=== PATIENT | female | born 1935 | race Caucasian/White ===

== ENCOUNTER 2020-06-11 14:03 | Outpatient (RCR) | payer MEDICARE, OTHER, SELFPAY | END 2020-06-14 15:19 | disposition home or self-care (01) | LOC: HO.WCC 14:03 | PROVIDERS: PCP Internal Medicine; Visit Provider Physician Assistant | DX: Z09 Encounter for follow-up examination after completed treatment for conditions other than malignant neoplasm (principal); E11.610 Type 2 diabetes mellitus with diabetic neuropathic arthropathy | CPT/HCPCS: 99212 ==

== ENCOUNTER 2020-06-29 14:17 | Inpatient (IN) | payer MEDICARE, OTHER, SELFPAY ==
[2020-06-29] VITALS (9 sets, daily range): BP systolic 129–159; BP diastolic 48–84; PULSE 83–104; RESP 16–31; TEMP 36.5–37.8; O2SAT 92–99; BMI 21.6
--- NOTE | ~2020-06-29 | XR_ITS ---
EXAMINATION: CHEST AND RIGHT FOOT. CLINICAL INFORMATION: SOB. COMPARISON: Chest x-ray 12/08/2019 TECHNIQUE: Chest upright portable one view. Right foot 3 views. FINDINGS: CHEST: The lungs are somewhat expanded with chronic atelectasis/scarring right upper lobe. Rest of the lungs are well-expanded and clear. The heart size and pulmonary vascularity is normal. The right central port with its tip in the mid SVC. There is mild levoscoliosis. No lytic process seen. RIGHT FOOT: There is a chronic flexion deformity of the foot with loss of joint space in the MTP joints. There is no visible acute fracture or dislocation seen. There is pes planus deformity of the right foot. There is moderate dorsal soft tissue swelling of the foot. The ankle mortise is normal. The subtalar joint is barely visible. XR/XR foot RT min 3V IMPRESSION: Chronic atelectasis/scarring right upper lobe. Rest of the lungs are clear. Chronic deformity right foot with loss of MTP joint space all digits. Moderate dorsal foot soft tissue swelling. Pes planus deformity right foot as well. No acute fracture seen.
--- NOTE | ~2020-06-29 | XR_ITS ---
EXAMINATION: CHEST AND RIGHT FOOT. CLINICAL INFORMATION: SOB. COMPARISON: Chest x-ray 12/08/2019 TECHNIQUE: Chest upright portable one view. Right foot 3 views. FINDINGS: CHEST: The lungs are somewhat expanded with chronic atelectasis/scarring right upper lobe. Rest of the lungs are well-expanded and clear. The heart size and pulmonary vascularity is normal. The right central port with its tip in the mid SVC. There is mild levoscoliosis. No lytic process seen. RIGHT FOOT: There is a chronic flexion deformity of the foot with loss of joint space in the MTP joints. There is no visible acute fracture or dislocation seen. There is pes planus deformity of the right foot. There is moderate dorsal soft tissue swelling of the foot. The ankle mortise is normal. The subtalar joint is barely visible. XR/XR chest 1V IMPRESSION: Chronic atelectasis/scarring right upper lobe. Rest of the lungs are clear. Chronic deformity right foot with loss of MTP joint space all digits. Moderate dorsal foot soft tissue swelling. Pes planus deformity right foot as well. No acute fracture seen.
--- NOTE | ~2020-06-29 | CT_ITS ---
EXAMINATION: CTA CHEST PE STUDY CLINICAL INFORMATION: h/o lung cancer, tachypnea, r/o pe COMPARISON: 03/03/2017 CT scan TECHNIQUE: Prior to contrast administration, noncontrast localization images were obtained. After the administration of 100 mL of Omnipaque 350 IV contrast, contiguous thin slice helical images were obtained through the thorax. Reformatted MIP images in the coronal and sagittal planes were obtained at the acquisition workstation. This CT examination was performed using dose optimization techniques as appropriate, variously including the following: *Automated exposure control *Adjustment of mA and/or kV according to patient size (this includes techniques or standardized protocols for targeted exams where dose is matched to indication/reason for exam; i.e. extremities or head) *Use of iterative reconstruction technique DLP: 373 mGy-cm. FINDINGS: The bolus timing on this study was acceptable for visualization of the pulmonary arterial tree. There are no intraluminal pulmonary arterial filling defects present to suggest pulmonary embolism. Patchy airspace disease is noted bilaterally left more so than right. There is debris or mucus impacted distal bronchi more so in the dependent lower lobes with associated peribronchial patchy airspace disease. Aspiration versus infectious etiology could have overlapping appearance. There is collapse of the right middle lobe with the bronchiectasis seen in the right upper lobe and right lower lobe. The bronchiectasis and impacted bronchi has significantly progressed from the 2017 [address] scan. 1.9 cm short axis precarinal lymph node is now present and was not seen on the 2017 CT scan. Additional smaller shotty lymph nodes otherwise. There is no evidence of pleural effusion or pneumothorax. The heart is normal in size. No evidence of ventricular septal bowing or right heart strain. Aortic and coronary artery vascular calcifications. Small hiatal hernia. Otherwise the mediastinum is unremarkable. There is no pericardial effusion or pericardial thickening. Right-sided chest port noted. Limited evaluation of the upper abdominal viscera demonstrates asymmetric fullness of the right adrenal gland likely representing a adrenal adenoma. This is noted on the [address]/CT angio chest PE protocol IMPRESSION: No evidence for pulmonary emboli. Bilateral bronchiectasis with peribronchial airspace disease and debris/mucus impacted bronchi bilaterally. Infectious etiologies would be suspected although chronic aspiration could have a similar appearance and should be clinically correlated. The right middle lobe is collapsed and not well assessed. There is worsened mediastinal adenopathy from the 2017 CT scan. VTE: Negative
--- NOTE | ~2020-06-29 | MR_ITS ---
EXAMINATION: MRI FOOT WITHOUT AND WITH CONTRAST, RIGHT CLINICAL INFORMATION: Diabetic foot wound COMPARISON: Radiographs 06/29/2020 TECHNIQUE: MRI without and with intravenous administration of 6 mL of Gadavist is performed on the right foot. FINDINGS: Skin markers overlie what may be shallow ulcers along the medial aspect of the 1st TMT joint, and plantar aspect of the midfoot, superficial to the distal cuboid. No underlying abscess. There is diffuse subcutaneous edema and enhancement, as well as reticular enhancement/edema within the intrinsic muscles of the foot which may reflect cellulitis. A small collection which is slightly complex and T1 hyperintense overlies the 2nd and 3rd TMT joints and may represent a small hematoma. This is lateral to the extensor hallucis longus tendon. Chronic fracture and arthritic deformities and remodeling across the TMT joints as well as the junction of the navicular and cuneiforms. Marrow edema is prominent at the 2nd TMT joint possibly representing a superimposed acute fracture or secondary to severe arthrosis. There is no convincing evidence of osteomyelitis. MR/MR foot RT wo/w con IMPRESSION: Prominent posttraumatic and arthritic deformities and probable shallow, superficial ulcers adjacent to the 1st TMT joint and plantar to the distal cuboid. No convincing evidence of osteomyelitis.
--- NOTE | 2020-06-29 15:04 | ECG_ITS ---
Test Reason : SOB Blood Pressure : / mmHG Vent. Rate : 094 BPM Atrial Rate : 094 BPM P-R Int : 136 ms QRS Dur : 074 ms QT Int : 334 ms P-R-T Axes : 063 025 047 degrees QTc Int : 417 ms Normal sinus rhythm Possible Left atrial enlargement Borderline ECG When compared with ECG of 16-FEB-2013 14:19, No significant change was found Referred By: Otilia Aviles Electronically Signed By:NORA ASH MD
--- NOTE | 2020-06-29 15:42 | ED_ITS ---
HPI - General Adult General Chief complaint: Wound/Laceration Stated complaint: open sore left foot Time Seen by Provider: 06/29/20 14:56 Source: patient Mode of arrival: ambulatory Limitations: no limitations History of Present Illness HPI narrative: 84-year-old female with a past medical history of noninsulin depe ndent DM, hypertension, hyperlipidemia, osteopenia, Charcot arthropathy with multiple foot surgeries, lung cancer currently receiving keytruda IV every [address] [place]ousse[place] [facility] [place] with complaints of wound to right foot. Patient tells me that she has had multiple foot surgeries and has had chronic wounds before. She has noticed a wound to the medial aspect of her right foot about 3-4 weeks ago. Several days later she noticed a 2nd wound to the plantar aspect of the foot. She tells me they started as a blister and now she noticed the more medial wound is red and warm. She tells me that she has lot of pain with weight-bearing and this morning she was unable to do so due to the amount of pain. No fevers or chills. She does report some pain which extends to the ankle with swelling and warmth. On arrival the patient was noted to be tachypneic. Patient tells me that she h as had some shortness of breath with a productive cough for the last few days. She tells me that she always has shortness of breath and a mild dry cough that these symptoms appear worse. She denies any weight gain, leg swelling, chest pain. Related Data Home Medications Medication Instructions Recorded Confirmed azithromycin 250 mg PO MOWEFR@1000 06/29/20 06/29/20 doxycycline hyclate 100 mg PO DAILY 06/29/20 06/29/20 metoprolol succinate 100 mg PO BID 06/29/20 06/29/20 ramipril 10 mg PO DAILY 06/29/20 06/29/20 sitagliptin [Januvia] 50 mg PO DAILY 06/29/20 06/29/20 tolterodine [Detrol LA] 4 mg PO BID 06/29/20 06/29/20 Allergies Allergy/AdvReac Type Severity Reaction Status Date / Time PLASTIC TAPE Allergy Intermediate RED RAW Uncoded 06/29/20 14:44 SKIN Review of Systems Review of Systems: Yes all other systems are reviewed and are negative Constitutional: Constitutional: Reports no additional constitutional complaints, Denies body ache(s), Denies chills, Denies fever(s), Denies headache(s) and Denies weakness Eyes: Eyes: Reports no additional eye complaints and Denies change in vision ENT: Reports system reviewed and no additional complaints, except as documented, Denies dizziness, Denies headache(s), Denies nasal congestion, Denies nasal discharge and Denies neck pain Cardiovascular: Cardiovascular: Reports no additional cardiovascular complaints, Denies chest pain, Denies leg edema and Reports dyspnea Respiratory: Respiratory: Reports no additional respiratory complaints, Reports cough and Reports dyspnea Gastrointestinal: Gastrointestinal: Reports no additional gastrointestinal complaints, Denies abdominal pain, Denies diarrhea, Denies nausea and Denies vomiting Genitourinary: Genitourinary: Reports no additional female genitourinary complaints and Denies urinary incontinence Musculoskeletal: Musculoskeletal: Reports no additional musculoskeletal complaints, Denies back pain, Reports arthralgias, Reports joint swelling, Denies neck pain, Denies numbness and Denies tingling Integumentary/Breasts: Skin/Breast: Reports system reviewed and no additional complaints, except as docu, Reports non-healing lesions, Reports erythema and Denies rash Neurologic: Reports system reviewed and no additional complaints, except as documented, Denies Abnormal speech present, Denies dizziness, Denies headache(s), Denies numbness, Denies tingling and Denies weakness PMFSH Past Medical History Attestation statement: The following information was validated with the patient. Source: old records reviewed and nursing notes reviewed Medical History Diabetes Hypercholesteremia Hypertension Lung cancer Toe amputee Social History Social History Alcohol intake: current Alcohol intake frequency: holidays/special occasions only Smoking Status: Former smoker Smoked in Last 30 Days: No Use of substances other than those prescribed or required for medical reasons: No Advance Directives: Yes Advance Directives Information Provided: Yes Advance Directives on File: No Physical Exam Vital Signs: Vital Signs: Last Vital Signs Temp 100.0 F 06/29/20 17:29 Pulse 103 H 06/29/20 17:29 Resp 20 06/29/20 17:29 BP 153/84 H 06/29/20 17:29 Pulse Ox 92 02/12/21 17:29 Body Mass Index 21.6 Const: General: cooperative and healthy appearing Orientation/consciousness: patient oriented x3 Limitations: no limitations HENMT: Head: Yes normal to inspection Ears: hearing grossly normal bilaterally General nose exam: Normal external nose present Face and sinus: Yes normal facial exam Mouth: Normal oral and palatal mucosa present Throat: Yes posterior oropharynx normal Eyes: General: appearance normal, both eyes and all related structures Pupils: Equal, round and reactive pupils present Neck: Neck: Yes normal visual inspection Chest: Chest palpation & inspection: normal inspection of the chest Resp: Other: Speaking short phrases with respiratory rate in the 30s Coarse breath sounds throughout, mild expiratory wheeze posteriorly Cardio: Rate: regular rate Rhythm: regular rhythm Peripheral pulses: Peripheral pulses 2+ throughout GI: Inspection: Yes normal to inspection Palpation (GI): Soft to palpation and nontender Auscultation: normal bowel sounds Back/Spine/Pelvis: Thoracic/Lumbar Spine: thoracic and lumbar spine normal to inspection Skin: General skin exam: no rashes or lesions noted Neuro: General: patient oriented x3, no focal motor deficits, normal sensation to monofilament and Unable to assess gait Cranial nerves: Yes Equal, round and reactive pupils present Cognition (Neuro): normal cognition Speech: No Abnormal speech present Gait exam (Neuro): Unable to assess gait Extrem: Other: Tenderness over both wound sites with no fluctuance or mathieu ration. Warmth over foot extending to ankle. Mild edema (non pitting) 1 + over ankle. Palpable pulse noted. Course Course Course Narrative: 1500-84 yo female with past medical history of noninsulin d ependent DM, hypertension, hyperlipidemia, osteopenia, Charcot arthropathy with multiple foot surgeries, lung cancer currently receiving keytruda IV every [address] [place] [facility] [place] with complaints of wound to right foot with pain, swelling and warmth, in addition to tachypnea and productive cough. On arrival tachypnic, tachycardic with coarse breath sounds throughout, mild exp wheezing. Stable saturations 93-94%. 2 wounds noted on right foot with erythema, warmth and tenderness. Will need labs including blood cultures, lactic acid, COVID test, CXR, foot x- ray and EKG. At this time infection is suspected. Antibiotics ordered. 1645-CXR shows chronic emphysematous changes, no acute infection. COVID negative. BNP mildly elevated with no previous to compare to. Continued ta chypnea and cough with WOB. Will check CTA to r/o PE. X-ray foot Chronic deformity right foot with loss of MTP joint space all digits. Moderate dorsal foot soft tissue swelling. Pes planus deformity right foot as well. No acute fracture seen. No evidence of osteomylitis but will likely need MRI. 1715-Port accessed by nursing. Flushes well but NO blood return. Will likely need port studies during admission. 1800-Sign out to Soraya MARTEL pending above. Medical Decision Making Medical Records Medical records reviewed: Yes I reviewed the patient's medical records. Lab Data Lab results reviewed: Yes I reviewed the patient's lab results. Result diagrams: 06/29/20 15:51 06/29/20 15:51 Labs: Lab Results 06/29/20 06/29/20 06/29/20 Range/Units 15:51 15:51 15:51 WBC 11.4 H (4.8-10.8) X10*3/uL RBC 3.85 L (4.20-5.50) X10*6/uL Hgb 11.5 L (12.0-16.0) g/dl Hct 35.9 L (37-47) % MCV 93.2 (80-98) fL MCH 29.9 (27.0-33.0) pg MCHC 32.0 (31.0-35.0) g/dl RDW 14.4 (11.0-16.0) % Plt Count 152 L (160-400) X10*3/uL MPV 10.4 (9.4-12.3) fL Immature Gran % (Auto) 0.8 H (0.0-0.4) % Neut % (Auto) 89.3 H (45-73) % Lymph % (Auto) 2.3 L (20-40) % [place] % (Auto) 7.3 (2-11) % Eos % (Auto) 0.0 (0-4) % Baso % (Auto) 0.3 (0-2) % Lymph # (Auto) 0.3 L (1.2-4.9) X10*3/uL [place] # (Auto) 0.8 (0.1-1.2) X10*3/uL Eos # (Auto) 0.0 (0.0-0.4) X10*3/uL Baso # (Auto) 0.0 (0.0-0.2) X10*3/uL Abs Immat Gran (auto) 0.09 H (0.00-0.03) X10*3/uL Absolute Neuts (auto) 10.2 H (2.0-8.3) X10*3/uL Absolute Nucleated RBC 0.000 (0.0-0.012) X10*3/uL Nucleated RBC % (auto) 0.0 (0.0-0.2) /100WBC Smear Tech's Comments VERIFIED PT 13.7 H (10.8-13.0) SEC INR 1.2 H (0.9-1.1) Sodium 140 (135-145) mmol/L Potassium 4.4 (3.3-5.1) mmol/L Chloride 104 (96-108) mmol/L Carbon Dioxide 25 (22-29) mmol/L Anion Gap 15 (12-20) BUN 20 H (9-16) mg/dL Creatinine 0.81 (0.5-1.4) mg/dL Estim Creat Clear Calc 45.6 Estimated GFR > 60 Random Glucose 171 H (60-115) mg/dL Lactic Acid (0.5-2.0) mmol/L Calcium 8.8 (8.4-10.2) mg/dL Magnesium 1.6 (1.6-2.6) mg/dL Total Bilirubin 0.5 (0.0-1.0) mg/dL Direct Bilirubin 0.3 (0.0-0.5) mg/dL AST 23 (5-31) U/L ALT 18 (0-31) U/L Alkaline Phosphatase 106 (39-117) U/L Troponin I High Sens (<3.5-17.0) ng/L B-Natriuretic Peptide (<100) pg/mL Total Protein 6.3 L (6.5-8.0) g/dL Albumin 2.9 L (3.5-5.0) g/dL COVID-19 (FADY) (Negative) COVID-19 Clin Com 06/29/20 06/29/20 06/29/20 Range/Units 15:51 15:51 15:51 WBC (4.8-10.8) X10*3/uL RBC (4.20-5.50) X10*6/uL Hgb (12.0-16.0) g/dl Hct (37-47) % MCV (80-98) fL MCH (27.0-33.0) pg MCHC (31.0-35.0) g/dl RDW (11.0-16.0) % Plt Count (160-400) X10*3/uL MPV (9.4-12.3) fL Immature Gran % (Auto) (0.0-0.4) % Neut % (Auto) (45-73) % Lymph % (Auto) (20-40) % [place] % (Auto) (2-11) % Eos % (Auto) (0-4) % Baso % (Auto) (0-2) % Lymph # (Auto) (1.2-4.9) X10*3/uL [place] # (Auto) (0.1-1.2) X10*3/uL Eos # (Auto) (0.0-0.4) X10*3/uL Baso # (Auto) (0.0-0.2) X10*3/uL Abs Immat Gran (auto) (0.00-0.03) X10*3/uL Absolute Neuts (auto) (2.0-8.3) X10*3/uL Absolute Nucleated RBC (0.0-0.012) X10*3/uL Nucleated RBC % (auto) (0.0-0.2) /100WBC Smear Tech's Comments PT (10.8-13.0) SEC INR (0.9-1.1) Sodium (135-145) mmol/L Potassium (3.3-5.1) mmol/L Chloride (96-108) mmol/L Carbon Dioxide (22-29) mmol/L Anion Gap (12-20) BUN (9-16) mg/dL Creatinine (0.5-1.4) mg/dL Estim Creat Clear Calc Estimated GFR Random Glucose (60-115) mg/dL Lactic Acid 3.1 H* (0.5-2.0) mmol/L Calcium (8.4-10.2) mg/dL Magnesium (1.6-2.6) mg/dL Total Bilirubin (0.0-1.0) mg/dL Direct Bilirubin (0.0-0.5) mg/dL AST (5-31) U/L ALT (0-31) U/L Alkaline Phosphatase (39-117) U/L Troponin I High Sens < 3.5 (<3.5-17.0) ng/L B-Natriuretic Peptide 300 H (<100) pg/mL Total Protein (6.5-8.0) g/dL Albumin (3.5-5.0) g/dL COVID-19 (FADY) Negative (Negative) COVID-19 Clin Com See Note Imaging Data Chest x-ray: Attestation: I personally reviewed and interpreted this imaging study as follows: Radiologist's impression: CHEST: The lungs are somewhat expanded with chronic atelectasis/scarring right upper lobe. Rest of the lungs are well-expanded and clear. The heart size and pulmonary vascularity is normal. The right central port with its tip in the mid SVC. There is mild levoscoliosis. No lytic process seen. foot- xray: Attestation: I personally reviewed and interpreted this imaging study as follows: Radiologist's impression: RIGHT FOOT: There is a chronic flexion deformity of the foot with loss of joint space in the MTP joints. There is no visible acute fracture or dislocation seen. There is pes planus deformity of the right foot. There is moderate dorsal soft tissue swelling of the foot. The ankle mortise is normal. The subtalar joint is barely visible. ECG Data Attestation: I personally reviewed and interpreted this ECG as follows: Interpretation: NSR with rate 94, normal pr, normal qrs, normal qtc Discharge Plan Discharge Prescriptions: No Action doxycycline hyclate 100 mg Capsule 100 mg PO DAILY RF: 0 azithromycin 250 mg Tablet 250 mg PO MOWEFR@1000 RF: 0 metoprolol succinate 100 mg Tablet Extended Release 24 Hr 100 mg PO BID RF: 0 tolterodine [Detrol LA] 4 mg Capsule,Extended Release 24hr 4 mg PO BID RF: 0 ramipril 10 mg Capsule 10 mg PO DAILY RF: 0 Januvia 50 mg Tablet 50 mg PO DAILY RF: 0
[2020-06-29] MEDS: Albuterol/Iprat 2.5/0.5MG 3 ML AMPUL.NEB INHALE (15:59)
[2020-06-29 16:03] LABS: Basophils Percent Auto 0.3 % (0-2); Hematocrit 35.9 % (37-47); Hemoglobin 11.5 g/dl (12.0-16.0); Imm Gran Abs Auto 0.09 X10*3/uL (0.00-0.03); Imm Gran Pct Auto 0.8 % (0.0-0.4); Lymphocytes Absolute Auto 0.3 X10*3/uL (1.2-4.9); Lymphocytes Percent Auto 2.3 % (20-40); MANUAL DIFF FLAG SCAN; Mean Corpuscular Hemoglobin 29.9 pg (27.0-33.0); Mean Corpuscular Volume 93.2 fL (80-98); Mean Platelet Volume 10.4 fL (9.4-12.3); Monocytes Absolute Auto 0.8 X10*3/uL (0.1-1.2); Monocytes Percent Auto 7.3 % (2-11); Neutrophils Absolute Auto 10.2 X10*3/uL (2.0-8.3); Neutrophils Percent Auto 89.3 % (45-73); Platelet Count 152 X10*3/uL (160-400); Red Blood Count 3.85 X10*6/uL (4.20-5.50); Red Cell Distribution Width 14.4 % (11.0-16.0); SCAN SMEAR FLAG 1; White Blood Count 11.4 X10*3/uL (4.8-10.8)
[2020-06-29] MEDS: Piperacillin Sodium/Tazobactam 3.375 GM in 0.9 % Sodium Chloride 50 ML IV (16:09)
[2020-06-29 16:11] LABS: INTERNATIONAL NORM RATIO 1.2 (0.9-1.1); Prothrombin Time 13.7 SEC (10.8-13.0)
[2020-06-29 16:23] LABS: COVID-19 Test Negative (Negative); IDNOW Serial# 9DD0AD1C
[2020-06-29 16:24] LABS: SLIDE REVIEW VERIFIED
[2020-06-29] MEDS: methylPREDNISolone Sod Succ/PF 125 MG/2 ML VIAL IVPUSH (16:28)
[2020-06-29 16:36] LABS: Alanine Aminotransferase 18 U/L (0-31); Albumin Level 2.9 g/dL (3.5-5.0); Alkaline Phosphatase 106 U/L (39-117); Anion Gap 15 (12-20); Aspartate Amino Transferase 23 U/L (5-31); Bilirubin Direct 0.3 mg/dL (0.0-0.5); Bilirubin Total 0.5 mg/dL (0.0-1.0); Blood Urea Nitrogen 20 mg/dL (9-16); Calcium 8.8 mg/dL (8.4-10.2); Carbon Dioxide 25 mmol/L (22-29); Chloride 104 mmol/L (96-108); Creatinine Clr Calc Pharmacy 45.6; Estimated Glomerular Filt Rate > 60; Glucose Random 171 mg/dL (60-115); Lactic Acid 3.1 mmol/L (0.5-2.0); Magnesium 1.6 mg/dL (1.6-2.6); Potassium 4.4 mmol/L (3.3-5.1); Sodium 140 mmol/L (135-145); Total Protein 6.3 g/dL (6.5-8.0)
[2020-06-29 16:43] LABS: B Type Natriuretic Peptide 300 pg/mL (<100); Troponin-I High Sensitivity < 3.5 ng/L (<3.5-17.0)
[2020-06-29] MEDS: 0.9 % Sodium Chloride 500 ML 999 ML IV (17:18)
--- NOTE | 2020-06-29 17:52 | PC.NURSE ---
Port Accessed. Provider aware of no blood return. Flushed without resistance.
[2020-06-29 18:00] LABS: Reflex Lactate? Lactic Acid Added
[2020-06-29] MEDS: vancomycin HCL 1,000 MG in 0.9 % Sodium Chloride 250 ML 270 MG IV (18:14)
[2020-06-29] MEDS: iohexoL 350 MG/ML 100 ML INFUS..BTL IV (18:36)
[2020-06-29 18:55] LABS: ~Lactic Acid-LAB USE ONLY 2.1 mmol/L (0.5-2.0)
--- NOTE | 2020-06-29 20:20 | P.HPHOSP_ITS ---
History of Present Illness Date of Service: 06/29/20 Chief Complaint: Foot wound This is an 84-year-old female with past medical history of diabetes, HTN, HLD, lung cancer, osteopenia, and diabetic neuropathy presents to the hospital with complaints of right foot wound, and severe pain right foot. Patient reports that about a week and half ago she noticed a bump at the bottom of her foot as well as an open wound at the medial aspect of her right foot. Her doctor referred her to the wound clinic, but per patient they recommended no intervention as she had no drainage. Patient reports that she continued to develop worsening pain the bump at the bottom of her right foot, 10/10, non- radiating, shooting pain, so severe that she can not even walk on that foot anymore. She also has noticed redness around the medial wound. She has swelling. She has no fever but chills. Patient reports chronic shortness of breath that has worsened in the past few weeks, also chronic cough that has not worsened, no sputum production, no chest pain, no abdominal pain, no nausea or vomiting, no diarrhea constipation. No urinary symptoms. No weakness, headache or change in vision. On arrival to the ED patient has a temp of 97.7?, pulse rate of 96, respiratory rate of 31, blood pressure 159/48, satting 95% on room air. Labs are significant for WBC of 11.4, Hgb of 11.5, ESR 55, PT 13.7, INR 1.2, lactic acid of 3.1 improved to 2.1 after fluids, CRP of 19.5, BNP of 300, Chest CT angiogram showed no pulmonary emboli. Bilateral bronchiectasis with peribronchial airspace disease and debris is/mucus impacted bronchi bilaterally. Infectious etiologies would be suspected although chronic aspiration could have a similar appearance. 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, 4th, and 5th toe, right 3rd and 4th toe, fracture femur, Family history: Denies Social history: Comes from home, denies any tobacco alcohol or illicit drugs Review of Systems Review of Systems: Yes all other systems are reviewed and are negative [facility] Medical History Diabetes Hx of osteomyelitis Hypercholesteremia Hypertension Lung cancer Toe amputee Social History Alcohol intake: current Alcohol intake frequency: holidays/special occasions only Smoking Status: Former smoker Smoked in Last 30 Days: No Use of substances other than those prescribed or required for medical reasons: No Advance Directives: Yes Advance Directives Information Provided: Yes Advance Directives on File: No Meds Allergies Allergy/AdvReac Type Severity Reaction Status Date / Time PLASTIC TAPE Allergy Intermediate RED RAW Uncoded 06/29/20 14:44 SKIN Active Medications: Current Medications Generic Name Dose Route Start Last Admin Trade Name Freq PRN Reason Stop Dose Admin Acetaminophen 650 mg 06/29/20 20:18 Acetaminophen 325 Mg Tablet PO Q6H PRN Pain, Mild (Pain Scale 1-3) Docusate Sodium 100 mg 06/29/20 20:18 Docusate Sodium 100 Mg Capsule PO DAILY PRN Constipation Enoxaparin Sodium 40 mg 06/29/20 20:30 Enoxaparin Sodium 40 Mg/0.4 Ml Syringe SUBCUT Q24H ROWAN Vancomycin HCl 1,000 mg/ 270 mls @ 270 mls/hr 06/29/20 20:18 Sodium Chloride IV Q12H ROWAN Piperacillin Sod/Tazobactam 50 mls @ 100 mls/hr 06/29/20 20:18 Sod 3.375 gm/ Sodium Chloride IV 06/29/20 20:47 ONCE ONE Metoprolol Succinate 100 mg 06/29/20 21:00 Metoprolol Succinate Er 100 Mg Tab.Er.24h PO BID [facility] Protocol Non-Formulary Medication 10 mg 06/30/20 09:00 Ramipril PO DAILY ROWAN Ondansetron HCl 4 mg 06/29/20 20:18 Ondansetron Hcl 4 Mg/2 Ml Vial IVPUSH Q8H PRN Nausea and Vomiting Oxycodone HCl 5 mg 06/29/20 20:20 Oxycodone Hcl Immed Release 5 Mg Tablet PO Q6H PRN Pain, Severe (Pain Scale 7-10) Pharmacy Consult 1 each 06/29/20 15:04 Consult Rx Perform Med Rec MISCELLANE ONCE PRN Consult order Pharmacy Consult 1 each 06/29/20 20:18 Consult Rx Vancomycin Dosing MISCELLANE DAILY PRN Consult order Sodium Chloride 3 ml 06/30/20 00:00 0.9 % Sodium Chloride Flush 3 Ml Syringe IVFLUSH QSHIFT [facility] Tolterodine Tartrate 4 mg 06/29/20 21:00 Tolterodine Tartrate La 4 Mg Cap.Er.24h PO BID [facility] Home Medications Medication Instructions Recorded Confirmed Last Taken Type azithromycin 250 mg PO MOWEFR@1000 06/29/20 06/29/20 Unknown History doxycycline hyclate 100 mg PO DAILY 06/29/20 06/29/20 Unknown History metoprolol succinate 100 mg PO BID 06/29/20 06/29/20 Unknown History ramipril 10 mg PO DAILY 06/29/20 06/29/20 Unknown History sitagliptin [Januvia] 50 mg PO DAILY 06/29/20 06/29/20 Unknown History tolterodine [Detrol LA] 4 mg PO BID 06/29/20 06/29/20 Unknown History Physical Exam Vital Signs and Narrative: Vital Signs: Last Vital Signs Temp 98.9 F 06/29/20 19:16 Pulse 97 06/29/20 19:16 Resp 30 H 06/29/20 19:16 BP 142/59 H 06/29/20 19:16 Pulse Ox 93 06/29/20 19:16 Body Mass Index 21.6 Const: General: cooperative and no acute distress Orientation/consciousness: patient oriented x3 Eyes: General: appearance normal, both eyes and all related structures Resp: Effort & Inspection: normal respiratory effort and able to speak in complete sentences Cardio: Rate: regular rate Rhythm: regular rhythm GI: Palpation (GI): Soft to palpation Auscultation: normal bowel sounds Skin: General skin exam: no rashes or lesions noted Neuro: General: patient oriented x3 Cognition (Neuro): normal cognition Extrem: Other: has an erythematous open wound on the medial aspect of right foot. warmth, tenderness. alsop has a bump at the dorsum of the foot that is tender. Results Labs CBC and Chem 7: 06/29/20 15:51 06/29/20 15:51 Labs: Laboratory Results - last 24 hr 06/29/20 06/29/20 06/29/20 15:51 15:51 15:51 MCV 93.2 MCH 29.9 MCHC 32.0 RDW 14.4 Plt Count 152 L MPV 10.4 Immature Gran % (Auto) 0.8 H Neut % (Auto) 89.3 H Lymph % (Auto) 2.3 L [place] % (Auto) 7.3 Eos % (Auto) 0.0 Baso % (Auto) 0.3 Lymph # (Auto) 0.3 L [place] # (Auto) 0.8 Eos # (Auto) 0.0 Baso # (Auto) 0.0 Abs Immat Gran (auto) 0.09 H Absolute Neuts (auto) 10.2 H Absolute Nucleated RBC 0.000 Nucleated RBC % (auto) 0.0 Smear Tech's Comments VERIFIED PT 13.7 H INR 1.2 H Anion Gap 15 Estim Creat Clear Calc 45.6 Estimated GFR > 60 Random Glucose 171 H Lactic Acid Lactic Acid Fup @ 2Hr Calcium 8.8 Magnesium 1.6 Total Bilirubin 0.5 Direct Bilirubin 0.3 AST 23 ALT 18 Alkaline Phosphatase 106 Troponin I High Sens B-Natriuretic Peptide Total Protein 6.3 L Albumin 2.9 L COVID-19 (FADY) [employer] 06/29/20 06/29/20 06/29/20 15:51 15:51 15:51 MCV MCH MCHC RDW Plt Count MPV Immature Gran % (Auto) Neut % (Auto) Lymph % (Auto) [place] % (Auto) Eos % (Auto) Baso % (Auto) Lymph # (Auto) [place] # (Auto) Eos # (Auto) Baso # (Auto) Abs Immat Gran (auto) Absolute Neuts (auto) Absolute Nucleated RBC Nucleated RBC % (auto) Smear Tech's Comments PT INR Anion Gap Estim Creat Clear Calc Estimated GFR Random Glucose Lactic Acid 3.1 H* Lactic Acid Fup @ 2Hr Calcium Magnesium Total Bilirubin Direct Bilirubin AST ALT Alkaline Phosphatase Troponin I High Sens < 3.5 B-Natriuretic Peptide 300 H Total Protein Albumin COVID-19 (FADY) Negative [employer] See Note 06/29/20 18:12 MCV MCH MCHC RDW Plt Count MPV Immature Gran % (Auto) Neut % (Auto) Lymph % (Auto) [place] % (Auto) Eos % (Auto) Baso % (Auto) Lymph # (Auto) [place] # (Auto) Eos # (Auto) Baso # (Auto) Abs Immat Gran (auto) Absolute Neuts (auto) Absolute Nucleated RBC Nucleated RBC % (auto) Smear Tech's Comments PT INR Anion Gap Estim Creat Clear Calc Estimated GFR Random Glucose Lactic Acid Lactic Acid Fup @ 2Hr 2.1 H* Calcium Magnesium Total Bilirubin Direct Bilirubin AST ALT Alkaline Phosphatase Troponin I High Sens B-Natriuretic Peptide Total Protein Albumin COVID-19 (FADY) COVID-19 Clin Com Imaging Radiologist's Impressions: Impressions Chest X-Ray 06/29/20 15:04 IMPRESSION: Chronic atelectasis/scarring right upper lobe. Rest of the lungs are clear. Chronic deformity right foot with loss of MTP joint space all digits. Moderate dorsal foot soft tissue swelling. Pes planus deformity right foot as well. No acute fracture seen. Foot X-Ray 06/29/20 15:04 IMPRESSION: Chronic atelectasis/scarring right upper lobe. Rest of the lungs are clear. Chronic deformity right foot with loss of MTP joint space all digits. Moderate dorsal foot soft tissue swelling. Pes planus deformity right foot as well. No acute fracture seen. Chest CTA 06/29/20 16:45 IMPRESSION: No evidence for pulmonary emboli. Bilateral bronchiectasis with peribronchial airspace disease and debris/mucus impacted bronchi bilaterally. Infectious etiologies would be suspected although chronic aspiration could have a similar appearance and should be clinically correlated. The right middle lobe is collapsed and not well assessed. There is worsened mediastinal adenopathy from the 2017 CT scan. 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 # diabetic foot ulcer - elevated ESR, elevated CRP, concerning for possible osteomyelitis - has evidence of cellulitis, including erythema, warmth, tenderness - at this time will empirically treat her with vancomycin and Zosyn - follow cultures - MRI to rule out osteomyelitis # leukocytosis - secondary to acute infection as above - antibiotics - follow CBC # Lactic acidosis - 2/2 infection - improved with iv fluids - Will trend - start IV fluids # hypertension - stable - continue home med # diabetes - start low-dose sliding scale insulin -diabetic diet # history of lung cancer DVT prophylaxis: Lovenox
[2020-06-29 20:21] LABS: Reflex Lactate? 2 Y
--- NOTE | 2020-06-29 20:42 | PC.NURSE ---
Per Dr. Geetha Carvalho and Rossi.
[2020-06-29 20:57] LABS: ~Lactic Acid-LAB USE ONLY 0.9 mmol/L (0.5-2.0)
[2020-06-29 21:00] LABS: C Reactive Protein 19.05 mg/dL (< or = 0.50)
--- NOTE | 2020-06-29 21:08 | PC.NURSE ---
Report called to med/surg. Awaiting callback.
[2020-06-29 21:21] LABS: Erythrocyte Sedimentation Rate 55 MM/HR (0-20)
[2020-06-29] MEDS: Metoprolol Succinate ER 100 MG TAB.ER.24H PO (21:34)
[2020-06-29] MEDS: Enoxaparin Sodium 40 MG/0.4 ML SYRINGE SUBCUT (21:35)
[2020-06-29] MEDS: Tolterodine Tartrate LA 4 MG CAP.ER.24H PO (21:40)
[2020-06-29 21:51] LABS: Glucose, Whole Blood 181 mg/dL (60-115)
[2020-06-30] VITALS (7 sets, daily range): BP systolic 112–141; BP diastolic 57–66; PULSE 73–84; RESP 16–19; TEMP 36.7–37.2; O2SAT 94–98
[2020-06-30] MEDS: 0.9 % Sodium Chloride Flush 3 ML SYRINGE IVFLUSH ×3 (00:07→16:08)
[2020-06-30 02:19] LABS: Glucose Urine UA NEG (NEG); Leukocyte Esterase Urine NEG (NEG); Nitrite Urine NEG (NEG); Urine Blood NEG (NEG); Urine Ketones 5 MG/DL (NEG); Urine Protein NEG (NEG-TRACE)
[2020-06-30 02:23] LABS: Appearance Urine CLEAR; Color Urine YELLOW
--- NOTE | 2020-06-30 07:01 | PC.NURSE ---
This patient's monitor watched by SOTERO Kessler RN for 11-7a
[2020-06-30 07:23] LABS: Basophils Percent Auto 0.2 % (0-2); Hematocrit 30.5 % (37-47); Hemoglobin 10.1 g/dl (12.0-16.0); MANUAL DIFF FLAG SCAN; Mean Corpuscular HGB Conc 33.1 g/dl (31.0-35.0); PLT CLUMP 1; SCAN SMEAR FLAG 1
[2020-06-30 07:26] LABS: Imm Gran Abs Auto 0.06 X10*3/uL (0.00-0.03); Imm Gran Pct Auto 0.5 % (0.0-0.4); Lymphocytes Absolute Auto 0.4 X10*3/uL (1.2-4.9); Lymphocytes Percent Auto 3.6 % (20-40); Mean Corpuscular Hemoglobin 30.4 pg (27.0-33.0); Mean Corpuscular Volume 91.9 fL (80-98); Mean Platelet Volume 10.3 fL (9.4-12.3); Monocytes Absolute Auto 0.7 X10*3/uL (0.1-1.2); Monocytes Percent Auto 6.5 % (2-11); Neutrophils Absolute Auto 9.9 X10*3/uL (2.0-8.3); Neutrophils Percent Auto 89.2 % (45-73); Platelet Count 138 X10*3/uL (160-400); Red Blood Count 3.32 X10*6/uL (4.20-5.50); Red Cell Distribution Width 14.6 % (11.0-16.0); White Blood Count 11.1 X10*3/uL (4.8-10.8)
[2020-06-30 07:43] LABS: Glucose, Whole Blood 153 mg/dL (60-115)
[2020-06-30 07:48] LABS: Anion Gap 13 (12-20); Blood Urea Nitrogen 17 mg/dL (9-16); Carbon Dioxide 23 mmol/L (22-29); Chloride 105 mmol/L (96-108); Creatinine Clr Calc Pharmacy 55.2; Estimated Glomerular Filt Rate > 60; Glucose Random 149 mg/dL (60-115); Potassium 3.7 mmol/L (3.3-5.1); Sodium 137 mmol/L (135-145)
[2020-06-30 07:57] LABS: Calcium 8.1 mg/dL (8.4-10.2)
[2020-06-30 08:46] LABS: SLIDE REVIEW VERIFIED
[2020-06-30] MEDS: Metoprolol Succinate ER 100 MG TAB.ER.24H PO ×2 (08:50→21:34)
[2020-06-30] MEDS: oxyCODONE HCl Immed Release 5 MG TABLET PO (08:50)
[2020-06-30] MEDS: Tolterodine Tartrate LA 4 MG CAP.ER.24H PO ×2 (08:50→21:35)
[2020-06-30] MEDS: Piperacillin Sodium/Tazobactam 3.375 GM in 0.9 % Sodium Chloride 50 ML IV ×3 (08:50→21:36)
[2020-06-30] MEDS: vancomycin HCL 500 MG in 0.9 % Sodium Chloride 100 ML 110 MG IV ×2 (09:31→18:56)
--- NOTE | 2020-06-30 10:51 | P.PNIM_ITS ---
Subjective Subjective Date of Service: 06/30/20 Interval History: seen and examined this AM reports foot pain; reports worsening when bearing weight denies fevers or chills ROS General - no fevers or chills Cardiovascular - no chest pain Respiratory - no shortness of breath or cough Abdominal- no abdominal pain, nausea, vomiting, diarrhea Physical Exam Vital Signs: Vital Signs: Last Vital Signs Temp 98.3 F 06/30/20 07:35 Pulse 76 06/30/20 07:35 Resp 19 06/30/20 07:35 BP 134/62 06/30/20 07:35 Pulse Ox 94 06/30/20 07:35 Body Mass Index 21.6 Const: Other: General - no acute distress, appears comfortable Cardiovascular - regular rate and rhythm, S1-S2 Lungs - normal respiratory effort, clear to auscultation bilaterally, no wheezing Abdomen - soft, nontender, no rebound or guarding Extremities - no edema bilaterally Neuro - awake and alert, no focal deficits Skin: Other: Objective Data Current Medications Generic Name Dose Route Start Last Admin Trade Name Rjq PRN Reason Stop Dose Admin Acetaminophen 650 mg 06/29/20 20:18 Acetaminophen 325 Mg Tablet PO Q6H PRN Pain, Mild (Pain Scale 1-3) Docusate Sodium 100 mg 06/29/20 20:18 Docusate Sodium 100 Mg Capsule PO DAILY PRN Constipation Enoxaparin Sodium 40 mg 06/29/20 20:30 06/29/20 21:35 Enoxaparin Sodium 40 Mg/0.4 Ml Syringe SUBCUT 40 mg Q24H [facility] Administration Vancomycin HCl 500 mg/ Sodium 110 mls @ 110 mls/hr 06/30/20 07:00 06/30/20 09:31 Chloride IV 110 mls/hr Q12H [facility] Administration Piperacillin Sod/Tazobactam 50 mls @ 100 mls/hr 06/30/20 09:00 06/30/20 09:26 Sod 3.375 gm/ Sodium Chloride IV Infused Q6H [facility] Infusion Insulin Human Lispro 0 unit 06/30/20 07:30 06/30/20 08:10 Insulin Lispro 100 Unit/Ml 3 Ml Vial SUBCUT Not Given QIDACHS [facility] Protocol Metoprolol Succinate 100 mg 06/29/20 21:00 06/30/20 08:50 Metoprolol Succinate Er 100 Mg Tab.Er.24h PO 100 mg BID [facility] Administration Protocol Non-Formulary Medication 10 mg 06/30/20 09:00 Ramipril PO DAILY [facility] Ondansetron HCl 4 mg 06/29/20 20:18 Ondansetron Hcl 4 Mg/2 Ml Vial IVPUSH Q8H PRN Nausea and Vomiting Oxycodone HCl 5 mg 06/29/20 20:20 06/30/20 08:50 Oxycodone Hcl Immed Release 5 Mg Tablet PO 5 mg Q6H PRN Administration Pain, Severe (Pain Scale 7-10) Pharmacy Consult 1 each 06/29/20 15:04 Consult Rx Perform Med Rec MISCELLANE ONCE PRN Consult order Pharmacy Consult 1 each 06/29/20 20:18 Consult Rx Vancomycin Dosing MISCELLANE DAILY PRN Consult order Sodium Chloride 3 ml 06/30/20 00:00 06/30/20 08:51 0.9 % Sodium Chloride Flush 3 Ml Syringe IVFLUSH 3 ml QSHIFT [facility] Administration Tolterodine Tartrate 4 mg 06/29/20 21:00 06/30/20 08:50 Tolterodine Tartrate La 4 Mg Cap.Er.24h PO 4 mg BID [facility] Administration Labs CBC & Chem 7: 06/30/20 07:00 06/30/20 07:00 Assessment and Plan (1) Diabetic foot ulcer: Status: Acute (2) Hx of osteomyelitis: Status: Inactive (3) Hypercholesteremia: Status: Acute (4) Lung cancer: Status: Acute (5) Hypertension: Status: Acute (6) Diabetes: Status: Acute (7) Leukocytosis: Status: Acute (8) Lactic acid acidosis: Status: Acute Assessment and Plan: This is an 84-year-old female with past medical history of diabetes and diabetic neuropathy status post osteomyelitis of multiple toes in bilateral feet presents to the hospital with a wound on the medial aspect of right foot as well as at bump at the bottom of her right foot. 1. diabetic foot ulcer concern over osteo -- to get MRI done today vancomyin/zosyn, monitor renal function + vancomyin trough f/u cultures 2. ? Bronchopneumonia on CT pt endorses some non-productive cough but clincally no respiratory distress / symptoms. on RA, no tachypnea on vancomcyin/zosyn for diabetic foot will give nebs + mucolytics 3. DM diabetic diet sliding scale hold home po meds 4. HTN continue metoprolol 5.history of lung cancer outpatient f/u DNR/DNI DVT pptx, Lovenox
[2020-06-30] MEDS: Albuterol/Iprat 2.5/0.5MG 3 ML AMPUL.NEB INHALE ×3 (11:33→19:44)
[2020-06-30 11:48] LABS: Glucose, Whole Blood 214 mg/dL (60-115)
--- NOTE | 2020-06-30 13:00 | W.PM.IDCN ---
History of Present Illness Data of Consult Service Date: 06/30/20 Requesting physician: Andrey Bella Primary Care Provider: Pelon Haddad MD HPI Reason for consult: right foot infection She presents to hospital with right foot redness and drainage. She had started with 3-4 weeks ago right foot redness as detailed in pictures lateral right foot She then developed 2-3 weeks plantar wound opening She has Charcot foot bilaterally and has had amputations DIP bilateral toes that have healed well Review of Systems Review of Systems: Yes all other systems are reviewed and are negative [facility] Past Medical History Medical History Diabetes Hx of osteomyelitis Hypercholesteremia Hypertension Lung cancer Toe amputee Family History Family history: reviewed and not pertinent Social History Social History Alcohol intake: current Alcohol intake frequency: holidays/special occasions only Smoking Status: Former smoker Smoked in Last 30 Days: No Use of substances other than those prescribed or required for medical reasons: No Currently Displaying Signs/Symptoms of Drug Intoxication Withdrawal: No Advance Directives: Yes Advance Directives Information Provided: Yes Advance Directives on File: No Do you have thoughts of harming others: None Do you have a plan to hurt others: No Plan Meds Allergies Allergy/AdvReac Type Severity Reaction Status Date / Time PLASTIC TAPE Allergy Intermediate RED RAW Uncoded 06/29/20 14:44 SKIN Active Medications: Current Medications Generic Name Dose Route Start Last Admin Trade Name Freq PRN Reason Stop Dose Admin Acetaminophen 650 mg 06/29/20 20:18 Acetaminophen 325 Mg Tablet PO Q6H PRN Pain, Mild (Pain Scale 1-3) Albuterol/Ipratropium 3 ml 06/30/20 12:00 06/30/20 11:33 Albuterol/Iprat 2.5/0.5mg 3 Ml Ampul.Neb INHALE 3 ml RQ4H WHILE AWAKE [facility] Administration Docusate Sodium 100 mg 06/29/20 20:18 Docusate Sodium 100 Mg Capsule PO DAILY PRN Constipation Enoxaparin Sodium 40 mg 06/29/20 20:30 06/29/20 21:35 Enoxaparin Sodium 40 Mg/0.4 Ml Syringe SUBCUT 40 mg Q24H [facility] Administration Guaifenesin 600 mg 06/30/20 21:00 Guaifenesin La 600 Mg Tab.Er.12h PO BID [facility] Vancomycin HCl 500 mg/ Sodium 110 mls @ 110 mls/hr 06/30/20 07:00 06/30/20 11:38 Chloride IV Infused Q12H [facility] Infusion Piperacillin Sod/Tazobactam 50 mls @ 100 mls/hr 06/30/20 09:00 06/30/20 09:26 Sod 3.375 gm/ Sodium Chloride IV Infused Q6H [facility] Infusion Insulin Human Lispro 0 unit 06/30/20 07:30 06/30/20 08:10 Insulin Lispro 100 Unit/Ml 3 Ml Vial SUBCUT Not Given QIDACHS [facility] Protocol Lisinopril 40 mg 07/01/20 09:00 Lisinopril 40 Mg Tablet PO DAILY [facility] Metoprolol Succinate 100 mg 06/29/20 21:00 06/30/20 08:50 Metoprolol Succinate Er 100 Mg Tab.Er.24h PO 100 mg BID [facility] Administration Protocol Ondansetron HCl 4 mg 06/29/20 20:18 Ondansetron Hcl 4 Mg/2 Ml Vial IVPUSH Q8H PRN Nausea and Vomiting Oxycodone HCl 5 mg 06/29/20 20:20 06/30/20 08:50 Oxycodone Hcl Immed Release 5 Mg Tablet PO 5 mg Q6H PRN Administration Pain, Severe (Pain Scale 7-10) Pharmacy Consult 1 each 06/29/20 15:04 Consult Rx Perform Med Rec MISCELLANE ONCE PRN Consult order Pharmacy Consult 1 each 06/29/20 20:18 Consult Rx Vancomycin Dosing MISCELLANE DAILY PRN Consult order Sodium Chloride 3 ml 06/30/20 00:00 06/30/20 08:51 0.9 % Sodium Chloride Flush 3 Ml Syringe IVFLUSH 3 ml QSHIFT [facility] Administration Tolterodine Tartrate 4 mg 06/29/20 21:00 06/30/20 08:50 Tolterodine Tartrate La 4 Mg Cap.Er.24h PO 4 mg BID [facility] Administration Home Medications Medication Instructions Recorded Confirmed Last Taken Type azithromycin 250 mg PO [id number] 06/29/20 06/29/20 Unknown History doxycycline hyclate 100 mg PO DAILY 06/29/20 06/29/20 Unknown History metoprolol succinate 100 mg PO BID 06/29/20 06/29/20 Unknown History ramipril 10 mg PO DAILY 06/29/20 06/29/20 Unknown History sitagliptin [Januvia] 50 mg PO DAILY 06/29/20 06/29/20 Unknown History tolterodine [Detrol LA] 4 mg PO BID 06/29/20 06/29/20 Unknown History Physical Exam Vital Signs: Vital Signs: Last Vital Signs Temp 98.9 F 06/30/20 11:32 Pulse 80 06/30/20 11:32 Resp 16 06/30/20 11:32 BP 139/64 06/30/20 11:32 Pulse Ox 94 06/30/20 11:32 Body Mass Index 21.6 Const: General: cooperative Orientation/consciousness: patient oriented x3 HENMT: Head: Yes normal to inspection Mouth: Normal oral and palatal mucosa present Eyes: General: appearance normal, both eyes and all related structures Resp: Effort & Inspection: normal respiratory effort Cardio: Rate: regular rate Rhythm: regular rhythm GI: Palpation (GI): Soft to palpation and nontender : General: Yes no CVA tenderness Back/Spine/Pelvis: Back: no CVA tenderness Skin: General skin exam: no rashes or lesions noted Neuro: General: patient oriented x3 Extrem: Other: right foot with one cm lateral wound,red plantar area open as well Ankle/foot/toe images: 1. 1 cm red area,serous drainage 2. 1 cm clean wound,no drainage Results Labs CBC & Chem 7: 06/30/20 07:00 06/30/20 07:00 Labs: Short CBC 06/29/20 06/30/20 Range/Units 15:51 07:00 WBC 11.4 H 11.1 H (4.8-10.8) X10*3/uL Hgb 11.5 L 10.1 L (12.0-16.0) g/dl Hct 35.9 L 30.5 L (37-47) % Plt Count 152 L 138 L (160-400) X10*3/uL BMP 06/29/20 06/30/20 15:51 07:00 Sodium 140 137 Potassium 4.4 3.7 Chloride 104 105 Carbon Dioxide 25 23 BUN 20 H 17 H Creatinine 0.81 0.67 Calcium 8.8 8.1 L D Liver Function 06/29/20 Range/Units 15:51 Total Bilirubin 0.5 (0.0-1.0) mg/dL Direct Bilirubin 0.3 (0.0-0.5) mg/dL AST 23 (5-31) U/L ALT 18 (0-31) U/L Alkaline Phosphatase 106 (39-117) U/L Albumin 2.9 L (3.5-5.0) g/dL Urine 06/30/20 Range/Units 02:09 Urine Color YELLOW Urine Appearance CLEAR Urine pH 6.0 (5.0-8.0) Ur Specific O'Brien 1.010 (1.005-1.025) Urine Protein NEG (NEG-TRACE) MG/DL Urine Glucose (UA) NEG (NEG) MG/DL Assessment and Plan (1) Diabetic foot ulcer: Problem details: This is possible staph/strep Prior foot surgeries Infection recent Status: Acute Continue antibiotics Await any cultures MRI to see if osteomyelitis (2) Leukocytosis: Status: Acute (3) Diabetes: Status: Acute
[2020-06-30] MEDS: Insulin Lispro 100 UNIT/ML 3 ML VIAL SUBCUT ×3 (13:07→21:32)
[2020-06-30 16:27] LABS: Glucose, Whole Blood 172 mg/dL (60-115)
[2020-06-30 20:24] LABS: Glucose, Whole Blood 171 mg/dL (60-115)
[2020-06-30] MEDS: Enoxaparin Sodium 40 MG/0.4 ML SYRINGE SUBCUT (21:32)
[2020-06-30] MEDS: guaiFENesin LA 600 MG TAB.ER.12H PO (21:35)
[2020-06-30] MEDS: Acetaminophen 325 MG TABLET 650 MG PO (21:40)
[2020-07-01] VITALS (11 sets, daily range): BP systolic 113–160; BP diastolic 56–69; PULSE 86–93; RESP 18–20; TEMP 37–37.7; O2SAT 88–98
[2020-07-01] MEDS: 0.9 % Sodium Chloride Flush 3 ML SYRINGE IVFLUSH ×4 (00:07→23:40)
[2020-07-01] MEDS: Piperacillin Sodium/Tazobactam 3.375 GM in 0.9 % Sodium Chloride 50 ML IV ×4 (03:33→21:26)
[2020-07-01 07:11] LABS: Glucose, Whole Blood 109 mg/dL (60-115)
[2020-07-01] MEDS: Albuterol/Iprat 2.5/0.5MG 3 ML AMPUL.NEB INHALE ×4 (07:28→20:15)
[2020-07-01 08:15] LABS: Vancomycin Trough 11.9 mcg/mL (10.0-20.0)
[2020-07-01] MEDS: guaiFENesin LA 600 MG TAB.ER.12H PO ×2 (08:36→20:20)
[2020-07-01] MEDS: Tolterodine Tartrate LA 4 MG CAP.ER.24H PO ×2 (08:36→20:16)
[2020-07-01] MEDS: Metoprolol Succinate ER 100 MG TAB.ER.24H PO ×2 (08:36→20:19)
[2020-07-01 08:37] LABS: Hemoglobin 11.3 g/dl (12.0-16.0); Mean Corpuscular Hemoglobin 30.1 pg (27.0-33.0); PLT CLUMP 1; Red Blood Count 3.76 X10*6/uL (4.20-5.50)
[2020-07-01 08:39] LABS: Hematocrit 34.9 % (37-47); Mean Corpuscular HGB Conc 32.4 g/dl (31.0-35.0); Mean Corpuscular Volume 92.8 fL (80-98); Mean Platelet Volume 10.6 fL (9.4-12.3); Platelet Count 145 X10*3/uL (160-400); Red Cell Distribution Width 14.5 % (11.0-16.0); White Blood Count 14.1 X10*3/uL (4.8-10.8)
[2020-07-01 08:59] LABS: Anion Gap 15 (12-20); Blood Urea Nitrogen 17 mg/dL (9-16); Calcium 8.4 mg/dL (8.4-10.2); Carbon Dioxide 23 mmol/L (22-29); Chloride 102 mmol/L (96-108); Creatinine Clr Calc Pharmacy 48.6; Estimated Glomerular Filt Rate > 60; Glucose Random 117 mg/dL (60-115); Potassium 3.5 mmol/L (3.3-5.1); Sodium 136 mmol/L (135-145)
[2020-07-01] MEDS: vancomycin HCL 500 MG in 0.9 % Sodium Chloride 100 ML 110 MG IV ×2 (09:12→20:17)
[2020-07-01 11:28] LABS: Glucose, Whole Blood 242 mg/dL (60-115)
--- NOTE | 2020-07-01 11:36 | MHC.CM.PN ---
PATIENT LIVES ALONE. HER NIECE IS HER HCP AGENT, WHICH IS BELIEVED TO BE ON FILE AT [facility] PATIENT USES A WALKER AND TRANSPORT VIA [employer] SHUTTLE. SHE HAS INFUSION VISITS AT [facility] FOR THE PAST 1.5 YEARS. PATIENT REPORTS THAT SHE IS EXPECTED TO BE HERE UNTIL AT LEAST THURSDAY; POSSIBLY LATER. CASE MANAGEMENT FOLLOWING FOR DISCHARGE NEEDS. IMM 06/30 IN CHART. Initialized on 06/30/20 16:00 - END OF NOTE
[2020-07-01] MEDS: Insulin Lispro 100 UNIT/ML 3 ML VIAL SUBCUT ×2 (12:17→17:41)
--- NOTE | 2020-07-01 14:11 | HO.PM.IMPN ---
Subjective Subjective Date of Service: 07/01/20 Interval History: seen and examined this AM no new complaints, has foot pain for which meds help ROS General - no fevers or chills Cardiovascular - no chest pain Respiratory - no shortness of breath or cough Abdominal- no abdominal pain, nausea, vomiting, diarrhea Physical Exam Vital Signs: Vital Signs: Last Vital Signs Temp 99.2 F 07/01/20 12:00 Pulse 90 07/01/20 12:00 Resp 20 07/01/20 12:00 BP 142/64 H 07/01/20 12:00 Pulse Ox 97 07/01/20 12:00 Body Mass Index 21.6 Const: Other: General - no acute distress, appears comfortable Cardiovascular - regular rate and rhythm, S1-S2 Lungs - normal respiratory effort, clear to auscultation bilaterally, no wheezing Abdomen - soft, nontender, no rebound or guarding Extremities - no edema bilaterally Neuro - awake and alert, no focal deficits SKin - wounds about the same as yesterday Objective Data Current Medications Generic Name Dose Route Start Last Admin Trade Name Rjq PRN Reason Stop Dose Admin Acetaminophen 650 mg 06/29/20 20:18 06/30/20 21:40 Acetaminophen 325 Mg Tablet PO 650 mg Q6H PRN Administration Pain, Mild (Pain Scale 1-3) Albuterol/Ipratropium 3 ml 06/30/20 12:00 07/01/20 11:34 Albuterol/Iprat 2.5/0.5mg 3 Ml Ampul.Neb INHALE 3 ml RQ4H WHILE AWAKE [facility] Administration Docusate Sodium 100 mg 06/29/20 20:18 Docusate Sodium 100 Mg Capsule PO DAILY PRN Constipation Enoxaparin Sodium 40 mg 06/29/20 20:30 06/30/20 21:32 Enoxaparin Sodium 40 Mg/0.4 Ml Syringe SUBCUT 40 mg Q24H [facility] Administration Guaifenesin 600 mg 06/30/20 21:00 07/01/20 08:36 Guaifenesin La 600 Mg Tab.Er.12h PO 600 mg BID [facility] Administration Vancomycin HCl 500 mg/ Sodium 110 mls @ 110 mls/hr 06/30/20 07:00 07/01/20 10:18 Chloride IV Infused Q12H [facility] Infusion Piperacillin Sod/Tazobactam 50 mls @ 100 mls/hr 06/30/20 09:00 07/01/20 09:11 Sod 3.375 gm/ Sodium Chloride IV Infused Q6H [facility] Infusion Insulin Human Lispro 0 unit 06/30/20 07:30 07/01/20 12:17 Insulin Lispro 100 Unit/Ml 3 Ml Vial SUBCUT 4 unit QIDACHS [facility] Administration Protocol Lisinopril 40 mg 07/01/20 09:00 07/01/20 08:36 Lisinopril 40 Mg Tablet PO 40 mg DAILY [facility] Administration Metoprolol Succinate 100 mg 06/29/20 21:00 07/01/20 08:36 Metoprolol Succinate Er 100 Mg Tab.Er.24h PO 100 mg BID [facility] Administration Protocol Ondansetron HCl 4 mg 06/29/20 20:18 Ondansetron Hcl 4 Mg/2 Ml Vial IVPUSH Q8H PRN Nausea and Vomiting Oxycodone HCl 5 mg 06/29/20 20:20 06/30/20 08:50 Oxycodone Hcl Immed Release 5 Mg Tablet PO 5 mg Q6H PRN Administration Pain, Severe (Pain Scale 7-10) Pharmacy Consult 1 each 06/29/20 15:04 Consult Rx Perform Med Rec MISCELLANE ONCE PRN Consult order Pharmacy Consult 1 each 06/29/20 20:18 Consult Rx Vancomycin Dosing MISCELLANE DAILY PRN Consult order Sodium Chloride 3 ml 06/30/20 00:00 07/01/20 08:04 0.9 % Sodium Chloride Flush 3 Ml Syringe IVFLUSH 3 ml QSHIFT [facility] Administration Tolterodine Tartrate 4 mg 06/29/20 21:00 07/01/20 08:36 Tolterodine Tartrate La 4 Mg Cap.Er.24h PO 4 mg BID [facility] Administration Labs CBC & Chem 7: 07/01/20 08:24 07/01/20 08:24 Microbiology Microbiology Results: Microbiology 06/29/20 15:51 Blood - Venous Blood Culture - Preliminary Staphylococcus species 06/29/20 15:53 Blood - Venous Blood Culture - Preliminary Staphylococcus species Assessment and Plan (1) Diabetic foot ulcer: Problem details: This is possible staph/strep Prior foot surgeries Infection recent Status: Acute (2) Hx of osteomyelitis: Status: Inactive (3) Hypercholesteremia: Status: Acute (4) Lung cancer: Status: Acute (5) Hypertension: Status: Acute (6) Diabetes: Status: Acute (7) Leukocytosis: Status: Acute (8) Lactic acid acidosis: Status: Acute Assessment and Plan: This is an 84-year-old female with past medical history of diabetes and diabetic neuropathy status post osteomyelitis of multiple toes in bilateral feet presents to the hospital with a wound on the medial aspect of right foot as well as at bump at the bottom of her right foot. 1. diabetic foot ulcer concern over osteo -- MRI pending vancomyin/zosyn, monitor renal function + vancomyin trough f/u cultures ID input appreciated 2. ? Bronchopneumonia on CT pt endorses some non-productive cough but clincally no respiratory distress / symptoms. on RA, no tachypnea on vancomcyin/zosyn for diabetic foot will give nebs + mucolytics 3. DM diabetic diet sliding scale hold home po meds 4. HTN continue metoprolol 5.history of lung cancer outpatient f/u DNR/DNI DVT pptx, Lovenox
[2020-07-01 16:40] LABS: Glucose, Whole Blood 156 mg/dL (60-115)
[2020-07-01 20:08] LABS: Glucose, Whole Blood 96 mg/dL (60-115)
[2020-07-01] MEDS: Enoxaparin Sodium 40 MG/0.4 ML SYRINGE SUBCUT (20:19)
[2020-07-01] MEDS: oxyCODONE HCl Immed Release 5 MG TABLET PO (22:15)
[2020-07-02] VITALS (11 sets, daily range): BP systolic 118–150; BP diastolic 56–80; PULSE 64–95; RESP 16–20; TEMP 36.4–37.2; O2SAT 94–98
[2020-07-02] MEDS: Piperacillin Sodium/Tazobactam 3.375 GM in 0.9 % Sodium Chloride 50 ML IV ×4 (02:19→21:20)
[2020-07-02] MEDS: vancomycin HCL 500 MG in 0.9 % Sodium Chloride 100 ML 110 MG IV ×2 (06:13→20:01)
[2020-07-02 06:55] LABS: Hematocrit 28.3 % (37-47); Hemoglobin 9.2 g/dl (12.0-16.0); Mean Corpuscular HGB Conc 32.5 g/dl (31.0-35.0); Mean Corpuscular Hemoglobin 30.2 pg (27.0-33.0); Mean Corpuscular Volume 92.8 fL (80-98); Mean Platelet Volume 10.9 fL (9.4-12.3); Platelet Count 133 X10*3/uL (160-400); Red Blood Count 3.05 X10*6/uL (4.20-5.50); Red Cell Distribution Width 14.6 % (11.0-16.0); White Blood Count 9.2 X10*3/uL (4.8-10.8)
[2020-07-02 07:21] LABS: Anion Gap 12 (12-20); Blood Urea Nitrogen 13 mg/dL (9-16); Carbon Dioxide 23 mmol/L (22-29); Chloride 106 mmol/L (96-108); Creatinine Clr Calc Pharmacy 55.2; Estimated Glomerular Filt Rate > 60; Glucose Random 112 mg/dL (60-115); Potassium 3.7 mmol/L (3.3-5.1); Sodium 137 mmol/L (135-145)
[2020-07-02 07:37] LABS: Calcium 7.9 mg/dL (8.4-10.2)
[2020-07-02 07:41] LABS: Glucose, Whole Blood 115 mg/dL (60-115)
[2020-07-02] MEDS: Albuterol/Iprat 2.5/0.5MG 3 ML AMPUL.NEB INHALE ×4 (08:13→19:59)
[2020-07-02] MEDS: guaiFENesin LA 600 MG TAB.ER.12H PO ×2 (09:07→21:20)
[2020-07-02] MEDS: Tolterodine Tartrate LA 4 MG CAP.ER.24H PO ×2 (09:07→21:20)
[2020-07-02] MEDS: 0.9 % Sodium Chloride Flush 3 ML SYRINGE IVFLUSH ×3 (09:07→23:02)
[2020-07-02] MEDS: Metoprolol Succinate ER 100 MG TAB.ER.24H PO ×2 (09:08→21:20)
--- NOTE | 2020-07-02 09:18 | P.PNIM_ITS ---
Subjective Subjective Date of Service: 07/02/20 Interval History: seen and examined this AM reports foot pain better this AM awaiting MRI ROS General - no fevers or chills Cardiovascular - no chest pain Respiratory - no shortness of breath or cough Abdominal- no abdominal pain, nausea, vomiting, diarrhea Physical Exam Vital Signs: Vital Signs: Last Vital Signs Temp 97.7 F 07/02/20 07:23 Pulse 95 07/02/20 09:08 Resp 18 07/02/20 07:23 BP 126/56 L 07/02/20 09:08 Pulse Ox 94 07/02/20 07:23 Body Mass Index 21.6 Const: Other: General - no acute distress, appears comfortable Cardiovascular - regular rate and rhythm, S1-S2 Lungs - normal respiratory effort, clear to auscultation bilaterally, no wheezing Abdomen - soft, nontender, no rebound or guarding Extremities - no edema bilaterally Neuro - awake and alert, no focal deficits SKin - RLE wounds remain stable, no drainange Objective Data Current Medications Generic Name Dose Route Start Last Admin Trade Name Rjq PRN Reason Stop Dose Admin Acetaminophen 650 mg 06/29/20 20:18 06/30/20 21:40 Acetaminophen 325 Mg Tablet PO 650 mg Q6H PRN Administration Pain, Mild (Pain Scale 1-3) Albuterol/Ipratropium 3 ml 06/30/20 12:00 07/02/20 08:13 Albuterol/Iprat 2.5/0.5mg 3 Ml Ampul.Neb INHALE 3 ml RQ4H WHILE AWAKE ROWAN Administration Docusate Sodium 100 mg 06/29/20 20:18 Docusate Sodium 100 Mg Capsule PO DAILY PRN Constipation Enoxaparin Sodium 40 mg 06/29/20 20:30 07/01/20 20:19 Enoxaparin Sodium 40 Mg/0.4 Ml Syringe SUBCUT 40 mg Q24H ROWAN Administration Guaifenesin 600 mg 06/30/20 21:00 07/02/20 09:07 Guaifenesin La 600 Mg Tab.Er.12h PO 600 mg BID ROWAN Administration Vancomycin HCl 500 mg/ Sodium 110 mls @ 110 mls/hr 06/30/20 07:00 07/02/20 07:20 Chloride IV Infused Q12H ROWAN Infusion Piperacillin Sod/Tazobactam 50 mls @ 100 mls/hr 06/30/20 09:00 07/02/20 09:08 Sod 3.375 gm/ Sodium Chloride IV 100 mls/hr Q6H ROWAN Administration Insulin Human Lispro 0 unit 06/30/20 07:30 07/02/20 07:23 Insulin Lispro 100 Unit/Ml 3 Ml Vial SUBCUT Not Given QIDACHS [facility] Protocol Lisinopril 40 mg 07/01/20 09:00 07/02/20 09:08 Lisinopril 40 Mg Tablet PO 40 mg DAILY ROWAN Administration Metoprolol Succinate 100 mg 06/29/20 21:00 07/02/20 09:08 Metoprolol Succinate Er 100 Mg Tab.Er.24h PO 100 mg BID ROWAN Administration Protocol Ondansetron HCl 4 mg 06/29/20 20:18 Ondansetron Hcl 4 Mg/2 Ml Vial IVPUSH Q8H PRN Nausea and Vomiting Oxycodone HCl 5 mg 06/29/20 20:20 07/01/20 22:15 Oxycodone Hcl Immed Release 5 Mg Tablet PO 5 mg Q6H PRN Administration Pain, Severe (Pain Scale 7-10) Pharmacy Consult 1 each 06/29/20 15:04 Consult Rx Perform Med Rec MISCELLANE ONCE PRN Consult order Pharmacy Consult 1 each 06/29/20 20:18 Consult Rx Vancomycin Dosing MISCELLANE DAILY PRN Consult order Sodium Chloride 3 ml 06/30/20 00:00 07/02/20 09:07 0.9 % Sodium Chloride Flush 3 Ml Syringe IVFLUSH 3 ml QSHIFT ROWAN Administration Tolterodine Tartrate 4 mg 06/29/20 21:00 07/02/20 09:07 Tolterodine Tartrate La 4 Mg Cap.Er.24h PO 4 mg BID ROWAN Administration Labs CBC & Chem 7: 07/02/20 06:00 07/02/20 06:00 Microbiology Microbiology Results: Microbiology 06/29/20 15:53 Blood - Venous Blood Culture - Final Staphylococcus aureus 06/29/20 15:51 Blood - Venous Blood Culture - Final Staphylococcus aureus Assessment and Plan (1) Diabetic foot ulcer: Status: Acute (2) Hx of osteomyelitis: Status: Inactive (3) Hypercholesteremia: Status: Acute (4) Lung cancer: Status: Acute (5) Hypertension: Status: Acute (6) Diabetes: Status: Acute (7) Leukocytosis: Status: Acute (8) Lactic acid acidosis: Status: Acute Assessment and Plan: This is an 84-year-old female with past medical history of diabetes and diabetic neuropathy status post osteomyelitis of multiple toes in bilateral feet presents to the hospital with a wound on the medial aspect of right foot as well as at bump at the bottom of her right foot. 1. Diabetic foot ulcer concern over osteo -- MRI pending vancomyin/zosyn - day #3, monitor renal function + vancomyin trough f/u cultures ID input appreciated 2. ? Bronchopneumonia on CT pt endorses some non-productive cough but clinically no respiratory distress / symptoms. on RA, no tachypnea on vancomcyin/zosyn for diabetic foot will give nebs + mucolytics 3. DM diabetic diet sliding scale hold home po meds 4. HTN continue metoprolol 5.history of lung cancer outpatient f/u DNR/DNI DVT pptx, Lovenox dispo: pending MRI to determine duration of IV antibiotics
[2020-07-02 12:35] LABS: Glucose, Whole Blood 156 mg/dL (60-115)
[2020-07-02] MEDS: Insulin Lispro 100 UNIT/ML 3 ML VIAL SUBCUT ×2 (12:39→21:30)
[2020-07-02 16:24] LABS: Glucose, Whole Blood 108 mg/dL (60-115)
[2020-07-02 19:32] LABS: Vancomycin Trough 10.1 mcg/mL (10.0-20.0)
[2020-07-02] MEDS: Enoxaparin Sodium 40 MG/0.4 ML SYRINGE SUBCUT (20:01)
[2020-07-02 20:27] LABS: Glucose, Whole Blood 178 mg/dL (60-115)
[2020-07-02] MEDS: oxyCODONE HCl Immed Release 5 MG TABLET PO (23:01)
[2020-07-03] VITALS (12 sets, daily range): BP systolic 117–152; BP diastolic 59–81; PULSE 76–112; RESP 16–20; TEMP 36.5–37.2; O2SAT 92–98
[2020-07-03] MEDS: Piperacillin Sodium/Tazobactam 3.375 GM in 0.9 % Sodium Chloride 50 ML IV (02:16)
[2020-07-03 06:07] LABS: PLT CLUMP 1; Red Cell Distribution Width 14.5 % (11.0-16.0)
[2020-07-03 06:09] LABS: Hematocrit 28.6 % (37-47); Hemoglobin 9.3 g/dl (12.0-16.0); Mean Corpuscular HGB Conc 32.5 g/dl (31.0-35.0); Mean Corpuscular Hemoglobin 30.1 pg (27.0-33.0); Mean Corpuscular Volume 92.6 fL (80-98); Mean Platelet Volume 10.3 fL (9.4-12.3); Platelet Count 144 X10*3/uL (160-400); Red Blood Count 3.09 X10*6/uL (4.20-5.50); White Blood Count 10.5 X10*3/uL (4.8-10.8)
[2020-07-03] MEDS: vancomycin HCL 500 MG in 0.9 % Sodium Chloride 100 ML 110 MG IV (06:35)
[2020-07-03 06:36] LABS: Anion Gap 8 (12-20); Blood Urea Nitrogen 10 mg/dL (9-16); Carbon Dioxide 27 mmol/L (22-29); Chloride 106 mmol/L (96-108); Potassium 3.8 mmol/L (3.3-5.1); Sodium 137 mmol/L (135-145)
[2020-07-03 06:37] LABS: Calcium 7.9 mg/dL (8.4-10.2); Creatinine Clr Calc Pharmacy 54.4; Estimated Glomerular Filt Rate > 60; Glucose Random 84 mg/dL (60-115)
[2020-07-03] MEDS: ceFAZolin Sodium/Dextrose,Iso 2 GM/50 ML PIGGYBACK IV ×2 (08:09→15:42)
[2020-07-03] MEDS: guaiFENesin LA 600 MG TAB.ER.12H PO ×2 (08:13→20:46)
[2020-07-03] MEDS: Tolterodine Tartrate LA 4 MG CAP.ER.24H PO ×2 (08:13→20:45)
[2020-07-03] MEDS: 0.9 % Sodium Chloride Flush 3 ML SYRINGE IVFLUSH ×3 (08:13→20:47)
[2020-07-03] MEDS: Metoprolol Succinate ER 100 MG TAB.ER.24H PO ×2 (08:13→20:46)
[2020-07-03] MEDS: Albuterol/Iprat 2.5/0.5MG 3 ML AMPUL.NEB INHALE ×4 (08:41→20:30)
[2020-07-03 09:00] LABS: Glucose, Whole Blood 97 mg/dL (60-115)
--- NOTE | 2020-07-03 10:00 | P.CDIC_ITS ---
CDI Concurrent Query Service Date: 07/03/20 Documentation Clarification: Please clarify if you are treating a proba ble/suspected/likely or confirmed: Sepsis, present on admission No Sepsis PLEASE DO NOT DELETE/MODIFY EXISTING CONTENT Additional information is needed in order to code to the highest accuracy and appropriate Severity of Illness (SOI). Please clarify the information noted below in your progress notes and discharge summary. Risk Factors/Clinical Indicators/Treatments 84 year old female admitted with two Acute Diabetic Foot ulcers. MRI pending for possible Osteomyelitis. CT Chest: no PE, question aspiration, bronchiectasis, question Bronchopneumonia WBC 11.4 T 100.0, P 103, R 20, BP 153/84 LA 3.1 Blood culture: Staph Aureus, repeat pending Treated with IV antibiotic CDS: Sarai Osuna RN Contact Number: [phone] Please Review the information above and exercise your independent professional judgment in responding to the query. If you concur, pleas document in the PROGRESS NOTES and DISCHARGE SUMMARY. If you do not agree with the query, please document in the query above. THIS QUERY IS PART OF THE PERMANENT MEDICAL RECORD
--- NOTE | 2020-07-03 11:23 | HO.PM.IMPN ---
Subjective Subjective Date of Service: 07/03/20 Interval History: no copmlaits Cardiovascular Cardiovascular: Reports no additional cardiovascular complaints Gastrointestinal Gastrointestinal: Reports no additional gastrointestinal complaints Physical Exam Vital Signs: Vital Signs: Last Vital Signs Temp 98.7 F 07/03/20 08:00 Pulse 88 07/03/20 11:10 Resp 18 07/03/20 08:00 BP 136/65 07/03/20 08:00 Pulse Ox 95 07/03/20 08:00 Body Mass Index 21.6 General: AO X 3, no acute distress Resp: CTA bilateral CVS: S1,S2,RRR GI: soft, non tender, non distended Neuro: motor grossly intact Psych: appropriate affect Objective Data Current Medications Generic Name Dose Route Start Last Admin Trade Name Freq PRN Reason Stop Dose Admin Acetaminophen 650 mg 06/29/20 20:18 06/30/20 21:40 Acetaminophen 325 Mg Tablet PO 650 mg Q6H PRN Administration Pain, Mild (Pain Scale 1-3) Albuterol/Ipratropium 3 ml 06/30/20 12:00 07/03/20 11:09 Albuterol/Iprat 2.5/0.5mg 3 Ml Ampul.Neb INHALE 3 ml RQ4H WHILE AWAKE R[facility]AN Administration Docusate Sodium 100 mg 06/29/20 20:18 Docusate Sodium 100 Mg Capsule PO DAILY PRN Constipation Enoxaparin Sodium 40 mg 06/29/20 20:30 07/02/20 20:01 Enoxaparin Sodium 40 Mg/0.4 Ml Syringe SUBCUT 40 mg Q24H ROWAN Administration Guaifenesin 600 mg 06/30/20 21:00 07/03/20 08:13 Guaifenesin La 600 Mg Tab.Er.12h PO 600 mg BID ROWAN Administration Cefazolin Sodium/Dextrose 2 gm in 50 mls @ 100 mls/hr 07/03/20 08:00 07/03/20 08:39 Ancef IV Infused Q8H R[facility] Infusion Insulin Human Lispro 0 unit 06/30/20 07:30 07/03/20 08:14 Insulin Lispro 100 Unit/Ml 3 Ml Vial SUBCUT Not Given QIDACHS [facility] Protocol Lisinopril 40 mg 07/01/20 09:00 07/03/20 08:13 Lisinopril 40 Mg Tablet PO 40 mg DAILY ROWAN Administration Metoprolol Succinate 100 mg 06/29/20 21:00 07/03/20 08:13 Metoprolol Succinate Er 100 Mg Tab.Er.24h PO 100 mg BID ROWAN Administration Protocol Ondansetron HCl 4 mg 06/29/20 20:18 Ondansetron Hcl 4 Mg/2 Ml Vial IVPUSH Q8H PRN Nausea and Vomiting Oxycodone HCl 5 mg 06/29/20 20:20 07/02/20 23:01 Oxycodone Hcl Immed Release 5 Mg Tablet PO 5 mg Q6H PRN Administration Pain, Severe (Pain Scale 7-10) Pharmacy Consult 1 each 06/29/20 15:04 Consult Rx Perform Med Rec MISCELLANE ONCE PRN Consult order Pharmacy Consult 1 each 06/29/20 20:18 Consult Rx Vancomycin Dosing MISCELLANE DAILY PRN Consult order Sodium Chloride 3 ml 06/30/20 00:00 07/03/20 08:13 0.9 % Sodium Chloride Flush 3 Ml Syringe IVFLUSH 3 ml QSHIFT ROWAN Administration Tolterodine Tartrate 4 mg 06/29/20 21:00 07/03/20 08:13 Tolterodine Tartrate La 4 Mg Cap.Er.24h PO 4 mg BID ROWAN Administration Labs CBC & Chem 7: 07/03/20 05:44 07/03/20 05:44 Microbiology Microbiology Results: Microbiology 06/29/20 15:53 Blood - Venous Blood Culture - Final Staphylococcus aureus 06/29/20 15:51 Blood - Venous Blood Culture - Final Staphylococcus aureus Assessment and Plan (1) Diabetic foot ulcer: Status: Acute (2) Hx of osteomyelitis: Status: Inactive (3) Hypercholesteremia: Status: Acute (4) Lung cancer: Status: Acute (5) Hypertension: Status: Acute (6) Diabetes: Status: Acute (7) Leukocytosis: Status: Acute (8) Lactic acid acidosis: Status: Acute Assessment and Plan: This is an 84-year-old female with past medical history of diabetes and diabetic neuropathy status post osteomyelitis of multiple toes in bilateral feet presented to the hospital with a wound on the medial aspect of right foot as well as at bump at the bottom of her right foot. complicated by mssa bacteremia DFU with MSSA bacteremia changed to ancef, follow up repeat cultures, echo, likely 6 weeks iv DM insulin HTN metoprolol history of lung cancer on kaytruda outpatient f/u DNR/DNI DVT pptx, Lovenox
[2020-07-03 11:58] LABS: Glucose, Whole Blood 197 mg/dL (60-115)
[2020-07-03] MEDS: Insulin Lispro 100 UNIT/ML 3 ML VIAL SUBCUT ×2 (11:58→20:46)
[2020-07-03] MEDS: oxyCODONE HCl Immed Release 5 MG TABLET PO ×2 (12:03→22:15)
--- NOTE | 2020-07-03 14:00 | CA_ITS ---
Transthoracic Echocardiogram Patient (Last, First, Middle): Melia Villarreal, Gender: Female Date of : 1935 Age: 84 Procedure Date: 07/03/2020 Procedure Type: Transthoracic Echocardiogram Location: S3E Height: 165.1 cm Weight: 58.97 kg BSA: 1.65 m2 Heart Rate: bpm BP: 136 / 65 mmHg Casualty Underwriter: Referring MD: Marco Antonio Styles MD Symptoms: mssa bacteremia, ?vegetations Study Quality: Good ECG Rhythm: Sinus Conclusions: - Normal left ventricular size and systolic function. - Normal right ventricular cavity size and systolic function. - No significant valvular or pericardial pathology. In particular no obvious evidence of vegetations. - Consider a GAYATHRI if clinically appropriate. Findings Left Ventricle Normal left ventricular size and systolic function. There is mildly increased left ventricular wall thickness. The visually estimated ejection fraction is between 60-65%. There is no evidence of regional wall motion abnormalities. Diastolic function is normal for age. Right Ventricle Normal right ventricular cavity size and systolic function. Atria Both atria are normal in size. There is no evidence of interatrial shunt by color Doppler. Aortic Valve There is a normal trileaflet aortic valve. There is mild thickening of the aortic valve. There is no aortic valve stenosis. There is no aortic valve regurgitation. Mitral Valve Normal mitral valve structure and function. There is trace mitral valve regurgitation. There is no mitral valve stenosis. Pulmonic Valve The pulmonic valve was not well visualized. Tricuspid Valve Normal tricuspid valve structure and function. There is trace tricuspid valve regurgitation. Normal right atrial pressure. There is no evidence of pulmonary hypertension. Great Vessels All visible segments of the aorta are normal in size. The visualized portions of the pulmonary artery and branches are normal. Venous The inferior vena cava is normal in size and collapses greater than 50% with inspiration. Pericardium/Pleural There is no evidence of pericardial effusion. Prior Study Comparison No prior study available for comparison. Recommendations, Care & Conclusions Consider a GAYATHRI if clinically appropriate. Measurements 2D Linear Measurements IVSd: 1.08 0.6-0.9/0.6-1.0 cm LVIDd: 4.33 3.9-5.3/4.2-5.9 cm LVIDd Index: 2.62 2.4-3.2/2.2-3.1 cm/m2 LVIDs: 2.49 2.0-3.6 cm LVPWd: 1.11 0.7-1.1 cm Ao Root: 3.10 2.1-3.5 cm LA Diam: 3.80 2.7-3.8/3.0-4.0 cm LAIDs Index: 2.30 1.5-2.3 cm/m2 LV Mass: 203.82 67-162/88-224 g LV Mass Index: 123.53 43-95/49-115 g/m2 LVOT Diam: 2.00 3.0+(-)1.3 cm Mitral Valve MV Pk E: 0.64 MV PK A: 0.88 MV Decel Time: 225.00 E/A: 0.70 E'Lateral: 9.48 E'Medial: 7.54 E/E' Med: 8.40 E/E' Lat: 6.70 PHT: 66.00 MVA PHT: 3.33 Decel T[place]: 2.82 Aortic Valve AoV Pk Marlon: 1.29 AoV Mn Marlon: 0.90 AoV VTI: 0.31 AoV Pk Grad: 7.00 Aov Mn Grad: 4.00 JIMMY Cont.VTI: 2.33 LVOT LVOT Pk Marlon: 1.03 LVOT Mn Marlon: 0.63 LVOT VTI: 0.23 LVOT Pk Grad: 4.00 LVOT Mn Grad: 2.00 LVOT Diam: 2.00 LVOT Area: 3.14 Diastolic Function MV Pk E: 0.64 MV Pk A: 0.88 E/A: 0.70 E'Medial: 7.54 E/E' Med: 8.40 E' Laterial: 9.48 E/E' Lat: 6.70 Tricuspid Valve TR Pk Marlon: 2.02 TR Pk Grad: 16.00 RA Press: 8.00 RVSP: 24.00 Great Vessels Aorta Ao Root-2D: 3.10 2.0-3.7 cm Pulmonary Valve PV Pk Marlon: 0.95 Peak PV Grad: 4.00 Updated in Other Vendor System with Status of Final [place] MD electronically signed on 07/04/2020 1:57:37 PM with status of Final
[2020-07-03 16:57] LABS: Glucose, Whole Blood 143 mg/dL (60-115)
--- NOTE | 2020-07-03 19:31 | PC.NURSE ---
LATE ENTRY 0900: RIGHT UPPER ARM EDEMA NOTED. POSITIVE RADIAL PULSE. ARM ELEVATED ON PILLOW, NO CHANGES IN SIZE THROUGHOUT THE DAY
[2020-07-03] MEDS: Enoxaparin Sodium 40 MG/0.4 ML SYRINGE SUBCUT (20:46)
[2020-07-03 20:59] LABS: Glucose, Whole Blood 152 mg/dL (60-115)
[2020-07-04] VITALS (13 sets, daily range): BP systolic 125–151; BP diastolic 60–80; PULSE 76–91; RESP 16–20; TEMP 36.9–37.6; O2SAT 92–97
[2020-07-04] MEDS: ceFAZolin Sodium/Dextrose,Iso 2 GM/50 ML PIGGYBACK IV ×4 (00:09→23:20)
[2020-07-04 06:41] LABS: MANUAL DIFF FLAG NO
[2020-07-04 06:59] LABS: Basophils Percent Auto 0.3 % (0-2); Eosinophils Absolute Auto 0.2 X10*3/uL (0.0-0.4); Eosinophils Percent Auto 2.4 % (0-4); Hematocrit 28.9 % (37-47); Hemoglobin 9.4 g/dl (12.0-16.0); Imm Gran Abs Auto 0.18 X10*3/uL (0.00-0.03); Imm Gran Pct Auto 1.8 % (0.0-0.4); Lymphocytes Absolute Auto 0.8 X10*3/uL (1.2-4.9); Lymphocytes Percent Auto 7.6 % (20-40); Mean Corpuscular HGB Conc 32.5 g/dl (31.0-35.0); Mean Corpuscular Hemoglobin 30.3 pg (27.0-33.0); Mean Corpuscular Volume 93.2 fL (80-98); Mean Platelet Volume 10.8 fL (9.4-12.3); Monocytes Absolute Auto 1.1 X10*3/uL (0.1-1.2); Monocytes Percent Auto 10.8 % (2-11); Neutrophils Absolute Auto 7.7 X10*3/uL (2.0-8.3); Neutrophils Percent Auto 77.1 % (45-73); Platelet Count 160 X10*3/uL (160-400); Red Cell Distribution Width 14.6 % (11.0-16.0)
[2020-07-04 07:06] LABS: Anion Gap 10 (12-20); Blood Urea Nitrogen 7 mg/dL (9-16); Carbon Dioxide 27 mmol/L (22-29); Chloride 105 mmol/L (96-108); Estimated Glomerular Filt Rate > 60; Glucose Fasting 95 mg/dL (60-99); Potassium 4.2 mmol/L (3.3-5.1); Sodium 138 mmol/L (135-145)
[2020-07-04 07:38] LABS: Glucose, Whole Blood 103 mg/dL (60-115)
[2020-07-04] MEDS: guaiFENesin LA 600 MG TAB.ER.12H PO ×2 (08:02→21:06)
[2020-07-04] MEDS: Metoprolol Succinate ER 100 MG TAB.ER.24H PO ×2 (08:02→21:06)
[2020-07-04] MEDS: Tolterodine Tartrate LA 4 MG CAP.ER.24H PO ×2 (08:02→21:06)
[2020-07-04] MEDS: 0.9 % Sodium Chloride Flush 3 ML SYRINGE IVFLUSH ×3 (08:03→21:19)
--- NOTE | 2020-07-04 09:59 | HO.PM.IMPN ---
Subjective Subjective Date of Service: 07/04/20 Interval History: no copmlaints Cardiovascular Cardiovascular: Reports no additional cardiovascular complaints Gastrointestinal Gastrointestinal: Reports no additional gastrointestinal complaints Physical Exam Vital Signs: Vital Signs: Last Vital Signs Temp 99.6 F 07/04/20 07:57 Pulse 76 07/04/20 08:03 Resp 20 07/04/20 07:57 BP 125/61 07/04/20 08:03 Pulse Ox 97 07/04/20 07:57 Body Mass Index 21.6 General: AO X 3, no acute distress Resp: CTA bilateral CVS: S1,S2,RRR GI: soft, non tender, non distended Neuro: motor grossly intact Psych: appropriate affect Objective Data Current Medications Generic Name Dose Route Start Last Admin Trade Name Freq PRN Reason Stop Dose Admin Acetaminophen 650 mg 06/29/20 20:18 06/30/20 21:40 Acetaminophen 325 Mg Tablet PO 650 mg Q6H PRN Administration Pain, Mild (Pain Scale 1-3) Albuterol/Ipratropium 3 ml 06/30/20 12:00 07/04/20 07:56 Albuterol/Iprat 2.5/0.5mg 3 Ml Ampul.Neb INHALE Not Given RQ4H WHILE AWAKE [facility] Docusate Sodium 100 mg 06/29/20 20:18 Docusate Sodium 100 Mg Capsule PO DAILY PRN Constipation Enoxaparin Sodium 40 mg 06/29/20 20:30 07/03/20 20:46 Enoxaparin Sodium 40 Mg/0.4 Ml Syringe SUBCUT 40 mg Q24H ROWAN Administration Guaifenesin 600 mg 06/30/20 21:00 07/04/20 08:02 Guaifenesin La 600 Mg Tab.Er.12h PO 600 mg BID ROWAN Administration Cefazolin Sodium/Dextrose 2 gm in 50 mls @ 100 mls/hr 07/03/20 08:00 07/04/20 09:25 Ancef IV Infused Q8H R[facility] Infusion Insulin Human Lispro 0 unit 06/30/20 07:30 07/04/20 07:49 Insulin Lispro 100 Unit/Ml 3 Ml Vial SUBCUT Not Given QIDACHS [facility] Protocol Lisinopril 40 mg 07/01/20 09:00 07/04/20 08:03 Lisinopril 40 Mg Tablet PO 40 mg DAILY ROWAN Administration Metoprolol Succinate 100 mg 06/29/20 21:00 07/04/20 08:02 Metoprolol Succinate Er 100 Mg Tab.Er.24h PO 100 mg BID ROWAN Administration Protocol Ondansetron HCl 4 mg 06/29/20 20:18 Ondansetron Hcl 4 Mg/2 Ml Vial IVPUSH Q8H PRN Nausea and Vomiting Oxycodone HCl 5 mg 06/29/20 20:20 07/03/20 22:15 Oxycodone Hcl Immed Release 5 Mg Tablet PO 5 mg Q6H PRN Administration Pain, Severe (Pain Scale 7-10) Pharmacy Consult 1 each 06/29/20 15:04 Consult Rx Perform Med Rec MISCELLANE ONCE PRN Consult order Pharmacy Consult 1 each 06/29/20 20:18 Consult Rx Vancomycin Dosing MISCELLANE DAILY PRN Consult order Sodium Chloride 3 ml 06/30/20 00:00 07/04/20 08:03 0.9 % Sodium Chloride Flush 3 Ml Syringe IVFLUSH 3 ml QSHIFT ROWAN Administration Tolterodine Tartrate 4 mg 06/29/20 21:00 07/04/20 08:02 Tolterodine Tartrate La 4 Mg Cap.Er.24h PO 4 mg BID ROWAN Administration Labs CBC & Chem 7: 07/04/20 05:43 07/04/20 05:42 Microbiology Microbiology Results: Microbiology 06/29/20 15:53 Blood - Venous Blood Culture - Final Staphylococcus aureus 06/29/20 15:51 Blood - Venous Blood Culture - Final Staphylococcus aureus Assessment and Plan (1) Diabetic foot ulcer: Status: Acute (2) Hx of osteomyelitis: Status: Inactive (3) Hypercholesteremia: Status: Acute (4) Lung cancer: Status: Acute (5) Hypertension: Status: Acute (6) Diabetes: Status: Acute (7) Leukocytosis: Status: Acute (8) Lactic acid acidosis: Status: Acute Assessment and Plan: This is an 84-year-old female with past medical history of diabetes and diabetic neuropathy status post osteomyelitis of multiple toes in bilateral feet presented to the hospital with a wound on the medial aspect of right foot as well as at bump at the bottom of her right foot. complicated by mssa bacteremia DFU with MSSA bacteremia changed to ancef, follow up repeat cultures drawn 07/03, echo, likely 6 weeks iv DM insulin HTN metoprolol history of lung cancer on kaytruda outpatient f/u DNR/DNI DVT pptx, Lovenox
[2020-07-04 11:44] LABS: Glucose, Whole Blood 200 mg/dL (60-115)
[2020-07-04] MEDS: Insulin Lispro 100 UNIT/ML 3 ML VIAL SUBCUT ×2 (11:50→21:07)
--- NOTE | 2020-07-04 12:06 | MHC.CM.PN ---
CM MET WITH PT TO DISCUSS STR FACILITIES, PT REQUESTED [facility] AND THEN ASKED CM TO CALL NIECE/HCP [facility] AT [phone] TO SEE IF SHE HAD ANY PREFERENCES, CM CONTACTED NIECE AT 11:50AM AND NIECE WILL RESEARCH FACILITIES AND CALL CM BACK WITH PREFERNCES. PT CONCERNED ABOUT RECEIVING HER NEXT CANCER TREATMENT AND REPORTS HER NEXT APPT IS 07/10. PER PT'S NIECE PT RECEIVED HER FIRST COVID VACCINE 1-2 WKS AGO AT THE [facility] AND WILL NEED HER SECOND SHOT. CM WILL FOLLOW-UP WITH PT REGARDING PFIZER VS MODERNA AND EXACT DATE. HCP OBTAINED FROM PT'S PCP'S OFFICE AND UPLOADED TO [employer] AND COPY [PLACED IN CHART. CANCER TX: [facility] ONCOLOGIST: DR. FERRERA [phone]
--- NOTE | 2020-07-04 13:26 | MHC.CM.PN ---
CM RECEIVED MESSAGE FROM PT'S HCP/NIECE AND RETURNED CALL AT 1:20PM, PER NIECE PT'S PCP DOES GOT TO [facility] AND WOULD LIKE REFERRAL SENT TO THEM. PT'S NIECE HAS SPOKEN TO [facility] AND APPARENTLY THEY DO HAVE BEDS AVAILABLE. CM TO SEND REFERRAL.
[2020-07-04] MEDS: oxyCODONE HCl Immed Release 5 MG TABLET PO (15:03)
[2020-07-04] MEDS: Albuterol/Iprat 2.5/0.5MG 3 ML AMPUL.NEB INHALE ×2 (16:43→19:57)
[2020-07-04 16:54] LABS: Glucose, Whole Blood 110 mg/dL (60-115)
[2020-07-04 20:39] LABS: Glucose, Whole Blood 186 mg/dL (60-115)
[2020-07-04] MEDS: Enoxaparin Sodium 40 MG/0.4 ML SYRINGE SUBCUT (21:07)
[2020-07-05] VITALS (8 sets, daily range): BP systolic 129–181; BP diastolic 65–90; PULSE 78–95; RESP 16–19; TEMP 36.4–37.2; O2SAT 92–95
[2020-07-05] MEDS: oxyCODONE HCl Immed Release 5 MG TABLET PO ×2 (00:05→22:13)
[2020-07-05] MEDS: guaiFENesin LA 600 MG TAB.ER.12H PO ×2 (07:36→22:12)
[2020-07-05] MEDS: 0.9 % Sodium Chloride Flush 3 ML SYRINGE IVFLUSH ×3 (07:36→22:13)
[2020-07-05] MEDS: Tolterodine Tartrate LA 4 MG CAP.ER.24H PO ×2 (07:37→22:12)
[2020-07-05] MEDS: Metoprolol Succinate ER 100 MG TAB.ER.24H PO ×2 (07:37→22:12)
[2020-07-05] MEDS: Albuterol/Iprat 2.5/0.5MG 3 ML AMPUL.NEB INHALE ×2 (07:44→19:59)
[2020-07-05] MEDS: ceFAZolin Sodium/Dextrose,Iso 2 GM/50 ML PIGGYBACK IV ×3 (07:46→23:50)
[2020-07-05 08:08] LABS: Glucose, Whole Blood 98 mg/dL (60-115)
--- NOTE | 2020-07-05 09:14 | HO.PM.IMPN ---
Subjective Subjective Date of Service: 07/05/20 Interval History: no complaints Cardiovascular Cardiovascular: Reports no additional cardiovascular complaints Respiratory Respiratory: Reports no additional respiratory complaints Physical Exam Vital Signs: Vital Signs: Last Vital Signs Temp 98.2 F 07/05/20 07:19 Pulse 90 07/05/20 07:45 Resp 19 07/05/20 07:19 BP 148/68 H 07/05/20 07:19 Pulse Ox 94 07/05/20 07:19 Body Mass Index 21.6 General: AO X 3, no acute distress Resp: CTA bilateral CVS: S1,S2,RRR GI: soft, non tender, non distended Neuro: motor grossly intact Psych: appropriate affect Objective Data Current Medications Generic Name Dose Route Start Last Admin Trade Name Freq PRN Reason Stop Dose Admin Acetaminophen 650 mg 06/29/20 20:18 06/30/20 21:40 Acetaminophen 325 Mg Tablet PO 650 mg Q6H PRN Administration Pain, Mild (Pain Scale 1-3) Albuterol/Ipratropium 3 ml 06/30/20 12:00 07/05/20 07:44 Albuterol/Iprat 2.5/0.5mg 3 Ml Ampul.Neb INHALE 3 ml RQ4H WHILE AWAKE ROWAN Administration Docusate Sodium 100 mg 06/29/20 20:18 Docusate Sodium 100 Mg Capsule PO DAILY PRN Constipation Enoxaparin Sodium 40 mg 06/29/20 20:30 07/04/20 21:07 Enoxaparin Sodium 40 Mg/0.4 Ml Syringe SUBCUT 40 mg Q24H ROWAN Administration Guaifenesin 600 mg 06/30/20 21:00 07/05/20 07:36 Guaifenesin La 600 Mg Tab.Er.12h PO 600 mg BID ROWAN Administration Cefazolin Sodium/Dextrose 2 gm in 50 mls @ 100 mls/hr 07/03/20 08:00 07/05/20 08:22 Ancef IV Infused Q8H ROWAN Infusion Insulin Human Lispro 0 unit 06/30/20 07:30 07/05/20 07:36 Insulin Lispro 100 Unit/Ml 3 Ml Vial SUBCUT Not Given QIDACHS [facility] Protocol Lisinopril 40 mg 07/01/20 09:00 07/05/20 07:36 Lisinopril 40 Mg Tablet PO 40 mg DAILY ROWAN Administration Metoprolol Succinate 100 mg 06/29/20 21:00 07/05/20 07:37 Metoprolol Succinate Er 100 Mg Tab.Er.24h PO 100 mg BID ROWAN Administration Protocol Ondansetron HCl 4 mg 06/29/20 20:18 Ondansetron Hcl 4 Mg/2 Ml Vial IVPUSH Q8H PRN Nausea and Vomiting Oxycodone HCl 5 mg 07/04/20 23:31 07/05/20 00:05 Oxycodone Hcl Immed Release 5 Mg Tablet PO 5 mg Q6H PRN Administration [facility] Pharm[facility] Consult 1 each 06/29/20 15:04 Consult Rx Perform Med Rec MISCELLANE ONCE PRN Consult order Pharmacy Consult 1 each 06/29/20 20:18 Consult Rx Vancomycin Dosing MISCELLANE DAILY PRN Consult order Sodium Chloride 3 ml 06/30/20 00:00 07/05/20 07:36 0.9 % Sodium Chloride Flush 3 Ml Syringe IVFLUSH 3 ml QSHIFT ROWAN Administration Tolterodine Tartrate 4 mg 06/29/20 21:00 07/05/20 07:37 Tolterodine Tartrate La 4 Mg Cap.Er.24h PO 4 mg BID ROWAN Administration Labs CBC & Chem 7: 07/04/20 05:43 07/04/20 05:42 Microbiology Microbiology Results: Microbiology 07/03/20 08:18 Blood - Venous Blood Culture - Preliminary No growth after 24 hours. 07/03/20 08:18 Blood - Venous Blood Culture - Preliminary No growth after 24 hours. 06/29/20 15:53 Blood - Venous Blood Culture - Final Staphylococcus aureus 06/29/20 15:51 Blood - Venous Blood Culture - Final Staphylococcus aureus Assessment and Plan (1) Diabetic foot ulcer: Status: Acute (2) Hx of osteomyelitis: Status: Inactive (3) Hypercholesteremia: Status: Acute (4) Lung cancer: Status: Acute (5) Hypertension: Status: Acute (6) Diabetes: Status: Acute (7) Leukocytosis: Status: Acute (8) Lactic acid acidosis: Status: Acute Assessment and Plan: This is an 84-year-old female with past medical history of diabetes and diabetic neuropathy status post osteomyelitis of multiple toes in bilateral feet presented to the hospital with a wound on the medial aspect of right foot as well as at bump at the bottom of her right foot. complicated by mssa bacteremia DFU with MSSA bacteremia changed to ancef, repeat cultures drawn 07/03 no growth to date, will pursue picc, echo with no obvious vegetations, plan for 6 week total, day , end july DM insulin HTN metoprolol history of lung cancer on kaytruda outpatient f/u DNR/DNI DVT pptx, Lovenox
--- NOTE | 2020-07-05 11:06 | P.DS_ITS ---
DS: Providers Provider Date of Service: 07/06/20 Date of admission: 06/29/20 20:18 Primary care physician: Pelon Haddad MD Consults: 06/29/20 20:18 Consult to General Surgery Routine Consulting Provider: Ella Peres Reason for consultation: Diabetic foot wound Has provider been notified: No Consult to Infectious Diseases Routine Consulting Provider: Shagufta Dejesus Reason for consultation: diabetic foot ulcer Has provider been notified: No DS: Diagnosis Discharge Diagnosis (1) Diabetic foot ulcer: Status: Acute (2) Hx of osteomyelitis: Status: Inactive (3) Hypercholesteremia: Status: Acute (4) Lung cancer: Status: Acute (5) Hypertension: Status: Acute (6) Diabetes: Status: Acute (7) Leukocytosis: Status: Acute (8) Lactic acid acidosis: Status: Acute (9) MSSA bacteremia: Status: Acute DS: Medications Discharge Medications Home Medications: Home Medications Medication Instructions Recorded Confirmed Januvia 50 mg PO DAILY 06/29/20 06/29/20 metoprolol succinate 100 mg PO BID 06/29/20 06/29/20 ramipril 10 mg PO DAILY 06/29/20 06/29/20 tolterodine [Detrol LA] 4 mg PO BID 06/29/20 06/29/20 Previous Rx's Medication Instructions Recorded cefazolin in dextrose (iso-os) 2 g IV Q8H 39 Days #5850 ea 07/05/20 DS: Summary Hospital Course Hospital Course: date of encounter and date of service: 07/06/2020 Patient was admitted for diabetic foot ulcer. She was given broad-spectrum antibiotics. Her blood culture became positive for MSSA bacteremia. She got MRI which did not show evidence of osteomyelitis. She was seen by infectious disease who felt that she would not need local treatment at this time and recommended 6 weeks of IV cefazolin. Her blood cultures became negative on 07/03/2020 and she will continue IV Ancef until 08/13/2020. Time Spent with Patient Time attestation: Total time spent providing and/or coordinating discharge services: Discharge coordination time: Greater than 30 minutes Physical Exam Vital Signs: Vital Signs: Last Vital Signs Temp 98.2 F 07/05/20 07:19 Pulse 90 07/05/20 07:45 Resp 19 07/05/20 07:19 BP 148/68 H 07/05/20 07:19 Pulse Ox 94 07/05/20 07:19 Body Mass Index 21.6 General: AO X 3, no acute distress Resp: CTA bilateral CVS: S1,S2,RRR GI: soft, non tender, non distended Neuro: motor grossly intact Psych: appropriate affect DS: Data Data Completed and Pending Labs on day of discharge: Laboratory Results - last 24 hr 07/04/20 07/04/20 07/04/20 11:38 16:50 20:26 POC Glucose 200 H 110 186 H 07/05/20 07:18 POC Glucose 98 Preliminary micro results at discharge 07/03/20 08:18 Blood Culture - Preliminary Blood - Venous No growth after 48 hours. 07/03/20 08:18 Blood Culture - Preliminary Blood - Venous No growth after 48 hours. Discharge Plan Discharge Patient Disposition: [facility] Referrals: Pelon Haddad MD [Primary Care Provider] - Discharge Medications: New cefazolin in dextrose (iso-os) 2 gram/50 mL Piggyback 2 g IV Q8H 39 Days Qty: 5850 RF: 0 Continued metoprolol succinate 100 mg Tablet Extended Release 24 Hr 100 mg PO BID RF: 0 tolterodine [Detrol LA] 4 mg Capsule,Extended Release 24hr 4 mg PO BID RF: 0 ramipril 10 mg Capsule 10 mg PO DAILY RF: 0 Januvia 50 mg Tablet 50 mg PO DAILY RF: 0 Discontinued doxycycline hyclate 100 mg Capsule 100 mg PO DAILY RF: 0 azithromycin 250 mg Tablet 250 mg PO MOWEFR@1000 RF: 0 Discharge Orders: Discharge Order (Routine); Ordered 07/05/20 Ordered By: Marco Antonio Styles Activity on Discharge: As tolerated Stand Alone Forms: Patient Portal Discharge page Care Plan Goals: recovery Health Concerns: bacteremia, dfu Plan of Treatment: 6 weeks ancef
--- NOTE | 2020-07-05 12:27 | P.PICC_ITS ---
PICC Line Insertion NPICC Diagnosis: BACTEREMIA Indication: BRIDGE MAINTAINER IV ANTIBIOTICS Pertinent Labs: REVIEWED Technique: Following informed consent including risks, benefits and alternatives and using sterile technique including cap and mask, sterile gown, glove and drape, the LEFT arm was prepped and draped in the usual sterile fashion of full barrier technique with CHG. Following completion of [place] Protocol the skin and soft tissues were anesthetized with 1% Lidocaine plain. Using ultrasound guidance, LEFT BASILIC vein access was obtained ON SECOND ATTEMPT BY THIS RN. Over an 0.018 wire through peel-away sheath, a 4-ALGERIAN SINGLE LUMEN, PASV PICC line was positioned. Catheter length is 51 CM internal length, 0 CM (AT HUB) external length, for a total trimmed length of 51 CM. The procedure was performed in S3-369. Tip verification was performed by Cassandra Oconnell with Ben 3CG. Tip located in SVC. Ultrasound was used to document vein patency and for needle entry. A formal ultrasound picture and cardiac rhythm strip was recorded. [employer] has released the line for use and it is currently dressed with a StatLock, Tegaderm, and CHG disc. Verification has been performed for blood return and line patency. Arm Circumference: 29.5 CM Equipment: [employer] POWERPICC SOLO Catheter Type: 4-ALGERIAN SINGLE LUMEN, PASV Lot #: [id number]
[2020-07-05 12:33] LABS: Glucose, Whole Blood 169 mg/dL (60-115)
[2020-07-05] MEDS: Insulin Lispro 100 UNIT/ML 3 ML VIAL SUBCUT ×2 (12:35→16:45)
[2020-07-05] MEDS: Heparin Sodium,Porcine Flush 50 UNITS/5 ML SYRINGE IVFLUSH (14:44)
[2020-07-05] MEDS: 0.9 % Sodium Chloride Flush 10 ML SYRINGE 5 ML IVFLUSH ×2 (14:49→22:14)
[2020-07-05 16:36] LABS: Glucose, Whole Blood 183 mg/dL (60-115)
[2020-07-05 20:40] LABS: Glucose, Whole Blood 103 mg/dL (60-115)
[2020-07-05] MEDS: Enoxaparin Sodium 40 MG/0.4 ML SYRINGE SUBCUT (22:13)
[2020-07-05 22:55] LABS: COVID-19 Test Negative (Negative)
[2020-07-06] VITALS (10 sets, daily range): BP systolic 149–182; BP diastolic 61–81; PULSE 74–92; RESP 14–23; TEMP 36.2–37.4; O2SAT 93–96
[2020-07-06] MEDS: Albuterol/Iprat 2.5/0.5MG 3 ML AMPUL.NEB INHALE ×4 (07:13→19:53)
[2020-07-06 07:52] LABS: Glucose, Whole Blood 118 mg/dL (60-115)
[2020-07-06] MEDS: Metoprolol Succinate ER 100 MG TAB.ER.24H PO ×2 (10:15→21:17)
[2020-07-06] MEDS: Tolterodine Tartrate LA 4 MG CAP.ER.24H PO ×2 (10:15→21:17)
[2020-07-06] MEDS: guaiFENesin LA 600 MG TAB.ER.12H PO ×2 (10:15→21:17)
[2020-07-06] MEDS: 0.9 % Sodium Chloride Flush 10 ML SYRINGE 5 ML IVFLUSH ×3 (10:16→21:25)
[2020-07-06] MEDS: ceFAZolin Sodium/Dextrose,Iso 2 GM/50 ML PIGGYBACK IV ×2 (10:16→16:13)
[2020-07-06] MEDS: 0.9 % Sodium Chloride Flush 3 ML SYRINGE IVFLUSH ×2 (10:16→16:13)
[2020-07-06] MEDS: oxyCODONE HCl Immed Release 5 MG TABLET PO ×2 (10:19→21:17)
[2020-07-06 11:35] LABS: Glucose, Whole Blood 210 mg/dL (60-115)
--- NOTE | 2020-07-06 12:07 | HO.PM.IMPN ---
Subjective Subjective Date of Service: 07/06/20 Interval History: no complaints Cardiovascular Cardiovascular: Reports no additional cardiovascular complaints Gastrointestinal Gastrointestinal: Reports no additional gastrointestinal complaints Physical Exam Vital Signs: Vital Signs: Last Vital Signs Temp 98.6 F 07/06/20 11:24 Pulse 85 07/06/20 11:24 Resp 20 07/06/20 11:24 BP 152/63 H 07/06/20 11:24 Pulse Ox 93 07/06/20 11:24 Body Mass Index 21.6 General: AO X 3, no acute distress Resp: CTA bilateral CVS: S1,S2,RRR GI: soft, non tender, non distended Neuro: motor grossly intact Psych: appropriate affect Objective Data Current Medications Generic Name Dose Route Start Last Admin Trade Name Freq PRN Reason Stop Dose Admin Acetaminophen 650 mg 06/29/20 20:18 06/30/20 21:40 Acetaminophen 325 Mg Tablet PO 650 mg Q6H PRN Administration Pain, Mild (Pain Scale 1-3) Albuterol/Ipratropium 3 ml 06/30/20 12:00 07/06/20 11:24 Albuterol/Iprat 2.5/0.5mg 3 Ml Ampul.Neb INHALE 3 ml RQ4H WHILE AWAKE ROWAN Administration Docusate Sodium 100 mg 06/29/20 20:18 Docusate Sodium 100 Mg Capsule PO DAILY PRN Constipation Enoxaparin Sodium 40 mg 06/29/20 20:30 07/05/20 22:13 Enoxaparin Sodium 40 Mg/0.4 Ml Syringe SUBCUT 40 mg Q24H ROWAN Administration Guaifenesin 600 mg 06/30/20 21:00 07/06/20 10:15 Guaifenesin La 600 Mg Tab.Er.12h PO 600 mg BID ROWAN Administration Cefazolin Sodium/Dextrose 2 gm in 50 mls @ 100 mls/hr 07/03/20 08:00 07/06/20 12:01 Ancef IV Infused Q8H ROWAN Infusion Insulin Human Lispro 0 unit 06/30/20 07:30 07/06/20 10:15 Insulin Lispro 100 Unit/Ml 3 Ml Vial SUBCUT Not Given QIDACHS [facility] Protocol Lisinopril 40 mg 07/01/20 09:00 07/06/20 10:15 Lisinopril 40 Mg Tablet PO 40 mg DAILY ROWAN Administration Metoprolol Succinate 100 mg 06/29/20 21:00 07/06/20 10:15 Metoprolol Succinate Er 100 Mg Tab.Er.24h PO 100 mg BID ROWAN Administration Protocol Ondansetron HCl 4 mg 06/29/20 20:18 Ondansetron Hcl 4 Mg/2 Ml Vial IVPUSH Q8H PRN Nausea and Vomiting Oxycodone HCl 5 mg 07/04/20 23:31 07/06/20 10:19 Oxycodone Hcl Immed Release 5 Mg Tablet PO 5 mg Q6H PRN Administration [facility] Consult 1 each 06/29/20 15:04 Consult Rx Perform Med Rec MISCELLANE ONCE PRN Consult order Pharmacy Consult 1 each 06/29/20 20:18 Consult Rx Vancomycin Dosing MISCELLANE DAILY PRN Consult order Sodium Chloride 3 ml 06/30/20 00:00 07/06/20 10:16 0.9 % Sodium Chloride Flush 3 Ml Syringe IVFLUSH 3 ml QSHIFT ROWAN Administration Sodium Chloride 5 ml 07/05/20 15:00 07/06/20 10:16 0.9 % Sodium Chloride Flush 10 Ml Syringe IVFLUSH 5 ml TID ROWAN Administration Tolterodine Tartrate 4 mg 06/29/20 21:00 07/06/20 10:15 Tolterodine Tartrate La 4 Mg Cap.Er.24h PO 4 mg BID ROWAN Administration Labs CBC & Chem 7: 07/04/20 05:43 07/04/20 05:42 Microbiology Microbiology Results: Microbiology 07/03/20 08:18 Blood - Venous Blood Culture - Preliminary No growth after 48 hours. 07/03/20 08:18 Blood - Venous Blood Culture - Preliminary No growth after 48 hours. 06/29/20 15:53 Blood - Venous Blood Culture - Final Staphylococcus aureus 06/29/20 15:51 Blood - Venous Blood Culture - Final Staphylococcus aureus Assessment and Plan (1) Diabetic foot ulcer: Status: Acute (2) Hx of osteomyelitis: Status: Inactive (3) Hypercholesteremia: Status: Acute (4) Lung cancer: Status: Acute (5) Hypertension: Status: Acute (6) Diabetes: Status: Acute (7) Leukocytosis: Status: Acute (8) Lactic acid acidosis: Status: Acute (9) MSSA bacteremia: Status: Acute Assessment and Plan: This is an 84-year-old female with past medical history of diabetes and diabetic neuropathy status post osteomyelitis of multiple toes in bilateral feet presented to the hospital with a wound on the medial aspect of right foot as well as at bump at the bottom of her right foot. complicated by mssa bacteremia DFU with MSSA bacteremia changed to ancef, repeat cultures drawn 07/03 no growth to date, s/p picc, echo with no obvious vegetations, plan for 6 week total, day , end july DM insulin HTN metoprolol history of lung cancer on kaytruda outpatient f/u DNR/DNI DVT pptx, Lovenox
[2020-07-06] MEDS: Insulin Lispro 100 UNIT/ML 3 ML VIAL SUBCUT ×2 (12:21→21:18)
--- NOTE | 2020-07-06 15:53 | MHC.CM.PN ---
CM INCONTACT WITH [facility] AND THEY ARE UNABLE TO TAKE PT UNTIL THEY HEAR BACK FROM BILLING OR PT'S ONCOLOGIST REGARDING WHO WILL PAY FOR PT'S CANCER TX WHILE PT IS AT [facility], CM HAD ALSO REACHED OUT TO [facility] AND THEIR BILLING DEPT WITHOUT SUCCESS. PT WILL BE HERE THROUGHOUT WEEKEND AND PLAN WILL BE TO TRANSFER Thursday07/09/20 TO [facility] WHEN THEY WILL HEAR BACK FROM VIA BLS TRANSPORT. NURSING AND HOSPITALIST NOTIFIED OF PT'S DISPOSITION.
[2020-07-06 16:38] LABS: Glucose, Whole Blood 138 mg/dL (60-115)
[2020-07-06 20:40] LABS: Glucose, Whole Blood 201 mg/dL (60-115)
[2020-07-06] MEDS: Enoxaparin Sodium 40 MG/0.4 ML SYRINGE SUBCUT (21:17)
[2020-07-07] VITALS (9 sets, daily range): BP systolic 126–148; BP diastolic 61–76; PULSE 74–95; RESP 16–19; TEMP 36.2–37.4; O2SAT 94–98
[2020-07-07] MEDS: ceFAZolin Sodium/Dextrose,Iso 2 GM/50 ML PIGGYBACK IV ×4 (00:05→23:47)
[2020-07-07] MEDS: 0.9 % Sodium Chloride Flush 3 ML SYRINGE IVFLUSH ×2 (00:05→23:48)
[2020-07-07] MEDS: Albuterol/Iprat 2.5/0.5MG 3 ML AMPUL.NEB INHALE ×2 (07:17→11:06)
[2020-07-07] MEDS: Tolterodine Tartrate LA 4 MG CAP.ER.24H PO ×2 (07:53→21:52)
[2020-07-07] MEDS: Metoprolol Succinate ER 100 MG TAB.ER.24H PO ×2 (07:53→21:51)
[2020-07-07] MEDS: guaiFENesin LA 600 MG TAB.ER.12H PO ×2 (07:53→21:52)
[2020-07-07] MEDS: oxyCODONE HCl Immed Release 5 MG TABLET PO ×2 (07:53→21:52)
[2020-07-07] MEDS: 0.9 % Sodium Chloride Flush 10 ML SYRINGE 5 ML IVFLUSH ×3 (07:54→21:53)
[2020-07-07 08:10] LABS: Glucose, Whole Blood 107 mg/dL (60-115)
[2020-07-07 11:31] LABS: Glucose, Whole Blood 168 mg/dL (60-115)
--- NOTE | 2020-07-07 11:38 | P.PNIM_ITS ---
Subjective Subjective Date of Service: 07/07/20 Interval History: no complaints Cardiovascular Cardiovascular: Reports no additional cardiovascular complaints Respiratory Respiratory: Reports no additional respiratory complaints Physical Exam Vital Signs: Vital Signs: Last Vital Signs Temp 98.6 F 07/07/20 07:21 Pulse 74 07/07/20 11:07 Resp 19 07/07/20 07:21 BP 134/73 07/07/20 07:53 Pulse Ox 98 07/07/20 07:21 Body Mass Index 21.6 General: AO X 3, no acute distress Resp: CTA bilateral CVS: S1,S2,RRR GI: soft, non tender, non distended Neuro: motor grossly intact Psych: appropriate affect Objective Data Current Medications Generic Name Dose Route Start Last Admin Trade Name Freq PRN Reason Stop Dose Admin Acetaminophen 650 mg 06/29/20 20:18 06/30/20 21:40 Acetaminophen 325 Mg Tablet PO 650 mg Q6H PRN Administration Pain, Mild (Pain Scale 1-3) Albuterol/Ipratropium 3 ml 06/30/20 12:00 07/07/20 11:06 Albuterol/Iprat 2.5/0.5mg 3 Ml Ampul.Neb INHALE 3 ml RQ4H WHILE AWAKE ROWAN Administration Docusate Sodium 100 mg 06/29/20 20:18 Docusate Sodium 100 Mg Capsule PO DAILY PRN Constipation Enoxaparin Sodium 40 mg 06/29/20 20:30 07/06/20 21:17 Enoxaparin Sodium 40 Mg/0.4 Ml Syringe SUBCUT 40 mg Q24H ROWAN Administration Guaifenesin 600 mg 06/30/20 21:00 07/07/20 07:53 Guaifenesin La 600 Mg Tab.Er.12h PO 600 mg BID ROWAN Administration Cefazolin Sodium/Dextrose 2 gm in 50 mls @ 100 mls/hr 07/03/20 08:00 07/07/20 09:02 Ancef IV Infused Q8H ROWAN Infusion Insulin Human Lispro 0 unit 06/30/20 07:30 07/07/20 08:11 Insulin Lispro 100 Unit/Ml 3 Ml Vial SUBCUT Not Given QIDACHS [facility] Protocol Lisinopril 40 mg 07/01/20 09:00 07/07/20 07:53 Lisinopril 40 Mg Tablet PO 40 mg DAILY ROWAN Administration Metoprolol Succinate 100 mg 06/29/20 21:00 07/07/20 07:53 Metoprolol Succinate Er 100 Mg Tab.Er.24h PO 100 mg BID ROWAN Administration Protocol Ondansetron HCl 4 mg 06/29/20 20:18 Ondansetron Hcl 4 Mg/2 Ml Vial IVPUSH Q8H PRN Nausea and Vomiting Oxycodone HCl 5 mg 07/04/20 23:31 07/07/20 07:53 Oxycodone Hcl Immed Release 5 Mg Tablet PO 5 mg Q6H PRN Administration [facility] Consult 1 each 06/29/20 15:04 Consult Rx Perform Med Rec MISCELLANE ONCE PRN Consult order Sodium Chloride 3 ml 06/30/20 00:00 07/07/20 08:10 0.9 % Sodium Chloride Flush 3 Ml Syringe IVFLUSH Not Given QSHIFT ROWAN Sodium Chloride 5 ml 07/05/20 15:00 07/07/20 07:54 0.9 % Sodium Chloride Flush 10 Ml Syringe IVFLUSH 5 ml TID ROWAN Administration Tolterodine Tartrate 4 mg 06/29/20 21:00 07/07/20 07:53 Tolterodine Tartrate La 4 Mg Cap.Er.24h PO 4 mg BID ROWAN Administration Labs CBC & Chem 7: 07/04/20 05:43 07/04/20 05:42 Microbiology Microbiology Results: Microbiology 07/03/20 08:18 Blood - Venous Blood Culture - Preliminary No growth after 48 hours. 07/03/20 08:18 Blood - Venous Blood Culture - Preliminary No growth after 48 hours. 06/29/20 15:53 Blood - Venous Blood Culture - Final Staphylococcus aureus 06/29/20 15:51 Blood - Venous Blood Culture - Final Staphylococcus aureus Assessment and Plan (1) Diabetic foot ulcer: Status: Acute (2) Hx of osteomyelitis: Status: Inactive (3) Hypercholesteremia: Status: Acute (4) Lung cancer: Status: Acute (5) Hypertension: Status: Acute (6) Diabetes: Status: Acute (7) Leukocytosis: Status: Acute (8) Lactic acid acidosis: Status: Acute (9) MSSA bacteremia: Status: Acute Assessment and Plan: This is an 84-year-old female with past medical history of diabetes and diabetic neuropathy status post osteomyelitis of multiple toes in bilateral feet presented to the hospital with a wound on the medial aspect of right foot as well as at bump at the bottom of her right foot. complicated by mssa bacteremia DFU with MSSA bacteremia changed to ancef, repeat cultures drawn 07/03 no growth , s/p picc, echo with no obvious vegetations, plan for 6 week total, day , end july DM insulin HTN metoprolol history of lung cancer on kaytruda outpatient f/u DNR/DNI DVT pptx, Lovenox
[2020-07-07] MEDS: Insulin Lispro 100 UNIT/ML 3 ML VIAL SUBCUT ×2 (12:00→21:52)
[2020-07-07 16:44] LABS: Glucose, Whole Blood 149 mg/dL (60-115)
[2020-07-07 20:24] LABS: Glucose, Whole Blood 225 mg/dL (60-115)
[2020-07-07] MEDS: Enoxaparin Sodium 40 MG/0.4 ML SYRINGE SUBCUT (21:52)
[2020-07-08] VITALS (10 sets, daily range): BP systolic 123–153; BP diastolic 55–70; PULSE 72–85; RESP 16–19; TEMP 36.1–37.6; O2SAT 92–98
[2020-07-08] MEDS: Metoprolol Succinate ER 100 MG TAB.ER.24H PO ×2 (07:42→22:26)
[2020-07-08] MEDS: 0.9 % Sodium Chloride Flush 10 ML SYRINGE 5 ML IVFLUSH ×3 (07:43→22:27)
[2020-07-08] MEDS: ceFAZolin Sodium/Dextrose,Iso 2 GM/50 ML PIGGYBACK IV ×2 (07:43→15:44)
[2020-07-08] MEDS: Tolterodine Tartrate LA 4 MG CAP.ER.24H PO ×2 (07:43→22:26)
[2020-07-08] MEDS: guaiFENesin LA 600 MG TAB.ER.12H PO ×2 (07:43→22:25)
[2020-07-08 08:18] LABS: Glucose, Whole Blood 107 mg/dL (60-115)
--- NOTE | 2020-07-08 10:01 | HO.PM.IMPN ---
Subjective Subjective Date of Service: 07/08/20 Interval History: no complaints Cardiovascular Cardiovascular: Reports no additional cardiovascular complaints Respiratory Respiratory: Reports no additional respiratory complaints Physical Exam Vital Signs: Vital Signs: Last Vital Signs Temp 98.1 F 07/08/20 07:40 Pulse 72 07/08/20 07:43 Resp 19 07/08/20 07:40 BP 136/61 07/08/20 07:43 Pulse Ox 98 07/08/20 07:40 Body Mass Index 21.6 General: AO X 3, no acute distress Resp: CTA bilateral CVS: S1,S2,RRR GI: soft, non tender, non distended Neuro: motor grossly intact Psych: appropriate affect Objective Data Current Medications Generic Name Dose Route Start Last Admin Trade Name Freq PRN Reason Stop Dose Admin Acetaminophen 650 mg 06/29/20 20:18 06/30/20 21:40 Acetaminophen 325 Mg Tablet PO 650 mg Q6H PRN Administration Pain, Mild (Pain Scale 1-3) Docusate Sodium 100 mg 06/29/20 20:18 Docusate Sodium 100 Mg Capsule PO DAILY PRN Constipation Enoxaparin Sodium 40 mg 06/29/20 20:30 07/07/20 21:52 Enoxaparin Sodium 40 Mg/0.4 Ml Syringe SUBCUT 40 mg Q24H ROWAN Administration Guaifenesin 600 mg 06/30/20 21:00 07/08/20 07:43 Guaifenesin La 600 Mg Tab.Er.12h PO 600 mg BID ROWAN Administration Cefazolin Sodium/Dextrose 2 gm in 50 mls @ 100 mls/hr 07/03/20 08:00 07/08/20 08:48 Ancef IV Infused Q8H ROWAN Infusion Insulin Human Lispro 0 unit 06/30/20 07:30 07/08/20 08:20 Insulin Lispro 100 Unit/Ml 3 Ml Vial SUBCUT Not Given QIDACHS [facility] Protocol Lisinopril 40 mg 07/01/20 09:00 07/08/20 07:43 Lisinopril 40 Mg Tablet PO 40 mg DAILY ROWAN Administration Metoprolol Succinate 100 mg 06/29/20 21:00 07/08/20 07:42 Metoprolol Succinate Er 100 Mg Tab.Er.24h PO 100 mg BID ROWAN Administration Protocol Ondansetron HCl 4 mg 06/29/20 20:18 Ondansetron Hcl 4 Mg/2 Ml Vial IVPUSH Q8H PRN Nausea and Vomiting Oxycodone HCl 5 mg 07/04/20 23:31 07/07/20 21:52 Oxycodone Hcl Immed Release 5 Mg Tablet PO 5 mg Q6H PRN Administration [facility] Consult 1 each 06/29/20 15:04 Consult Rx Perform Med Rec MISCELLANE ONCE PRN Consult order Sodium Chloride 3 ml 06/30/20 00:00 07/08/20 07:44 0.9 % Sodium Chloride Flush 3 Ml Syringe IVFLUSH Not Given QSHIFT ROWAN Sodium Chloride 5 ml 07/05/20 15:00 07/08/20 07:43 0.9 % Sodium Chloride Flush 10 Ml Syringe IVFLUSH 5 ml TID ROWAN Administration Tolterodine Tartrate 4 mg 06/29/20 21:00 07/08/20 07:43 Tolterodine Tartrate La 4 Mg Cap.Er.24h PO 4 mg BID ROWAN Administration Labs CBC & Chem 7: 07/04/20 05:43 07/04/20 05:42 Microbiology Microbiology Results: Microbiology 07/03/20 08:18 Blood - Venous Blood Culture - Preliminary No growth after 48 hours. 07/03/20 08:18 Blood - Venous Blood Culture - Preliminary No growth after 48 hours. 06/29/20 15:53 Blood - Venous Blood Culture - Final Staphylococcus aureus 06/29/20 15:51 Blood - Venous Blood Culture - Final Staphylococcus aureus Assessment and Plan (1) Diabetic foot ulcer: Status: Acute (2) Hx of osteomyelitis: Status: Inactive (3) Hypercholesteremia: Status: Acute (4) Lung cancer: Status: Acute (5) Hypertension: Status: Acute (6) Diabetes: Status: Acute (7) Leukocytosis: Status: Acute (8) Lactic acid acidosis: Status: Acute (9) MSSA bacteremia: Status: Acute Assessment and Plan: This is an 84-year-old female with past medical history of diabetes and diabetic neuropathy status post osteomyelitis of multiple toes in bilateral feet presented to the hospital with a wound on the medial aspect of right foot as well as at bump at the bottom of her right foot. complicated by mssa bacteremia DFU with MSSA bacteremia changed to ancef, repeat cultures drawn 07/03 no growth , s/p picc, echo with no obvious vegetations, plan for 6 week total, day , end july DM insulin HTN metoprolol history of lung cancer on kaytruda outpatient f/u DNR/DNI DVT pptx, Lovenox
[2020-07-08 11:30] LABS: Glucose, Whole Blood 159 mg/dL (60-115)
[2020-07-08] MEDS: Insulin Lispro 100 UNIT/ML 3 ML VIAL SUBCUT ×2 (11:51→22:26)
[2020-07-08 16:45] LABS: Glucose, Whole Blood 142 mg/dL (60-115)
[2020-07-08 20:53] LABS: Glucose, Whole Blood 199 mg/dL (60-115)
[2020-07-08] MEDS: oxyCODONE HCl Immed Release 5 MG TABLET PO (22:25)
[2020-07-08] MEDS: Enoxaparin Sodium 40 MG/0.4 ML SYRINGE SUBCUT (22:25)
[2020-07-09] MEDS: ceFAZolin Sodium/Dextrose,Iso 2 GM/50 ML PIGGYBACK IV ×3 (00:19→17:27)
[2020-07-09] MEDS: 0.9 % Sodium Chloride Flush 3 ML SYRINGE IVFLUSH ×2 (00:19→17:28)
[2020-07-09 04:00] VITALS: BP 134/74; PULSE 85; RESP 18; TEMP 37.1; O2SAT 92
[2020-07-09 07:58] LABS: Glucose, Whole Blood 132 mg/dL (60-115)
[2020-07-09 08:00] VITALS: BP 148/73; PULSE 89; RESP 18; TEMP 37.2; O2SAT 92
[2020-07-09] MEDS: Tolterodine Tartrate LA 4 MG CAP.ER.24H PO ×2 (08:45→20:32)
[2020-07-09] MEDS: guaiFENesin LA 600 MG TAB.ER.12H PO ×2 (08:46→20:31)
[2020-07-09] MEDS: Metoprolol Succinate ER 100 MG TAB.ER.24H PO ×2 (08:46→20:31)
[2020-07-09 11:40] VITALS: BP 148/73; PULSE 89; O2SAT 92
[2020-07-09 12:00] VITALS: BP 155/78; PULSE 85; RESP 18; TEMP 36.9; O2SAT 92
[2020-07-09 12:12] LABS: Glucose, Whole Blood 199 mg/dL (60-115)
[2020-07-09] MEDS: 0.9 % Sodium Chloride Flush 10 ML SYRINGE 5 ML IVFLUSH ×2 (14:14→20:32)
--- NOTE | 2020-07-09 15:23 | HO.PM.IMPN ---
Subjective Subjective Date of Service: 07/09/20 Interval History: no complaints Cardiovascular Cardiovascular: Reports no additional cardiovascular complaints Respiratory Respiratory: Reports no additional respiratory complaints Physical Exam Vital Signs: Vital Signs: Last Vital Signs Temp 98.4 F 07/09/20 12:00 Pulse 85 07/09/20 12:00 Resp 18 07/09/20 12:00 BP 155/78 H 07/09/20 12:00 Pulse Ox 92 07/09/20 12:00 Body Mass Index 21.6 General: AO X 3, no acute distress Resp: CTA bilateral CVS: S1,S2,RRR GI: soft, non tender, non distended Neuro: motor grossly intact Psych: appropriate affect Objective Data Current Medications Generic Name Dose Route Start Last Admin Trade Name Freq PRN Reason Stop Dose Admin Acetaminophen 650 mg 06/29/20 20:18 06/30/20 21:40 Acetaminophen 325 Mg Tablet PO 650 mg Q6H PRN Administration Pain, Mild (Pain Scale 1-3) Docusate Sodium 100 mg 06/29/20 20:18 Docusate Sodium 100 Mg Capsule PO DAILY PRN Constipation Enoxaparin Sodium 40 mg 06/29/20 20:30 07/08/20 22:25 Enoxaparin Sodium 40 Mg/0.4 Ml Syringe SUBCUT 40 mg Q24H ROWAN Administration Guaifenesin 600 mg 06/30/20 21:00 07/09/20 08:46 Guaifenesin La 600 Mg Tab.Er.12h PO 600 mg BID ROWAN Administration Cefazolin Sodium/Dextrose 2 gm in 50 mls @ 100 mls/hr 07/03/20 08:00 07/09/20 12:05 Ancef IV Infused Q8H ROWAN Infusion Insulin Human Lispro 0 unit 06/30/20 07:30 07/09/20 12:27 Insulin Lispro 100 Unit/Ml 3 Ml Vial SUBCUT Not Given QIDACHS [facility] Protocol Lisinopril 40 mg 07/01/20 09:00 07/09/20 08:45 Lisinopril 40 Mg Tablet PO 40 mg DAILY ROWAN Administration Metoprolol Succinate 100 mg 06/29/20 21:00 07/09/20 08:46 Metoprolol Succinate Er 100 Mg Tab.Er.24h PO 100 mg BID ROWAN Administration Protocol Ondansetron HCl 4 mg 06/29/20 20:18 Ondansetron Hcl 4 Mg/2 Ml Vial IVPUSH Q8H PRN Nausea and Vomiting Oxycodone HCl 5 mg 07/04/20 23:31 07/08/20 22:25 Oxycodone Hcl Immed Release 5 Mg Tablet PO 5 mg Q6H PRN Administration [facility] Consult 1 each 06/29/20 15:04 Consult Rx Perform Med Rec MISCELLANE ONCE PRN Consult order Sodium Chloride 3 ml 06/30/20 00:00 07/09/20 08:43 0.9 % Sodium Chloride Flush 3 Ml Syringe IVFLUSH Not Given QSHIFT ROWAN Sodium Chloride 5 ml 07/05/20 15:00 07/09/20 14:14 0.9 % Sodium Chloride Flush 10 Ml Syringe IVFLUSH 5 ml TID ROWAN Administration Tolterodine Tartrate 4 mg 06/29/20 21:00 07/09/20 08:45 Tolterodine Tartrate La 4 Mg Cap.Er.24h PO 4 mg BID ROWAN Administration Labs CBC & Chem 7: 07/04/20 05:43 07/04/20 05:42 Microbiology Microbiology Results: Microbiology 07/03/20 08:18 Blood - Venous Blood Culture - Final No growth after 5 days. 07/03/20 08:18 Blood - Venous Blood Culture - Final No growth after 5 days. 06/29/20 15:53 Blood - Venous Blood Culture - Final Staphylococcus aureus 06/29/20 15:51 Blood - Venous Blood Culture - Final Staphylococcus aureus Assessment and Plan (1) Diabetic foot ulcer: Status: Acute (2) Hx of osteomyelitis: Status: Inactive (3) Hypercholesteremia: Status: Acute (4) Lung cancer: Status: Acute (5) Hypertension: Status: Acute (6) Diabetes: Status: Acute (7) Leukocytosis: Status: Acute (8) Lactic acid acidosis: Status: Acute (9) MSSA bacteremia: Status: Acute Assessment and Plan: This is an 84-year-old female with past medical history of diabetes and diabetic neuropathy status post osteomyelitis of multiple toes in bilateral feet presented to the hospital with a wound on the medial aspect of right foot as well as at bump at the bottom of her right foot. complicated by mssa bacteremia DFU with MSSA bacteremia changed to ancef, repeat cultures drawn 07/03 no growth , s/p picc, echo with no obvious vegetations, plan for 6 week total, day 7/42, end july DM insulin HTN metoprolol history of lung cancer on kaytruda outpatient f/u DNR/DNI DVT pptx, Saraynox
--- NOTE | 2020-07-09 16:27 | MHC.CM.PN ---
IMM 07/09/20, [facility] STILL UNWILLING TO TAKE PT UNTIL GETTING RESPONSE BACK FROM ONCOLOGIST OR BILLING DEPT, CM DIRECTOR HAS ALSO CALLED PT'S ONCOLOGIST'S OFFICE WITH NO RESPONSE BACK TODAY WELL. PT WAS DUE FOR TREATMENT TOMNORROW 07/10/20, CM WILL FOLLOW-UP FIRST THING TOMORROW.
[2020-07-09 16:47] LABS: Glucose, Whole Blood 111 mg/dL (60-115)
[2020-07-09 19:13] VITALS: BP 150/70; PULSE 84; RESP 19; TEMP 36.9; O2SAT 93
[2020-07-09] MEDS: Enoxaparin Sodium 40 MG/0.4 ML SYRINGE SUBCUT (20:30)
[2020-07-09 20:31] VITALS: BP 150/70; PULSE 84
[2020-07-09 20:34] LABS: Glucose, Whole Blood 142 mg/dL (60-115)
[2020-07-09] MEDS: oxyCODONE HCl Immed Release 5 MG TABLET PO (22:02)
[2020-07-10] VITALS: BP 137/65; PULSE 86; RESP 18; TEMP 36.8; O2SAT 93
[2020-07-10] MEDS: 0.9 % Sodium Chloride Flush 10 ML SYRINGE 5 ML IVFLUSH (00:26)
[2020-07-10] MEDS: ceFAZolin Sodium/Dextrose,Iso 2 GM/50 ML PIGGYBACK IV ×2 (00:27→07:46)
[2020-07-10 04:00] VITALS: BP 143/64; PULSE 80; RESP 20; TEMP 36.3; O2SAT 94
[2020-07-10 07:15] VITALS: BP 156/69; PULSE 84; RESP 21; TEMP 36.2; O2SAT 92
[2020-07-10] MEDS: Tolterodine Tartrate LA 4 MG CAP.ER.24H PO (07:45)
[2020-07-10] MEDS: Metoprolol Succinate ER 100 MG TAB.ER.24H PO (07:46)
[2020-07-10] MEDS: guaiFENesin LA 600 MG TAB.ER.12H PO (07:46)
[2020-07-10 07:59] LABS: Glucose, Whole Blood 107 mg/dL (60-115)
--- NOTE | 2020-07-10 09:26 | MHC.CM.PN ---
PT DISCHARGING TODAY TO [facility] VIA [facility] FOR BLS TRANSPORT. PER CM DIRECTOR PT'S ONCOLOGIST DR. ASTUDILLO RETURNED CALL AND OKAYS HOLD ON PT'S KAYTRUDA TX WHILE PT IS RECEIVING IV ABX TREATMENT. FACILITY IS AWARE AND HAS SCHEDULED 1PM TRANSFER PENDING COVID RESULTS.
[2020-07-10 11:50] LABS: Glucose, Whole Blood 159 mg/dL (60-115)
[2020-07-10 12:00] VITALS: BP 139/68; PULSE 84; RESP 19; TEMP 36.3; O2SAT 92
--- NOTE | 2020-07-10 12:36 | PM.DS ---
DS: Providers Provider Date of Service: 07/10/20 Date of admission: 06/29/20 20:18 Primary care physician: Pelon Haddad MD Consults: 06/29/20 20:18 Consult to General Surgery Routine Consulting Provider: Ella Peres Reason for consultation: Diabetic foot wound Has provider been notified: No Consult to Infectious Diseases Routine Consulting Provider: Shagufta Dejesus Reason for consultation: diabetic foot ulcer Has provider been notified: No DS: Diagnosis Discharge Diagnosis (1) Diabetic foot ulcer: Status: Acute (2) Hx of osteomyelitis: Status: Inactive (3) Hypercholesteremia: Status: Acute (4) Lung cancer: Status: Acute (5) Hypertension: Status: Acute (6) Diabetes: Status: Acute (7) Leukocytosis: Status: Acute (8) Lactic acid acidosis: Status: Acute (9) MSSA bacteremia: Status: Acute DS: Medications Discharge Medications Home Medications: Home Medications Medication Instructions Recorded Confirmed Januvia 50 mg PO DAILY 06/29/20 06/29/20 metoprolol succinate 100 mg PO BID 06/29/20 06/29/20 ramipril 10 mg PO DAILY 06/29/20 06/29/20 tolterodine [Detrol LA] 4 mg PO BID 06/29/20 06/29/20 Previous Rx's Medication Instructions Recorded cefazolin in dextrose (iso-os) 2 g IV Q8H 39 Days #5850 ea 07/05/20 DS: Summary Hospital Course Hospital Course: date of encounter and date of service: 07/06/2020 Patient was admitted for diabetic foot ulcer. She was given broad-spectrum antibiotics. Her blood culture became positive for MSSA bacteremia. She got MRI which did not show evidence of osteomyelitis. She was seen by infectious disease who felt that she would not need local treatment at this time and recommended 6 weeks of IV cefazolin. Her blood cultures became negative on 07/03/2020 and she will continue IV Ancef until 08/13/2020. Patient being discharged to rehab facility for IV antibiotics. Time Spent with Patient Time attestation: Total time spent providing and/or coordinating discharge services: Discharge coordination time: Greater than 30 minutes Physical Exam Vital Signs: Vital Signs: Last Vital Signs Temp 97.2 F 07/10/20 07:15 Pulse 84 07/10/20 07:15 Resp 21 H 07/10/20 07:15 BP 156/69 H 07/10/20 07:15 Pulse Ox 92 07/10/20 07:15 Body Mass Index 21.6 General: Awake alert in no acute distress Resp: Clear to auscultation, no respiratory distress CVS: S1,S2,RRR GI: soft, non tender, non distended, bowel sounds are audible Neuro: motor grossly intact Rt foot mild redness and small callus sole of rt foot, and ulcer lateral border Psych: appropriate affect DS: Data Data Completed and Pending Labs on day of discharge: Laboratory Results - last 24 hr 07/09/20 07/09/20 07/10/20 16:43 20:24 07:12 POC Glucose 111 142 H 107 07/10/20 11:17 POC Glucose 159 H Discharge Plan Discharge Patient Disposition: Xfer SNF Referrals: [facility] [Other] (BLS TRANSPORT) [facility] [Outside] (SHORT TERM REHAB, IV ANTIBIOTICS) Pelon Haddad MD [Primary Care Provider] - Discharge Medications: New cefazolin in dextrose (iso-os) 2 gram/50 mL Piggyback 2 g IV Q8H 39 Days Qty: 5850 RF: 0 Continued metoprolol succinate 100 mg Tablet Extended Release 24 Hr 100 mg PO BID RF: 0 tolterodine [Detrol LA] 4 mg Capsule,Extended Release 24hr 4 mg PO BID RF: 0 ramipril 10 mg Capsule 10 mg PO DAILY RF: 0 Januvia 50 mg Tablet 50 mg PO DAILY RF: 0 Discontinued doxycycline hyclate 100 mg Capsule 100 mg PO DAILY RF: 0 azithromycin 250 mg Tablet 250 mg PO MOWEFR@1000 RF: 0 Discharge Orders: Discharge Order (Routine); Ordered 07/10/20 Ordered By: Marco Antonio Styles Diet: diabetic diet Activity on Discharge: As tolerated Stand Alone Forms: Patient Portal Discharge page Care Plan Goals: recovery, hold Keytruda while receiving antibiotics follow-up with Oncology at [facility] Concerns: bacteremia, dfu Plan of Treatment: 6 weeks ancef
[2020-07-10 13:44] LABS: COVID-19 Test Negative (Negative)
== END 2020-07-10 14:59 | disposition skilled nursing facility (03) | DRG 637 ==
LOC: HO.ED 15:27 → HO.EDOVER 20:44 → HO.S3 20:45
PROVIDERS: Family Medicine; Internal Medicine; Nurse Practitioner Family; Admitting Provider Internal Medicine; Emergency Provider Emergency Medicine Emergency Medical Services; PCP Internal Medicine; Visit Provider Hospitalist
DX: E11.621 Type 2 diabetes mellitus with foot ulcer (principal); J18.0 Bronchopneumonia, unspecified organism; E87.2 Acidosis; L97.419 Non-pressure chronic ulcer of right heel and midfoot with unspecified severity; C34.90 Malignant neoplasm of unspecified part of unspecified bronchus or lung; R78.81 Bacteremia; E78.5 Hyperlipidemia, unspecified; I10 Essential (primary) hypertension; E11.42 Type 2 diabetes mellitus with diabetic polyneuropathy; E78.00 Pure hypercholesterolemia, unspecified; B95.61 Methicillin susceptible Staphylococcus aureus infection as the cause of diseases classified elsewhere; D72.829 Elevated white blood cell count, unspecified; Z20.822 Contact with and (suspected) exposure to COVID-19; Z79.899 Other long term (current) drug therapy; Z66 Do not resuscitate
CPT/HCPCS: 36415; 36573; 71045; 71275; 73630; 73720; 80048; 80076; 80202; 81003; 82947; 83605; 83735; 83880; 84484; 85025; 85027; 85610; 85652; 86140; 87040; 87077; 87186; 87205; 87635; 93005; 93306; 94640; 96365; 96367; 96375; 97110; 97162; 97530; 99285; A9585; C1751; J0690; J1642; J1650; J2543; J2930; J3370; Q9967

== ENCOUNTER 2020-08-29 18:22 | Inpatient (IN) | payer MEDICARE, OTHER, SELFPAY ==
--- NOTE | ~2020-08-29 | CT_ITS ---
EXAMINATION: CT BRAIN AND CT CERVICAL SPINE WITHOUT CONTRAST. CLINICAL INFORMATION: Fall. COMPARISON: None TECHNIQUE: 5 mm thin axial and reformatted 2 mm thin sagittal and coronal images of brain were obtained. Subsequently axial 3 mm thin and reformatted 2 mm thin sagittal and coronal images of cervical spine were obtained. DLP 991 FINDINGS: BRAIN: There is no acute intra-axial, extra-axial bleed, masses or midline shift. The lateral ventricles are enlarged but symmetrical. The carvalho to white matter differentiation is maintained normal with mild periventricular hypodensity but no mass or mass effect or edema. Bone windows reveal no calvarial abnormality. No scalp soft tissue abnormality. The paranasal sinuses and mastoid air cells are well-aerated. CERVICAL SPINE: There is normal cervical lordosis. The vertebral heights and alignment is normal. There is mild loss of C3-C4, C4-C5, C5-C6, C6-C7 and C7-T1 disc heights. No acute fracture, lytic or sclerotic process seen. The craniovertebral junction and the C1-C2 alignment is normal. There is mild scarring in the right lung apex with loss of lung volume. The prevertebral and paravertebral soft tissues are normal. CT/CT cervical spine wo con IMPRESSION: No acute intracranial process seen. 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 Degenerative disc changes C5-C6, C6-C7 and C7-T1 disc levels with moderate ventral spondylosis. There is no visible acute fracture, dislocation or lytic process seen. There is mild ventral spurring at the C1-C2 disc level.
--- NOTE | ~2020-08-29 | XR_ITS ---
EXAMINATION: XR SHOULDER, RIGHT CLINICAL INFORMATION: Fall COMPARISON: None TECHNIQUE: Three views of the right shoulder. FINDINGS: Humeral head appears well-seated in the glenoid fossa with extensive degenerative changes, loss of joint space and subchondral sclerosis as well as osteophyte formation. I do not appreciate any acute superimposed fracture or dislocation on these chronic changes. Right-sided chest port is seen. Focal opacity in the right upper lobe XR/XR shoulder RT min 2V IMPRESSION: Extensive degenerative changes but no definitive acute fracture or dislocation
--- NOTE | ~2020-08-29 | CT_ITS ---
EXAMINATION: CT BRAIN AND CT CERVICAL SPINE WITHOUT CONTRAST. CLINICAL INFORMATION: Fall. COMPARISON: None TECHNIQUE: 5 mm thin axial and reformatted 2 mm thin sagittal and coronal images of brain were obtained. Subsequently axial 3 mm thin and reformatted 2 mm thin sagittal and coronal images of cervical spine were obtained. DLP 991 FINDINGS: BRAIN: There is no acute intra-axial, extra-axial bleed, masses or midline shift. The lateral ventricles are enlarged but symmetrical. The carvalho to white matter differentiation is maintained normal with mild periventricular hypodensity but no mass or mass effect or edema. Bone windows reveal no calvarial abnormality. No scalp soft tissue abnormality. The paranasal sinuses and mastoid air cells are well-aerated. CERVICAL SPINE: There is normal cervical lordosis. The vertebral heights and alignment is normal. There is mild loss of C3-C4, C4-C5, C5-C6, C6-C7 and C7-T1 disc heights. No acute fracture, lytic or sclerotic process seen. The craniovertebral junction and the C1-C2 alignment is normal. There is mild scarring in the right lung apex with loss of lung volume. The prevertebral and paravertebral soft tissues are normal. CT/CT head/brain wo con IMPRESSION: No acute intracranial process seen. 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 Degenerative disc changes C5-C6, C6-C7 and C7-T1 disc levels with moderate ventral spondylosis. There is no visible acute fracture, dislocation or lytic process seen. There is mild ventral spurring at the C1-C2 disc level.
--- NOTE | ~2020-08-29 | XR_ITS ---
EXAMINATION: XR KNEE, RIGHT CLINICAL INFORMATION: Fall COMPARISON: None TECHNIQUE: Four views of the right knee. FINDINGS: No significant joint effusion. Mild degenerative changes and chondrocalcinosis seen. No acute fracture or dislocation noted. No bony destructive lesions. 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 Vascular calcification. XR/XR knee RT 4V IMPRESSION: Mild chronic appearing changes but no acute fracture or dislocation.
--- NOTE | ~2020-08-29 | US_ITS ---
EXAMINATION: US VENOUS ULTRASOUND WITH DOPPLER LOWER EXTREMITY, RIGHT CLINICAL INFORMATION: Right lower extremity pain COMPARISON: None TECHNIQUE: Ultrasound of the deep veins is performed from the hip to the calf with compression sonography and color and pulse Doppler assessment. Spectral analysis with color-flow imaging is performed. FINDINGS: There is normal venous compression and respiratory variation and augmented flow. The visualized common femoral vein, superficial femoral vein, profunda femoral vein, popliteal vein, and the trifurcation region shows no evidence of deep venous thrombosis. There is no significant popliteal fossa cyst. The contralateral left common femoral vein appears normal. If the patient's symptoms persist, followup ultrasound in 5 days 7 days might be of value to exclude proximal propagation from a non-visualized calf vein. US/US venous duplex LE RT IMPRESSION: No DVT demonstrated in the right lower extremity.
--- NOTE | ~2020-08-29 | XR_ITS ---
EXAMINATION: PORTABLE CHEST 1 VIEW CLINICAL INFORMATION: eval pneumonia . COMPARISON: 06/29/2020. TECHNIQUE: Portable frontal view of the chest was obtained. FINDINGS: Lungs are well expanded. There is a focal opacity overlying the right upper lobe which has progressed from the prior study. Minimal left basilar atelectasis. No effusion, edema, or pneumothorax. Cardiac and mediastinal silhouettes within normal limits for size. Vascular calcification in aorta. Right-sided CT compatible chest port with the tip near the expected cavoatrial junction. Degenerative changes in the right shoulder. XR/XR chest 1V IMPRESSION: Chronic appearing changes with focal opacity overlying the right upper lobe which is increased from the prior study. Etiology is uncertain.
[2020-08-29 19:07] VITALS: BP 139/67; PULSE 91; RESP 18; TEMP 37.2; O2SAT 93
[2020-08-29 19:20] VITALS: BP 133/83; PULSE 94; O2SAT 96
[2020-08-29 19:25] VITALS: PULSE 91; RESP 18; TEMP 37.2; O2SAT 93; BMI 27.5
--- NOTE | 2020-08-29 21:00 | ED_ITS ---
HPI - Fall General Chief Complaint: Fall Stated Complaint: FALL,-LOC,+COLLAR,-THINNERS Time Seen by Provider: 08/29/20 21:00 Source: patient and EMS Mode of arrival: EMS Limitations: no limitations History of Present Illness HPI Narrative: 84 yo female not on blood thinners comes in after losing her balance at home due to recent L foot DM ulcer infection - left rehab on thursday had been on IV antibiotics for 6 weeks - notes falling x 2 and used life alert, no CP/SOB dizziness, was trying to feed her cat. did not want to come to the hospital MD complaint: fall Onset (ago): hour(s) Fall from: standing Fall witnessed: no Place fall occurred: home Loss of consciousness: none Prolonged down time: no Symptoms prior to fall: none Context: history of frequent falls Location of injury: head Location of injury - extremities: right: shoulder and knee Severity: mild Quality: dull Associated symptoms (after fall): denies Related Data Home Medications Medication Instructions Recorded Confirmed Januvia 50 mg PO DAILY 06/29/20 06/29/20 metoprolol succinate 100 mg PO BID 06/29/20 06/29/20 ramipril 10 mg PO DAILY 06/29/20 06/29/20 tolterodine [Detrol LA] 4 mg PO BID 06/29/20 06/29/20 cefazolin in dextrose (iso-os) 100 ml IV Q8H 08/29/20 Allergies Allergy/AdvReac Type Severity Reaction Status Date / Time PLASTIC TAPE Allergy Intermediate RED RAW Uncoded 06/29/20 14:44 SKIN Review of Systems Review of Systems: Constitutional : No Fever, No Chills ENT/Mouth : No Ear Pain, No Hoarseness, No sore throat Eyes: No Eye Pain, No Swelling, No Redness, No Foreign Body Cardiovascular : No Chest Pain, No SOB Respiratory : No Cough, No Dyspnea Gastrointestinal : No Nausea, No Vomiting, No Diarrhea, No abdominal Pain Genitourinary : No Dysuria, No Hematuria Musculoskeletal : positive joint pain, No Myalgias, No Joint Swelling Skin : No Skin lacerations, No rash Neuro : No Weakness, No Numbness, No Loss of Consciousness, No Dizziness, No Headache Psych : No Anxiety/Panic, No Depression Heme/Lymph: no easy bruising, no Lymphadenopathy Endocrine : No Polyuria, No Polydipsia All other systems reviewed and are negative PMFSH Past Medical History Medical History Amputated toe of left foot Cataracts, both eyes Diabetes Femur fracture, left Hx of osteomyelitis Hypercholesteremia Hypertension Lung cancer MSSA bacteremia Toe amputee Surgical History H/O umbilical hernia repair Social History Social History Alcohol intake: current Alcohol intake frequency: holidays/special occasions only Smoking Status: Former smoker Advance Directives: No Advance Directives Information Provided: No service: No Current occupational status: retired Physical Exam Vital Signs: Vital Signs: Last Vital Signs Temp 98.9 F 08/29/20 19:25 Pulse 91 08/29/20 19:25 Resp 18 08/29/20 19:25 BP 139/67 08/29/20 19:07 Pulse Ox 93 08/29/20 19:25 Body Mass Index 27.5 Appearance: Alert. Oriented X3. No acute distress. Eyes: Pupils equal, round and reactive to light. ENT: Pharynx normal. small contusion on occiput noted Neck: Normal inspection. Neck supple. no midline ttp CVS: Normal heart rate and rhythm. Pulses normal. Respiratory: No respiratory distress. Breath sounds normal. Abdomen: Soft and nontender. Skin: Skin warm and dry. Normal skin color. Normal skin turgor. Extremities: RLE > LLE nonpitting, it is warm to the touch and erythema from foot to knee, faint, different in comparison to left leg, ulcer has no drainage but still noted on left foot. No calf ttp R knee abrasion and mild ttp on patella, R shoulder ttp - distal ext NV intact Neuro: Oriented X 3. No motor deficit. No sensory deficit. Course Course Course Narrative: given WBC count, RLE feels more warm to touch now, erythema noted on dorsum patient now states she thinks it is more swollen maybe over 2 days, added on cultures, lactic acid, empiric zosyn 1010pm admission requested to hospitalist at 1141pm MDM - Fall MDM Narrative Medical decision making narrative: 84 yo female fall at home after leaving rehab with extended stay - c/o R knee and shoulder pain, did hit head, will need labs, CT head/neck for trauma given age, XR of shoulder and R knee - basic labs, given repeat falls and recent STR stay from MSSA bacteremia I am worried that she has a recurrent infection in her RLE given erythema/warmth/swelling - labs ordered. Lab Data Result diagrams: 08/29/20 21:44 08/29/20 21:44 Labs: Lab Results 08/29/20 08/29/20 08/29/20 Range/Units 21:43 21:44 21:44 WBC 21.2 H (4.8-10.8) X10*3/uL RBC 3.68 L (4.20-5.50) X10*6/uL Hgb 11.4 L D (12.0-16.0) g/dl Hct 35.0 L D (37-47) % MCV 95.1 (80-98) fL MCH 31.0 (27.0-33.0) pg MCHC 32.6 (31.0-35.0) g/dl RDW 13.1 (11.0-16.0) % Plt Count 204 D (160-400) X10*3/uL MPV 10.2 (9.4-12.3) fL Immature Gran % (Auto) 0.9 H (0.0-0.4) % Neut % (Auto) 84.6 H (45-73) % Lymph % (Auto) 5.4 L (20-40) % Barnes % (Auto) 8.9 (2-11) % Eos % (Auto) 0.0 (0-4) % Baso % (Auto) 0.2 (0-2) % Lymph # (Auto) 1.2 (1.2-4.9) X10*3/uL Barnes # (Auto) 1.9 H (0.1-1.2) X10*3/uL Eos # (Auto) 0.0 (0.0-0.4) X10*3/uL Baso # (Auto) 0.0 (0.0-0.2) X10*3/uL Abs Immat Gran (auto) 0.19 H (0.00-0.03) X10*3/uL Absolute Neuts (auto) 17.9 H (2.0-8.3) X10*3/uL Absolute Nucleated RBC 0.000 (0.0-0.012) X10*3/uL Nucleated RBC % (auto) 0.0 (0.0-0.2) /100WBC Smear Tech's Comments VERIFIED PT 12.4 (10.8-13.0) SEC INR 1.0 (0.9-1.1) APTT 21.6 L (24.1-38.0) SEC Sodium 138 (135-145) mmol/L Potassium 4.4 (3.3-5.1) mmol/L Chloride 105 (96-108) mmol/L Carbon Dioxide 24 (22-29) mmol/L Anion Gap 13 (12-20) BUN 17 H D (9-16) mg/dL Creatinine 0.79 (0.5-1.4) mg/dL Estim Creat Clear Calc 52.7 Estimated GFR > 60 Random Glucose 147 H D (60-115) mg/dL Lactic Acid (0.5-2.0) mmol/L Calcium 9.2 D (8.4-10.2) mg/dL Magnesium (1.6-2.6) mg/dL Total Bilirubin (0.0-1.0) mg/dL Direct Bilirubin (0.0-0.5) mg/dL AST (5-31) U/L ALT (0-31) U/L Alkaline Phosphatase (39-117) U/L Total Creatine Kinase 26 (26-140) U/L Total Protein (6.5-8.0) g/dL Albumin (3.5-5.0) g/dL COVID-19 (FADY) (Negative) COVID-19 Clin Com 08/29/20 08/29/20 08/29/20 Range/Units 21:44 21:44 22:51 WBC (4.8-10.8) X10*3/uL RBC (4.20-5.50) X10*6/uL Hgb (12.0-16.0) g/dl Hct (37-47) % MCV (80-98) fL MCH (27.0-33.0) pg MCHC (31.0-35.0) g/dl RDW (11.0-16.0) % Plt Count (160-400) X10*3/uL MPV (9.4-12.3) fL Immature Gran % (Auto) (0.0-0.4) % Neut % (Auto) (45-73) % Lymph % (Auto) (20-40) % Barnes % (Auto) (2-11) % Eos % (Auto) (0-4) % Baso % (Auto) (0-2) % Lymph # (Auto) (1.2-4.9) X10*3/uL Barnes # (Auto) (0.1-1.2) X10*3/uL Eos # (Auto) (0.0-0.4) X10*3/uL Baso # (Auto) (0.0-0.2) X10*3/uL Abs Immat Gran (auto) (0.00-0.03) X10*3/uL Absolute Neuts (auto) (2.0-8.3) X10*3/uL Absolute Nucleated RBC (0.0-0.012) X10*3/uL Nucleated RBC % (auto) (0.0-0.2) /100WBC Smear Tech's Comments PT (10.8-13.0) SEC INR (0.9-1.1) APTT (24.1-38.0) SEC Sodium (135-145) mmol/L Potassium (3.3-5.1) mmol/L Chloride (96-108) mmol/L Carbon Dioxide (22-29) mmol/L Anion Gap (12-20) BUN (9-16) mg/dL Creatinine (0.5-1.4) mg/dL Estim Creat Clear Calc Estimated GFR Random Glucose (60-115) mg/dL Lactic Acid 1.1 (0.5-2.0) mmol/L Calcium (8.4-10.2) mg/dL Magnesium 1.7 (1.6-2.6) mg/dL Total Bilirubin 0.6 (0.0-1.0) mg/dL Direct Bilirubin 0.3 (0.0-0.5) mg/dL AST 12 D (5-31) U/L ALT 6 (0-31) U/L Alkaline Phosphatase 105 (39-117) U/L Total Creatine Kinase (26-140) U/L Total Protein 6.4 L (6.5-8.0) g/dL Albumin 3.4 L (3.5-5.0) g/dL COVID-19 (FADY) Negative (Negative) COVID-19 Clin Com See Note ECG Data Attestation: I personally reviewed and interpreted this ECG as follows: ECG interpretation date: 08/29/20 ECG interpretation time: 23:54 Interpretation: Rate: NSR Rhythm: 87 [place]: normal Normal P waves. Normal SHANIQUE. Normal QRS complex. ST T wave : no RAQUEL, nonspecific qTC: normal prior studies: no acute ischemia The study has been interpreted contemporaneously by me. . Discharge Plan Discharge Clinical Impression: Leukocytosis Qualifiers: Leukocytosis type: unspecified Qualified Code(s): D72.829 - Elevated white blood cell count, unspecified Cellulitis Qualifiers: Site of cellulitis: extremity Site of cellulitis of extremity: lower extremity Laterality: right Qualified Code(s): L03.115 - Cellulitis of right lower limb Falls Qualifiers: Encounter type: initial encounter Qualified Code(s): W19.XXXA - Unspecified fall, initial encounter Patient Disposition: Admitted As Inpatient
--- NOTE | 2020-08-29 21:06 | PC.NURSE ---
[facility] PROX[facility] CALLED AND LEFT PHONE NUMBER .
--- NOTE | 2020-08-29 21:08 | PC.NURSE ---
PT REMOVED C-COLLAR FROM HER NECK BEFORE MD TO SEE PT. PT IS COMPLAINING I HAVE BEEN HERE FOR 3 HRS. MD AT BEDSIDE WITH PT AT THIS TIME.
--- NOTE | 2020-08-29 21:30 | PC.NURSE ---
PT TO X-RAY IN STRETCHER IN NAD.
[2020-08-29 21:58] LABS: Basophils Percent Auto 0.2 % (0-2); Hemoglobin 11.4 g/dl (12.0-16.0); Imm Gran Abs Auto 0.19 X10*3/uL (0.00-0.03); Imm Gran Pct Auto 0.9 % (0.0-0.4); Lymphocytes Absolute Auto 1.2 X10*3/uL (1.2-4.9); Lymphocytes Percent Auto 5.4 % (20-40); MANUAL DIFF FLAG SCAN; Mean Corpuscular HGB Conc 32.6 g/dl (31.0-35.0); Mean Corpuscular Volume 95.1 fL (80-98); Mean Platelet Volume 10.2 fL (9.4-12.3); Monocytes Absolute Auto 1.9 X10*3/uL (0.1-1.2); Monocytes Percent Auto 8.9 % (2-11); Neutrophils Absolute Auto 17.9 X10*3/uL (2.0-8.3); Neutrophils Percent Auto 84.6 % (45-73); Platelet Count 204 X10*3/uL (160-400); Red Blood Count 3.68 X10*6/uL (4.20-5.50); Red Cell Distribution Width 13.1 % (11.0-16.0); SCAN SMEAR FLAG 1; White Blood Count 21.2 X10*3/uL (4.8-10.8)
[2020-08-29 22:12] LABS: COVID-19 Test Negative (Negative); IDNOW Serial# 9DD0AD1C
[2020-08-29 22:20] LABS: Prothrombin Time 12.4 SEC (10.8-13.0)
[2020-08-29 22:24] LABS: SLIDE REVIEW VERIFIED
[2020-08-29 22:28] LABS: Partial Thromboplastin Time 21.6 SEC (24.1-38.0)
[2020-08-29 22:38] LABS: Alanine Aminotransferase 6 U/L (0-31); Albumin Level 3.4 g/dL (3.5-5.0); Alkaline Phosphatase 105 U/L (39-117); Anion Gap 13 (12-20); Aspartate Amino Transferase 12 U/L (5-31); Bilirubin Direct 0.3 mg/dL (0.0-0.5); Bilirubin Total 0.6 mg/dL (0.0-1.0); Blood Urea Nitrogen 17 mg/dL (9-16); Calcium 9.2 mg/dL (8.4-10.2); Carbon Dioxide 24 mmol/L (22-29); Chloride 105 mmol/L (96-108); Creatinine Clr Calc Pharmacy 52.7; Estimated Glomerular Filt Rate > 60; Glucose Random 147 mg/dL (60-115); Magnesium 1.7 mg/dL (1.6-2.6); Potassium 4.4 mmol/L (3.3-5.1); Sodium 138 mmol/L (135-145); Total Protein 6.4 g/dL (6.5-8.0)
[2020-08-29] MEDS: Piperacillin Sodium/Tazobactam 3.375 GM in 0.9 % Sodium Chloride 50 ML IV (23:01)
[2020-08-29 23:25] LABS: Lactic Acid 1.1 mmol/L (0.5-2.0)
--- NOTE | 2020-08-29 23:39 | ECG_ITS ---
Test Reason : LEG Blood Pressure : / mmHG Vent. Rate : 087 BPM Atrial Rate : 087 BPM P-R Int : 156 ms QRS Dur : 068 ms QT Int : 354 ms P-R-T Axes : 061 038 042 degrees QTc Int : 425 ms Normal sinus rhythm Possible Left atrial enlargement Low voltage QRS Borderline ECG When compared with ECG of 29-JUN-2020 15:34, No significant change was found Referred By: Ella Olvera Electronically Signed By:MARIOLA ZAMUDIO
[2020-08-30] VITALS (19 sets, daily range): BP systolic 98–203; BP diastolic 41–94; PULSE 81–150; RESP 16–40; TEMP 35.8–37.7; O2SAT 94–99
--- NOTE | 2020-08-30 | ECG_ITS ---
Test Reason : tachycardia, allergy Blood Pressure : / mmHG Vent. Rate : 120 BPM Atrial Rate : 120 BPM P-R Int : 142 ms QRS Dur : 068 ms QT Int : 314 ms P-R-T Axes : 043 003 043 degrees QTc Int : 443 ms Sinus tachycardia Possible Left atrial enlargement Borderline ECG. When compared to the previous EKG of No significant changes seen Referred By: Abhay Valdez Electronically Signed By:Robles [place]
--- NOTE | 2020-08-30 00:03 | PM.IMHP ---
History of Present Illness Date of Service: 08/30/20 Chief Complaint: Right lower extremity pain redness and swelling 84-year-old female with a past medical history of diabetes, diabetic neuropathy, hypertension, hyperlipidemia, history of lung cancer; recent admission to the hospital for diabetic foot ulcer and MSSA bacteremia finished a course of antibiotics about a week ago and discharged home from the rehab presented to the hospital today with a chief complaint of right lower extremity pain redness and swelling. Also complained of fall at home. Denies any headaches or neck pain. Denies any hip pain. Denies any chest pain palpitations lightheadedness or dizziness. Denies any fever chills cough. Denies any urinary symptoms. Review of all other systems is negative except mentioned above ER course: Per ER team patient noted to have right lower extremity vomiting tender, noted leukocytosis, consistent with cellulitis, started on Zosyn. Duplex study negative for any blood clots. CT head and CT neck negative. Nonfocal exam. Admitted to the hospital for further management. [facility] Medical History (Updated 09/09/20 @ 00:01 by Meseret Holugin) Amputated toe of left foot Anaphylactoid reaction Cataracts, both eyes Cellulitis Diabetes Falls Femur fracture, left Hx of osteomyelitis Hypercholesteremia Hypertension Leukocytosis Lung cancer MSSA bacteremia Toe amputee Vancomycin adverse reaction Surgical History H/O umbilical hernia repair Social History Household Members: None Housing: Condominium Do you presently have visiting nurse or other home services: Yes Alcohol intake: never Smoking Status: Former smoker Smoked in Last 30 Days: No Patient Interested in Nicotine Replacement: No Use of substances other than those prescribed or required for medical reasons: No Currently Displaying Signs/Symptoms of Drug Intoxication Withdrawal: No Any prior treatment program specific to substance use: No Have you been hit, kicked, punched, or otherwise hurt by someone within the past year? If so, by whom?: No Do you feel safe in your current relationship?: No Is there a partner from a previous relationship who is making you feel unsafe now?: No Are you made to feel afraid or neglected: No Advance Directives: No Advance Directives Information Provided: No Advance Directives on File: Yes Do you have thoughts of harming others: None Do you have a plan to hurt others: No Plan Recently lost weight without trying: No service: Yes Current occupational status: retired Meds Allergies Allergy/AdvReac Type Severity Reaction Status Date / Time vancomycin Allergy Severe Difficulty Verified 08/30/20 15:58 Breathing PLASTIC TAPE Allergy Intermediate RED RAW Uncoded 06/29/20 14:44 SKIN Active Medications: Current Medications Generic Name Dose Route Start Last Admin Trade Name Freq PRN Reason Stop Dose Admin Acetaminophen 650 mg 08/29/20 23:57 Acetaminophen 325 Mg Tablet PO Q6H PRN Pain, Mild (Pain Scale 1-3) Docusate Sodium 100 mg 08/29/20 23:57 Docusate Sodium 100 Mg Capsule PO DAILY PRN Constipation Heparin Sodium (Porcine) 5,000 unit 08/29/20 23:45 Heparin Sodium,Porcine 5,000 Unit/Ml Vial SUBCUT Q8H [facility] Piperacillin Sod/Tazobactam 50 mls @ 100 mls/hr 08/29/20 23:45 Sod 3.375 gm/ Sodium Chloride IV Q6H [facility] Insulin Human Lispro 0 unit 08/30/20 07:30 Insulin Lispro 100 Unit/Ml 3 Ml Vial SUBCUT QIDACHS [facility] Protocol Sodium Chloride 3 ml 08/30/20 00:00 0.9 % Sodium Chloride Flush 3 Ml Syringe IVFLUSH QSHIFT [facility] Home Medications Medication Instructions Recorded Confirmed Last Taken Type Januvia 50 mg PO DAILY 06/29/20 08/30/20 08/29/20 History 50 mg metoprolol succinate 100 mg PO BID 06/29/20 08/30/20 08/29/20 History 100 mg ramipril 10 mg PO DAILY 06/29/20 08/30/20 08/29/20 History 10 mg tolterodine [Detrol LA] 4 mg PO BID 06/29/20 08/30/20 08/29/20 History 4 mg Preser Vision 1 tab PO DAILY 08/30/20 08/30/20 08/29/20 History Vitamin B12 2,000 mcg PO DAILY 08/30/20 08/30/20 08/29/20 History atorvastatin 20 mg PO BEDTIME 08/30/20 08/30/20 08/29/20 History 20 MG cholecalciferol (vitamin D3) 25 mcg PO DAILY 08/30/20 08/30/20 08/29/20 History [Vitamin D3] 25 MCG Physical Exam Vital Signs and Narrative: Vital Signs: Last Vital Signs Temp 98.9 F 08/29/20 19:25 Pulse 91 08/29/20 19:25 Resp 18 08/29/20 19:25 BP 139/67 08/29/20 19:07 Pulse Ox 93 08/29/20 19:25 Body Mass Index 27.5 Gen: Appears be in no acute distress HEENT: NCAT, Moist mucosa. Pulmonary: Vesicular breath sounds, fair air entry CVS: Normal S1-S2 Abdomen: BS+, Soft, Nontender Extremities: Warm well perfused; right leg wall and hyperemic. Neuro: Alert and awake. Results Labs CBC and Chem 7: 08/31/20 06:05 08/31/20 06:05 Labs: Laboratory Results - last 24 hr 08/29/20 08/29/20 08/29/20 21:43 21:44 21:44 MCV 95.1 MCH 31.0 MCHC 32.6 RDW 13.1 Plt Count 204 D MPV 10.2 Immature Gran % (Auto) 0.9 H Neut % (Auto) 84.6 H Lymph % (Auto) 5.4 L [place] % (Auto) 8.9 Eos % (Auto) 0.0 Baso % (Auto) 0.2 Lymph # (Auto) 1.2 [place] # (Auto) 1.9 H Eos # (Auto) 0.0 Baso # (Auto) 0.0 Abs Immat Gran (auto) 0.19 H Absolute Neuts (auto) 17.9 H Absolute Nucleated RBC 0.000 Nucleated RBC % (auto) 0.0 Smear Tech's Comments VERIFIED PT 12.4 INR 1.0 APTT 21.6 L Anion Gap 13 Estim Creat Clear Calc 52.7 Estimated GFR > 60 Random Glucose 147 H D Lactic Acid Calcium 9.2 D Magnesium Total Bilirubin Direct Bilirubin AST ALT Alkaline Phosphatase Total Creatine Kinase 26 Total Protein Albumin COVID-19 (FADY) COVID-19 Clin Com 08/29/20 08/29/20 08/29/20 21:44 21:44 22:51 MCV MCH MCHC RDW Plt Count MPV Immature Gran % (Auto) Neut % (Auto) Lymph % (Auto) [place] % (Auto) Eos % (Auto) Baso % (Auto) Lymph # (Auto) [place] # (Auto) Eos # (Auto) Baso # (Auto) Abs Immat Gran (auto) Absolute Neuts (auto) Absolute Nucleated RBC Nucleated RBC % (auto) Smear Tech's Comments PT INR APTT Anion Gap Estim Creat Clear Calc Estimated GFR Random Glucose Lactic Acid 1.1 Calcium Magnesium 1.7 Total Bilirubin 0.6 Direct Bilirubin 0.3 AST 12 D ALT 6 Alkaline Phosphatase 105 Total Creatine Kinase Total Protein 6.4 L Albumin 3.4 L COVID-19 (FADY) Negative COVID-19 Clin Com See Note Imaging Radiologist's Impressions: Impressions Cervical Spine CT 08/29/20 21:23 IMPRESSION: No acute intracranial process seen. 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 Degenerative disc changes C5-C6, C6-C7 and C7-T1 disc levels with moderate ventral spondylosis. There is no visible acute fracture, dislocation or lytic process seen. There is mild ventral spurring at the C1-C2 disc level. Head CT 08/29/20 21:23 IMPRESSION: No acute intracranial process seen. 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 Degenerative disc changes C5-C6, C6-C7 and C7-T1 disc levels with moderate ventral spondylosis. There is no visible acute fracture, dislocation or lytic process seen. There is mild ventral spurring at the C1-C2 disc level. Knee X-Ray 08/29/20 21:23 IMPRESSION: Mild chronic appearing changes but no acute fracture or dislocation. Shoulder X-Ray 08/29/20 21:23 IMPRESSION: Extensive degenerative changes but no definitive acute fracture or dislocation Chest X-Ray 08/29/20 22:04 IMPRESSION: Chronic appearing changes with focal opacity overlying the right upper lobe which is increased from the prior study. Etiology is uncertain. Venous Duplex 08/29/20 22:13 IMPRESSION: No DVT demonstrated in the right lower extremity. Assessment and Plan (1) Cellulitis: Qualifiers: Laterality: right Site of cellulitis: extremity Site of cellulitis of extremity: lower extremity Qualified Code(s): L03.115 - Cellulitis of right lower limb 84-year-old female with a past medical history of hypertension, hyperlipidemia, diabetes, recent admission to the hospital for diabetic foot ulcer/MSSA bacteremia-finished antibiotic course; presented to the hospital today with a chief complaint of right lower extremity pain redness and swelling; noted to have cellulitis. Admitted for further management. Right lower extremity cellulitis: Continue Zosyn. Id consult. Duplex negative for DVT. Recurrent falls: CT head and CT neck showed no acute findings. Fall precautions. Supportive care. PT/OT eventually Diabetes: Insulin sliding scale. Chest x-ray showed right upper lung lobe opacity. Patient denies any cough or sputum production. Question related to her lung cancer. Recommended follow-up with Oncology. Follow-up chest x-ray All other chronic conditions, home medications will be continued DVT prophylaxis: Subcu heparin Code status: Full code
--- NOTE | 2020-08-30 00:05 | PC.NURSE ---
PT MOVED TO ROOM TO [facility] INTO GOWN AND EKG OBTAINED TO .
[2020-08-30] MEDS: 0.9 % Sodium Chloride Flush 3 ML SYRINGE IVFLUSH ×4 (00:15→20:41)
[2020-08-30 00:23] LABS: Glucose, Whole Blood 133 mg/dL (60-115)
--- NOTE | 2020-08-30 02:16 | PC.NURSE ---
pt moved to room #10 and put on monitor with hr 81. pt denies any complaints and awaiting room assignment.
[2020-08-30] MEDS: Heparin Sodium,Porcine 5,000 UNIT/ML VIAL 5000 UNIT SUBCUT ×4 (02:37→22:41)
[2020-08-30] MEDS: Piperacillin Sodium/Tazobactam 3.375 GM in 0.9 % Sodium Chloride 50 ML IV ×3 (03:56→20:51)
[2020-08-30 07:27] LABS: Basophils Absolute Auto 0.1 X10*3/uL (0.0-0.2); Basophils Percent Auto 0.3 % (0-2); Eosinophils Absolute Auto 0.1 X10*3/uL (0.0-0.4); Eosinophils Percent Auto 0.5 % (0-4); Hematocrit 33.2 % (37-47); Hemoglobin 10.9 g/dl (12.0-16.0); Imm Gran Abs Auto 0.14 X10*3/uL (0.00-0.03); Imm Gran Pct Auto 0.9 % (0.0-0.4); Lymphocytes Absolute Auto 1.3 X10*3/uL (1.2-4.9); Lymphocytes Percent Auto 8.3 % (20-40); MANUAL DIFF FLAG SCAN; Mean Corpuscular HGB Conc 32.8 g/dl (31.0-35.0); Mean Corpuscular Hemoglobin 30.9 pg (27.0-33.0); Mean Corpuscular Volume 94.1 fL (80-98); Mean Platelet Volume 10.1 fL (9.4-12.3); Monocytes Absolute Auto 1.8 X10*3/uL (0.1-1.2); Monocytes Percent Auto 11.3 % (2-11); Neutrophils Absolute Auto 12.3 X10*3/uL (2.0-8.3); Neutrophils Percent Auto 78.7 % (45-73); Platelet Count 213 X10*3/uL (160-400); Red Blood Count 3.53 X10*6/uL (4.20-5.50); Red Cell Distribution Width 13.2 % (11.0-16.0); SCAN SMEAR FLAG 1; White Blood Count 15.6 X10*3/uL (4.8-10.8)
[2020-08-30 08:11] LABS: Anion Gap 11 (12-20); Blood Urea Nitrogen 15 mg/dL (9-16); Calcium 8.6 mg/dL (8.4-10.2); Carbon Dioxide 24 mmol/L (22-29); Chloride 106 mmol/L (96-108); Creatinine Clr Calc Pharmacy 58.7; Estimated Glomerular Filt Rate > 60; Glucose Random 122 mg/dL (60-115); Potassium 3.8 mmol/L (3.3-5.1); Sodium 137 mmol/L (135-145)
[2020-08-30 08:18] LABS: SLIDE REVIEW VERIFIED
[2020-08-30 08:20] LABS: C Reactive Protein 19.84 mg/dL (< or = 0.50)
[2020-08-30 08:41] LABS: Glucose, Whole Blood 154 mg/dL (60-115)
[2020-08-30] MEDS: Insulin Lispro 100 UNIT/ML 3 ML VIAL SUBCUT ×2 (08:56→20:41)
--- NOTE | 2020-08-30 09:01 | PC.NURSE ---
patient awake and alert. skin PWD, resp even and non labored. speaking in full, clear sentences. reports having 2 falls at home yesterday. denies pain at this time. patient w/ 2 diabetic ulcers on right foot. also as a wound on left foot 2nd and 3rd toes. patient aware and agreeable to plan of care for admission
[2020-08-30 12:22] LABS: Glucose, Whole Blood 85 mg/dL (60-115)
--- NOTE | 2020-08-30 13:36 | MHC.CM.PN ---
CM MET WITH PT WHO REPORTS SHE LIVES ALONE AND IS INDEPENDENT WITH CARE AT . PT REPORTS SHE WAS AT [facility] FOR 6 WEEKS RECENTLY AND DOES NOT WANT TO GO TO [facility] [place]. PT REPORTS SHE IS ACTIVE WITH [facility] FOR SN AND PT AND REALLY HOPES SHE CAN GO HOME WITH RESUMPTION OF SERVICES. PT HAS A HCP ON FILE AND REPORTS HER PCP IS DR RAMOS. BOTH IMMS WERE DELIVERED CURRENT DC PLAN IS HOME WITH [facility]
--- NOTE | 2020-08-30 14:05 | PC.NURSE ---
REport given to shaan [place]
[2020-08-30] MEDS: vancomycin HCL 1,000 MG in 0.9 % Sodium Chloride 250 ML 270 MG IV (15:24)
--- NOTE | 2020-08-30 15:49 | HO.PM.IMPN ---
Subjective Subjective Date of Service: 08/30/20 Interval History: pain/redness/swelling R leg streaking up from ulcer infusion was shut off no fever just now, right after vancomycin infusion started, pt developed blurry vision, facial swelling, and difficulty breathing. Sao2 dropped to 82%. Infusion was shut off and MD called. Currently pt is shaky but states dyspnea has improved, no tongue swelling, no difficulty swallowing, no drooling, facial swelling has resolved. Lungs clear with no wheezing. Suspect anaphylactoid reaction to vancomycin; will list as allergy and consult ID for antibiotic recommendation. Physical Exam Vital Signs: Vital Signs: Last Vital Signs Temp 96.4 F L 08/30/20 15:28 Pulse 91 08/30/20 15:28 Resp 18 08/30/20 15:28 BP 142/71 H 08/30/20 15:28 Pulse Ox 97 08/30/20 15:28 Body Mass Index 27.5 Gen: in no acute distress HEENT: sclera anicteric, moist mucus membranes Neck: supple Lungs: clear to auscultation bilaterally Heart: regular rate and rhythm, no murmurs Abd: soft, non-tender, non-distended Ext: no edema Skin: heaped-up ulcer R foot; redness/induration/tenderness R medial lower leg Neuro: alert and oriented x3, no focal findings Psych: appropriate affect Objective Data Current Medications Generic Name Dose Route Start Last Admin Trade Name Freq PRN Reason Stop Dose Admin Acetaminophen 650 mg 08/29/20 23:57 Acetaminophen 325 Mg Tablet PO Q6H PRN Pain, Mild (Pain Scale 1-3) Docusate Sodium 100 mg 08/29/20 23:57 Docusate Sodium 100 Mg Capsule PO DAILY PRN Constipation Heparin Sodium (Porcine) 5,000 unit 08/29/20 23:45 08/30/20 15:25 Heparin Sodium,Porcine 5,000 Unit/Ml Vial SUBCUT 5,000 unit Q8H [facility] Administration Piperacillin Sod/Tazobactam 50 mls @ 100 mls/hr 08/30/20 05:00 08/30/20 12:17 Sod 3.375 gm/ Sodium Chloride IV Infused Q6H [facility] Infusion Vancomycin HCl 1,000 mg/ 270 mls @ 270 mls/hr 08/30/20 15:00 08/30/20 15:24 Sodium Chloride IV 270 mls/hr Q24H [facility] Administration Insulin Human Lispro 0 unit 08/30/20 07:30 08/30/20 12:19 Insulin Lispro 100 Unit/Ml 3 Ml Vial SUBCUT Not Given QIDACHS [facility] Protocol Pharmacy Consult 1 each 08/30/20 07:23 Consult Rx Perform Med Rec MISCELLANE ONCE PRN Consult order Pharmacy Consult 1 each 08/30/20 14:38 Consult Rx Vancomycin Dosing MISCELLANE DAILY PRN Consult order Sodium Chloride 3 ml 08/30/20 00:00 08/30/20 15:25 0.9 % Sodium Chloride Flush 3 Ml Syringe IVFLUSH 3 ml QSHIFT [facility] Administration Labs CBC & Chem 7: 08/30/20 07:09 08/30/20 07:09 Labs: Laboratory Results - last 24 hr 08/29/20 08/29/20 08/29/20 21:43 21:44 21:44 WBC 21.2 H RBC 3.68 L Hgb 11.4 L D Hct 35.0 L D MCV 95.1 MCH 31.0 MCHC 32.6 RDW 13.1 Plt Count 204 D MPV 10.2 Immature Gran % (Auto) 0.9 H Neut % (Auto) 84.6 H Lymph % (Auto) 5.4 L [place] % (Auto) 8.9 Eos % (Auto) 0.0 Baso % (Auto) 0.2 Lymph # (Auto) 1.2 [place] # (Auto) 1.9 H Eos # (Auto) 0.0 Baso # (Auto) 0.0 Abs Immat Gran (auto) 0.19 H Absolute Neuts (auto) 17.9 H Absolute Nucleated RBC 0.000 Nucleated RBC % (auto) 0.0 Smear Tech's Comments VERIFIED PT 12.4 INR 1.0 APTT 21.6 L Sodium 138 Potassium 4.4 Chloride 105 Carbon Dioxide 24 Anion Gap 13 BUN 17 H D Creatinine 0.79 Estim Creat Clear Calc 52.7 Estimated GFR > 60 POC Glucose Random Glucose 147 H D Lactic Acid Calcium 9.2 D Magnesium Total Bilirubin Direct Bilirubin AST ALT Alkaline Phosphatase Total Creatine Kinase 26 C-Reactive Protein Total Protein Albumin COVID-19 (FADY) COVID-19 Clin Com 08/29/20 08/29/20 08/29/20 21:44 21:44 22:51 WBC RBC Hgb Hct MCV MCH MCHC RDW Plt Count MPV Immature Gran % (Auto) Neut % (Auto) Lymph % (Auto) [place] % (Auto) Eos % (Auto) Baso % (Auto) Lymph # (Auto) [place] # (Auto) Eos # (Auto) Baso # (Auto) Abs Immat Gran (auto) Absolute Neuts (auto) Absolute Nucleated RBC Nucleated RBC % (auto) Smear Tech's Comments PT INR APTT Sodium Potassium Chloride Carbon Dioxide Anion Gap BUN Creatinine Estim Creat Clear Calc Estimated GFR POC Glucose Random Glucose Lactic Acid 1.1 Calcium Magnesium 1.7 Total Bilirubin 0.6 Direct Bilirubin 0.3 AST 12 D ALT 6 Alkaline Phosphatase 105 Total Creatine Kinase C-Reactive Protein Total Protein 6.4 L Albumin 3.4 L COVID-19 (FADY) Negative [employer] See Note 08/30/20 08/30/20 08/30/20 00:19 07:09 07:09 WBC 15.6 H RBC 3.53 L Hgb 10.9 L Hct 33.2 L MCV 94.1 MCH 30.9 MCHC 32.8 RDW 13.2 Plt Count 213 MPV 10.1 Immature Gran % (Auto) 0.9 H Neut % (Auto) 78.7 H Lymph % (Auto) 8.3 L [place] % (Auto) 11.3 H Eos % (Auto) 0.5 Baso % (Auto) 0.3 Lymph # (Auto) 1.3 [place] # (Auto) 1.8 H Eos # (Auto) 0.1 Baso # (Auto) 0.1 Abs Immat Gran (auto) 0.14 H Absolute Neuts (auto) 12.3 H Absolute Nucleated RBC 0.000 Nucleated RBC % (auto) 0.0 Smear Tech's Comments VERIFIED PT INR APTT Sodium 137 Potassium 3.8 Chloride 106 Carbon Dioxide 24 Anion Gap 11 L BUN 15 Creatinine 0.71 Estim Creat Clear Calc 58.7 Estimated GFR > 60 POC Glucose 133 H Random Glucose 122 H Lactic Acid Calcium 8.6 D Magnesium Total Bilirubin Direct Bilirubin AST ALT Alkaline Phosphatase Total Creatine Kinase C-Reactive Protein 19.84 H Total Protein Albumin COVID-19 (FADY) [employer] 08/30/20 08/30/20 08:37 12:15 WBC RBC Hgb Hct MCV MCH MCHC RDW Plt Count MPV Immature Gran % (Auto) Neut % (Auto) Lymph % (Auto) [place] % (Auto) Eos % (Auto) Baso % (Auto) Lymph # (Auto) [place] # (Auto) Eos # (Auto) Baso # (Auto) Abs Immat Gran (auto) Absolute Neuts (auto) Absolute Nucleated RBC Nucleated RBC % (auto) Smear Tech's Comments PT INR APTT Sodium Potassium Chloride Carbon Dioxide Anion Gap BUN Creatinine Estim Creat Clear Calc Estimated GFR POC Glucose 154 H 85 Random Glucose Lactic Acid Calcium Magnesium Total Bilirubin Direct Bilirubin AST ALT Alkaline Phosphatase Total Creatine Kinase C-Reactive Protein Total Protein Albumin COVID-19 (FADY) COVID-19 Clin Com Assessment and Plan (1) Cellulitis: Status: Acute Assessment and Plan: hospital d#2 84yo F with HTN, HLD, DM2, lung CA on immunotherapy, recent MSSA bacteremia associated with diabetic foot ulcer admitted with right lower extremity cellulitis # anaphylactoid reaction to vancomycin - resolved with stopping the vancomycin infusion- will list as allergy on pt's chart # RLE cellulitis - pip/jenn d#2, ID consult- doxy vs. 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
--- NOTE | 2020-08-30 15:58 | PC.NURSE ---
vancomycin administered at 1540 pt immediately appeared to severe difficulty breathing , 02 dropped to 82 , hr 132 bp 217/110 pt face turned bright red . Dr renner at bedside , vanco turned off immediately and symptoms quickly started to resolve within seconds of stopped abx bp at 1600 165/70, 02 97 HR 112. no further intervention at this time. vancomycin added to list of allergies
[2020-08-30] MEDS: Acetaminophen 325 MG TABLET 650 MG PO ×2 (16:15→23:19)
[2020-08-30] MEDS: diphenhydrAMINE HCL 50 MG/ML VIAL IVPUSH (16:37)
[2020-08-30] MEDS: Albuterol Sulfate (0.083%) 2.5 MG/3 ML VIAL.NEB 5 MG INHALE (16:39)
[2020-08-30] MEDS: EPINEPHrine 1 MG/ML VIAL 0.5 MG IM (16:39)
[2020-08-30 16:52] LABS: Glucose, Whole Blood 129 mg/dL (60-115)
[2020-08-30] MEDS: methylPREDNISolone Sod Succ 125 MG/2 ML VIAL IVPUSH (16:52)
[2020-08-30] MEDS: HYDROmorphone HCl 0.5 MG/0.5 ML SYRINGE IVPUSH (17:02)
[2020-08-30] MEDS: Metoprolol Tartrate 5 MG/5 ML VIAL 2.5 MG IVPUSH (17:03)
--- NOTE | 2020-08-30 17:12 | PM.CCN ---
Critical Care Event Note Summary Date of Service: 08/30/20 Code activated: No Narrative: I was asked by Dr. Valdez to see Mrs. Villarreal because of sympathetic storm. The patient is an 84 yo woman being treated for cellulitis. A short time ago, she was started on a dose of vancomycin by infusion in the usual fashion. Very shortly after the infusion started, the P the patient became wheezy and had what appears to be an anaphylactoid reaction. Dr. Servin on was called and gave her 0.5 mg epinephrine IM. Shortly thereafter, she became tachycardic, hypertensive, and very tremulous. I went up to see her on the 3rd floor. On my exam, she is very sympatheticly activated, as described. She is fully awake and alert, very tremulous, tachypneic, heart rate 140 (looks sinus), and blood pressure 130s. She is getting a nebulizer and sat is about 94% (not sure with the FiO2 is). There is no jugular venous distention with her sitting up at about 50 degrees. Auscultation of the chest shows coarse breath sounds, but no clear wheezes, and the expiratory phase appears normal. According to Dr. Valdez, she was perfectly normal prior to the vancomycin. IMPRESSION: 1. Seems to have had a real anaphylactoid reaction to vancomycin (as rare as that may be). 2. Sympathetic activation secondary to epinephrine. Usual epinephrine dose for allergic reactions is 0.3 mg subQ; in an elderly person like this, you would probably dose it at 0.1-0.2 mg SQ at the most. In any event, the treatment for the current situation would be a beta-emory. We gave her 2.5 mg of metoprolol slow IV push. That calmed her down significantly. I then recommended 0.5 mg Dilaudid IV push. I left the patient in the care of Dr. Valdez and the nurses. I followed up with Dr. Valdez at about 18:00, and he said she's doing OK. Time: [id number] Critical Care Time (minutes): 0
--- NOTE | 2020-08-30 17:13 | P.EN_ITS ---
Event Note Date of Service: 08/30/20 Event Note: Rapid response called Pt had experienced facial swelling, swollen lips, cyanosis, hypoxia with SaO2 82% immeidately after starting vancomcyin; resolved with stopping infusion. However, several minutes later, I was called by RN due to patient experiencing rigors and difficulty breathing. I arrived to find her with normal mental status but in extremities, with inspiratory stridor and expiratory wheeze, tachycardic and hypertensive, oxygen saturation dropping down to 70%. Rapid response was called. She was given 0.5 mg of IM epinephrine, 125 mg of IV Solu- Medrol, 50 mg of IV Benadryl, and 5 mg of nebulized albuterol. She was placed on O2 via NRB. She was given 0.5mg of IV Dilaudid for WOB and then 2.5mg of IV Lopressor to blunt the adrenergic response to the epinephrine. Manager Registration Dr. Sanchez also came to see the patient. With the above measures, patient's oxygenation improved and work of breathing improved. Impression is of anaphylactoid reaction to vancomycin. Will continue to monitor closely Total critical care time 30 minutes.
--- NOTE | 2020-08-30 18:15 | PC.NURSE ---
1630 PT APPREARED TO HAVE INCREASED WORK OF BREATHING , RESP 40, BP 203/83 HR 125 O2 IN LOW 80S , PT SHIVERING . , RAPID RESPONSE CALLED , 125 SOLUMEDROL GIVEN IV AT 1630, 50MG IV BENADRYL GIVEN AT 1635 , BREATHING TREATMENT ADMINISTERED , EPINEPHRIN GIVEN AT 1649 . IV METOPROLOL GIVEN AT 1650. . BP AT 1640 173/96 PT PLACED ON NON REBREATHER 02 93% . 1700 BP 156/85 PT APPEARS CALM AND BREATHING REGULAR 20 RESPIRATIONS , EKG ORDRED HR 123 . 1710 PT BACK ON NASAL CANNULA AT 4L - 02 98%
[2020-08-30 20:19] LABS: Glucose, Whole Blood 219 mg/dL (60-115)
[2020-08-30] MEDS: Atorvastatin Calcium 20 MG TABLET PO (20:39)
[2020-08-30] MEDS: Metoprolol Succinate ER 100 MG TAB.ER.24H PO (20:40)
[2020-08-30] MEDS: Tolterodine Tartrate LA 4 MG CAP.ER.24H PO (20:40)
[2020-08-31] VITALS (8 sets, daily range): BP systolic 117–144; BP diastolic 60–69; PULSE 70–82; RESP 16–20; TEMP 36.1–36.8; O2SAT 95–100
[2020-08-31] MEDS: Piperacillin Sodium/Tazobactam 3.375 GM in 0.9 % Sodium Chloride 50 ML IV ×4 (05:48→23:29)
[2020-08-31 06:40] LABS: Basophils Percent Auto 0.1 % (0-2); Hematocrit 30.8 % (37-47); Hemoglobin 10.3 g/dl (12.0-16.0); Imm Gran Abs Auto 0.12 X10*3/uL (0.00-0.03); Lymphocytes Absolute Auto 0.5 X10*3/uL (1.2-4.9); Lymphocytes Percent Auto 3.8 % (20-40); MANUAL DIFF FLAG SCAN; Mean Corpuscular HGB Conc 33.4 g/dl (31.0-35.0); Mean Corpuscular Hemoglobin 30.9 pg (27.0-33.0); Mean Corpuscular Volume 92.5 fL (80-98); Mean Platelet Volume 10.8 fL (9.4-12.3); Monocytes Absolute Auto 0.2 X10*3/uL (0.1-1.2); Monocytes Percent Auto 1.5 % (2-11); Neutrophils Percent Auto 93.6 % (45-73); Platelet Count 189 X10*3/uL (160-400); Red Blood Count 3.33 X10*6/uL (4.20-5.50); SCAN SMEAR FLAG 1; White Blood Count 11.7 X10*3/uL (4.8-10.8)
[2020-08-31 07:08] LABS: SLIDE REVIEW VERIFIED
[2020-08-31 07:26] LABS: Blood Urea Nitrogen 20 mg/dL (9-16); Calcium 8.2 mg/dL (8.4-10.2); Carbon Dioxide 21 mmol/L (22-29); Chloride 105 mmol/L (96-108); Creatinine Clr Calc Pharmacy 53.4; Estimated Glomerular Filt Rate > 60; Glucose Random 165 mg/dL (60-115); Sodium 136 mmol/L (135-145)
[2020-08-31 07:27] LABS: Anion Gap 15 (12-20); Potassium 5.1 mmol/L (3.3-5.1)
--- NOTE | 2020-08-31 07:31 | P.CDIC_ITS ---
CDI Concurrent Query Service Date: 09/01/20 Documentation Clarification: Please clarify if you are treating a proba ble/suspected/likely or confirmed: Right lower extremity Cellulitis due to Diabetes Mellitus Right lower extremity Cellulitis not due to Diabetes Mellitus, please specify cause if known Provider Response: Other Other Diagnosis: cellulits due to DM PLEASE DO NOT DELETE/MODIFY EXISTING CONTENT Additional information is needed in order to code to the highest accuracy and appropriate Severity of Illness (SOI). Please clarify the information noted below in your progress notes and discharge summary. Risk Factors/Clinical Indicators/Treatments 84 year old female admitted with right lower extremity pain, redness, swelling Per H&P: Right lower extremity Cellulitis PMH: Diabetes Mellitus, left foot toe amputation, Hypertension CDS: Sarai Osuna RN Contact Number: [phone] Please Review the information above and exercise your independent professional judgment in responding to the query. If you concur, pleas document in the PROGRESS NOTES and DISCHARGE SUMMARY. If you do not agree with the query, please document in the query above. THIS QUERY IS PART OF THE PERMANENT MEDICAL RECORD
[2020-08-31 08:10] LABS: Glucose, Whole Blood 155 mg/dL (60-115)
[2020-08-31] MEDS: Insulin Lispro 100 UNIT/ML 3 ML VIAL SUBCUT ×4 (08:11→20:18)
[2020-08-31] MEDS: Heparin Sodium,Porcine 5,000 UNIT/ML VIAL 5000 UNIT SUBCUT ×3 (08:11→23:29)
[2020-08-31] MEDS: 0.9 % Sodium Chloride Flush 3 ML SYRINGE IVFLUSH ×2 (08:13→16:10)
[2020-08-31] MEDS: Metoprolol Succinate ER 100 MG TAB.ER.24H PO ×2 (09:53→20:18)
[2020-08-31] MEDS: Cholecalciferol (Vitamin D3) 25 MCG TABLET PO (09:53)
[2020-08-31] MEDS: SITagliptin Phosphate 50 MG TABLET PO (09:53)
[2020-08-31] MEDS: lisinopriL 40 MG TABLET PO (09:53)
[2020-08-31] MEDS: Tolterodine Tartrate LA 4 MG CAP.ER.24H PO ×2 (09:53→20:18)
--- NOTE | 2020-08-31 10:15 | HO.PM.IMPN ---
Subjective Subjective Date of Service: 09/01/20 Interval History: breathing much improved, no longer shaky RLE redness much improved as well no fever Physical Exam Vital Signs: Vital Signs: Last Vital Signs Temp 97.0 F 08/31/20 08:00 Pulse 70 08/31/20 09:53 Resp 16 08/31/20 03:57 BP 126/65 08/31/20 09:53 Pulse Ox 100 08/31/20 08:00 Body Mass Index 27.5 Gen: in no acute distress HEENT: sclera anicteric, moist mucus membranes Neck: supple Lungs: clear to auscultation bilaterally Heart: regular rate and rhythm, no murmurs Abd: soft, non-tender, non-distended Ext: no edema Skin: heaped-up ulcer R foot; lymphangitic streaking resolved Neuro: alert and oriented x3, no focal findings Psych: appropriate affect Objective Data Current Medications Generic Name Dose Route Start Last Admin Trade Name Freq PRN Reason Stop Dose Admin Acetaminophen 650 mg 08/29/20 23:57 08/30/20 23:19 Acetaminophen 325 Mg Tablet PO 650 mg Q6H PRN Administration Pain, Mild (Pain Scale 1-3) Atorvastatin Calcium 20 mg 08/30/20 21:00 08/30/20 20:39 Atorvastatin Calcium 20 Mg Tablet PO 20 mg BEDTIME ROWAN Administration Docusate Sodium 100 mg 08/29/20 23:57 Docusate Sodium 100 Mg Capsule PO DAILY PRN Constipation Heparin Sodium (Porcine) 5,000 unit 08/29/20 23:45 08/31/20 08:11 Heparin Sodium,Porcine 5,000 Unit/Ml Vial SUBCUT 5,000 unit Q8H ROWAN Administration Piperacillin Sod/Tazobactam 50 mls @ 100 mls/hr 08/30/20 05:00 08/31/20 06:31 Sod 3.375 gm/ Sodium Chloride IV Infused Q6H ROWAN Infusion Insulin Human Lispro 0 unit 08/30/20 07:30 08/31/20 08:11 Insulin Lispro 100 Unit/Ml 3 Ml Vial SUBCUT 2 unit QIDACHS ROWAN Administration Protocol Lisinopril 40 mg 08/31/20 09:00 08/31/20 09:53 Lisinopril 40 Mg Tablet PO 40 mg DAILY ROWAN Administration Metoprolol Succinate 100 mg 08/30/20 21:00 08/31/20 09:53 Metoprolol Succinate Er 100 Mg Tab.Er.24h PO 100 mg BID ROWAN Administration Protocol Pharmacy Consult 1 each 08/30/20 07:23 Consult Rx Perform Med Rec MISCELLANE ONCE PRN Consult order Pharmacy Consult 1 each 08/30/20 14:38 Consult Rx Vancomycin Dosing MISCELLANE DAILY PRN Consult order Sitagliptin Phosphate 50 mg 08/31/20 09:00 08/31/20 09:53 Sitagliptin Phosphate 50 Mg Tablet PO 50 mg DAILY ROWAN Administration Sodium Chloride 3 ml 08/30/20 00:00 08/31/20 08:13 0.9 % Sodium Chloride Flush 3 Ml Syringe IVFLUSH 3 ml QSHIFT ROWAN Administration Tolterodine Tartrate 4 mg 08/30/20 21:00 08/31/20 09:53 Tolterodine Tartrate La 4 Mg Cap.Er.24h PO 4 mg BID ROWAN Administration Vitamin D 25 mcg 08/31/20 09:00 08/31/20 09:53 Cholecalciferol (Vitamin D3) 25 Mcg Tablet PO 25 mcg DAILY ROWAN Administration Labs CBC & Chem 7: 08/31/20 06:05 08/31/20 06:05 Labs: Laboratory Results - last 24 hr 08/30/20 08/30/20 08/30/20 12:15 16:23 20:11 WBC RBC Hgb Hct MCV MCH MCHC RDW Plt Count MPV Immature Gran % (Auto) Neut % (Auto) Lymph % (Auto) [place] % (Auto) Eos % (Auto) Baso % (Auto) Lymph # (Auto) [place] # (Auto) Eos # (Auto) Baso # (Auto) Abs Immat Gran (auto) Absolute Neuts (auto) Absolute Nucleated RBC Nucleated RBC % (auto) Smear Tech's Comments Sodium Potassium Chloride Carbon Dioxide Anion Gap BUN Creatinine Estim Creat Clear Calc Estimated GFR POC Glucose 85 129 H 219 H Random Glucose Calcium 08/31/20 08/31/20 08/31/20 06:05 06:05 07:49 WBC 11.7 H RBC 3.33 L Hgb 10.3 L Hct 30.8 L MCV 92.5 MCH 30.9 MCHC 33.4 RDW 13.0 Plt Count 189 MPV 10.8 Immature Gran % (Auto) 1.0 H Neut % (Auto) 93.6 H Lymph % (Auto) 3.8 L [place] % (Auto) 1.5 L Eos % (Auto) 0.0 Baso % (Auto) 0.1 Lymph # (Auto) 0.5 L [place] # (Auto) 0.2 Eos # (Auto) 0.0 Baso # (Auto) 0.0 Abs Immat Gran (auto) 0.12 H Absolute Neuts (auto) 11.0 H Absolute Nucleated RBC 0.000 Nucleated RBC % (auto) 0.0 Smear Tech's Comments VERIFIED Sodium 136 Potassium 5.1 D Chloride 105 Carbon Dioxide 21 L Anion Gap 15 BUN 20 H Creatinine 0.78 Estim Creat Clear Calc 53.4 Estimated GFR > 60 POC Glucose 155 H Random Glucose 165 H D Calcium 8.2 L Microbiology Microbiology Results: Microbiology 08/29/20 22:51 Blood - Venous Blood Culture - Preliminary No growth after 24 hours. 08/29/20 22:51 Blood - Venous Blood Culture - Preliminary No growth after 24 hours. Assessment and Plan (1) Cellulitis: Problem details: Resolved cellulitis Status: Acute Assessment and Plan: hospital d#3 84yo F with HTN, HLD, DM2, lung CA on immunotherapy, recent MSSA bacteremia associated with diabetic foot ulcer admitted with right lower extremity cellulitis # anaphylactoid reaction to vancomycin - resolved with stopping the vancomycin infusion- will list as allergy on pt's chart. # RLE cellulitis - pip/jenn d#3. I don't think she needs MRSA coverage given the improvement on pip/jenn alone. Follow BCx and if clear may d/c tomorrow on oral ABX. 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
[2020-08-31 11:49] LABS: Glucose, Whole Blood 167 mg/dL (60-115)
--- NOTE | 2020-08-31 12:06 | MHC.CM.PN ---
REBECCA TURKA UPDATED WITH PROGRESS NOTES NO PLAN FOR DISCHARGE TODAY
--- NOTE | 2020-08-31 16:17 | P.CNID_ITS ---
History of Present Illness Data of Consult Service Date: 08/31/20 Requesting physician: Abhay Valdez Primary Care Provider: Unknown Physician HPI Reason for consult: cellulitis foot She presents to hospital with right foot and lower leg redness for a day after fall. She has had MSSA in June bacteremia She has improvement now day 3 of Zosyn Review of Systems Review of Systems: Yes all other systems are reviewed and are negative PMFSH Past Medical History Medical History Amputated toe of left foot Cataracts, both eyes Diabetes Femur fracture, left Hx of osteomyelitis Hypercholesteremia Hypertension Lung cancer MSSA bacteremia Toe amputee Surgical History Surgical History H/O umbilical hernia repair Social History Social History Household Members: None Housing: Condominium Do you presently have visiting nurse or other home services: Yes Alcohol intake: never Smoking Status: Former smoker Smoked in Last 30 Days: No Patient Interested in Nicotine Replacement: No Use of substances other than those prescribed or required for medical reasons: No Currently Displaying Signs/Symptoms of Drug Intoxication Withdrawal: No Any prior treatment program specific to substance use: No Have you been hit, kicked, punched, or otherwise hurt by someone within the past year? If so, by whom?: No Do you feel safe in your current relationship?: No Is there a partner from a previous relationship who is making you feel unsafe now?: No Are you made to feel afraid or neglected: No Advance Directives: No Advance Directives Information Provided: No Advance Directives on File: Yes Do you have thoughts of harming others: None Do you have a plan to hurt others: No Plan Recently lost weight without trying: No service: Yes Current occupational status: retired Meds Allergies Allergy/AdvReac Type Severity Reaction Status Date / Time vancomycin Allergy Severe Difficulty Verified 08/30/20 15:58 Breathing PLASTIC TAPE Allergy Intermediate RED RAW Uncoded 06/29/20 14:44 SKIN Active Medications: Current Medications Generic Name Dose Route Start Last Admin Trade Name Freq PRN Reason Stop Dose Admin Acetaminophen 650 mg 08/29/20 23:57 08/30/20 23:19 Acetaminophen 325 Mg Tablet PO 650 mg Q6H PRN Administration Pain, Mild (Pain Scale 1-3) Atorvastatin Calcium 20 mg 08/30/20 21:00 08/30/20 20:39 Atorvastatin Calcium 20 Mg Tablet PO 20 mg BEDTIME ROWAN Administration Docusate Sodium 100 mg 08/29/20 23:57 Docusate Sodium 100 Mg Capsule PO DAILY PRN Constipation Heparin Sodium (Porcine) 5,000 unit 08/29/20 23:45 08/31/20 16:10 Heparin Sodium,Porcine 5,000 Unit/Ml Vial SUBCUT 5,000 unit Q8H ROWAN Administration Piperacillin Sod/Tazobactam 50 mls @ 100 mls/hr 08/30/20 05:00 08/31/20 12:28 Sod 3.375 gm/ Sodium Chloride IV Infused Q6H ROWAN Infusion Insulin Human Lispro 0 unit 08/30/20 07:30 08/31/20 11:54 Insulin Lispro 100 Unit/Ml 3 Ml Vial SUBCUT 2 unit QIDACHS [facility] Administration Protocol Lisinopril 40 mg 08/31/20 09:00 08/31/20 09:53 Lisinopril 40 Mg Tablet PO 40 mg DAILY ROWAN Administration Metoprolol Succinate 100 mg 08/30/20 21:00 08/31/20 09:53 Metoprolol Succinate Er 100 Mg Tab.Er.24h PO 100 mg BID ROWAN Administration Protocol Pharmacy Consult 1 each 08/30/20 07:23 Consult Rx Perform Med Rec MISCELLANE ONCE PRN Consult order Pharmacy Consult 1 each 08/30/20 14:38 Consult Rx Vancomycin Dosing MISCELLANE DAILY PRN Consult order Sitagliptin Phosphate 50 mg 08/31/20 09:00 08/31/20 09:53 Sitagliptin Phosphate 50 Mg Tablet PO 50 mg DAILY ROWAN Administration Sodium Chloride 3 ml 08/30/20 00:00 08/31/20 16:10 0.9 % Sodium Chloride Flush 3 Ml Syringe IVFLUSH 3 ml QSHIFT [facility] Administration Tolterodine Tartrate 4 mg 08/30/20 21:00 08/31/20 09:53 Tolterodine Tartrate La 4 Mg Cap.Er.24h PO 4 mg BID ROWAN Administration Vitamin D 25 mcg 08/31/20 09:00 08/31/20 09:53 Cholecalciferol (Vitamin D3) 25 Mcg Tablet PO 25 mcg DAILY ROWAN Administration Home Medications Medication Instructions Recorded Confirmed Last Taken Type Januvia 50 mg PO DAILY 06/29/20 08/30/20 08/29/20 History 50 mg metoprolol succinate 100 mg PO BID 06/29/20 08/30/20 08/29/20 History 100 mg ramipril 10 mg PO DAILY 06/29/20 08/30/20 08/29/20 History 10 mg tolterodine [Detrol LA] 4 mg PO BID 06/29/20 08/30/20 08/29/20 History 4 mg Preser Vision 1 tab PO DAILY 08/30/20 08/30/20 08/29/20 History Vitamin B12 2,000 mcg PO DAILY 08/30/20 08/30/20 08/29/20 History atorvastatin 20 mg PO BEDTIME 08/30/20 08/30/20 08/29/20 History 20 MG cholecalciferol (vitamin D3) 25 mcg PO DAILY 08/30/20 08/30/20 08/29/20 History [Vitamin D3] 25 MCG Physical Exam Vital Signs: Vital Signs: Last Vital Signs Temp 98.2 F 08/31/20 15:53 Pulse 81 08/31/20 15:53 Resp 17 08/31/20 15:53 BP 129/61 08/31/20 15:53 Pulse Ox 95 08/31/20 15:53 Body Mass Index 27.5 Const: General: cooperative HENMT: Head: Yes normal to inspection Mouth: Normal oral and palatal mucosa present Eyes: General: appearance normal, both eyes and all related structures Resp: Effort & Inspection: normal respiratory effort Cardio: Rate: regular rate Rhythm: regular rhythm GI: Palpation (GI): Soft to palpation and nontender Skin: General skin exam: no rashes or lesions noted Neuro: Other: nonfocal,oriented to person Extrem: Other: as above,resolved cellulitis,small open ulcers per picture Results Labs CBC & Chem 7: 08/31/20 06:05 08/31/20 06:05 Labs: Short CBC 08/31/20 Range/Units 06:05 WBC 11.7 H (4.8-10.8) X10*3/uL Hgb 10.3 L (12.0-16.0) g/dl Hct 30.8 L (37-47) % Plt Count 189 (160-400) X10*3/uL BMP 08/31/20 06:05 Sodium 136 Potassium 5.1 D Chloride 105 Carbon Dioxide 21 L BUN 20 H Creatinine 0.78 Calcium 8.2 L Microbiology Microbiology Results: Microbiology 08/29/20 22:51 Blood - Venous Blood Culture - Preliminary No growth after 24 hours. 08/29/20 22:51 Blood - Venous Blood Culture - Preliminary No growth after 24 hours. Assessment and Plan (1) Cellulitis: Qualifiers: Laterality: right Site of cellulitis: extremity Site of cellulitis of extremity: lower extremity Qualified Code(s): L03.115 - Cellulitis of right lower limb Problem details: Resolved cellulitis Status: Acute Po Augmentin for a week Label Vancomycin allergy (2) Falls: Qualifiers: Encounter type: initial encounter Qualified Code(s): W19.XXXA - Unspecified fall, initial encounter Status: Acute
[2020-08-31 16:33] LABS: Glucose, Whole Blood 188 mg/dL (60-115)
[2020-08-31] MEDS: Atorvastatin Calcium 20 MG TABLET PO (20:18)
[2020-08-31 20:31] LABS: Glucose, Whole Blood 166 mg/dL (60-115)
[2020-08-31] MEDS: Acetaminophen 325 MG TABLET 650 MG PO (21:18)
[2020-09-01] MEDS: 0.9 % Sodium Chloride Flush 3 ML SYRINGE IVFLUSH ×2 (00:43→08:39)
[2020-09-01 03:41] VITALS: BP 146/68; PULSE 73; RESP 19; TEMP 36.4; O2SAT 97
[2020-09-01] MEDS: Piperacillin Sodium/Tazobactam 3.375 GM in 0.9 % Sodium Chloride 50 ML IV (06:15)
[2020-09-01 07:57] VITALS: BP 142/63; PULSE 99; RESP 19; TEMP 36.4; O2SAT 97
[2020-09-01 08:17] LABS: Glucose, Whole Blood 102 mg/dL (60-115)
[2020-09-01] MEDS: Cholecalciferol (Vitamin D3) 25 MCG TABLET PO (08:38)
[2020-09-01] MEDS: Tolterodine Tartrate LA 4 MG CAP.ER.24H PO (08:38)
[2020-09-01] MEDS: SITagliptin Phosphate 50 MG TABLET PO (08:39)
[2020-09-01] MEDS: Heparin Sodium,Porcine 5,000 UNIT/ML VIAL 5000 UNIT SUBCUT (08:39)
[2020-09-01] MEDS: Metoprolol Succinate ER 100 MG TAB.ER.24H PO (08:39)
[2020-09-01] MEDS: lisinopriL 40 MG TABLET PO (08:39)
[2020-09-01 11:05] VITALS: BP 125/58; PULSE 89; RESP 20; TEMP 36.2; O2SAT 97
[2020-09-01 11:22] LABS: Glucose, Whole Blood 108 mg/dL (60-115)
--- NOTE | 2020-09-01 11:26 | PM.DS ---
DS: Providers Provider Date of Service: 09/01/20 Date of admission: 08/29/20 23:57 Primary care physician: Pelon Haddad MD Consults: 08/30/20 00:40 Consult to Infectious Diseases Routine Consulting Provider: Shagufta Dejesus Reason for consultation: cellulitis 08/30/20 11:45 Consult to General Surgery Routine [place]ing [place] [facility] [facility] Reason for consultation: purulent ulcer/phlegmon R foot with lymphangitic streaking DS: Diagnosis Discharge Diagnosis (1) Cellulitis: Status: Acute (2) Anaphylactoid reaction: Status: Acute (3) Vancomycin adverse reaction: Status: Acute DS: Medications Discharge Medications Home Medications: Home Medications Medication Instructions Recorded Confirmed Januvia 50 mg PO DAILY 06/29/20 08/30/20 metoprolol succinate 100 mg PO BID 06/29/20 08/30/20 ramipril 10 mg PO DAILY 06/29/20 08/30/20 tolterodine [Detrol LA] 4 mg PO BID 06/29/20 08/30/20 Preser Vision 1 tab PO DAILY 08/30/20 08/30/20 Vitamin B12 2,000 mcg PO DAILY 08/30/20 08/30/20 atorvastatin 20 mg PO BEDTIME 08/30/20 08/30/20 cholecalciferol (vitamin D3) 25 mcg PO DAILY 08/30/20 08/30/20 [Vitamin D3] Previous Rx's Medication Instructions Recorded amoxicillin-pot clavulanate 1 tab PO BID #14 tab 09/01/20 DS: Summary Hospital Course Hospital Course: From the history and physical by the admitting hospitalist, Ankur Canchola, 08/30/20: 84-year-old female with a past medical history of diabetes, diabetic neuropathy, hypertension, hyperlipidemia, history of lung cancer; recent admission to the hospital for diabetic foot ulcer and MSSA bacteremia finished a course of antibiotics about a week ago and discharged home from the rehab presented to the hospital today with a chief complaint of right lower extremity pain redness and swelling. Also complained of fall at home. Denies any headaches or neck pain. Denies any hip pain. Denies any chest pain palpitations lightheadedness or dizziness. Denies any fever chills cough. Denies any urinary symptoms. Review of all other systems is negative except mentioned above ER course: Per ER team patient noted to have right lower extremity vomiting tender, noted leukocytosis, consistent with cellulitis, started on Zosyn. Duplex study negative for any blood clots. CT head and CT neck negative. Nonfocal exam. Admitted to the hospital for further management. The patient was admitted to the medical-surgical floor. She was not septic. She did have a anaphylactoid reaction with facial swelling, hypoxia, and wheezing [though hypertensive rather than hypotensive] that started just after starting vancomycin infusion. This resolved with intramuscular epinephrine, and vancomycin was listed as an allergy. The cellulitis resolved rapidly on piperacillin/tazobactam alone, and anti-MRSA coverage was deemed unnecessary. She was discharged on 1 week amoxicillin clavulanate and resume VNA services and follow-up with primary care doctor. She also follow-up with her oncologist resume immunotherapy for lung cancer. Time Spent with Patient Time attestation: Total time spent providing and/or coordinating discharge services: 35 Discharge coordination time: Greater than 30 minutes Physical Exam Vital Signs: Vital Signs: Last Vital Signs Temp 97.2 F 09/01/20 11:05 Pulse 89 09/01/20 11:05 Resp 20 09/01/20 11:05 BP 125/58 L 09/01/20 11:05 Pulse Ox 97 09/01/20 11:05 Body Mass Index 27.5 Gen: in no acute distress HEENT: sclera anicteric, moist mucus membranes Neck: supple Lungs: clear to auscultation bilaterally Heart: regular rate and rhythm, no murmurs Abd: soft, non-tender, non-distended Ext: no edema Skin: heaped-up ulcer R foot; lymphangitic streaking resolved Neuro: alert and oriented x3, no focal findings Psych: appropriate affect DS: Data Data Completed and Pending Completed studies during hospitalization [Text1]: Laboratory Results WBC 11.7 X10*3/uL (4.8-10.8) H 08/31/20 06:05 RBC 3.33 X10*6/uL (4.20-5.50) L 08/31/20 06:05 Hgb 10.3 g/dl (12.0-16.0) L 08/31/20 06:05 Hct 30.8 % (37-47) L 08/31/20 06:05 MCV 92.5 fL (80-98) 08/31/20 06:05 MCH 30.9 pg (27.0-33.0) 08/31/20 06:05 MCHC 33.4 g/dl (31.0-35.0) 08/31/20 06:05 RDW 13.0 % (11.0-16.0) 08/31/20 06:05 Plt Count 189 X10*3/uL (160-400) 08/31/20 06:05 MPV 10.8 fL (9.4-12.3) 08/31/20 06:05 Immature Gran % (Auto) 1.0 % (0.0-0.4) H 08/31/20 06:05 Neut % (Auto) 93.6 % (45-73) H 08/31/20 06:05 Lymph % (Auto) 3.8 % (20-40) L 08/31/20 06:05 [place] % (Auto) 1.5 % (2-11) L 08/31/20 06:05 Eos % (Auto) 0.0 % (0-4) 08/31/20 06:05 Baso % (Auto) 0.1 % (0-2) 08/31/20 06:05 Lymph # (Auto) 0.5 X10*3/uL (1.2-4.9) L 08/31/20 06:05 [place] # (Auto) 0.2 X10*3/uL (0.1-1.2) 08/31/20 06:05 Eos # (Auto) 0.0 X10*3/uL (0.0-0.4) 08/31/20 06:05 Baso # (Auto) 0.0 X10*3/uL (0.0-0.2) 08/31/20 06:05 Abs Immat Gran (auto) 0.12 X10*3/uL (0.00-0.03) H 08/31/20 06:05 Absolute Neuts (auto) 11.0 X10*3/uL (2.0-8.3) H 08/31/20 06:05 Absolute Nucleated RBC 0.000 X10*3/uL (0.0-0.012) 08/31/20 06:05 Nucleated RBC % (auto) 0.0 /100WBC (0.0-0.2) 08/31/20 06:05 Smear Tech's Comments VERIFIED 08/31/20 06:05 PT 12.4 SEC (10.8-13.0) 08/29/20 21:43 INR 1.0 (0.9-1.1) 08/29/20 21:43 APTT 21.6 SEC (24.1-38.0) L 08/29/20 21:43 Sodium 136 mmol/L (135-145) 08/31/20 06:05 Potassium 5.1 mmol/L (3.3-5.1) D 08/31/20 06:05 Chloride 105 mmol/L (96-108) 08/31/20 06:05 Carbon Dioxide 21 mmol/L (22-29) L 08/31/20 06:05 Anion Gap 15 (12-20) 08/31/20 06:05 BUN 20 mg/dL (9-16) H 08/31/20 06:05 Creatinine 0.78 mg/dL (0.5-1.4) 08/31/20 06:05 Estim Creat Clear Calc 53.4 08/31/20 06:05 Estimated GFR > 60 08/31/20 06:05 POC Glucose 108 mg/dL (60-115) 09/01/20 11:11 Random Glucose 165 mg/dL (60-115) H D 08/31/20 06:05 Lactic Acid 1.1 mmol/L (0.5-2.0) 08/29/20 22:51 Calcium 8.2 mg/dL (8.4-10.2) L 08/31/20 06:05 Magnesium 1.7 mg/dL (1.6-2.6) 08/29/20 21:44 Total Bilirubin 0.6 mg/dL (0.0-1.0) 08/29/20 21:44 Direct Bilirubin 0.3 mg/dL (0.0-0.5) 08/29/20 21:44 AST 12 U/L (5-31) D 08/29/20 21:44 ALT 6 U/L (0-31) 08/29/20 21:44 Alkaline Phosphatase 105 U/L (39-117) 08/29/20 21:44 Total Creatine Kinase 26 U/L (26-140) 08/29/20 21:44 C-Reactive Protein 19.84 mg/dL (< or = 0.50) H 08/30/20 07:09 Total Protein 6.4 g/dL (6.5-8.0) L 08/29/20 21:44 Albumin 3.4 g/dL (3.5-5.0) L 08/29/20 21:44 COVID-19 (FADY) Negative (Negative) 08/29/20 21:44 COVID-19 Clin Com See Note 08/29/20 21:[address] 08/29/20 21:23 IMPRESSION: No acute intracranial process seen. 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 Degenerative disc changes C5-C6, C6-C7 and C7-T1 disc levels with moderate ventral spondylosis. There is no visible acute fracture, dislocation or lytic process seen. There is mild ventral spurring at the C1-C2 disc level. Head CT 08/29/20 21:23 IMPRESSION: No acute intracranial process seen. 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 Degenerative disc changes C5-C6, C6-C7 and C7-T1 disc levels with moderate ventral spondylosis. There is no visible acute fracture, dislocation or lytic process seen. There is mild ventral spurring at the C1-C2 disc level. Knee X-Ray 08/29/20 21:23 IMPRESSION: Mild chronic appearing changes but no acute fracture or dislocation. Shoulder X-Ray 08/29/20 21:23 IMPRESSION: Extensive degenerative changes but no definitive acute fracture or dislocation Chest X-Ray 08/29/20 22:04 IMPRESSION: Chronic appearing changes with focal opacity overlying the right upper lobe which is increased from the prior study. Etiology is uncertain. Venous Duplex 08/29/20 22:13 IMPRESSION: No DVT demonstrated in the right lower extremity. Discharge Plan Discharge Anticipated Discharge Date/Time: 09/01/20 11:05 Patient Disposition: Home Health Service Discharge Diagnosis: cellulitis Referrals: Pelon Haddad MD [Physician] - 1 Week Discharge Medications: New amoxicillin-pot clavulanate 875-125 mg tablet 1 tab PO BID Qty: 14 RF: 0 Continued metoprolol succinate 100 mg Tablet Extended Release 24 Hr 100 mg PO BID RF: 0 tolterodine [Detrol LA] 4 mg Capsule,Extended Release 24hr 4 mg PO BID RF: 0 ramipril 10 mg Capsule 10 mg PO DAILY RF: 0 Januvia 50 mg Tablet 50 mg PO DAILY RF: 0 atorvastatin 20 mg Tablet 20 mg PO BEDTIME RF: 0 cholecalciferol (vitamin D3) [Vitamin D3] 25 mcg (1,000 unit) Tablet 25 mcg PO DAILY RF: 0 Preser Vision 1 tab PO DAILY RF: 0 Vitamin B12 2,000 mcg PO DAILY RF: 0 Discharge Orders: Discharge Order (Routine); Ordered 09/01/20 Ordered By: Abhay Valdez Diet: advance to usual diet and diabetic diet Activity on Discharge: As tolerated Stand Alone Forms: Patient Portal Discharge page Care Plan Goals: healing of cellulitis Health Concerns: cellulitis Plan of Treatment: take amoxicillin/clavulanate 875/125 mg twice daily for 7 days Assessment: cellulitis
--- NOTE | 2020-09-01 12:44 | MHC.CM.PN ---
Plan dc home today with resumption of [facility] services. Informed [facility] of dc. Met with patient, she requested ride home and provided me with phone number for [facility]. Call and they quoted $120 for ride, patient requested I check with another provider. [facility] calculated $70. She is agreeable with [facility]van ride home from [facility]. Plan for tow picker at 1:30. Informed RN of dc time.
== END 2020-09-01 14:19 | disposition home health service (06) | DRG 638 ==
LOC: HO.ED 23:42 → HO.EDOVER 08-30 00:12 → HO.S3 08-30 13:06
PROVIDERS: Admitting Provider Hospitalist; Emergency Provider Emergency Medicine; Visit Provider Family Medicine
DX: E11.628 Type 2 diabetes mellitus with other skin complications (principal); L03.115 Cellulitis of right lower limb; T88.6XXA Anaphylactic reaction due to adverse effect of correct drug or medicament properly administered, initial encounter; C34.90 Malignant neoplasm of unspecified part of unspecified bronchus or lung; C78.7 Secondary malignant neoplasm of liver and intrahepatic bile duct; R29.6 Repeated falls; Z91.81 History of falling; D72.89 Other specified disorders of white blood cells; E11.42 Type 2 diabetes mellitus with diabetic polyneuropathy; Z87.891 Personal history of nicotine dependence; T36.8X5A Adverse effect of other systemic antibiotics, initial encounter; Y92.230 Patient room in hospital as the place of occurrence of the external cause; I10 Essential (primary) hypertension; E78.5 Hyperlipidemia, unspecified; Z20.822 Contact with and (suspected) exposure to COVID-19; Z79.899 Other long term (current) drug therapy
CPT/HCPCS: 36415; 70450; 71045; 72125; 73030; 73564; 80048; 80076; 82550; 82947; 83605; 83735; 85025; 85610; 85730; 86140; 87040; 87635; 93005; 93971; 94640; 94799; 96365; 96367; 96372; 97110; 97116; 97162; 99285; J0171; J1170; J1200; J2543; J2930; J3370

== ENCOUNTER 2020-10-08 10:08 | Outpatient (RCR) | payer MEDICARE, OTHER, SELFPAY ==
--- NOTE | ~2020-10-08 | XR_ITS ---
EXAMINATION: XR FOOT, RIGHT CLINICAL INFORMATION: Nonhealing wound COMPARISON: 10/29/2020 TECHNIQUE: AP, lateral, and oblique views of the right foot. FINDINGS: Advanced degenerative arthritic changes at the tarsometatarsal level, hammertoes second toe, loss of midfoot arch pes planus, early advanced arthritis of the intertarsal level. No radiographic evidence of bone destruction to suggest osteomyelitis. XR/XR foot RT 2V IMPRESSION: No radiographic evidence of bone destructive changes to suggest osteomyelitis. However this can be manifested late in the disease process on radiograph. If there is high index of suspicion consider correlation with MRI or nuclear medicine white blood cell tagged scan for early detection of osteomyelitis. 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
--- NOTE | ~2020-10-08 | XR_ITS ---
EXAMINATION: XR FOOT, RIGHT CLINICAL INFORMATION: Right medial pleural COMPARISON: Previous x-ray June 2020 TECHNIQUE: AP, lateral, and oblique views of the right foot. FINDINGS: There are Charcot changes of the midfoot. There may be old trauma to the proximal shaft of the second metatarsal bone. There is collapse of the plantar arch. There is hallux valgus deformity and degenerative change at the first MTP joint. There is an overlying dressing adjacent to the first MTT joint and soft tissue swelling. No x-ray evidence of osteomyelitis or soft tissue foreign body or air collection is seen. There is soft tissue arterial calcification. XR/XR foot RT min 3V IMPRESSION: Charcot changes of the foot. No x-ray evidence of osteomyelitis seen.
[2021-01-28 14:25] LABS: MANUAL DIFF FLAG NO
[2021-01-28 14:35] LABS: Basophils Absolute Auto 0.1 X10*3/uL (0.0-0.2); Basophils Percent Auto 0.4 % (0-2); Eosinophils Absolute Auto 0.4 X10*3/uL (0.0-0.4)
[2021-01-28 14:48] LABS: Eosinophils Percent Auto 3.3 % (0-4); Hematocrit 35.5 % (37-47); Hemoglobin 11.4 g/dl (12.0-16.0); Imm Gran Abs Auto 0.07 X10*3/uL (0.00-0.03); Imm Gran Pct Auto 0.6 % (0.0-0.4); Lymphocytes Absolute Auto 1.4 X10*3/uL (1.2-4.9); Mean Corpuscular HGB Conc 32.1 g/dl (31.0-35.0); Mean Corpuscular Hemoglobin 29.5 pg (27.0-33.0); Mean Platelet Volume 11.4 fL (9.4-12.3); Monocytes Absolute Auto 1.1 X10*3/uL (0.1-1.2); Monocytes Percent Auto 9.3 % (2-11); Neutrophils Absolute Auto 8.7 X10*3/uL (2.0-8.3); Neutrophils Percent Auto 74.4 % (45-73); Platelet Count 226 X10*3/uL (160-400); Red Blood Count 3.86 X10*6/uL (4.20-5.50); Red Cell Distribution Width 14.9 % (11.0-16.0); White Blood Count 11.7 X10*3/uL (4.8-10.8)
[2021-01-28 14:52] LABS: Anion Gap 11 (12-20); Blood Urea Nitrogen 18 mg/dL (9-16); C Reactive Protein 2.19 mg/dL (< or = 0.50); Calcium 9.9 mg/dL (8.4-10.2); Carbon Dioxide 29 mmol/L (22-29); Chloride 107 mmol/L (96-108); Estimated Glomerular Filt Rate > 60; Glucose Fasting 129 mg/dL (60-99); Potassium 4.8 mmol/L (3.3-5.1); Sodium 142 mmol/L (135-145)
[2021-01-28 14:53] LABS: Estimated Average Glucose 114 mg/dL; Hemoglobin A1C 111.1128 umol/L; Hemoglobin A1c % 5.6 %
[2021-01-28 15:22] LABS: Erythrocyte Sedimentation Rate 60 MM/HR (0-20)
== END 2021-05-29 15:00 | disposition home or self-care (01) ==
LOC: HO.WCC 10:08
PROVIDERS: PCP Internal Medicine; Visit Provider Physician Assistant
DX: E11.621 Type 2 diabetes mellitus with foot ulcer (principal); L97.413 Non-pressure chronic ulcer of right heel and midfoot with necrosis of muscle; E11.610 Type 2 diabetes mellitus with diabetic neuropathic arthropathy; E11.51 Type 2 diabetes mellitus with diabetic peripheral angiopathy without gangrene; E11.69 Type 2 diabetes mellitus with other specified complication; M86.00 Acute hematogenous osteomyelitis, unspecified site; L03.115 Cellulitis of right lower limb; L53.9 Erythematous condition, unspecified; I10 Essential (primary) hypertension; Z87.891 Personal history of nicotine dependence; Z79.2 Long term (current) use of antibiotics; Z79.84 Long term (current) use of oral hypoglycemic drugs
CPT/HCPCS: 11042; 11044; 15275; 36415; 73620; 73630; 80048; 83036; 84134; 85025; 85652; 86140; 87071; 87073; 87077; 87186; 87205; 88304; 88305; 88311; 97597; 99212; 99213; Q4187

== ENCOUNTER 2020-12-28 12:17 | Outpatient (REF) | payer MEDICARE, OTHER, SELFPAY ==
[2020-12-28 14:00] LABS: MANUAL DIFF FLAG NO
[2020-12-28 14:09] LABS: Basophils Absolute Auto 0.1 X10*3/uL (0.0-0.2); Basophils Percent Auto 0.7 % (0-2); Eosinophils Absolute Auto 0.6 X10*3/uL (0.0-0.4); Eosinophils Percent Auto 4.3 % (0-4); Hematocrit 37.2 % (37-47); Hemoglobin 11.7 g/dl (12.0-16.0); Imm Gran Abs Auto 0.12 X10*3/uL (0.00-0.03); Imm Gran Pct Auto 0.9 % (0.0-0.4); Lymphocytes Absolute Auto 1.6 X10*3/uL (1.2-4.9); Lymphocytes Percent Auto 11.4 % (20-40); Mean Corpuscular HGB Conc 31.5 g/dl (31.0-35.0); Mean Corpuscular Hemoglobin 29.1 pg (27.0-33.0); Mean Corpuscular Volume 92.5 fL (80-98); Mean Platelet Volume 11.1 fL (9.4-12.3); Neutrophils Absolute Auto 10.4 X10*3/uL (2.0-8.3); Neutrophils Percent Auto 75.7 % (45-73); Platelet Count 312 X10*3/uL (160-400); Red Blood Count 4.02 X10*6/uL (4.20-5.50); Red Cell Distribution Width 13.6 % (11.0-16.0); White Blood Count 13.7 X10*3/uL (4.8-10.8)
== END 2020-12-28 12:18 | disposition home or self-care (01) ==
LOC: HO.HVNA 12:17
PROVIDERS: Visit Provider Internal Medicine Hematology
DX: Z95.2 Presence of prosthetic heart valve (principal)
CPT/HCPCS: 36415; 85025

== ENCOUNTER 2021-01-04 12:14 | Outpatient (REF) | payer MEDICARE, OTHER, SELFPAY ==
--- NOTE | ~2021-01-04 | MR_ITS ---
EXAMINATION: MRI OF THE RIGHT FOOT WITH AND WITHOUT CONTRAST. CLINICAL INFORMATION: Nonhealing wound. COMPARISON: Radiographs dated 10/29/2020. TECHNIQUE: Multiplanar MR imaging was obtained through the right foot on a 1.5 Dana magnet before and after intravenous administration of 6 mL Gadavist. FINDINGS: There is normal alignment in the midfoot with collapse of the plantar arch and significant pes planus and valgus angulation and midfoot centered at the naviculocuneiform and tarsometatarsal joints. There is severe degeneration at the tarsometatarsal and naviculocuneiform joints with osseous remodeling, cortical irregularity, osseous fragmentation, osseous destruction, and marrow edema. Subchondral cystic changes are present at multiple joints, most notably the first and second tarsometatarsal joints and the naviculocuneiform joints. There is associated enhancement of the areas of subchondral signal abnormality. Bone marrow signal appears relatively normal on T1-weighted images without significant loss of the normal fat signal intensity. Specifically, no clear findings of osteomyelitis. The superficial wound is suspected at the plantar/medial aspect of the midfoot. There is underlying edema in the subcutaneous fat with loss of the normal fat signal. There is reactive edema within the plantar musculature. Plantar fascia is not well seen in this region. No peripheral enhancing fluid collections are identified. Abnormal enhancement within the plantar musculature, most notably the quadratus plantae, is likely reactive in nature, though denervation change could also produce this appearance. No discrete tendon tears or significant tenosynovitis. Ankle ligaments appear intact. Ligaments the midfoot are not well assessed. MR/MR foot RT wo/w con IMPRESSION: 1. Plantar skin wound in the midfoot without evidence of underlying osteomyelitis, septic arthritis, or abscess. 2. 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
[2021-01-04 13:03] LABS: Anion Gap 15 (12-20); Blood Urea Nitrogen 18 mg/dL (9-16); C Reactive Protein 0.55 mg/dL (< or = 0.50); Calcium 9.7 mg/dL (8.4-10.2); Carbon Dioxide 24 mmol/L (22-29); Chloride 108 mmol/L (96-108); Estimated Glomerular Filt Rate > 60; Glucose Random 185 mg/dL (60-115); Potassium 5.5 mmol/L (3.3-5.1); Sodium 141 mmol/L (135-145)
[2021-01-04 13:09] LABS: MANUAL DIFF FLAG NO
[2021-01-04 13:14] LABS: Basophils Absolute Auto 0.1 X10*3/uL (0.0-0.2); Basophils Percent Auto 0.6 % (0-2); Eosinophils Absolute Auto 0.4 X10*3/uL (0.0-0.4); Eosinophils Percent Auto 3.5 % (0-4); Hematocrit 36.9 % (37-47); Hemoglobin 11.5 g/dl (12.0-16.0); Imm Gran Abs Auto 0.09 X10*3/uL (0.00-0.03); Imm Gran Pct Auto 0.7 % (0.0-0.4); Lymphocytes Absolute Auto 1.5 X10*3/uL (1.2-4.9); Lymphocytes Percent Auto 11.8 % (20-40); Mean Corpuscular HGB Conc 31.2 g/dl (31.0-35.0); Mean Corpuscular Hemoglobin 28.8 pg (27.0-33.0); Mean Corpuscular Volume 92.3 fL (80-98); Mean Platelet Volume 11.4 fL (9.4-12.3); Monocytes Absolute Auto 0.9 X10*3/uL (0.1-1.2); Monocytes Percent Auto 7.4 % (2-11); Neutrophils Absolute Auto 9.4 X10*3/uL (2.0-8.3); Platelet Count 255 X10*3/uL (160-400); Red Cell Distribution Width 14.1 % (11.0-16.0); White Blood Count 12.4 X10*3/uL (4.8-10.8)
[2021-01-04 13:27] LABS: Estimated Average Glucose 117 mg/dL; Hemoglobin A1c % 5.7 %
[2021-01-04 14:22] LABS: Erythrocyte Sedimentation Rate 60 MM/HR (0-20)
== END 2021-01-04 12:15 | disposition home or self-care (01) ==
LOC: HO.MRI 12:14
PROVIDERS: PCP Internal Medicine; Visit Provider Physician Assistant
DX: E11.621 Type 2 diabetes mellitus with foot ulcer (principal)
CPT/HCPCS: 36415; 73720; 80048; 83036; 84134; 85025; 85652; 86140; A9585

== ENCOUNTER 2021-03-15 08:31 | Outpatient (REF) | payer MEDICARE, OTHER, SELFPAY ==
--- NOTE | ~2021-03-15 | US_ITS ---
EXAMINATION: ANKLE-BRACHIAL INDICES. CLINICAL INFORMATION: This is an 85-year-old female with a Charcot foot. Peripheral arterial disease. Nonhealing wounds. COMPARISON: None. TECHNIQUE: Ankle-brachial indices were obtained. The study was performed pre-exercise. FINDINGS: RIGHT SIDE: The right ankle-brachial index is 1.40 rest. The segmental pressures at the ankle demonstrate no evidence of large vessel peripheral arterial disease. LEFT SIDE: The left ankle-brachial index is 1.41 at rest. The segmental pressures demonstrate no evidence of significant large vessel peripheral arterial disease. US/US DONNIE complete IMPRESSION: 1. Normal ankle-brachial indices without evidence of hemodynamically significant stenosis at rest. INTERPRETATION CRITERIA FOR PERIPHERAL ARTERIAL DISEASE: > 0.97-1.25 = normal - no significant peripheral arterial disease. (0.95 - 0.91 may be abnormal-consider PVRs and Doppler waveforms). 0.75 - 0.96 = MILD peripheral arterial disease. 0.50 -0.74 = MODERATE peripheral arterial disease. < 0.50 = SEVERE peripheral arterial disease. < 0.30 = CRITICAL peripheral arterial disease.
--- NOTE | ~2021-03-15 | US_ITS ---
EXAMINATION: ANKLE-BRACHIAL INDICES. CLINICAL INFORMATION: This is an 85-year-old female with a Charcot foot. Peripheral arterial disease. Nonhealing wounds. COMPARISON: None. TECHNIQUE: Ankle-brachial indices were obtained. The study was performed pre-exercise. FINDINGS: RIGHT SIDE: The right ankle-brachial index is 1.40 rest. The segmental pressures at the ankle demonstrate no evidence of large vessel peripheral arterial disease. LEFT SIDE: The left ankle-brachial index is 1.41 at rest. The segmental pressures demonstrate no evidence of significant large vessel peripheral arterial disease. US/US arterial duplex LE BI IMPRESSION: 1. Normal ankle-brachial indices without evidence of hemodynamically significant stenosis at rest. INTERPRETATION CRITERIA FOR PERIPHERAL ARTERIAL DISEASE: > 0.97-1.25 = normal - no significant peripheral arterial disease. (0.95 - 0.91 may be abnormal-consider PVRs and Doppler waveforms). 0.75 - 0.96 = MILD peripheral arterial disease. 0.50 -0.74 = MODERATE peripheral arterial disease. < 0.50 = SEVERE peripheral arterial disease. < 0.30 = CRITICAL peripheral arterial disease.
== END 2021-03-15 08:32 | disposition home or self-care (01) ==
LOC: HO.US 08:31
PROVIDERS: PCP Internal Medicine; Visit Provider Internal Medicine
DX: I73.9 Peripheral vascular disease, unspecified (principal)
CPT/HCPCS: 93923; 93925

== ENCOUNTER 2021-05-29 14:46 | Inpatient (IN) | payer MEDICARE, OTHER, SELFPAY ==
--- NOTE | ~2021-05-29 | XR_ITS ---
EXAMINATION: XR CHEST CLINICAL INFORMATION: Covid infection COMPARISON: Previous chest x-ray most recent 05/29/2021 TECHNIQUE: Frontal view of the chest was obtained. FINDINGS: The cardiac and mediastinal contours are stable. There is consolidation or mass in the right upper lobe that appears unchanged. There is a left lower lobe pneumonia. This may be slightly increased from 05/29/2021 exam. The lungs are otherwise clear. There is no pleural effusion or pneumothorax. There is a right jugular port with tip projecting over the SVC. There may be distended bowel below the left hemidiaphragm. There are degenerative changes of the spine. XR/XR chest 1V IMPRESSION: Worsening left lower lobe pneumonia. No change in the consolidation/mass in the right upper lobe.
--- NOTE | ~2021-05-29 | US_ITS ---
EXAMINATION: US DUPLEX LOWER EXTREMITY ARTERY/GRAFT LIMITED, bilateral CLINICAL INFORMATION: Right foot osteomyelitis COMPARISON: 03/15/2021 TECHNIQUE: Real-time ultrasound and Doppler techniques (integrating B-mode 2-D vascular images, Doppler spectral analysis and color flow Doppler imaging) were utilized to interrogate the lower extremities. FINDINGS: Right lower extremity: Common femoral artery: 146 cm/sec; monophasic waveform Profunda artery: 83.4 cm/sec; multiphasic waveform Superficial femoral artery proximal: 158 cm/sec; monophasic waveform Superficial femoral artery mid portion: 212 cm/sec; monophasic waveform Superficial femoral artery distal: 161 cm/sec; monophasic waveform Popliteal artery: 176 cm/sec; monophasic waveform Posterior tibial artery: 143 cm/sec; monophasic waveform Peroneal artery: 149 cm/sec; monophasic waveform Left lower extremity: Common femoral artery: 125 cm/sec; multiphasic waveform Profunda artery: 103 cm/sec; multiphasic waveform Superficial femoral artery proximal: 148 cm/sec; multiphasic waveform Superficial femoral artery mid portion: 74.6 cm/sec; multiphasic waveform Superficial femoral artery distal: 78.3 cm/sec; multiphasic waveform Popliteal artery: 71.8 cm/sec; multiphasic waveform Posterior tibial artery: 41.1 cm/sec; multiphasic waveform Peroneal artery: 95.1 cm/sec; multiphasic waveform ADDITIONAL FINDINGS: None. 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 No significant peripheral arterial disease of the left lower extremity.
--- NOTE | ~2021-05-29 | MR_ITS ---
EXAMINATION: MRI FOOT WITHOUT AND WITH CONTRAST, RIGHT CLINICAL INFORMATION: Open wound. Evaluate for osteomyelitis. COMPARISON: Most recent right foot radiographs done earlier the same day and right foot MRI dated 01/04/2021. TECHNIQUE: Multisequence MRI imaging of the right foot was obtained before and after the IV administration of 5.5 mL Gadavist contrast on a high-field strength scanner. FINDINGS: There is soft tissue ulceration along the medial aspect of the 1st tarsometatarsal joint with adjacent skin thickening, subcutaneous edema, and postcontrast enhancement. Findings are consistent with cellulitis. No associated fluid collection/abscess formation. Within the underlying osseous structures including the medial cuneiform and 1st metatarsal base, there is mild marrow edema which demonstrates postcontrast enhancement. Similar areas of marrow edema and postcontrast enhancement are seen along the 2nd, 3rd, and 4th tarsometatarsal joints. There is severe joint space/articular cartilage loss with subchondral cystic change and marginal osteophytes at the 1st through 4th tarsometatarsal joints as well as more moderately at the 5th tarsometatarsal joint. Findings are similar when compared to the prior MRI. No acute fracture or dislocation. The visualized flexor and extensor tendons are grossly intact. Prominent dorsal subcutaneous edema. MR/MR foot RT wo/w con IMPRESSION: 1. Soft tissue ulceration and associated cellulitis along the medial aspect of the 1st tarsometatarsal joint. No evidence of fluid collection/abscess formation. 2. There is marrow edema with postcontrast enhancement in the region of the medial cuneiform and 1st metatarsal base, new when compared to the prior examination and concerning for osteomyelitis. Additional more mild marrow edema and postcontrast enhancement adjacent to the 2nd, 3rd, and 4th tarsometatarsal joints. Findings may represent early osteomyelitis or be related to prominent degenerative change. This also appears more prominent when compared to the prior examination. 3. 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 4. Dorsal subcutaneous edema.
--- NOTE | ~2021-05-29 | XR_ITS ---
EXAMINATION: XR FOOT, RIGHT CLINICAL INFORMATION: Wound. Possible osteomyelitis. COMPARISON: Radiographs right foot 05/06/2021, 10/29/2020. TECHNIQUE: AP, lateral, and oblique views of the right foot. FINDINGS: There is chronic foot deformity with Charcot arthropathy midfoot. Soft tissue wound present plantar medial aspect mid foot near the first cuneiform and base first metatarsal. Wound appears to extend to or close to the cortex. There is decreased bony mineralization in this area which may be reactive change or early osteomyelitis. XR/XR foot RT min 3V IMPRESSION: Soft tissue wound extending close to bone plantar medial right midfoot. Subtle decreased bony mineralization may represent early osteomyelitis. Findings may be correlated with MRI or nuclear exam.
--- NOTE | ~2021-05-29 | XR_ITS ---
EXAMINATION: XR CHEST CLINICAL INFORMATION: Check port placement COMPARISON: Previous chest x-ray most recent August [address] June 2020 TECHNIQUE: Frontal view of the chest was obtained. FINDINGS: There is a right jugular port with tip projecting over the SVC. The cardiac and mediastinal contours are stable. Increased opacity in the right upper lobe that appears unchanged from previous exams area there are new increased markings and bronchial wall thickening at the left lung base questionable for bronchopneumonia. The lungs are otherwise air. There is no pleural effusion or pneumothorax area there degenerative changes of the spine and mild scoliosis. There are degenerative changes at the shoulder joints. XR/XR chest 1V IMPRESSION: Right jugular port tip projects over SVC. Stable increased opacity in the right upper lobe. New bronchial wall thickening and increased markings at the left lung base suggestive of bronchopneumonia.
--- NOTE | 2021-05-29 15:16 | ED.WOUNDLAC ---
HPI - Wound/Laceration General Chief Complaint: Skin/Abscess/Foreign Body Stated Complaint: rt foot infection Time Seen by Provider: 05/29/21 15:15 Source: patient Mode of arrival: EMS Limitations: no limitations History of Present Illness HPI narrative: 85-year-old female past medical history significant for diabetic foot ulcer, osteomyelitis, MSSA bacteremia, HTN, lung cancer, diabetes presents to the ED w/ an open wound to right foot with exposed bone, wound has been present for a year, progressivly worsening. She was sent in by the wound clinic. She has been taking Augmentin p.o. for a few weeks. They sent her in because they were able to visualize bone through the wound. And she will likely require IV antibiotics. Patient tells me that the wound is painful only with ambulation. She has a history of osteomyelitis to the left foot. And she tells me that she is nervous because she has an anaphylactic reaction to vancomycin. She denies numbness, tingling, fevers, chills, nausea, vomiting, chest pain, shortness of breath. Onset (ago): year(s) (1) Location: other (right foot) Context: other (diabetic foot ulcer.) Associated symptoms: pain (w/ ambulation) Treatments prior to arrival: other (On augmentin X1 week. ) Related Data Home Medications Medication Instructions Recorded Confirmed metoprolol succinate 100 mg 100 mg PO BID 06/29/20 08/30/20 tablet,extended release 24 hr ramipril 10 mg capsule 10 mg PO DAILY 06/29/20 08/30/20 sitagliptin 50 mg tablet (Januvia) 50 mg PO DAILY 06/29/20 08/30/20 tolterodine 4 mg capsule,extended 4 mg PO BID 06/29/20 08/30/20 release 24 hr (Detrol LA) atorvastatin 20 mg tablet 20 mg PO BEDTIME 08/30/20 08/30/20 cholecalciferol (vitamin D3) 25 25 mcg PO DAILY 08/30/20 08/30/20 mcg (1,000 unit) tablet (Vitamin D3) cephalexin 500 mg capsule 1 cap PO TID 05/29/21 Allergies Allergy/AdvReac Type Severity Reaction Status Date / Time vancomycin Allergy Severe Difficulty Verified 08/30/20 15:58 Breathing PLASTIC TAPE Allergy Intermediate RED RAW Uncoded 06/29/20 14:44 SKIN Review of Systems Review of Systems: Constitutional : No Weight loss, No Fever, No Chills, No Fatigue, No Malaise ENT/Mouth : No sore throat, No Rhinorrhea Eyes: No Eye Pain, No Swelling, No Redness Cardiovascular : No Chest Pain, No SOB, No Dyspnea on Exertion, No Orthopnea, No Edema, No Palpitations Respiratory : No Cough, No Sputum, No Wheezing Gastrointestinal : No Nausea, No Vomiting, No Diarrhea, No Constipation, No abdominal Pain, No Hematochezia, No Melena Genitourinary : No Dysuria, No Urinary Frequency, No Hematuria, Musculoskeletal : No joint pain, No Myalgias, No Joint Swelling Skin : No Skin Lesions, No rash, +wound Neuro : No Weakness, No Numbness, No Dizziness, No Headache All other systems reviewed and are negative Yes all other systems are reviewed and are negative [facility] Past Medical History Attestation statement: The following information was validated with the patient. Source: old records reviewed and nursing notes reviewed Medical History (Updated 05/29/21 @ 17:37 by TAHMINA Ricks) Amputated toe of left foot Anaphylactoid reaction Cataracts, both eyes Cellulitis Diabetes Falls Femur fracture, left Hx of osteomyelitis Hypercholesteremia Hypertension Leukocytosis Lung cancer MSSA bacteremia Toe amputee Vancomycin adverse reaction Surgical History H/O umbilical hernia repair Social History Social History Household Members: None Housing: Condominium Do you presently have visiting nurse or other home services: Yes Alcohol intake: never Advance Directives: No Advance Directives Information Provided: No service: Yes Current occupational status: retired Physical Exam Vital Signs: Vital Signs: Last Vital Signs Temp 97.9 F 05/29/21 17:16 Pulse 87 05/29/21 17:16 Resp 22 H 05/29/21 17:16 BP 153/41 H 05/29/21 17:16 Pulse Ox 96 05/29/21 17:16 BMI result Body Mass Index 21.9 VSS Appearance: Alert.? Oriented X3.? No acute distress.? Head: Normocephalic, atraumatic, no step-offs or deformities Eyes: Pupils equal, round and reactive to light.? ENT: Pharynx normal.? Neck: Normal inspection.? Neck supple.? CVS: Normal heart rate and rhythm.? Pulses normal.? Respiratory: No respiratory distress.? Breath sounds normal.? Abdomen: Soft and nontender.? Skin: Skin warm and dry.? Normal skin color.? Normal skin turgor.? Extremities: No lower extremity edema.? No calf ttp. 5/5 strength to bilateral upper and lower extremities + wound on right foot (medial aspect) with overlying calor and erythema (image below) Back: No midline tenderness, no C-spine tenderness, full range of motion, no CVA tenderness bilaterally Neuro: Oriented X 3.? No motor deficit.? Normal sensation to bilateral upper extremities and left lower extremity. Diminished sensation from the ankle down on the right side. Course Reevaluation(s) Reevaluation #1: I was able to probe the wound about 3 cm. I applied a wet sterile dressing to the foot. Time: 16:15 Reevaluation #2: Chest x-ray shows a port in proper position. It shows a stable increased opacity in the right upper lobe, and increased markings at the left lung base which could suggest pneumonia. At this time I do not suspect pneumonia, patient has no complaints of shortness of breath, cough, fevers, chills. X-ray of the right foot concerning for osteomyelitis. An MRI has been ordered. Time: 16:48 Reevaluation #3: Patient is noted to have a leukocytosis. No acute electrolyte abnormalities. Lactic acid 1.6. EKG nonischemic. Based off patient's history, physical exam and laboratory studies infection is suspected. For this reason blood cultures and a lactic acid were obtained. Fluids and antibiotics have also been ordered. Time: 17:28 Additional Reevaluation(s): TT. Dr. Valdez for admission. MDM - Wound/Laceration MDM Narrative Medical decision making narrative: 1548 85 yo f pmhx diabetic foot ulcer, osteomyelitis, MSSA bacteremia, HTN, lung cancer, diabetes presents to the ED w/ an open wound to right foot X1 year, progressively worsening. Was sent in by the wound clinic. Vaccinated w/ 2 doses of pfizer vaccine. Upon physical examination patient is noted to be hypertensive and tachycardic. There is a wound to the right foot, with overlying warmth and erythema There are images in the physical exam portion of the chart. Lungs clear. Regular rate and rhythm. Abdomen soft nontender nondistended. Neuro exam nonfocal. Sensory and motor intact to left upper and lower extremity. Decreased sensation from the ankle down on the right side. Plan at this time is to obtain labs, blood cultures, lactic acid. I will administer fluids and antibiotics. Patient will likely be admitted as she will likely require IV antibiotics and possible amputation. Medical Records Attestation: I reviewed the patient's medical records. Lab Data Attestation: I reviewed the patient's lab results. Result diagrams: 05/29/21 17:01 05/29/21 17:01 Labs: Lab Results 05/29/21 05/29/21 05/29/21 Range/Units 16:59 17:01 17:01 WBC 20.7 H (4.8-10.8) X10*3/uL RBC 3.57 L (4.20-5.50) X10*6/uL Hgb 10.1 L (12.0-16.0) g/dl Hct 31.9 L (37.0-47.0) % MCV 89.4 (80.0-98.0) fL MCH 28.3 (27.0-33.0) pg MCHC 31.7 (31.0-35.0) g/dl RDW 15.6 (11.0-16.0) % Plt Count 365 (160-400) X10*3/uL MPV 9.6 (9.4-12.3) fL Immature Gran % (Auto) 2.7 H (0.0-0.4) % Neut % (Auto) 84.9 H (45-73) % Lymph % (Auto) 4.7 L (20-40) % Ellsworth % (Auto) 6.7 (2-11) % Eos % (Auto) 0.8 (0-4) % Baso % (Auto) 0.2 (0-2) % Lymph # (Auto) 1.0 L (1.2-4.9) X10*3/uL Ellsworth # (Auto) 1.4 H (0.1-1.2) X10*3/uL Eos # (Auto) 0.2 (0.0-0.4) X10*3/uL Baso # (Auto) 0.1 (0.0-0.2) X10*3/uL Abs Immat Gran (auto) 0.56 H (0.00-0.03) X10*3/uL Absolute Neuts (auto) 17.6 H (2.0-8.3) x10*3/uL Absolute Nucleated RBC 0.000 (0.0-0.012) X10*3/uL Nucleated RBC % (auto) 0.0 (0.0-0.2) /100WBC Sodium 138 (135-145) mmol/L Potassium 4.4 (3.3-5.1) mmol/L Chloride 107 (96-108) mmol/L Carbon Dioxide 24 (22-29) mmol/L Anion Gap 11 L (12-20) BUN 22 H (9-16) mg/dL Creatinine 0.66 (0.5-1.4) mg/dL Estim Creat Clear Calc 52.8 Estimated GFR > 60 Random Glucose 105 (60-115) mg/dL Lactic Acid 1.6 (0.5-2.0) mmol/L Calcium 9.6 (8.4-10.2) mg/dL Magnesium 1.7 (1.6-2.6) mg/dL Total Bilirubin 0.4 (0.0-1.0) mg/dL AST 49 H D (5-31) U/L ALT 94 H (0-31) U/L Alkaline Phosphatase 123 H (39-117) U/L C-Reactive Protein (< or = 0.50) mg/dL Total Protein 6.4 L (6.5-8.0) g/dL Albumin 2.8 L (3.5-5.0) g/dL COVID-19 (FADY) (Negative) COVID-19 Clin Com 05/29/21 05/29/21 Range/Units 17:01 17:01 WBC (4.8-10.8) X10*3/uL RBC (4.20-5.50) X10*6/uL Hgb (12.0-16.0) g/dl Hct (37.0-47.0) % MCV (80.0-98.0) fL MCH (27.0-33.0) pg MCHC (31.0-35.0) g/dl RDW (11.0-16.0) % Plt Count (160-400) X10*3/uL MPV (9.4-12.3) fL Immature Gran % (Auto) (0.0-0.4) % Neut % (Auto) (45-73) % Lymph % (Auto) (20-40) % Ellsworth % (Auto) (2-11) % Eos % (Auto) (0-4) % Baso % (Auto) (0-2) % Lymph # (Auto) (1.2-4.9) X10*3/uL Ellsworth # (Auto) (0.1-1.2) X10*3/uL Eos # (Auto) (0.0-0.4) X10*3/uL Baso # (Auto) (0.0-0.2) X10*3/uL Abs Immat Gran (auto) (0.00-0.03) X10*3/uL Absolute Neuts (auto) (2.0-8.3) x10*3/uL Absolute Nucleated RBC (0.0-0.012) X10*3/uL Nucleated RBC % (auto) (0.0-0.2) /100WBC Sodium (135-145) mmol/L Potassium (3.3-5.1) mmol/L Chloride (96-108) mmol/L Carbon Dioxide (22-29) mmol/L Anion Gap (12-20) BUN (9-16) mg/dL Creatinine (0.5-1.4) mg/dL Estim Creat Clear Calc Estimated GFR Random Glucose (60-115) mg/dL Lactic Acid (0.5-2.0) mmol/L Calcium (8.4-10.2) mg/dL Magnesium (1.6-2.6) mg/dL Total Bilirubin (0.0-1.0) mg/dL AST (5-31) U/L ALT (0-31) U/L Alkaline Phosphatase (39-117) U/L C-Reactive Protein 15.25 H (< or = 0.50) mg/dL Total Protein (6.5-8.0) g/dL Albumin (3.5-5.0) g/dL COVID-19 (FADY) Negative (Negative) COVID-19 Clin Com See Note Imaging Data Chest x-ray: Attestation: I personally reviewed and interpreted this imaging study as follows: Radiologist's impression: FINDINGS: There is a right jugular port with tip projecting over the SVC. The cardiac and mediastinal contours are stable. Increased opacity in the right upper lobe that appears unchanged from previous exams area there are new increased markings and bronchial wall thickening at the left lung base questionable for bronchopneumonia. The lungs are otherwise air. There is no pleural effusion or pneumothorax area there degenerative changes of the spine and mild scoliosis. There are degenerative changes at the shoulder joints. XR/XR chest 1V IMPRESSION: Right jugular port tip projects over SVC. Stable increased opacity in the right upper lobe. New bronchial wall thickening and increased markings at the left lung base suggestive of bronchopneumonia. Right foot xray : Attestation: I personally reviewed and interpreted this imaging study as follows: Radiologist's impression: FINDINGS: There is chronic foot deformity with Charcot arthropathy midfoot. Soft tissue wound present plantar medial aspect mid foot near the first cuneiform and base first metatarsal. Wound appears to extend to or close to the cortex. There is decreased bony mineralization in this area which may be reactive change or early osteomyelitis. ? XR/XR foot RT min 3V IMPRESSION: Soft tissue wound extending close to bone plantar medial right midfoot. Subtle decreased bony mineralization may represent early osteomyelitis. Findings may be correlated with MRI or nuclear exam. ECG Data Attestation: I personally reviewed and interpreted this ECG as follows: ECG interpretation date: 05/29/21 ECG interpretation time: 16:30 Prior ECG tracings: available for review Interpretation: Ventricular rate of 86, IN normal, QRS normal, QT/QTC normal. No ST elevations or inversions. No acute ischemia. No significant changes when compared to EKG from August 30, 2020. Critical Care Time Critical Care Time Critical Care Time: No Discharge Plan Discharge Clinical Impression: Osteomyelitis Patient Disposition: Admitted As Inpatient Prescriptions: No Action metoprolol succinate 100 mg Tablet Extended Release 24 Hr 100 mg PO BID RF: 0 tolterodine [Detrol LA] 4 mg Capsule,Extended Release 24hr 4 mg PO BID RF: 0 ramipril 10 mg Capsule 10 mg PO DAILY RF: 0 Januvia 50 mg Tablet 50 mg PO DAILY RF: 0 atorvastatin 20 mg Tablet 20 mg PO BEDTIME RF: 0 cholecalciferol (vitamin D3) [Vitamin D3] 25 mcg (1,000 unit) Tablet 25 mcg PO DAILY RF: 0 Preser Vision 1 tab PO DAILY RF: 0 Vitamin B12 2,000 mcg PO DAILY RF: 0 amoxicillin-pot clavulanate 875-125 mg tablet 1 tab PO BID Qty: 14 RF: 0
[2021-05-29 15:32] VITALS: BP 170/72; BP 175/68; PULSE 170; PULSE 90; RESP 18; TEMP 36.1; O2SAT 98; O2SAT 99; BMI 21.9
--- NOTE | 2021-05-29 16:13 | ECG_ITS ---
Test Reason : SEPSIS Blood Pressure : / mmHG Vent. Rate : 086 BPM Atrial Rate : 086 BPM P-R Int : 144 ms QRS Dur : 072 ms QT Int : 338 ms P-R-T Axes : 065 048 039 degrees QTc Int : 404 ms Normal sinus rhythm Septal infarct (cited on or before 29-MAY-2021) Abnormal ECG When compared with ECG of 30-AUG-2020 18:19, Questionable change in initial forces of Septal leads Referred By: León Lang Electronically Signed By:MARIOLA ZAMUDIO
[2021-05-29] MEDS: 0.9 % Sodium Chloride 1,000 ML 999 ML IV ×2 (16:31→17:49)
[2021-05-29 17:08] LABS: MANUAL DIFF FLAG NO
[2021-05-29 17:13] LABS: Basophils Absolute Auto 0.1 X10*3/uL (0.0-0.2); Basophils Percent Auto 0.2 % (0-2); Eosinophils Absolute Auto 0.2 X10*3/uL (0.0-0.4); Eosinophils Percent Auto 0.8 % (0-4); Hematocrit 31.9 % (37.0-47.0); Hemoglobin 10.1 g/dl (12.0-16.0); Imm Gran Abs Auto 0.56 X10*3/uL (0.00-0.03); Imm Gran Pct Auto 2.7 % (0.0-0.4); Lymphocytes Percent Auto 4.7 % (20-40); Mean Corpuscular HGB Conc 31.7 g/dl (31.0-35.0); Mean Corpuscular Hemoglobin 28.3 pg (27.0-33.0); Mean Corpuscular Volume 89.4 fL (80.0-98.0); Mean Platelet Volume 9.6 fL (9.4-12.3); Monocytes Absolute Auto 1.4 X10*3/uL (0.1-1.2); Monocytes Percent Auto 6.7 % (2-11); Neutrophils Absolute Auto 17.6 x10*3/uL (2.0-8.3); Neutrophils Percent Auto 84.9 % (45-73); Platelet Count 365 X10*3/uL (160-400); Red Blood Count 3.57 X10*6/uL (4.20-5.50); Red Cell Distribution Width 15.6 % (11.0-16.0); White Blood Count 20.7 X10*3/uL (4.8-10.8)
[2021-05-29] MEDS: Piperacillin Sodium/Tazobactam 3.375 GM in 0.9 % Sodium Chloride 50 ML IV (17:14)
[2021-05-29 17:16] VITALS: BP 153/41; PULSE 87; RESP 22; TEMP 36.6; O2SAT 96
[2021-05-29 17:25] LABS: Lactic Acid 1.6 mmol/L (0.5-2.0)
[2021-05-29 17:29] LABS: C Reactive Protein 15.25 mg/dL (< or = 0.50)
[2021-05-29 17:31] LABS: Alanine Aminotransferase 94 U/L (0-31); Albumin Level 2.8 g/dL (3.5-5.0); Alkaline Phosphatase 123 U/L (39-117); Anion Gap 11 (12-20); Aspartate Amino Transferase 49 U/L (5-31); Bilirubin Total 0.4 mg/dL (0.0-1.0); Blood Urea Nitrogen 22 mg/dL (9-16); Calcium 9.6 mg/dL (8.4-10.2); Carbon Dioxide 24 mmol/L (22-29); Chloride 107 mmol/L (96-108); Creatinine Clr Calc Pharmacy 52.8; Estimated Glomerular Filt Rate > 60; Glucose Random 105 mg/dL (60-115); Magnesium 1.7 mg/dL (1.6-2.6); Potassium 4.4 mmol/L (3.3-5.1); Sodium 138 mmol/L (135-145); Total Protein 6.4 g/dL (6.5-8.0)
[2021-05-29 17:36] LABS: COVID-19 Test Negative (Negative)
--- NOTE | 2021-05-29 18:08 | P.HPHOSP_ITS ---
History of Present Illness Date of Service: 05/29/21 Chief Complaint: foot wound/infection 85yo F with DM2 with foot ulcer, hx osteomyelitis + MSSA bacteremia, HTN, HLD, lung CA metastasized to liver on immunotherapy who was sent in from the [facility] due to an open wound to the R foot with exposed bone that had developed over the past year. She has taken amoxicillin-clavaulanate for the last few weeks with ho improvement. The wound is not really painful unless it is probed. She has a history of anaphylactoid reaction to vancomycin. She endorses chills. She denies fever, nausea, vomiting, cough, or chest pain. She was tachypneic and had leukocytosis, thereby meeting sepsis criteria. Lactate is 1.6. X-ray of the R foot shows erosive changes concerning for early osteomyelitis. She was given piperacillin-tazobactam and doxycycline. Review of Systems Review of Systems: Yes all other systems are reviewed and are negative [facility] Medical History Amputated toe of left foot Anaphylactoid reaction Cataracts, both eyes Cellulitis Diabetes Falls Femur fracture, left Hx of osteomyelitis Hypercholesteremia Hypertension Leukocytosis Lung cancer MSSA bacteremia Toe amputee Vancomycin adverse reaction Pertinent family history: no DM2 Surgical History H/O umbilical hernia repair Social History Household Members: None Housing: Condominium Do you presently have visiting nurse or other home services: Yes Alcohol intake: never Advance Directives: No Advance Directives Information Provided: No service: Yes Current occupational status: retired Meds Allergies Allergy/AdvReac Type Severity Reaction Status Date / Time vancomycin Allergy Severe Difficulty Verified 08/30/20 15:58 Breathing PLASTIC TAPE Allergy Intermediate RED RAW Uncoded 06/29/20 14:44 SKIN Active Medications: Current Medications Sodium Chloride (Ns) 1,000 mls @ 999 mls/hr IV .Q1H1M ROWAN Stop: 05/29/21 18:45 Last Admin: 05/29/21 17:49 Dose: 999 mls/hr Documented by: Linezolid ([id number]) 600 mg in 300 mls @ 300 mls/hr IV Q12H [facility] Piperacillin Sod/Tazobactam (Sod 3.375 gm/ Sodium Chloride) 50 mls @ 100 mls/hr IV Q6H [facility] Home Medications Medication Instructions Recorded Confirmed Last Taken Type metoprolol succinate 100 mg 100 mg PO BID 06/29/20 08/30/20 08/29/20 History tablet,extended release 24 hr 100 mg ramipril 10 mg capsule 10 mg PO DAILY 06/29/20 08/30/20 08/29/20 History 10 mg sitagliptin 50 mg tablet (Januvia) 50 mg PO DAILY 06/29/20 08/30/20 08/29/20 History 50 mg tolterodine 4 mg capsule,extended 4 mg PO BID 06/29/20 08/30/20 08/29/20 History release 24 hr (Detrol LA) 4 mg atorvastatin 20 mg tablet 20 mg PO BEDTIME 08/30/20 08/30/20 08/29/20 History 20 MG cholecalciferol (vitamin D3) 25 25 mcg PO DAILY 08/30/20 08/30/20 08/29/20 His tory mcg (1,000 unit) tablet (Vitamin 25 MCG D3) cephalexin 500 mg capsule 1 cap PO TID 05/29/21 Unknown History cyanocobalamin (vitamin B-12) 2,000 mcg PO DAILY 05/29/21 05/29/21 Unknown History 2,000 mcg tablet diphenhydramine 25 1 tab PO BEDTIME 05/29/21 05/29/21 05/28/21 History mg-acetaminophen 500 mg tablet (Tylenol PM Extra Strength) melatonin 10 mg tablet 10 mg PO BEDTIME 05/29/21 05/29/21 05/28/21 History Physical Exam Vital Signs and Narrative: Vital Signs: Last Vital Signs Temp 97.9 F 05/29/21 17:16 Pulse 87 05/29/21 17:16 Resp 22 H 05/29/21 17:16 BP 153/41 H 05/29/21 17:16 Pulse Ox 96 05/29/21 17:16 BMI result Body Mass Index 21.9 Gen: in no acute distress HEENT: sclera anicteric, moist mucus membranes Neck: supple, R-sided port Lungs: clear to auscultation bilaterally Heart: regular rate and rhythm, no murmurs Abd: soft, non-tender, non-distended Ext: no edema Skin: large ulcer medial R foot with erythema/warmth [see photo], L foot with multiple toe amputations Neuro: alert and oriented x3,dense neuropathy R foot Psych: appropriate affect Results Labs CBC and Chem 7: 05/29/21 17:01 05/29/21 17:01 Labs: Laboratory Results - last 24 hr 05/29/21 05/29/21 05/29/21 16:59 17:01 17:01 MCV 89.4 MCH 28.3 MCHC 31.7 RDW 15.6 Plt Count 365 MPV 9.6 Immature Gran % (Auto) 2.7 H Neut % (Auto) 84.9 H Lymph % (Auto) 4.7 L Tyrrell % (Auto) 6.7 Eos % (Auto) 0.8 Baso % (Auto) 0.2 Lymph # (Auto) 1.0 L Tyrrell # (Auto) 1.4 H Eos # (Auto) 0.2 Baso # (Auto) 0.1 Abs Immat Gran (auto) 0.56 H Absolute Neuts (auto) 17.6 H Absolute Nucleated RBC 0.000 Nucleated RBC % (auto) 0.0 Anion Gap 11 L Estim Creat Clear Calc 52.8 Estimated GFR > 60 Random Glucose 105 Lactic Acid 1.6 Calcium 9.6 Magnesium 1.7 Total Bilirubin 0.4 AST 49 H D ALT 94 H Alkaline Phosphatase 123 H C-Reactive Protein Total Protein 6.4 L Albumin 2.8 L COVID-19 (FADY) COVID-19 Clin Com 05/29/21 05/29/21 17:01 17:01 MCV MCH MCHC RDW Plt Count MPV Immature Gran % (Auto) Neut % (Auto) Lymph % (Auto) Tyrrell % (Auto) Eos % (Auto) Baso % (Auto) Lymph # (Auto) Tyrrell # (Auto) Eos # (Auto) Baso # (Auto) Abs Immat Gran (auto) Absolute Neuts (auto) Absolute Nucleated RBC Nucleated RBC % (auto) Anion Gap Estim Creat Clear Calc Estimated GFR Random Glucose Lactic Acid Calcium Magnesium Total Bilirubin AST ALT Alkaline Phosphatase C-Reactive Protein 15.25 H Total Protein Albumin COVID-19 (FADY) Negative COVID-19 Clin Com See Note ITS Impressions Chest X-Ray 05/29/21 16:10 IMPRESSION: Right jugular port tip projects over SVC. Stable increased opacity in the right upper lobe. New bronchial wall thickening and increased markings at the left lung base suggestive of bronchopneumonia. Foot X-Ray 05/29/21 16:10 IMPRESSION: Soft tissue wound extending close to bone plantar medial right midfoot. Subtle decreased bony mineralization may represent early osteomyelitis. Findings may be correlated with MRI or nuclear exam. Imaging Radiologist's Impressions: Impressions Chest X-Ray 05/29/21 16:10 IMPRESSION: Right jugular port tip projects over SVC. Stable increased opacity in the right upper lobe. New bronchial wall thickening and increased markings at the left lung base suggestive of bronchopneumonia. Foot X-Ray 05/29/21 16:10 IMPRESSION: Soft tissue wound extending close to bone plantar medial right midfoot. Subtle decreased bony mineralization may represent early osteomyelitis. Findings may be correlated with MRI or nuclear exam. 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
[2021-05-29 18:09] LABS: Erythrocyte Sedimentation Rate 105 MM/HR (0-20)
--- NOTE | 2021-05-29 18:21 | PHA.MEDREC ---
Pharmacy Consult ? Medication Reconciliation Pharmacy has completed the medication reconciliation. Pt states that she is on day 7 of her 10 day Keflex regimen. No issues noted. Charla Gupta RP
[2021-05-29 18:54] VITALS: BP 132/89; PULSE 85; RESP 24; TEMP 36.9; O2SAT 97
[2021-05-29 19:41] VITALS: BP 150/67; PULSE 85; RESP 24; TEMP 37.1; O2SAT 94
[2021-05-29] MEDS: Enoxaparin Sodium 40 MG/0.4 ML SYRINGE SUBCUT (19:45)
--- NOTE | 2021-05-29 20:16 | PC.NURSE ---
pharmacy called for med not available in the pyxis Linezolid. they will bring it to the ed.
[2021-05-29] MEDS: Linezolid/D5W 600 MG/300 ML PIGGYBACK 300 MG IV (20:24)
[2021-05-29 21:46] LABS: Glucose, Whole Blood 96 mg/dL (60-115)
[2021-05-30] VITALS: BP 130/92; PULSE 83; RESP 22; O2SAT 96
[2021-05-30] MEDS: Piperacillin Sodium/Tazobactam 3.375 GM in 0.9 % Sodium Chloride 50 ML IV ×4 (00:20→21:43)
--- NOTE | 2021-05-30 02:37 | PC.NURSE ---
pt is asking for a tylenol for sleep. pt states she takes one at home and it helps her to sleep.
[2021-05-30 02:38] VITALS: BP 146/64; PULSE 79; O2SAT 18
[2021-05-30] MEDS: Acetaminophen 325 MG TABLET 650 MG PO (02:42)
[2021-05-30 06:18] VITALS: BP 136/59; PULSE 77; RESP 20; O2SAT 97
--- NOTE | 2021-05-30 06:22 | PC.NURSE ---
pharmacy called for pipercillian. none in the pyxis.
[2021-05-30 07:31] LABS: Hematocrit 27.2 % (37.0-47.0); Hemoglobin 8.6 g/dl (12.0-16.0); Mean Corpuscular HGB Conc 31.6 g/dl (31.0-35.0); Mean Corpuscular Hemoglobin 28.1 pg (27.0-33.0); Mean Corpuscular Volume 88.9 fL (80.0-98.0); Mean Platelet Volume 9.5 fL (9.4-12.3); Platelet Count 318 X10*3/uL (160-400); Red Blood Count 3.06 X10*6/uL (4.20-5.50); Red Cell Distribution Width 15.4 % (11.0-16.0); White Blood Count 13.1 X10*3/uL (4.8-10.8)
[2021-05-30 07:33] LABS: Glucose, Whole Blood 91 mg/dL (60-115)
--- NOTE | 2021-05-30 07:33 | PC.NURSE ---
Morning POC 91, insulin lispro held per sliding scale. Pt alert, NAD, sitting upright in bed eating breakfast at this time. Awaiting admission.
[2021-05-30 07:46] LABS: Anion Gap 10 (12-20); Blood Urea Nitrogen 17 mg/dL (9-16); Calcium 8.4 mg/dL (8.4-10.2); Carbon Dioxide 21 mmol/L (22-29); Chloride 113 mmol/L (96-108); Creatinine Clr Calc Pharmacy 53.6; Estimated Glomerular Filt Rate > 60; Glucose Random 117 mg/dL (60-115); Potassium 4.4 mmol/L (3.3-5.1); Sodium 140 mmol/L (135-145)
[2021-05-30] MEDS: Linezolid/D5W 600 MG/300 ML PIGGYBACK 300 MG IV ×2 (09:45→22:32)
--- NOTE | 2021-05-30 10:36 | PC.NURSE ---
pt incontinent of urine to bed linens, linens changed, IV abx hung and running per jul. Pt offers no new complaints at this time, NAD.
--- NOTE | 2021-05-30 11:59 | MHC.CM.PN ---
PT REPORTS SHE LIVES ALONE AND IS INDEPENDENT [facility] SHE REPORTS SHE IS ACTIVE [facility] AND HAS NO OTHER SERVICES SHE USES A ROLLATOR TO AMBULATE PT CONFIRMS HER PCP IS KERRY RAMOS AND SHE HAS A HCP ON FILE IMM AND VA RIGHTS FORMS WERE DELIVERED COPIES WERE SENT TO MEDICAL RECORDS CURRENT DC PLAN IS HOME WITH RESUMPTION OF [facility] FAMILY TO TRANSPORT
--- NOTE | 2021-05-30 12:58 | PM.CNGS ---
History of Present Illness Consult details Consult date: 05/30/21 Reason for consult: wound care Narrative: Complex 85-year-old female presents for evaluation of nonhealing ulcer of the right foot. Of note she has a history of lung cancer with liver metastasis. She has developed this right foot ulceration which is concerning for osteomyelitis. She has actually been seen and treated at the [facility]. There was exposure of bone and she was subsequently spoke sent into the hospital for evaluation. She now presents to us for vascular evaluation. Review of Systems Review of Systems: Yes all other systems are reviewed and are negative Constitutional: Constitutional: Reports no additional constitutional complaints ENT: Reports Normal hearing present Cardiovascular: Cardiovascular: Denies chest pain, Denies chest pain at rest, Denies chest pain with activity and Denies pedal edema Respiratory: Respiratory: Denies cough Gastrointestinal: Gastrointestinal: Denies abdominal pain Musculoskeletal: Musculoskeletal: Denies abnormal gait, Denies muscle cramps and Denies radiating pain into limb Integumentary/Breasts: Skin/Breast: Denies skin ulcer and Denies wounds Neurologic: Reports Normal hearing present and Denies abnormal gait Psychiatric: Psychiatric: Reports no additional psychiatric complaints [facility] Past Medical History Medical History Amputated toe of left foot Anaphylactoid reaction Cataracts, both eyes Cellulitis Diabetes Falls Femur fracture, left Hx of osteomyelitis Hypercholesteremia Hypertension Leukocytosis Lung cancer MSSA bacteremia Toe amputee Vancomycin adverse reaction Surgical History Surgical History H/O umbilical hernia repair Social History Social History Household Members: None Housing: Condominium Do you presently have visiting nurse or other home services: Yes Alcohol intake: never Advance Directives: No Advance Directives Information Provided: No service: Yes Current occupational status: retired Meds Allergies Allergy/AdvReac Type Severity Reaction Status Date / Time vancomycin Allergy Severe Difficulty Verified 08/30/20 15:58 Breathing PLASTIC TAPE Allergy Intermediate RED RAW Uncoded 06/29/20 14:44 SKIN Active Medications: Current Medications Acetaminophen (Acetaminophen 325 Mg Tablet) 650 mg PO Q6H PRN PRN Reason: Pain, Mild (Pain Scale 1-3) Last Admin: 05/30/21 02:42 Dose: 650 mg Documented by: Dextrose (Dextrose 50 % 25 Gm/50 Ml Vial) 25 gm IVPUSH Q15M PRN; Protocol PRN Reason: per Hypoglycemia Standing Ord. Enoxaparin Sodium (Enoxaparin Sodium 40 Mg/0.4 Ml Syringe) 40 mg SUBCUT Q24H [facility] Last Admin: 05/29/21 19:45 Dose: 40 mg Documented by: Glucose (Glucose Gel 15 Gm Gel..Gram.) 15 gm PO Q15M PRN; Protocol PRN Reason: per Hypoglycemia Standing Ord. Linezolid (Zyvox/D5w) 600 mg in 300 mls @ 300 mls/hr IV Q12H [facility] Last Admin: 05/30/21 09:45 Dose: 300 mls/hr Documented by: Piperacillin Sod/Tazobactam (Sod 3.375 gm/ Sodium Chloride) 50 mls @ 100 mls/hr IV Q6H [facility] Last Admin: 05/30/21 06:48 Dose: 100 mls/hr Documented by: Insulin Human Lispro (Insulin Lispro 100 Unit/Ml 3 Ml Vial) 0 unit SUBCUT QIDACHS [facility]; Protocol Last Admin: 05/30/21 07:30 Dose: Not Given Documented by: Ondansetron HCl (Ondansetron Hcl 4 Mg/2 Ml Vial) 4 mg IVPUSH Q8H PRN PRN Reason: Nausea and Vomiting Pharmacy Consult (Consult Rx Perform Med Rec) 1 each MISCELLANE ONCE PRN PRN Reason: Consult order Sodium Chloride (0.9 % Sodium Chloride Flush 3 Ml Syringe) 3 ml IVFLUSH QSHIFT [facility] Last Admin: 05/30/21 07:39 Dose: Not Given Documented by: Home Medications Medication Instructions Recorded Confirmed Last Taken Type metoprolol succinate 100 mg 100 mg PO BID 06/29/20 05/29/21 05/29/21 History tablet,extended release 24 hr ramipril 10 mg capsule 10 mg PO DAILY 06/29/20 05/29/21 05/29/21 History sitagliptin 50 mg tablet (Januvia) 50 mg PO DAILY 06/29/20 05/29/21 05/29/21 History tolterodine 4 mg capsule,extended 4 mg PO BID 06/29/20 05/29/21 05/29/21 History release 24 hr (Detrol [place]) atorvastatin 20 mg tablet 20 mg PO BEDTIME 08/30/20 05/29/21 05/28/21 History cholecalciferol (vitamin D3) 25 25 mcg PO DAILY 08/30/20 05/29/21 05/29/21 History mcg (1,000 unit) tablet (Vitamin D3) cephalexin 500 mg capsule 1 cap PO TID 05/29/21 05/29/21 05/28/21 History cyanocobalamin (vitamin B-12) 2,000 mcg PO DAILY 05/29/21 05/29/21 Unknown History 2,000 mcg tablet diphenhydramine 25 1 tab PO BEDTIME 05/29/21 05/29/21 05/28/21 History mg-acetaminophen 500 mg tablet (Tylenol PM Extra Strength) melatonin 10 mg tablet 10 mg PO BEDTIME 05/29/21 05/29/21 05/28/21 History Physical Exam Vital Signs: Vital Signs: Last Vital Signs Temp 98.7 F 05/29/21 19:41 Pulse 77 05/30/21 06:18 Resp 20 05/30/21 06:18 BP 136/59 L 05/30/21 06:18 Pulse Ox 97 05/30/21 06:18 BMI result Body Mass Index 21.9 Const: General: cooperative, healthy appearing and comfortable Orientation/consciousness: oriented to person, oriented to place and oriented to time HENMT: Head: Yes normal to inspection Neck: Neck: Yes normal visual inspection Carotids: no bruits Chest: Chest palpation & inspection: normal inspection of the chest Resp: Effort & Inspection: normal respiratory effort and able to speak in complete sentences Auscultation: clear to auscultation bilaterally, no crackles, no rales, no rhonchi and no wheezes Cardio: Rate: regular rate Rhythm: regular rhythm Heart sounds: S1 normal heart sound present and S2 normal heart sound present Bruits: no carotid bruits Peripheral pulses: dorsalis pedis present (Bilateral DP signals) GI: Inspection: Yes normal to inspection Skin: Wounds: wounds noted (Right foot with ulcer and valgus deformity) Hair: normal Neuro: General: oriented to person, oriented to place and oriented to time Cranial nerves: Yes CN's II-XII intact bilaterally and Yes Normal hearing present Cognition (Neuro): normal cognition Motor exam (neuro): 5/5 motor strength present throughout Extrem: Other: venous exam: No significant superficial varicosities or spider telangiectasias, minimal edema General: No clubbing, No cyanosis and No edema Psych: Appearance: grossly normal Mental Status: mental status grossly normal Speech and movement: Normal speech and movement present Results Labs Result diagrams: 05/30/21 07:21 05/30/21 07:21 Labs: Abnormal lab results 05/29/21 05/29/21 05/29/21 Range/Units 16:59 17:01 17:01 WBC 20.7 H (4.8-10.8) X10*3/uL RBC 3.57 L (4.20-5.50) X10*6/uL Hgb 10.1 L (12.0-16.0) g/dl Hct 31.9 L (37.0-47.0) % Immature Gran % (Auto) 2.7 H (0.0-0.4) % Neut % (Auto) 84.9 H (45-73) % Lymph % (Auto) 4.7 L (20-40) % Lymph # (Auto) 1.0 L (1.2-4.9) X10*3/uL [place] # (Auto) 1.4 H (0.1-1.2) X10*3/uL Abs Immat Gran (auto) 0.56 H (0.00-0.03) X10*3/uL Absolute Neuts (auto) 17.6 H (2.0-8.3) x10*3/uL ESR 105 H (0-20) MM/HR Chloride (96-108) mmol/L Carbon Dioxide (22-29) mmol/L Anion Gap 11 L (12-20) BUN 22 H (9-16) mg/dL Random Glucose (60-115) mg/dL AST 49 H D (5-31) U/L ALT 94 H (0-31) U/L Alkaline Phosphatase 123 H (39-117) U/L C-Reactive Protein (< or = 0.50) mg/dL Total Protein 6.4 L (6.5-8.0) g/dL Albumin 2.8 L (3.5-5.0) g/dL 05/29/21 05/30/21 05/30/21 Range/Units 17:01 07:21 07:21 WBC 13.1 H (4.8-10.8) X10*3/uL RBC 3.06 L (4.20-5.50) X10*6/uL Hgb 8.6 L (12.0-16.0) g/dl Hct 27.2 L (37.0-47.0) % Immature Gran % (Auto) (0.0-0.4) % Neut % (Auto) (45-73) % Lymph % (Auto) (20-40) % Lymph # (Auto) (1.2-4.9) X10*3/uL [place] # (Auto) (0.1-1.2) X10*3/uL Abs Immat Gran (auto) (0.00-0.03) X10*3/uL Absolute Neuts (auto) (2.0-8.3) x10*3/uL ESR (0-20) MM/HR Chloride 113 H (96-108) mmol/L Carbon Dioxide 21 L (22-29) mmol/L Anion Gap 10 L (12-20) BUN 17 H (9-16) mg/dL Random Glucose 117 H (60-115) mg/dL AST (5-31) U/L ALT (0-31) U/L Alkaline Phosphatase (39-117) U/L C-Reactive Protein 15.25 H (< or = 0.50) mg/dL Total Protein (6.5-8.0) g/dL Albumin (3.5-5.0) g/dL Short CBC 05/29/21 05/30/21 Range/Units 17:01 07:21 WBC 20.7 H 13.1 H (4.8-10.8) X10*3/uL Hgb 10.1 L 8.6 L (12.0-16.0) g/dl Hct 31.9 L 27.2 L (37.0-47.0) % Plt Count 365 318 (160-400) X10*3/uL BMP 05/29/21 05/30/21 17:01 07:21 Sodium 138 140 Potassium 4.4 4.4 Chloride 107 113 H Carbon Dioxide 24 21 L BUN 22 H 17 H Creatinine 0.66 0.65 Calcium 9.6 8.4 D Liver Function 05/29/21 Range/Units 17:01 Total Bilirubin 0.4 (0.0-1.0) mg/dL AST 49 H D (5-31) U/L ALT 94 H (0-31) U/L Alkaline Phosphatase 123 H (39-117) U/L Albumin 2.8 L (3.5-5.0) g/dL All other labs normal. Assessment and Plan (1) PAD (peripheral artery disease): Status: Acute In short patient has an element of peripheral vascular disease. Noninvasive arterial testing demonstrates this as well and was reviewed. has a nonhealing ulcer with exposed bone. The concern is that she has metastatic lung cancer. Would treat osteomyelitis per MRI with antibiotics. In addition would need to find out overall plan and expectations for this patient. Will touch base with primary team. Thank you for allowing us to assist in her care. Procedures Date of Service Date of Service: 05/30/21
--- NOTE | 2021-05-30 13:37 | PC.NURSE ---
called pharmacy regarding noon zosyn. plans to hold 12pm dose until further investigation is done to reduce nephrotoxic injury.
--- NOTE | 2021-05-30 13:44 | HE.PHANOTE ---
Per JUL 599 Zosyn dose finished infusing at 1309 therefore there was questioning about patient's 1300 dose of Zosyn. Confirmed with Madhavi Camargo that Zosyn was not running at 1300 and the dose was given prior to her shift at 0600. The medication running at 1300 was Linezolid. Will re-enter order of Zosyn for 1400. Jagruti Ordoñez, [place]
--- NOTE | 2021-05-30 13:54 | PC.NURSE ---
attempted to call to give report, no anwer. chris [place]
[2021-05-30 13:55] LABS: Glucose, Whole Blood 126 mg/dL (60-115)
--- NOTE | 2021-05-30 14:21 | P.PNIM_ITS ---
Subjective Subjective Date of Service: 05/30/21 Interval History: Patient awake alert, returned from MRI, complaining of being cold all the time denies fever no pain no nausea no vomiting no other acute issues overnight. Review of Systems Review of Systems: Yes all other systems are reviewed and are negative Physical Exam Vital Signs: Vital Signs: Last Vital Signs Temp 98.7 F 05/29/21 19:41 Pulse 77 05/30/21 06:18 Resp 20 05/30/21 06:18 BP 136/59 L 05/30/21 06:18 Pulse Ox 97 05/30/21 06:18 BMI result Body Mass Index 21.9 Gen: Awake alert in no acute distress HEENT: sclera anicteric, moist mucus membranes Neck: supple, R-sided port Lungs: clear to auscultation bilaterally Heart: regular rate and rhythm, no murmurs Abd: soft, non-tender, non-distended Ext: no edema Skin:? large ulcer medial R foot with erythema covered with granulation, no drainage, L foot with multiple toe amputations Neuro: alert and oriented x3 Psych: appropriate affect Objective Data Active Medications Acetaminophen (Acetaminophen 325 Mg Tablet) 650 mg PO Q6H PRN PRN Reason: Pain, Mild (Pain Scale 1-3) Last Admin: 05/30/21 02:42 Dose: 650 mg Documented by: ZA Dextrose (Dextrose 50 % 25 Gm/50 Ml Vial) 25 gm IVPUSH Q15M PRN; Protocol PRN Reason: per Hypoglycemia Standing Ord. Enoxaparin Sodium (Enoxaparin Sodium 40 Mg/0.4 Ml Syringe) 40 mg SUBCUT Q24H [facility] Last Admin: 05/29/21 19:45 Dose: 40 mg Documented by: ZA Glucose (Glucose Gel 15 Gm Gel..Gram.) 15 gm PO Q15M PRN; Protocol PRN Reason: per Hypoglycemia Standing Ord. Linezolid (Zyvox/D5w) 600 mg in 300 mls @ 300 mls/hr IV Q12H [facility] Last Infusion: 05/30/21 13:09 Dose: 0 mls/hr Documented by: N-RAMSK Piperacillin Sod/Tazobactam (Sod 3.375 gm/ Sodium Chloride) 50 mls @ 100 mls/hr IV Q6H [facility] Insulin Human Lispro (Insulin Lispro 100 Unit/Ml 3 Ml Vial) 0 unit SUBCUT QIDACHS [facility]; Protocol Last Admin: 05/30/21 13:35 Dose: Not Given Documented by: GLENNY Non-Admin Reason: Not In Room Ondansetron HCl (Ondansetron Hcl 4 Mg/2 Ml Vial) 4 mg IVPUSH Q8H PRN PRN Reason: Nausea and Vomiting Pharmacy Consult (Consult Rx Perform Med Rec) 1 each MISCELLANE ONCE PRN PRN Reason: Consult order Sodium Chloride (0.9 % Sodium Chloride Flush 3 Ml Syringe) 3 ml IVFLUSH [facility] Last Admin: 05/30/21 07:39 Dose: Not Given Documented by: LAUREN Non-Admin Reason: IV Running Labs CBC & Chem 7: 05/30/21 07:21 05/30/21 07:21 Labs: Laboratory Results - last 24 hr 05/29/21 05/29/21 05/29/21 16:59 16:59 17:01 MCV 89.4 MCH 28.3 MCHC 31.7 RDW 15.6 Plt Count 365 MPV 9.6 Immature Gran % (Auto) 2.7 H Neut % (Auto) 84.9 H Lymph % (Auto) 4.7 L [place] % (Auto) 6.7 Eos % (Auto) 0.8 Baso % (Auto) 0.2 Lymph # (Auto) 1.0 L [place] # (Auto) 1.4 H Eos # (Auto) 0.2 Baso # (Auto) 0.1 Abs Immat Gran (auto) 0.56 H Absolute Neuts (auto) 17.6 H Absolute Nucleated RBC 0.000 Nucleated RBC % (auto) 0.0 ESR 105 H Anion Gap Estim Creat Clear Calc Estimated GFR POC Glucose Random Glucose Lactic Acid 1.6 Calcium Magnesium Total Bilirubin AST ALT Alkaline Phosphatase C-Reactive Protein Total Protein Albumin COVID-19 (FADY) COVID-19 Clin Com 05/29/21 05/29/21 05/29/21 17:01 17:01 17:01 MCV MCH MCHC RDW Plt Count MPV Immature Gran % (Auto) Neut % (Auto) Lymph % (Auto) [place] % (Auto) Eos % (Auto) Baso % (Auto) Lymph # (Auto) [place] # (Auto) Eos # (Auto) Baso # (Auto) Abs Immat Gran (auto) Absolute Neuts (auto) Absolute Nucleated RBC Nucleated RBC % (auto) ESR Anion Gap 11 L Estim Creat Clear Calc 52.8 Estimated GFR > 60 POC Glucose Random Glucose 105 Lactic Acid Calcium 9.6 Magnesium 1.7 Total Bilirubin 0.4 AST 49 H D ALT 94 H Alkaline Phosphatase 123 H C-Reactive Protein 15.25 H Total Protein 6.4 L Albumin 2.8 L COVID-19 (FADY) Negative COVID-19 [employer] Com See Note 05/29/21 05/30/21 05/30/21 21:39 07:21 07:21 MCV 88.9 MCH 28.1 MCHC 31.6 RDW 15.4 Plt Count 318 MPV 9.5 Immature Gran % (Auto) Neut % (Auto) Lymph % (Auto) [place] % (Auto) Eos % (Auto) Baso % (Auto) Lymph # (Auto) [place] # (Auto) Eos # (Auto) Baso # (Auto) Abs Immat Gran (auto) Absolute Neuts (auto) Absolute Nucleated RBC 0.000 Nucleated RBC % (auto) 0.0 ESR Anion Gap 10 L Estim Creat Clear Calc 53.6 Estimated GFR > 60 POC Glucose 96 Random Glucose 117 H Lactic Acid Calcium 8.4 D Magnesium Total Bilirubin AST ALT Alkaline Phosphatase C-Reactive Protein Total Protein Albumin COVID-19 (FADY) COVID-19 [employer] 05/30/21 05/30/21 07:29 13:51 MCV MCH MCHC RDW Plt Count MPV Immature Gran % (Auto) Neut % (Auto) Lymph % (Auto) [place] % (Auto) Eos % (Auto) Baso % (Auto) Lymph # (Auto) [place] # (Auto) Eos # (Auto) Baso # (Auto) Abs Immat Gran (auto) Absolute Neuts (auto) Absolute Nucleated RBC Nucleated RBC % (auto) ESR Anion Gap Estim Creat Clear Calc Estimated GFR POC Glucose 91 126 H Random Glucose Lactic Acid Calcium Magnesium Total Bilirubin AST ALT Alkaline Phosphatase C-Reactive Protein Total Protein Albumin COVID-19 (FADY) COVID-[employer] Assessment and Plan (1) PAD (peripheral artery disease): Status: Acute (2) Vancomycin adverse reaction: Status: Acute (3) Diabetic foot ulcer: Status: Acute (4) Hypertension: Status: Acute (5) Lung cancer: Status: Acute (6) Hypercholesteremia: Status: Acute (7) Diabetes: Status: Acute Assessment and Plan: 85yo F with HTN, HLD, DM2, lung CA on immunotherapy, hx MSSA bacteremia associated with diabetic foot ulcer admitted with sepsis from R foot osteomyelitis # sepsis due to right foot cellulitis/diabetic foot ulcer and osteomyelitis R foot - continue IV Zosyn and linezolid day 2 given vancomycin allergy, follow BCx, WBC trending down MRI foot showed severe osteoarthritis done osteomyelitis Seen by Dr. 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 and ramipril 10 mg daily, follow BP closely # DM2 - blood sugar 126, continue correction-dose insulin lispro, take Januvia at home currently on hold # VTE ppx on Lovenox # code - FULL Quality Stroke Does the patient have a stroke diagnosis?: No VTE Prior VTE?: No VTE Risk Level:: Medical - moderate - high VTE Device Contraindication: N/A - Device Ordered VTE Drug Contraindication: N/A - Med Ordered
[2021-05-30 14:32] VITALS: BP 144/67; PULSE 76; RESP 20; TEMP 36.2; O2SAT 97
[2021-05-30] MEDS: 0.9 % Sodium Chloride Flush 3 ML SYRINGE IVFLUSH (15:04)
[2021-05-30 15:51] VITALS: BP 195/81; PULSE 77; RESP 16; TEMP 36.3; O2SAT 96
[2021-05-30 16:44] LABS: Glucose, Whole Blood 107 mg/dL (60-115)
[2021-05-30] MEDS: Enoxaparin Sodium 40 MG/0.4 ML SYRINGE SUBCUT (17:59)
[2021-05-30 20:00] VITALS: BP 154/75; PULSE 81; RESP 16; TEMP 36.4; O2SAT 98
[2021-05-30 20:05] LABS: Glucose, Whole Blood 140 mg/dL (60-115)
[2021-05-30] MEDS: Atorvastatin Calcium 20 MG TABLET PO (21:44)
[2021-05-30] MEDS: Tolterodine Tartrate LA 4 MG CAP.ER.24H PO (21:45)
[2021-05-30] MEDS: Metoprolol Succinate ER 50 MG TAB.ER.24H PO (21:45)
[2021-05-30] MEDS: traZODone HCL 25 MG HALFTAB PO (22:32)
[2021-05-31] VITALS: BP 132/65; PULSE 79; RESP 17; TEMP 36.8; O2SAT 97
[2021-05-31] MEDS: Piperacillin Sodium/Tazobactam 3.375 GM in 0.9 % Sodium Chloride 50 ML IV ×4 (02:51→21:57)
[2021-05-31 04:00] VITALS: BP 165/77; PULSE 75; RESP 17; TEMP 36.2; O2SAT 96
[2021-05-31 07:54] LABS: Glucose, Whole Blood 106 mg/dL (60-115)
[2021-05-31 08:00] VITALS: BP 133/74; PULSE 77; RESP 20; TEMP 36.2; O2SAT 97
[2021-05-31] MEDS: 0.9 % Sodium Chloride Flush 3 ML SYRINGE IVFLUSH ×3 (08:32→21:59)
[2021-05-31] MEDS: Metoprolol Succinate ER 50 MG TAB.ER.24H PO ×2 (08:33→21:58)
[2021-05-31] MEDS: Tolterodine Tartrate LA 4 MG CAP.ER.24H PO ×2 (08:33→21:58)
[2021-05-31] MEDS: Linezolid/D5W 600 MG/300 ML PIGGYBACK IV (10:10)
[2021-05-31 11:29] LABS: Glucose, Whole Blood 163 mg/dL (60-115)
[2021-05-31 11:42] VITALS: BP 133/61; PULSE 80; RESP 20; TEMP 36.8; O2SAT 97
--- NOTE | 2021-05-31 12:06 | HO.VASCPN ---
Subjective Subjective Date of Service: 05/31/21 Patient reports: no new complaints and feels better Interval history: Very pleasant 85-year-old female presents for follow-up regarding nonhealing right foot wound. She has had no interval changes. She appears to be doing somewhat better. She reports that the erythema around the wound has significantly decreased since her admission. She is happy to be in a floor bed. She now presents for routine follow-up. Physical Exam Vital Signs: Vital Signs: Last Vital Signs Temp 98.2 F 05/31/21 11:42 Pulse 80 05/31/21 11:42 Resp 20 05/31/21 11:42 BP 133/61 05/31/21 11:42 Pulse Ox 97 05/31/21 11:42 BMI result Body Mass Index 21.9 Const: General: cooperative, healthy appearing and no acute distress Orientation/consciousness: oriented to person, oriented to place and oriented to time HENMT: Head: Yes normal to inspection Neck: Carotids: no bruits Chest: Chest palpation & inspection: normal inspection of the chest Resp: Effort & Inspection: normal respiratory effort and able to speak in complete sentences Auscultation: clear to auscultation bilaterally Cardio: Rate: regular rate Heart sounds: S1 normal heart sound present and S2 normal heart sound present GI: Inspection: Yes normal to inspection Skin: Other: General skin exam: no rashes or lesions noted Wounds: wounds noted (Right foot) Neuro: General: oriented to person, oriented to place, oriented to time and CN's II-XI intact bilaterally Extrem: General: Yes normal to inspection, Yes full ROM and Yes no clubbing, cyanosis or edema Psych: Appearance: grossly normal and well kempt Speech and movement: Normal speech and movement present Affect: normal affect Progress Note: A&P Assessment and plan (1) PAD (peripheral artery disease): Status: Acute Assessment and Plan: Very frail 85-year-old female with nonhealing right foot ulcer exposed bone. The concern is overall goals and expectations. First concern is that she has metastatic lung cancer to the liver. We would like to know the overall prognosis of that. In addition she has a deformity of that right foot and it does not appear to be functional. With that all considered would not be aggressive in terms of her arterial status. I would most likely offer her amputation of the leg. Would await information regarding her overall prognosis with her cancer. Thank you for allowing us to participate in her care. If there are any questions or concerns please do not hesitate to contact us. Fall Risk Details Current Medications: Current Medications Acetaminophen (Acetaminophen 325 Mg Tablet) 650 mg PO Q6H PRN PRN Reason: Pain, Mild (Pain Scale 1-3) Last Admin: 05/30/21 02:42 Dose: 650 mg Documented by: Atorvastatin Calcium (Atorvastatin Calcium 20 Mg Tablet) 20 mg PO BEDTIME [facility] Last Admin: 05/30/21 21:44 Dose: 20 mg Documented by: Dextrose (Dextrose 50 % 25 Gm/50 Ml Vial) 25 gm IVPUSH Q15M PRN; Protocol PRN Reason: per Hypoglycemia Standing Ord. Enoxaparin Sodium (Enoxaparin Sodium 40 Mg/0.4 Ml Syringe) 40 mg SUBCUT Q24H [facility] Last Admin: 05/30/21 17:59 Dose: 40 mg Documented by: Glucose (Glucose Gel 15 Gm Gel..Gram.) 15 gm PO Q15M PRN; Protocol PRN Reason: per Hypoglycemia Standing Ord. Linezolid (Zyvox/D5w) 600 mg in 300 mls @ 300 mls/hr IV Q12H [facility] Last Admin: 05/31/21 10:10 Dose: 3 mls/hr Documented by: Piperacillin Sod/Tazobactam (Sod 3.375 gm/ Sodium Chloride) 50 mls @ 100 mls/hr IV Q6H [facility] Last Infusion: 05/31/21 10:23 Dose: Infused Documented by: Insulin Human Lispro (Insulin Lispro 100 Unit/Ml 3 Ml Vial) 0 unit SUBCUT QIDACHS [facility]; Protocol Last Admin: 05/31/21 08:33 Dose: Not Given Documented by: Metoprolol Succinate (Metoprolol Succinate Er 50 Mg Tab.Er.24h) 50 mg PO BID [facility]; Protocol Last Admin: 05/31/21 08:33 Dose: 50 mg Documented by: Ondansetron HCl (Ondansetron Hcl 4 Mg/2 Ml Vial) 4 mg IVPUSH Q8H PRN PRN Reason: Nausea and Vomiting Pharmacy Consult (Consult Rx Perform Med Rec) 1 each MISCELLANE ONCE PRN PRN Reason: Consult order Sodium Chloride (0.9 % Sodium Chloride Flush 3 Ml Syringe) 3 ml IVFLUSH QSHIFT [facility] Last Admin: 05/31/21 08:32 Dose: 3 ml Documented by: Tolterodine Tartrate (Tolterodine Tartrate [place] 4 Mg Cap.Er.24h) 4 mg PO BID [facility] Last Admin: 05/31/21 08:33 Dose: 4 mg Documented by: Time Spent With Patient Time: Total time spent is greater than 50% in coordination of care (as documented) at patient's floor/unit and/or counseling patient: Time with patient: 15 - 24 minutes Procedures Date of Service Date of Service: 05/31/21 Quality Stroke Does the patient have a stroke diagnosis?: No VTE Prior VTE?: No VTE Risk Level:: Medical - moderate - high VTE Device Contraindication: N/A - Device Ordered VTE Drug Contraindication: N/A - Med Ordered
[2021-05-31] MEDS: Insulin Lispro 100 UNIT/ML 3 ML VIAL SUBCUT ×2 (12:24→16:29)
--- NOTE | 2021-05-31 13:34 | P.PNIM_ITS ---
Subjective Subjective Date of Service: 05/31/21 Interval History: Being followed for right foot wound and cellulitis, denies pain, no fevers, feels redness right foot has improved, more comfortable since transferred to room from observation unit. Review of Systems Review of Systems: Yes all other systems are reviewed and are negative Physical Exam Vital Signs: Vital Signs: Last Vital Signs Temp 98.2 F 05/31/21 11:42 Pulse 80 05/31/21 11:42 Resp 20 05/31/21 11:42 BP 133/61 05/31/21 11:42 Pulse Ox 97 05/31/21 11:42 BMI result Body Mass Index 21.9 Gen:? Awake alert in no acute distress HEENT: sclera anicteric, moist mucus membranes Neck: supple, R-sided port Lungs: clear to auscultation bilaterally Heart: regular rate and rhythm, no murmurs Abd: soft, non-tender, non-distended Ext: no edema/right foot bigger , deformed, decreased sensation Skin:? large wound medial R foot with erythema covered with granulation, no drainage, L foot with multiple toe amputations, calluses and plantar surface Neuro: alert and oriented x3 Psych: appropriate affect Objective Data Active Medications Acetaminophen (Acetaminophen 325 Mg Tablet) 650 mg PO Q6H PRN PRN Reason: Pain, Mild (Pain Scale 1-3) Last Admin: 05/30/21 02:42 Dose: 650 mg Documented by: ZA Atorvastatin Calcium (Atorvastatin Calcium 20 Mg Tablet) 20 mg PO BEDTIME [facility] Last Admin: 05/30/21 21:44 Dose: 20 mg Documented by: PHILLIP Dextrose (Dextrose 50 % 25 Gm/50 Ml Vial) 25 gm IVPUSH Q15M PRN; Protocol PRN Reason: per Hypoglycemia Standing Ord. Enoxaparin Sodium (Enoxaparin Sodium 40 Mg/0.4 Ml Syringe) 40 mg SUBCUT Q24H [facility] Last Admin: 05/30/21 17:59 Dose: 40 mg Documented by: MELIZA Glucose (Glucose Gel 15 Gm Gel..Gram.) 15 gm PO Q15M PRN; Protocol PRN Reason: per Hypoglycemia Standing Ord. Linezolid (Zyvox/D5w) 600 mg in 300 mls @ 300 mls/hr IV Q12H [facility] Last Admin: 05/31/21 10:10 Dose: 3 mls/hr Documented by: MELIZA Piperacillin Sod/Tazobactam (Sod 3.375 gm/ Sodium Chloride) 50 mls @ 100 mls/hr IV Q6H [facility] Last Infusion: 05/31/21 10:23 Dose: 0 mls/hr Documented by: MELIZA Insulin Human Lispro (Insulin Lispro 100 Unit/Ml 3 Ml Vial) 0 unit SUBCUT QIDACHS [facility]; Protocol Last Admin: 05/31/21 12:24 Dose: 2 unit Documented by: MELIZA Metoprolol Succinate (Metoprolol Succinate Er 50 Mg Tab.Er.24h) 50 mg PO BID [facility]; Protocol Last Admin: 05/31/21 08:33 Dose: 50 mg Documented by: MELIZA Ondansetron HCl (Ondansetron Hcl 4 Mg/2 Ml Vial) 4 mg IVPUSH Q8H PRN PRN Reason: Nausea and Vomiting Pharmacy Consult (Consult Rx Perform Med Rec) 1 each MISCELLANE ONCE PRN PRN Reason: Consult order Sodium Chloride (0.9 % Sodium Chloride Flush 3 Ml Syringe) 3 ml IVFLUSH QSHIFT [facility] Last Admin: 05/31/21 08:32 Dose: 3 ml Documented by: MELIZA Tolterodine Tartrate (Tolterodine Tartrate La 4 Mg Cap.Er.24h) 4 mg PO BID [facility] Last Admin: 05/31/21 08:33 Dose: 4 mg Documented by: MELIZA Labs CBC & Chem 7: 05/30/21 07:21 05/30/21 07:21 Labs: Laboratory Results - last 24 hr 05/30/21 05/30/21 05/30/21 13:51 16:40 19:48 POC Glucose 126 H 107 140 H 05/31/21 05/31/21 07:43 11:24 POC Glucose 106 163 H Microbiology Microbiology Results: Microbiology 05/29/21 17:12 Blood Culture - Preliminary Blood - Venous No growth after 24 hours. 05/29/21 17:01 Blood Culture - Preliminary Blood - Venous No growth after 24 hours. Assessment and Plan (1) PAD (peripheral artery disease): Status: Acute (2) Osteomyelitis: Status: Acute (3) Diabetic foot ulcer: Status: Acute (4) Hypercholesteremia: Status: Acute (5) Lung cancer: Status: Acute (6) Hypertension: Status: Acute (7) Diabetes: Status: Acute Assessment and Plan: 85yo F with HTN, HLD, DM2, lung CA on immunotherapy, hx MSSA bacteremia associated with diabetic foot ulcer admitted with sepsis from R foot osteomyelitis # sepsis due to right foot cellulitis/diabetic foot wound and osteomyelitis R foot - on IV Zosyn and linezolid day 3 given vancomycin allergy, WBC trending down, blood cultures x2 showed no growth times 24 hours, right foot wound culture grew Gram-negative rods, Enterococcus and Streptococcus ? MRI foot showed severe osteoarthritis done osteomyelitis ? Seen by Dr. Cruz vascular surgery he recommend to continue antibiotics for osteomyelitis/he recommend amputation if patient has good prognosis related to underlying lung cancer with liver Mets, placed phone call to Dr. Youssef to discuss prognosis ? 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 and ramipril 10 mg daily, follow BP closely if noted to have high BP readings will increase dose of metoprolol # DM2 - blood sugar 163, continue correction-dose insulin lispro, take Januvia at home currently on hold # VTE ppx on Lovenox # code - FULL Quality Stroke Does the patient have a stroke diagnosis?: No VTE Prior VTE?: No VTE Risk Level:: Medical - moderate - high VTE Device Contraindication: N/A - Device Ordered VTE Drug Contraindication: N/A - Med Ordered
[2021-05-31 15:31] VITALS: BP 135/60; PULSE 82; RESP 18; TEMP 36.2; O2SAT 97
[2021-05-31 16:13] LABS: Glucose, Whole Blood 278 mg/dL (60-115)
--- NOTE | 2021-05-31 16:13 | P.CNID_ITS ---
History of Present Illness Data of Consult Service Date: 05/31/21 Requesting physician: Katharina Disla Primary Care Provider: Pelon Haddad MD HPI Reason for consult: osteomyelitis right foot She presents with weakness and redness right lower extremity She has open wound probe to bone with 3 x4 cm open area She has gram negative rods and strep/enterococcus from wound She has anaphylactoid response to Vancomycin Review of Systems Verdana 4l Review of Systems: Yes all other systems are reviewed and Verdana 4d are negative [facility] Past Medical History Medical History Amputated toe of left foot Anaphylactoid reaction Cataracts, both eyes Cellulitis Diabetes Falls Femur fracture, left Hx of osteomyelitis Hypercholesteremia Hypertension Leukocytosis Lung cancer MSSA bacteremia Toe amputee Vancomycin adverse reaction Family History Family history: reviewed and not pertinent Surgical History Surgical History H/O umbilical hernia repair Social History Social History Household Members: None Housing: Condominium Do you presently have visiting nurse or other home services: Yes Alcohol intake: never Patient Tobacco Use Status: Former Tobacco user service: Yes Current occupational status: retired Meds Allergies Allergy/AdvReac Type Severity Reaction Status Date / Time vancomycin Allergy Severe Difficulty Verified 08/30/20 15:58 Breathing PLASTIC TAPE Allergy Intermediate RED RAW Uncoded 06/29/20 14:44 SKIN Active Medications: Current Medications Acetaminophen (Acetaminophen 325 Mg Tablet) 650 mg PO Q6H PRN PRN Reason: Pain, Mild (Pain Scale 1-3) Last Admin: 05/30/21 02:42 Dose: 650 mg Documented by: Atorvastatin Calcium (Atorvastatin Calcium 20 Mg Tablet) 20 mg PO BEDTIME [facility] Last Admin: 05/30/21 21:44 Dose: 20 mg Documented by: Dextrose (Dextrose 50 % 25 Gm/50 Ml Vial) 25 gm IVPUSH Q15M PRN; Protocol PRN Reason: per Hypoglycemia Standing Ord. Enoxaparin Sodium (Enoxaparin Sodium 40 Mg/0.4 Ml Syringe) 40 mg SUBCUT Q24H [facility] Last Admin: 05/30/21 17:59 Dose: 40 mg Documented by: Glucose (Glucose Gel 15 Gm Gel..Gram.) 15 gm PO Q15M PRN; Protocol PRN Reason: per Hypoglycemia Standing Ord. Linezolid (Zyvox/D5w) 600 mg in 300 mls @ 300 mls/hr IV Q12H [facility] Last Admin: 05/31/21 10:10 Dose: 3 mls/hr Documented by: Piperacillin Sod/Tazobactam (Sod 3.375 gm/ Sodium Chloride) 50 mls @ 100 mls/hr IV Q6H [facility] Last Infusion: 05/31/21 15:25 Dose: Infused Documented by: Insulin Human Lispro (Insulin Lispro 100 Unit/Ml 3 Ml Vial) 0 unit SUBCUT QIDACHS [facility]; Protocol Last Admin: 05/31/21 12:24 Dose: 2 unit Documented by: Metoprolol Succinate (Metoprolol Succinate Er 50 Mg Tab.Er.24h) 50 mg PO BID [facility]; Protocol Last Admin: 05/31/21 08:33 Dose: 50 mg Documented by: Ondansetron HCl (Ondansetron Hcl 4 Mg/2 Ml Vial) 4 mg IVPUSH Q8H PRN PRN Reason: Nausea and Vomiting Pharmacy Consult (Consult Rx Perform Med Rec) 1 each MISCELLANE ONCE PRN PRN Reason: Consult order Sodium Chloride (0.9 % Sodium Chloride Flush 3 Ml Syringe) 3 ml IVFLUSH QSHIFT [facility] Last Admin: 05/31/21 14:18 Dose: 3 ml Documented by: Tolterodine Tartrate (Tolterodine Tartrate La 4 Mg Cap.Er.24h) 4 mg PO BID [facility] Last Admin: 05/31/21 08:33 Dose: 4 mg Documented by: Home Medications Medication Instructions Recorded Confirmed Last Taken Type sitagliptin 50 mg 50 mg PO DAILY 06/29/20 05/29/21 05/29/21 History tablet (Januvia) tolterodine 4 mg 4 mg PO BID 06/29/20 05/29/21 05/29/21 History capsule,extended release 24 hr (Detrol LA) atorvastatin 20 20 mg PO BEDTIME 08/30/20 05/29/21 05/28/21 History mg tablet cholecalciferol 25 mcg PO DAILY 08/30/20 05/29/21 05/29/21 History (vitamin D3) 25 mcg (1,000 unit) tablet (Vitamin D3) cyanocobalamin 2,000 mcg PO 05/29/21 05/29/21 Unknown History (vitamin B-12) DAILY 2,000 mcg tablet melatonin 10 mg 10 mg PO BEDTIME 05/29/21 05/29/21 05/28/21 History tablet Physical Exam Verdana 4l Vital Signs: Verdana 4d Verdana 4d Vital Signs: Verdana 4d Verdana 4Bd Last Vital Signs Verdana 4d Motor Transport Inspector New 4d Motor Transport Inspector New 4d Temp 97.1 F 05/31/21 15:31 Motor Transport Inspector New 4d Pulse 82 05/31/21 15:31 Motor Transport Inspector New 4d Resp 18 05/31/21 15:31 BP 135/60 05/31/21 15:31 Pulse Ox 97 05/31/21 15:31 BMI result Body Mass Index 21.9 Const: General: cooperative Eyes: General: appearance normal, both eyes and all related structures Pupils: Equal, round and reactive pupils present Resp: Effort & Inspection: normal respiratory effort Cardio: Rate: regular rate Rhythm: regular rhythm GI: Palpation (GI): Soft to palpation and nontender Neuro: Cranial nerves: Yes Equal, round and reactive pupils present Extrem: Other: rounded 3x4 cm wound medial right foot area Results Labs CBC & Chem 7: 06/10/21 06:35 06/10/21 06:35 Microbiology Microbiology Results: Microbiology 05/29/21 17:12 Blood - Venous Blood Culture - Preliminary No growth after 24 hours. 05/29/21 17:01 Blood - Venous Blood Culture - Preliminary No growth after 24 hours. Assessment and Plan (1) Osteomyelitis: Qualifiers: Laterality: right Osteomyelitis location: foot Osteomyelitis type: unspecified type Qualified Code(s): M86.9 - Osteomyelitis, unspecified Status: Acute She has probable enterococcus and gram negative bacteria wound area She has reaction to Vancomycin (2) Vancomycin adverse reaction: Status: Acute Plan continue linezolid and piperacillin/tazobactam If wound is sensitive to give linezolid and levaquin for six weeks possibly (await cultures)
[2021-05-31] MEDS: Enoxaparin Sodium 40 MG/0.4 ML SYRINGE SUBCUT (18:31)
[2021-05-31 19:32] VITALS: BP 135/63; PULSE 88; RESP 18; TEMP 36.9; O2SAT 96
[2021-05-31 20:20] LABS: Glucose, Whole Blood 127 mg/dL (60-115)
[2021-05-31] MEDS: Atorvastatin Calcium 20 MG TABLET PO (21:58)
[2021-05-31] MEDS: Linezolid/D5W 600 MG/300 ML PIGGYBACK 300 MG IV (22:33)
[2021-05-31] MEDS: Acetaminophen 325 MG TABLET 650 MG PO (22:34)
[2021-06-01] VITALS: BP 136/64; PULSE 78; RESP 18; TEMP 36.4; O2SAT 97
[2021-06-01] MEDS: Piperacillin Sodium/Tazobactam 3.375 GM in 0.9 % Sodium Chloride 50 ML IV ×4 (03:46→22:15)
[2021-06-01 04:00] VITALS: BP 121/58; PULSE 70; RESP 18; TEMP 36.1; O2SAT 96
[2021-06-01 07:06] LABS: Hematocrit 28.9 % (37.0-47.0); Hemoglobin 9.1 g/dl (12.0-16.0); Mean Corpuscular HGB Conc 31.5 g/dl (31.0-35.0); Mean Corpuscular Hemoglobin 28.3 pg (27.0-33.0); Mean Platelet Volume 9.5 fL (9.4-12.3); Platelet Count 328 X10*3/uL (160-400); Red Blood Count 3.21 X10*6/uL (4.20-5.50); Red Cell Distribution Width 15.4 % (11.0-16.0); White Blood Count 9.5 X10*3/uL (4.8-10.8)
[2021-06-01 07:26] VITALS: BP 145/72; PULSE 69; RESP 18; TEMP 35.5; O2SAT 96
[2021-06-01 07:41] LABS: Glucose, Whole Blood 109 mg/dL (60-115)
[2021-06-01] MEDS: 0.9 % Sodium Chloride Flush 3 ML SYRINGE IVFLUSH ×3 (08:46→22:15)
[2021-06-01] MEDS: Metoprolol Succinate ER 50 MG TAB.ER.24H PO ×2 (08:47→22:15)
[2021-06-01] MEDS: Linezolid/D5W 600 MG/300 ML PIGGYBACK 300 MG IV (08:47)
[2021-06-01] MEDS: Tolterodine Tartrate LA 4 MG CAP.ER.24H PO ×2 (08:48→22:16)
[2021-06-01 10:59] VITALS: BP 129/60; PULSE 74; RESP 19; TEMP 36.1; O2SAT 97
[2021-06-01 11:22] LABS: Glucose, Whole Blood 198 mg/dL (60-115)
[2021-06-01] MEDS: Insulin Lispro 100 UNIT/ML 3 ML VIAL SUBCUT (12:18)
--- NOTE | 2021-06-01 14:10 | P.PNIM_ITS ---
Subjective Subjective Date of Service: 06/01/21 Interval History: Denies pain right foot, no fevers, no chills , no nausea, no vomiting, no diarrhea, no overnight events Review of Systems Review of Systems: Yes all other systems are reviewed and are negative Physical Exam Vital Signs: Vital Signs: Last Vital Signs Temp 97 F 06/01/21 10:59 Pulse 74 06/01/21 10:59 Resp 19 06/01/21 10:59 BP 129/60 06/01/21 10:59 Pulse Ox 97 06/01/21 10:59 BMI result Body Mass Index 21.9 Gen:? Awake alert in no acute distress HEENT: sclera anicteric, moist mucus membranes Neck: supple, R-sided port Lungs: clear to auscultation bilaterally Heart: regular rate and rhythm, no murmurs Abd: soft, non-tender, non-distended Ext: no edema/right foot bigger , deformed, decreased sensation Skin:? large wound medial R foot with erythema covered with granulation, no drainage, L foot with multiple toe amputations, calluses on plantar surface Neuro: alert and oriented x3 Psych: appropriate affect Objective Data Active Medications Acetaminophen (Acetaminophen 325 Mg Tablet) 650 mg PO Q6H PRN PRN Reason: Pain, Mild (Pain Scale 1-3) Last Admin: 05/31/21 22:34 Dose: 650 mg Documented by: KRISHNA Atorvastatin Calcium (Atorvastatin Calcium 20 Mg Tablet) 20 mg PO BEDTIME [facility] Last Admin: 05/31/21 21:58 Dose: 20 mg Documented by: KRISHNA Dextrose (Dextrose 50 % 25 Gm/50 Ml Vial) 25 gm IVPUSH Q15M PRN; Protocol PRN Reason: per Hypoglycemia Standing Ord. Enoxaparin Sodium (Enoxaparin Sodium 40 Mg/0.4 Ml Syringe) 40 mg SUBCUT Q24H [facility] Last Admin: 05/31/21 18:31 Dose: 40 mg Documented by: MELIZA Glucose (Glucose Gel 15 Gm Gel..Gram.) 15 gm PO Q15M PRN; Protocol PRN Reason: per Hypoglycemia Standing Ord. Linezolid (Zyvox/D5w) 600 mg in 300 mls @ 300 mls/hr IV Q12H [facility] Last Infusion: 06/01/21 10:29 Dose: 0 mls/hr Documented by: JESUS Piperacillin Sod/Tazobactam (Sod 3.375 gm/ Sodium Chloride) 50 mls @ 100 mls/hr IV Q6H [facility] Last Infusion: 06/01/21 09:24 Dose: 0 mls/hr Documented by: JESUS Insulin Human Lispro (Insulin Lispro 100 Unit/Ml 3 Ml Vial) 0 unit SUBCUT QIDACHS [facility]; Protocol Last Admin: 06/01/21 12:18 Dose: 2 unit Documented by: JESUS Metoprolol Succinate (Metoprolol Succinate Er 50 Mg Tab.Er.24h) 50 mg PO BID [facility]; Protocol Last Admin: 06/01/21 08:47 Dose: 50 mg Documented by: JESUS Ondansetron HCl (Ondansetron Hcl 4 Mg/2 Ml Vial) 4 mg IVPUSH Q8H PRN PRN Reason: Nausea and Vomiting Pharmacy Consult (Consult Rx Perform Med Rec) 1 each MISCELLANE ONCE PRN PRN Reason: Consult order Sodium Chloride (0.9 % Sodium Chloride Flush 3 Ml Syringe) 3 ml IVFLUSH QSHIFT [facility] Last Admin: 06/01/21 08:46 Dose: 3 ml Documented by: JESUS Tolterodine Tartrate (Tolterodine Tartrate La 4 Mg Cap.Er.24h) 4 mg PO BID [facility] Last Admin: 06/01/21 08:48 Dose: 4 mg Documented by: JESUS Labs CBC & Chem 7: 06/01/21 05:56 05/30/21 07:21 Labs: Laboratory Results - last 24 hr 05/31/21 05/31/21 06/01/21 16:03 19:36 05:56 MCV 90.0 MCH 28.3 MCHC 31.5 RDW 15.4 Plt Count 328 MPV 9.5 Absolute Nucleated RBC 0.000 Nucleated RBC % (auto) 0.0 POC Glucose 278 H 127 H 06/01/21 06/01/21 07:26 11:01 MCV MCH MCHC RDW Plt Count MPV Absolute Nucleated RBC Nucleated RBC % (auto) POC Glucose 109 198 H Microbiology Microbiology Results: Microbiology 05/29/21 17:12 Blood Culture - Preliminary Blood - Venous No growth after 48 hours. 05/29/21 17:01 Blood Culture - Preliminary Blood - Venous No growth after 48 hours. Assessment and Plan (1) PAD (peripheral artery disease): Status: Acute (2) Osteomyelitis: Status: Acute (3) Vancomycin adverse reaction: Status: Acute (4) Diabetic foot ulcer: Status: Acute (5) Hypercholesteremia: Status: Acute (6) Lung cancer: Status: Acute (7) Hypertension: Status: Acute (8) Diabetes: Status: Acute Assessment and Plan: 85yo F with HTN, HLD, DM2, lung CA on immunotherapy, hx MSSA bacteremia associated with diabetic foot ulcer admitted with sepsis from R foot osteomyelitis # sepsis due to right foot cellulitis/diabetic foot wound and osteomyelitis R foot - on IV Zosyn and linezolid day 4 given vancomycin allergy, WBC normalized, blood cultures x2 showed no growth times 48 hours, right foot wound culture grew Enterobacter and Enterococcus sensitive to ceftriaxone Levaquin Bactrim , Enterococcus sensitive to ampicillin and vanco ? MRI foot showed severe osteoarthritis done osteomyelitis ? Spoke with oncologists covering for Dr. Youssef from [facility] they recommended to treat patient with antibiotics due to poor prognosis given metastatic cancer to liver Seen by Dr. Dejesus she recommend to continue linezolid and piperacillin/tazob actam in house and linezolid and Levaquin for 6 weeks for discharge. order picc line. 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 blood pressure improved, cont.metoprolol 50mg bid, at home take metoprolol 100 b.i.d. and ramipril 10 mg daily, follow BP closely if noted to have high BP readings will increase dose of metoprolol # DM2 - blood sugar stable, continue correction-dose insulin lispro, resume Januvia 50 mg daily # VTE ppx on Lovenox # code - FULL Quality Stroke Does the patient have a stroke diagnosis?: No VTE Prior VTE?: No VTE Risk Level:: Medical - moderate - high VTE Device Contraindication: N/A - Device Ordered VTE Drug Contraindication: N/A - Med Ordered
[2021-06-01] MEDS: Acetaminophen 325 MG TABLET 650 MG PO ×2 (14:48→22:16)
[2021-06-01 16:00] VITALS: BP 140/68; PULSE 79; RESP 18; TEMP 36.8; O2SAT 96
[2021-06-01 17:17] LABS: Glucose, Whole Blood 77 mg/dL (60-115)
[2021-06-01] MEDS: Enoxaparin Sodium 40 MG/0.4 ML SYRINGE SUBCUT (18:15)
[2021-06-01] MEDS: Linezolid/D5W 600 MG/300 ML PIGGYBACK 150 MG IV (19:31)
[2021-06-01 20:22] LABS: Glucose, Whole Blood 111 mg/dL (60-115)
[2021-06-01] MEDS: Atorvastatin Calcium 20 MG TABLET PO (22:16)
[2021-06-02] VITALS: BP 146/68; PULSE 75; RESP 14; TEMP 36.3; O2SAT 96
[2021-06-02] MEDS: Piperacillin Sodium/Tazobactam 3.375 GM in 0.9 % Sodium Chloride 50 ML IV ×2 (02:42→08:08)
[2021-06-02 03:26] VITALS: BP 138/65; PULSE 64; RESP 20; TEMP 35.8; O2SAT 96
[2021-06-02 07:26] VITALS: BP 151/68; PULSE 74; RESP 20; TEMP 36.6; O2SAT 97
[2021-06-02 07:48] LABS: Glucose, Whole Blood 94 mg/dL (60-115)
[2021-06-02] MEDS: Linezolid/D5W 600 MG/300 ML PIGGYBACK 300 MG IV (08:08)
[2021-06-02] MEDS: Metoprolol Succinate ER 50 MG TAB.ER.24H PO ×2 (08:09→20:00)
[2021-06-02] MEDS: Tolterodine Tartrate LA 4 MG CAP.ER.24H PO ×2 (08:09→20:00)
[2021-06-02] MEDS: 0.9 % Sodium Chloride Flush 3 ML SYRINGE IVFLUSH ×3 (08:09→20:02)
--- NOTE | 2021-06-02 10:47 | MHC.CM.PN ---
CM MET W/PT TO DISCUSS DCP PT WILL NEED IV ABX MULTIPLE TIMES A DAY, PT REQUESTED CM CONTACT HER NIECE/HCP [facility]IAN[facility] AND CM DID CONTACT HER AT [phone] 10:15AM PER NIECE PT LIVES ALONE AND PT'S NIECE/HCP [place] AND UNABLE TO RETURN HOME TO CARE FOR PT, PER NIECE PT DOES NOT HAVE ANYONE LOCAL SHE CAN STAY WITH OR WHO CAN ASSIST AND WOULD LIKE PT TO GO TO STR, [facility] AND [facility] ARE PREFERRED FACILITIES, CM MET W/PT AFTER SPEAKING W/NIECE AND PT REPORTS SHE PREFERS [facility] AND THEN [facility] SECOND CHOICE, REFERRALS SENT TO BOTH. PT'S ONCOLOGIST IS DR. FERRERA AT [facility], DR FERRERA WILL NEED TO OKAY HOLDING PT'S KEYTRUDAY INFUSIONS UNTIL AFTER STR IS COMPLETE, PT'S LAST INFUSION WAS 05/21/2021.
--- NOTE | 2021-06-02 11:04 | P.PNIM_ITS ---
Subjective Subjective Date of Service: 06/02/21 Interval History: Offers no acute complaints, denies feve,r chills, tolerating diet, no nausea, no vomiting, no diarrhea, no events overnight Physical Exam Vital Signs: Vital Signs: Last Vital Signs Temp 98 F 06/02/21 07:26 Pulse 74 06/02/21 07:26 Resp 20 06/02/21 07:26 BP 151/68 H 06/02/21 07:26 Pulse Ox 97 06/02/21 07:26 BMI result Body Mass Index 21.9 Gen:? Awake alert in no acute distress Neck: supple, no jvd,R-sided port Lungs: clear to auscultation bilaterally Heart: regular rate and rhythm, no murmurs Abd: soft, non-tender, bowel sounds audible, non-distended Ext: no edema/right foot bigger , deformed, decreased sensation Skin:? large wound medial R foot with erythema covered with granulation, no drainage, L foot with multiple toe amputations, calluses on plantar surface Neuro: alert and oriented x3 Psych: appropriate affect Objective Data Active Medications Acetaminophen (Acetaminophen 325 Mg Tablet) 650 mg PO Q6H PRN PRN Reason: Pain, Mild (Pain Scale 1-3) Last Admin: 06/01/21 22:16 Dose: 650 mg Documented by: KRISHNA Atorvastatin Calcium (Atorvastatin Calcium 20 Mg Tablet) 20 mg PO BEDTIME [facility] Last Admin: 06/01/21 22:16 Dose: 20 mg Documented by: KRISHNA Dextrose (Dextrose 50 % 25 Gm/50 Ml Vial) 25 gm IVPUSH Q15M PRN; Protocol PRN Reason: per Hypoglycemia Standing Ord. Enoxaparin Sodium (Enoxaparin Sodium 40 Mg/0.4 Ml Syringe) 40 mg SUBCUT Q24H [facility] Last Admin: 06/01/21 18:15 Dose: 40 mg Documented by: JESUS Glucose (Glucose Gel 15 Gm Gel..Gram.) 15 gm PO Q15M PRN; Protocol PRN Reason: per Hypoglycemia Standing Ord. Linezolid (Zyvox/D5w) 600 mg in 300 mls @ 300 mls/hr IV Q12H [facility] Last Infusion: 06/02/21 09:16 Dose: 0 mls/hr Documented by: JESUS Piperacillin Sod/Tazobactam (Sod 3.375 gm/ Sodium Chloride) 50 mls @ 100 mls/hr IV Q6H [facility] Last Infusion: 06/02/21 09:15 Dose: 0 mls/hr Documented by: JESUS Insulin Human Lispro (Insulin Lispro 100 Unit/Ml 3 Ml Vial) 0 unit SUBCUT QIDACHS [facility]; Protocol Last Admin: 06/02/21 08:07 Dose: Not Given Documented by: JESUS Non-Admin Reason: No Insulin Coverage Metoprolol Succinate (Metoprolol Succinate Er 50 Mg Tab.Er.24h) 50 mg PO BID [facility]; Protocol Last Admin: 06/02/21 08:09 Dose: 50 mg Documented by: JESUS Ondansetron HCl (Ondansetron Hcl 4 Mg/2 Ml Vial) 4 mg IVPUSH Q8H PRN PRN Reason: Nausea and Vomiting Pharmacy Consult (Consult Rx Perform Med Rec) 1 each MISCELLANE ONCE PRN PRN Reason: Consult order Sodium Chloride (0.9 % Sodium Chloride Flush 3 Ml Syringe) 3 ml IVFLUSH QSHIFT [facility] Last Admin: 06/02/21 08:09 Dose: 3 ml Documented by: JESUS Tolterodine Tartrate (Tolterodine Tartrate La 4 Mg Cap.Er.24h) 4 mg PO BID [facility] Last Admin: 06/02/21 08:09 Dose: 4 mg Documented by: JESUS Labs CBC & Chem 7: 06/01/21 05:56 05/30/21 07:21 Labs: Laboratory Results - last 24 hr 06/01/21 06/01/21 06/01/21 11:01 17:13 19:10 POC Glucose 198 H 77 111 06/02/21 07:25 POC Glucose 94 Assessment and Plan (1) PAD (peripheral artery disease): Status: Acute (2) Osteomyelitis: Status: Acute (3) Vancomycin adverse reaction: Status: Acute (4) Diabetic foot ulcer: Status: Acute (5) Diabetes: Status: Acute Assessment and Plan: 85yo F with HTN, HLD, DM2, lung CA on immunotherapy, hx MSSA bacteremia asso ciated with diabetic foot ulcer admitted with sepsis from R foot osteomyelitis # sepsis due to right foot cellulitis/diabetic foot wound and osteomyelitis R foot Sepsis resolved on IV Zosyn and linezolid day given vancomycin allergy, WBC normalized, blood cultures x2 showed no growth times 48 hours, right foot wound culture grew Enterobacter and Enterococcus sensitive to ceftriaxone, Levaquin ? Bactrim , Enterococcus sensitive to ampicillin and vanco ? MRI foot showed severe osteoarthritis and osteomyelitis ? Spoke with oncologists covering for Dr. Youssef from [facility] they recommended to treat patient with antibiotics due to poor prognosis given metastatic cancer to liver ? Seen by Dr. Dejesus she recommend to continue linezolid and piperacillin/tazobactam and linezolid and Levaquin (If wound sensitive to levaquin) for 6 weeks for discharge. Will discuss with ID if can give Levaquin by mouth ? Seen by Dr. Cruz since patient has poor prognosis he recommend antibiotics ? Patient has a port, that per nurse's not working will ask oncology nurse or IR to asses port at am Spoke with patient's niece healthcare proxy Melia he recommend to discharge patient to rehab to finish 6 weeks course of antibiotics since patient lives alone and will be unable to give antibiotic, knees also requests to place order for physical therapy while at rehab. Will obtain PT eval ? 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 blood pressure improved, cont.metoprolol 50mg bid, at home take metoprolol 100 b.i.d. and ramipril 10 mg daily, follow BP closely if noted to have high BP readings will increase dose of metoprolol # DM2 - blood sugar stable, continue correction-dose insulin lispro, resume Januvia 50 mg daily # VTE ppx on Lovenox # code - FULL Quality Stroke Does the patient have a stroke diagnosis?: No VTE Prior VTE?: No VTE Risk Level:: Medical - moderate - high VTE Device Contraindication: N/A - Device Ordered VTE Drug Contraindication: N/A - Med Ordered
[2021-06-02 11:20] VITALS: BP 158/77; PULSE 83; RESP 18; TEMP 36.1; O2SAT 96
[2021-06-02 11:27] LABS: Glucose, Whole Blood 169 mg/dL (60-115)
[2021-06-02] MEDS: levoFLOXacin/D5W 500 MG/100 ML PIGGYBACK 100 MG IV (12:09)
[2021-06-02] MEDS: Insulin Lispro 100 UNIT/ML 3 ML VIAL SUBCUT ×2 (12:10→20:31)
[2021-06-02 15:35] VITALS: BP 143/70; PULSE 89; RESP 18; TEMP 37.1; O2SAT 98
[2021-06-02 16:26] LABS: Glucose, Whole Blood 127 mg/dL (60-115)
[2021-06-02] MEDS: Enoxaparin Sodium 40 MG/0.4 ML SYRINGE SUBCUT (18:45)
[2021-06-02 19:12] VITALS: BP 148/68; PULSE 88; RESP 18; TEMP 36.4; O2SAT 95
[2021-06-02] MEDS: Linezolid/D5W 600 MG/300 ML PIGGYBACK 150 MG IV (19:56)
[2021-06-02] MEDS: Atorvastatin Calcium 20 MG TABLET PO (20:00)
[2021-06-02] MEDS: Acetaminophen 325 MG TABLET 650 MG PO (20:01)
[2021-06-02 20:22] LABS: Glucose, Whole Blood 193 mg/dL (60-115)
[2021-06-03] VITALS: BP 152/72; PULSE 79; RESP 18; TEMP 36; O2SAT 94
[2021-06-03 02:59] VITALS: BP 152/68; PULSE 75; RESP 18; TEMP 36; O2SAT 94
[2021-06-03 05:26] LABS: Anion Gap 14 (12-20); Blood Urea Nitrogen 10 mg/dL (9-16); Calcium 8.9 mg/dL (8.4-10.2); Carbon Dioxide 25 mmol/L (22-29); Chloride 107 mmol/L (96-108); Creatinine Clr Calc Pharmacy 48.4; Estimated Glomerular Filt Rate > 60; Glucose Random 103 mg/dL (60-115); Potassium 4.9 mmol/L (3.3-5.1); Sodium 141 mmol/L (135-145)
[2021-06-03 07:09] VITALS: BP 159/70; PULSE 83; RESP 20; TEMP 36.7; O2SAT 94
[2021-06-03 07:11] LABS: Glucose, Whole Blood 117 mg/dL (60-115)
[2021-06-03] MEDS: 0.9 % Sodium Chloride Flush 3 ML SYRINGE IVFLUSH ×3 (08:22→23:15)
[2021-06-03] MEDS: Linezolid/D5W 600 MG/300 ML PIGGYBACK 300 MG IV ×2 (08:22→19:37)
[2021-06-03] MEDS: Metoprolol Succinate ER 50 MG TAB.ER.24H PO ×2 (08:22→20:19)
[2021-06-03] MEDS: Tolterodine Tartrate LA 4 MG CAP.ER.24H PO ×2 (08:23→20:19)
[2021-06-03] MEDS: SITagliptin Phosphate 50 MG TABLET PO (08:23)
[2021-06-03 08:59] LABS: C Reactive Protein 4.36 mg/dL (< or = 0.50)
[2021-06-03 11:00] LABS: Glucose, Whole Blood 171 mg/dL (60-115)
[2021-06-03 11:57] VITALS: BP 158/75; PULSE 89; RESP 20; TEMP 36.4; O2SAT 97
--- NOTE | 2021-06-03 12:46 | HO.PM.IMPN ---
Subjective Subjective Date of Service: 06/03/21 Interval History: no fever/chills no foot pain Review of Systems Review of Systems: Yes all other systems are reviewed and are negative Physical Exam Vital Signs: Vital Signs: Last Vital Signs Temp 97.5 F 06/03/21 11:57 Pulse 89 06/03/21 11:57 Resp 20 06/03/21 11:57 BP 158/75 H 06/03/21 11:57 Pulse Ox 97 06/03/21 11:57 BMI result Body Mass Index 21.9 Gen:? Awake alert in no acute distress Neck: supple, no jvd,R-sided port Lungs: clear to auscultation bilaterally Heart: regular rate and rhythm, no murmurs Abd: soft, non-tender, bowel sounds audible, non-distended Ext: no edema/right foot bigger , deformed, decreased sensation Skin:? large wound medial R foot with erythema covered with granulation, no drainage, L foot with multiple toe amputations, calluses on plantar surface Neuro: alert and oriented x3 Psych: appropriate affect Objective Data Active Medications Acetaminophen (Acetaminophen 325 Mg Tablet) 650 mg PO Q6H PRN PRN Reason: Pain, Mild (Pain Scale 1-3) Last Admin: 06/02/21 20:01 Dose: 650 mg Documented by: KRISHNA Atorvastatin Calcium (Atorvastatin Calcium 20 Mg Tablet) 20 mg PO BEDTIME [facility] Last Admin: 06/02/21 20:00 Dose: 20 mg Documented by: KRISHNA Dextrose (Dextrose 50 % 25 Gm/50 Ml Vial) 25 gm IVPUSH Q15M PRN; Protocol PRN Reason: per Hypoglycemia Standing Ord. Enoxaparin Sodium (Enoxaparin Sodium 40 Mg/0.4 Ml Syringe) 40 mg SUBCUT Q24H [facility] Last Admin: 06/02/21 18:45 Dose: 40 mg Documented by: JESUS Glucose (Glucose Gel 15 Gm Gel..Gram.) 15 gm PO Q15M PRN; Protocol PRN Reason: per Hypoglycemia Standing Ord. Guaifenesin/Dextromethorphan (Guaifenesin Dm 100/10/5 Ml 5 Ml Syrup) 5 ml PO Q4H PRN PRN Reason: cofgh Linezolid (Zyvox/D5w) 600 mg in 300 mls @ 300 mls/hr IV Q12H [facility] Last Infusion: 06/03/21 09:27 Dose: 0 mls/hr Documented by: LILY Levofloxacin (Levaquin) 500 mg in 100 mls @ 100 mls/hr IV Q24H [facility] Last Infusion: 06/02/21 13:19 Dose: 0 mls/hr Documented by: JESUS Insulin Human Lispro (Insulin Lispro 100 Unit/Ml 3 Ml Vial) 0 unit SUBCUT QIDACHS [facility]; Protocol Last Admin: 06/03/21 07:37 Dose: Not Given Documented by: LILY Non-Admin Reason: No Insulin Coverage Metoprolol Succinate (Metoprolol Succinate Er 50 Mg Tab.Er.24h) 50 mg PO BID [facility]; Protocol Last Admin: 06/03/21 08:22 Dose: 50 mg Documented by: LILY Ondansetron HCl (Ondansetron Hcl 4 Mg/2 Ml Vial) 4 mg IVPUSH Q8H PRN PRN Reason: Nausea and Vomiting Pharmacy Consult (Consult Rx Perform Med Rec) 1 each MISCELLANE ONCE PRN PRN Reason: Consult order Sitagliptin Phosphate (Sitagliptin Phosphate 50 Mg Tablet) 50 mg PO DAILY [facility] Last Admin: 06/03/21 08:23 Dose: 50 mg Documented by: LILY Sodium Chloride (0.9 % Sodium Chloride Flush 3 Ml Syringe) 3 ml IVFLUSH QSHIFT [facility] Last Admin: 06/03/21 08:22 Dose: 3 ml Documented by: LILY Tolterodine Tartrate (Tolterodine Tartrate La 4 Mg Cap.Er.24h) 4 mg PO BID [facility] Last Admin: 06/03/21 08:23 Dose: 4 mg Documented by: LILY Labs CBC & Chem 7: 06/01/21 05:56 06/03/21 03:52 Labs: Laboratory Results - last 24 hr 06/02/21 06/02/21 06/03/21 16:10 20:10 03:52 Anion Gap 14 Estim Creat Clear Calc 48.4 Estimated GFR > 60 POC Glucose 127 H 193 H Random Glucose 103 Calcium 8.9 C-Reactive Protein 4.36 H 06/03/21 06/03/21 07:04 10:56 Anion Gap Estim Creat Clear Calc Estimated GFR POC Glucose 117 H 171 H Random Glucose Calcium C-Reactive Protein Assessment and Plan (1) PAD (peripheral artery disease): Status: Acute (2) Osteomyelitis: Status: Acute (3) Vancomycin adverse reaction: Status: Acute (4) Diabetic foot ulcer: Status: Acute (5) Diabetes: Status: Acute Assessment and Plan: 85yo F with HTN, HLD, DM2, lung CA on immunotherapy, hx MSSA bacteremia associated with diabetic foot ulcer admitted with sepsis from R foot osteomyelitis # sepsis due to right foot cellulitis/diabetic foot wound and osteomyelitis R foot - sepsis resolved, leukocytosis resolved - BCx x2 negative - wound Cx grew Enterobacter cloacae resistant to cefazolin + Enterococcus faecalis - plan linezolid + levofloxacin d#, OK to transition to PO upon discharge per ID - per discussion with pt's oncologist and vascular surgeon, poor prognosis given metastatic CA to liver, medical management recommended - port accessed and OK today - Wound Care consult ? 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 blood pressure improved; continue metoprolol 50mg bid [at home takes metoprolol 100 b.i.d. and ramipril 10 mg daily]; follow BP closely and if noted to have high BP readings will increase dose of metoprolol # DM2 - blood sugar stable, continue correction-dose insulin lispro, resume Januvia 50 mg daily # VTE ppx - LMWH Quality Stroke Does the patient have a stroke diagnosis?: No VTE Prior VTE?: No VTE Risk Level:: Medical - moderate - high VTE Device Contraindication: N/A - Device Ordered VTE Drug Contraindication: N/A - Med Ordered
[2021-06-03] MEDS: levoFLOXacin/D5W 500 MG/100 ML PIGGYBACK 100 MG IV (12:57)
[2021-06-03] MEDS: Insulin Lispro 100 UNIT/ML 3 ML VIAL SUBCUT ×2 (12:57→20:45)
--- NOTE | 2021-06-03 13:33 | PC.NURSE ---
Received information that patients miguelina Maria tel number [phone] is having trouble with getting hold of staff to communicate regarding the patient. This RN attempted multiple times to dial given number and was not successful with a message each time that this number is no longer in service. The same telephone number is listed in computer under contacts.
[2021-06-03 15:20] VITALS: BP 148/70; PULSE 83; RESP 15; TEMP 37.2; O2SAT 94
[2021-06-03 17:03] LABS: Glucose, Whole Blood 115 mg/dL (60-115)
[2021-06-03] MEDS: Enoxaparin Sodium 40 MG/0.4 ML SYRINGE SUBCUT (18:36)
--- NOTE | 2021-06-03 18:38 | PC.NURSE ---
Dsg to left foot changed as ordered.
[2021-06-03] MEDS: guaiFENesin DM 100/10/5 ML 5 ML SYRUP PO (18:44)
[2021-06-03 19:51] VITALS: BP 162/72; PULSE 89; RESP 17; TEMP 35.8; O2SAT 97
[2021-06-03] MEDS: Atorvastatin Calcium 20 MG TABLET PO (20:19)
[2021-06-03 20:25] LABS: Glucose, Whole Blood 153 mg/dL (60-115)
[2021-06-03] MEDS: Acetaminophen 325 MG TABLET 650 MG PO (22:01)
[2021-06-04] VITALS (7 sets, daily range): BP systolic 137–179; BP diastolic 63–79; PULSE 76–100; RESP 17–20; TEMP 36.2–36.9; O2SAT 94–99
[2021-06-04 07:28] LABS: Glucose, Whole Blood 116 mg/dL (60-115)
[2021-06-04] MEDS: Tolterodine Tartrate LA 4 MG CAP.ER.24H PO ×2 (07:43→20:35)
[2021-06-04] MEDS: SITagliptin Phosphate 50 MG TABLET PO (07:43)
[2021-06-04] MEDS: Metoprolol Succinate ER 50 MG TAB.ER.24H PO ×2 (07:43→20:35)
[2021-06-04] MEDS: 0.9 % Sodium Chloride Flush 3 ML SYRINGE IVFLUSH ×2 (07:43→16:41)
[2021-06-04] MEDS: Linezolid/D5W 600 MG/300 ML PIGGYBACK 300 MG IV ×2 (07:43→20:34)
--- NOTE | 2021-06-04 07:43 | PC.NURSE ---
Addendum entered by Cecy Sosa RN 06/07/21 14:31: Bilateral buttocks reddened with peeling skin with small openings-Triad applied covered with foam. Original Note: Skin/wound assessment completed. Patient has a diabetic ulcer to right foot down to bone. Cleansed with wound cleanser, Triad applied with silver alginate on top covered with non woven gauze and roll gauze. No other skin issues noted at this time.
--- NOTE | 2021-06-04 08:45 | MHC.CM.PN ---
Addendum entered by Tiana Mares 06/04/21 16:21: PLAN WAS FOR DISCHARGE TO [facility]. PATIENT TESTED COVID (+) ON DAY OF DISCHARGE. HOSPITALIST DOES NOT FEEL PATIENT CAN SAFELY RETURN HOME AT THIS TIME. [facility] AGREES TO CONTINUE TO FOLLOW Original Note: PATIENT NO LONGER NEEDS IV ABX. SNF REFERRALS FOR SHORT TERM REHAB.
[2021-06-04 10:42] LABS: COVID-19 Test Positive (Negative)
[2021-06-04] MEDS: levoFLOXacin/D5W 500 MG/100 ML PIGGYBACK 100 MG IV (11:23)
[2021-06-04 11:25] LABS: Glucose, Whole Blood 145 mg/dL (60-115)
[2021-06-04 11:42] LABS: Hematocrit 32.4 % (37.0-47.0); Hemoglobin 10.3 g/dl (12.0-16.0); Mean Corpuscular HGB Conc 31.8 g/dl (31.0-35.0); Mean Corpuscular Hemoglobin 28.3 pg (27.0-33.0); Mean Platelet Volume 9.2 fL (9.4-12.3); Platelet Count 322 X10*3/uL (160-400); Red Blood Count 3.64 X10*6/uL (4.20-5.50); Red Cell Distribution Width 15.7 % (11.0-16.0); White Blood Count 16.7 X10*3/uL (4.8-10.8)
[2021-06-04 11:52] LABS: D Dimer High Sensitivity 492 NG/ML
[2021-06-04 12:10] LABS: Alanine Aminotransferase 32 U/L (0-31); Albumin Level 2.5 g/dL (3.5-5.0); Alkaline Phosphatase 95 U/L (39-117); Anion Gap 11 (12-20); Aspartate Amino Transferase 21 U/L (5-31); Bilirubin Total 0.2 mg/dL (0.0-1.0); Blood Urea Nitrogen 11 mg/dL (9-16); C Reactive Protein 4.83 mg/dL (< or = 0.50); Calcium 8.5 mg/dL (8.4-10.2); Carbon Dioxide 25 mmol/L (22-29); Chloride 105 mmol/L (96-108); Creatinine Clr Calc Pharmacy 53.6; Estimated Glomerular Filt Rate > 60; Glucose Random 164 mg/dL (60-115); Lactate Dehydrogenase 131 U/L (122-220); Potassium 3.9 mmol/L (3.3-5.1); Sodium 137 mmol/L (135-145); Total Protein 5.5 g/dL (6.5-8.0)
--- NOTE | 2021-06-04 12:14 | HO.PM.IMPN ---
Subjective Subjective Date of Service: 06/04/21 Interval History: Was ready for d/c to [facility] [[facility]] but screened positive for Covid-19 by [facility] Endorses mild dry cough Fully vaccinated x 2 doses, no booster yet No fever Review of Systems Review of Systems: Yes all other systems are reviewed and are negative Physical Exam Vital Signs: Vital Signs: Last Vital Signs Temp 98.5 F 06/04/21 11:18 Pulse 97 06/04/21 11:18 Resp 17 06/04/21 11:18 BP 137/67 06/04/21 11:18 Pulse Ox 98 06/04/21 11:18 BMI result Body Mass Index 21.9 Gen:? Awake alert in no acute distress Neck: supple, no JVD, R-sided port Lungs: clear to auscultation bilaterally Heart: regular rate and rhythm, no murmurs Abd: soft, non-tender, bowel sounds audible, non-distended Ext: no edema/right foot bigger , deformed, decreased sensation Skin:? large wound medial R foot with erythema covered with granulation, no drainage, L foot with multiple toe amputations, calluses on plantar surface Neuro: alert and oriented x3 Psych: appropriate affect Objective Data Active Medications Acetaminophen (Acetaminophen 325 Mg Tablet) 650 mg PO Q6H PRN PRN Reason: Pain, Mild (Pain Scale 1-3) Last Admin: 06/03/21 22:01 Dose: 650 mg Documented by: PHILLIP Atorvastatin Calcium (Atorvastatin Calcium 20 Mg Tablet) 20 mg PO BEDTIME [facility] Last Admin: 06/03/21 20:19 Dose: 20 mg Documented by: PHILLIP Dextrose (Dextrose 50 % 25 Gm/50 Ml Vial) 25 gm IVPUSH Q15M PRN; Protocol PRN Reason: per Hypoglycemia Standing Ord. Enoxaparin Sodium (Enoxaparin Sodium 40 Mg/0.4 Ml Syringe) 40 mg SUBCUT Q24H [facility] Last Admin: 06/03/21 18:36 Dose: 40 mg Documented by: LILY Glucose (Glucose Gel 15 Gm Gel..Gram.) 15 gm PO Q15M PRN; Protocol PRN Reason: per Hypoglycemia Standing Ord. Guaifenesin/Dextromethorphan (Guaifenesin Dm 100/10/5 Ml 5 Ml Syrup) 5 ml PO Q4H PRN PRN Reason: cofgh Last Admin: 06/03/21 18:44 Dose: 5 ml Documented by: LILY Linezolid (Zyvox/D5w) 600 mg in 300 mls @ 300 mls/hr IV Q12H [facility] Last Infusion: 06/04/21 09:08 Dose: 0 mls/hr Documented by: OSMAN Levofloxacin (Levaquin) 500 mg in 100 mls @ 100 mls/hr IV Q24H [facility] Last Admin: 06/04/21 11:23 Dose: 100 mls/hr Documented by: OSMAN Insulin Human Lispro (Insulin Lispro 100 Unit/Ml 3 Ml Vial) 0 unit SUBCUT QIDACHS [facility]; Protocol Last Admin: 06/04/21 11:36 Dose: Not Given Documented by: SOMAN Non-Admin Reason: No Insulin Coverage Metoprolol Succinate (Metoprolol Succinate Er 50 Mg Tab.Er.24h) 50 mg PO BID [facility]; Protocol Last Admin: 06/04/21 07:43 Dose: 50 mg Documented by: OSMAN Ondansetron HCl (Ondansetron Hcl 4 Mg/2 Ml Vial) 4 mg IVPUSH Q8H PRN PRN Reason: Nausea and Vomiting Pharmacy Consult (Consult Rx Perform Med Rec) 1 each MISCELLANE ONCE PRN PRN Reason: Consult order Sitagliptin Phosphate (Sitagliptin Phosphate 50 Mg Tablet) 50 mg PO DAILY [facility] Last Admin: 06/04/21 07:43 Dose: 50 mg Documented by: OSMAN Sodium Chloride (0.9 % Sodium Chloride Flush 3 Ml Syringe) 3 ml IVFLUSH QSHIFT [facility] Last Admin: 06/04/21 07:43 Dose: 3 ml Documented by: OSMAN Tolterodine Tartrate (Tolterodine Tartrate La 4 Mg Cap.Er.24h) 4 mg PO BID [facility] Last Admin: 06/04/21 07:43 Dose: 4 mg Documented by: OSMAN Labs CBC & Chem 7: 06/04/21 Unknown 06/04/21 Unknown Labs: Laboratory Results - last 24 hr 06/03/21 06/03/21 06/04/21 16:43 19:49 07:20 MCV MCH MCHC RDW Plt Count MPV Absolute Nucleated RBC Nucleated RBC % (auto) D-Dimer High Sensitivty Anion Gap Estim Creat Clear Calc Estimated GFR POC Glucose 115 153 H 116 H Random Glucose Calcium Total Bilirubin AST ALT Alkaline Phosphatase Lactate Dehydrogenase C-Reactive Protein Total Protein Albumin COVID-19 ([facility]) COVID-19 Clin Com 06/04/21 06/04/21 06/04/21 10:15 11:12 Unknown MCV MCH MCHC RDW Plt Count MPV Absolute Nucleated RBC Nucleated RBC % (auto) D-Dimer High Sensitivty 492 Anion Gap Estim Creat Clear Calc Estimated GFR POC Glucose 145 H Random Glucose Calcium Total Bilirubin AST ALT Alkaline Phosphatase Lactate Dehydrogenase C-Reactive Protein Total Protein Albumin COVID-19 ([facility]) Positive A COVID-19 Clin Com See Note 06/04/21 06/04/21 Unknown Unknown MCV 89.0 MCH 28.3 MCHC 31.8 RDW 15.7 Plt Count 322 MPV 9.2 L Absolute Nucleated RBC 0.000 Nucleated RBC % (auto) 0.0 D-Dimer High Sensitivty Anion Gap 11 L Estim Creat Clear Calc 53.6 Estimated GFR > 60 POC Glucose Random Glucose 164 H Calcium 8.5 Total Bilirubin 0.2 AST 21 D ALT 32 H Alkaline Phosphatase 95 D Lactate Dehydrogenase 131 C-Reactive Protein 4.83 H Total Protein 5.5 L Albumin 2.5 L COVID-19 ([facility]) COVID-19 Clin Com Impressions Chest X-Ray 06/04/21 11:40 IMPRESSION: Worsening left lower lobe pneumonia. No change in the consolidation/mass in the right upper lobe. Microbiology Microbiology Results: Microbiology 05/29/21 17:12 Blood Culture - Final Blood - Venous No growth after 5 days. 05/29/21 17:01 Blood Culture - Final Blood - Venous No growth after 5 days. Assessment and Plan (1) PAD (peripheral artery disease): Status: Acute (2) Osteomyelitis: Status: Acute (3) Vancomycin adverse reaction: Status: Acute (4) Diabetic foot ulcer: Status: Acute (5) Diabetes: Status: Acute Assessment and Plan: hospital d#7 85yo F with HTN, HLD, DM2, lung CA on immunotherapy, hx MSSA bacteremia associated with diabetic foot ulcer admitted with sepsis from R foot osteomyelitis developed Covid-19 infection # breakthrough Covid-19 infection - not hypoxic. high risk for severe disease; will give remdesivir x3d; trend inflammatory markers # sepsis due to right foot cellulitis/diabetic foot wound and osteomyelitis R foot - sepsis resolved, leukocytosis resolved - BCx x2 negative - wound Cx grew Enterobacter cloacae resistant to cefazolin + Enterococcus faecalis - plan linezolid + levofloxacin d#, OK to transition to PO upon discharge per ID - per discussion with pt's oncologist and vascular surgeon, poor prognosis given metastatic CA to liver, medical management recommended - port accessed and OK - Wound Care consult; in the meanwhile, alginate then cover with Kerlix, change daily ? 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 blood pressure improved; continue metoprolol 50mg bid [at home takes metoprolol 100 b.i.d. and ramipril 10 mg daily]; follow BP closely and if noted to have high BP readings will increase dose of metoprolol # DM2 - blood sugar stable, continue correction-dose insulin lispro, resumedJanuvia 50 mg daily # VTE ppx - LMWH Quality Stroke Does the patient have a stroke diagnosis?: No VTE Prior VTE?: No VTE Risk Level:: Medical - moderate - high VTE Device Contraindication: N/A - Device Ordered VTE Drug Contraindication: N/A - Med Ordered
[2021-06-04 12:16] LABS: Ferritin 280 ng/mL (10-250)
[2021-06-04] MEDS: Remdesivir 200 MG in 0.9 % Sodium Chloride 210 ML 105 MG IV (13:58)
[2021-06-04 16:08] LABS: Glucose, Whole Blood 136 mg/dL (60-115)
[2021-06-04 19:50] LABS: Glucose, Whole Blood 153 mg/dL (60-115)
[2021-06-04] MEDS: Atorvastatin Calcium 20 MG TABLET PO (20:35)
[2021-06-04] MEDS: Enoxaparin Sodium 40 MG/0.4 ML SYRINGE SUBCUT (20:37)
[2021-06-04] MEDS: Insulin Lispro 100 UNIT/ML 3 ML VIAL SUBCUT (20:38)
[2021-06-04] MEDS: Acetaminophen 325 MG TABLET 650 MG PO (20:43)
[2021-06-05] MEDS: 0.9 % Sodium Chloride Flush 3 ML SYRINGE IVFLUSH (02:24)
[2021-06-05 04:00] VITALS: BP 131/65; PULSE 80; RESP 18; TEMP 36.6; O2SAT 96
[2021-06-05 07:25] VITALS: BP 170/77; PULSE 83; RESP 18; TEMP 36.8; O2SAT 96
[2021-06-05 08:34] LABS: Glucose, Whole Blood 116 mg/dL (60-115)
[2021-06-05] MEDS: Linezolid/D5W 600 MG/300 ML PIGGYBACK 300 MG IV (09:19)
[2021-06-05] MEDS: Metoprolol Succinate ER 50 MG TAB.ER.24H PO ×2 (09:20→20:16)
[2021-06-05] MEDS: SITagliptin Phosphate 50 MG TABLET PO (09:20)
[2021-06-05] MEDS: Tolterodine Tartrate LA 4 MG CAP.ER.24H PO ×2 (09:20→20:16)
--- NOTE | 2021-06-05 09:38 | HO.VASCPN ---
Subjective Subjective Date of Service: 06/05/21 Patient reports: no new complaints and feels better Interval history: Very pleasant 85-year-old female for routine follow-up regarding nonhealing lower extremity ulcers. She has been doing relatively well. No interval issues. She now presents for follow-up. Of note this morning she was somewhat confused in concerned about her missing cellphone. Physical Exam Vital Signs: Vital Signs: Last Vital Signs Temp 98.3 F 06/05/21 07:25 Pulse 83 06/05/21 07:25 Resp 18 06/05/21 07:25 BP 170/77 H 06/05/21 07:25 Pulse Ox 96 06/05/21 07:25 BMI result Body Mass Index 21.9 Const: General: cooperative, healthy appearing and comfortable Orientation/consciousness: oriented to person, oriented to place and oriented to time HENMT: Head: Yes normal to inspection Neck: Neck: Yes normal visual inspection Carotids: no bruits Chest: Chest palpation & inspection: normal inspection of the chest Resp: Effort & Inspection: normal respiratory effort and able to speak in complete sentences Auscultation: clear to auscultation bilaterally, no crackles, no rales, no rhonchi and no wheezes Cardio: Rate: regular rate Rhythm: regular rhythm Heart sounds: S1 normal heart sound present and S2 normal heart sound present Bruits: no carotid bruits Peripheral pulses: dorsalis pedis present (Bilateral DP signals) GI: Inspection: Yes normal to inspection Skin: Other: Right medial ankle, left leg Wounds: wounds noted Hair: normal Neuro: General: oriented to person, oriented to place and oriented to time Cranial nerves: Yes CN's II-XII intact bilaterally and Yes Normal hearing present Cognition (Neuro): normal cognition Motor exam (neuro): 5/5 motor strength present throughout Extrem: Other: venous exam: No significant superficial varicosities or spider telangiectasias, minimal edema General: No clubbing, No cyanosis and No edema Psych: Appearance: grossly normal Mental Status: mental status grossly normal Speech and movement: Normal speech and movement present Progress Note: A&P Assessment and plan (1) PAD (peripheral artery disease): Status: Acute Assessment and Plan: In short patient has stable nonhealing ulcers. Cellulitis has significantly improved with antibiotics. At the current time would recommend local wound care. The feet are nonfunctional in appears that she is mostly nonambulatory. In addition she has metastatic cancer. At the current time would manage this conservatively as possible and should it progress would recommend amputation only. Should there be any interval issues happy to see her back. Thank you for allowing us to assist in her care. If there are any questions or concerns please do not hesitate to contact us. Fall Risk Details Current Medications: Current Medications Acetaminophen (Acetaminophen 325 Mg Tablet) 650 mg PO Q6H PRN PRN Reason: Pain, Mild (Pain Scale 1-3) Last Admin: 06/04/21 20:43 Dose: 650 mg Documented by: Atorvastatin Calcium (Atorvastatin Calcium 20 Mg Tablet) 20 mg PO BEDTIME [facility] Last Admin: 06/04/21 20:35 Dose: 20 mg Documented by: Dextrose (Dextrose 50 % 25 Gm/50 Ml Vial) 25 gm IVPUSH Q15M PRN; Protocol PRN Reason: per Hypoglycemia Standing Ord. Enoxaparin Sodium (Enoxaparin Sodium 40 Mg/0.4 Ml Syringe) 40 mg SUBCUT Q24H [facility] Last Admin: 06/04/21 20:37 Dose: 40 mg Documented by: Glucose (Glucose Gel 15 Gm Gel..Gram.) 15 gm PO Q15M PRN; Protocol PRN Reason: per Hypoglycemia Standing Ord. Guaifenesin/Dextromethorphan (Guaifenesin Dm 100/10/5 Ml 5 Ml Syrup) 5 ml PO Q4H PRN PRN Reason: cofgh Last Admin: 06/03/21 18:44 Dose: 5 ml Documented by: Linezolid (Zyvox/D5w) 600 mg in 300 mls @ 300 mls/hr IV Q12H [facility] Last Admin: 06/05/21 09:19 Dose: 300 mls/hr Documented by: Levofloxacin (Levaquin) 500 mg in 100 mls @ 100 mls/hr IV Q24H [facility] Last Infusion: 06/04/21 12:35 Dose: Infused Documented by: Remdesivir 100 mg/ Sodium (Chloride) 230 mls @ 115 mls/hr IV Q24H [facility] Stop: 06/06/21 15:59 Insulin Human Lispro (Insulin Lispro 100 Unit/Ml 3 Ml Vial) 0 unit SUBCUT QIDACHS [facility]; Protocol Last Admin: 06/05/21 08:45 Dose: Not Given Documented by: Metoprolol Succinate (Metoprolol Succinate Er 50 Mg Tab.Er.24h) 50 mg PO BID [facility]; Protocol Last Admin: 06/05/21 09:20 Dose: 50 mg Documented by: Ondansetron HCl (Ondansetron Hcl 4 Mg/2 Ml Vial) 4 mg IVPUSH Q8H PRN PRN Reason: Nausea and Vomiting Pharmacy Consult (Consult Rx Perform Med Rec) 1 each MISCELLANE ONCE PRN PRN Reason: Consult order Sitagliptin Phosphate (Sitagliptin Phosphate 50 Mg Tablet) 50 mg PO DAILY [facility] Last Admin: 06/05/21 09:20 Dose: 50 mg Documented by: Sodium Chloride (0.9 % Sodium Chloride Flush 3 Ml Syringe) 3 ml IVFLUSH QSHIFT [facility] Last Admin: 06/05/21 08:32 Dose: Not Given Documented by: Tolterodine Tartrate (Tolterodine Tartrate La 4 Mg Cap.Er.24h) 4 mg PO BID [facility] Last Admin: 06/05/21 09:20 Dose: 4 mg Documented by: Time Spent With Patient Time: Total time spent is greater than 50% in coordination of care (as documented) at patient's floor/unit and/or counseling patient: Time with patient: 15 - 24 minutes Procedures Date of Service Date of Service: 06/05/21 Quality Stroke Does the patient have a stroke diagnosis?: No VTE Prior VTE?: No VTE Risk Level:: Medical - moderate - high VTE Device Contraindication: N/A - Device Ordered VTE Drug Contraindication: N/A - Med Ordered
[2021-06-05 11:42] VITALS: BP 141/65; PULSE 97; RESP 18; TEMP 36.1; O2SAT 97
[2021-06-05 12:09] LABS: Glucose, Whole Blood 146 mg/dL (60-115)
[2021-06-05] MEDS: levoFLOXacin 500 MG TABLET PO (12:57)
[2021-06-05] MEDS: Remdesivir 100 MG in 0.9 % Sodium Chloride 230 ML 115 MG IV (13:28)
--- NOTE | 2021-06-05 15:02 | HO.PM.IMPN ---
Subjective Subjective Date of Service: 06/05/21 Interval History: Continues to have cough No fever, dyspnea, or hypoxia Endorses diarrhea Review of Systems Review of Systems: Yes all other systems are reviewed and are negative Physical Exam Vital Signs: Vital Signs: Last Vital Signs Temp 97 F 06/05/21 11:42 Pulse 97 06/05/21 11:42 Resp 18 06/05/21 11:42 BP 141/65 H 06/05/21 11:42 Pulse Ox 97 06/05/21 11:42 BMI result Body Mass Index 21.9 Gen:? Awake alert in no acute distress Neck: supple, no JVD, R-sided port Lungs: clear to auscultation bilaterally Heart: regular rate and rhythm, no murmurs Abd: soft, non-tender, bowel sounds audible, non-distended Ext: no edema/right foot bigger , deformed, decreased sensation Skin:? large wound medial R foot with erythema covered with granulation, no drainage, L foot with multiple toe amputations, calluses on plantar surface Neuro: alert and oriented x3 Psych: appropriate affect Objective Data Active Medications Acetaminophen (Acetaminophen 325 Mg Tablet) 650 mg PO Q6H PRN PRN Reason: Pain, Mild (Pain Scale 1-3) Last Admin: 06/04/21 20:43 Dose: 650 mg Documented by: MARIANNE Atorvastatin Calcium (Atorvastatin Calcium 20 Mg Tablet) 20 mg PO BEDTIME [facility] Last Admin: 06/04/21 20:35 Dose: 20 mg Documented by: MARIANNE Dextrose (Dextrose 50 % 25 Gm/50 Ml Vial) 25 gm IVPUSH Q15M PRN; Protocol PRN Reason: per Hypoglycemia Standing Ord. Enoxaparin Sodium (Enoxaparin Sodium 40 Mg/0.4 Ml Syringe) 40 mg SUBCUT Q24H [facility] Last Admin: 06/04/21 20:37 Dose: 40 mg Documented by: MARIANNE Glucose (Glucose Gel 15 Gm Gel..Gram.) 15 gm PO Q15M PRN; Protocol PRN Reason: per Hypoglycemia Standing Ord. Guaifenesin/Dextromethorphan (Guaifenesin Dm 100/10/5 Ml 5 Ml Syrup) 5 ml PO Q4H PRN PRN Reason: cofgh Last Admin: 06/03/21 18:44 Dose: 5 ml Documented by: HO.LYSZ Remdesivir 100 mg/ Sodium (Chloride) 230 mls @ 115 mls/hr IV Q24H [facility] Stop: 06/06/21 15:59 Last Admin: 06/05/21 13:28 Dose: 115 mls/hr Documented by: CAITLIN Insulin Human Lispro (Insulin Lispro 100 Unit/Ml 3 Ml Vial) 0 unit SUBCUT QIDACHS [facility]; Protocol Last Admin: 06/05/21 12:12 Dose: Not Given Documented by: CAITLIN Non-Admin Reason: No Insulin Coverage Levofloxacin (Levofloxacin 500 Mg Tablet) 500 mg PO Q24H [facility] Last Admin: 06/05/21 12:57 Dose: 500 mg Documented by: CAITLIN Linezolid (Linezolid 600 Mg Tablet) 600 mg PO Q12H [facility] Metoprolol Succinate (Metoprolol Succinate Er 50 Mg Tab.Er.24h) 50 mg PO BID [facility]; Protocol Last Admin: 06/05/21 09:20 Dose: 50 mg Documented by: CAITLIN Ondansetron HCl (Ondansetron Hcl 4 Mg/2 Ml Vial) 4 mg IVPUSH Q8H PRN PRN Reason: Nausea and Vomiting Pharmacy Consult (Consult Rx Perform Med Rec) 1 each MISCELLANE ONCE PRN PRN Reason: Consult order Sitagliptin Phosphate (Sitagliptin Phosphate 50 Mg Tablet) 50 mg PO DAILY [facility] Last Admin: 06/05/21 09:20 Dose: 50 mg Documented by: CAITLIN Sodium Chloride (0.9 % Sodium Chloride Flush 3 Ml Syringe) 3 ml IVFLUSH QSHIFT [facility] Last Admin: 06/05/21 12:15 Dose: Not Given Documented by: CAITLIN Non-Admin Reason: IV Running Tolterodine Tartrate (Tolterodine Tartrate La 4 Mg Cap.Er.24h) 4 mg PO BID [facility] Last Admin: 06/05/21 09:20 Dose: 4 mg Documented by: CAITLIN Labs CBC & Chem 7: 06/04/21 Unknown 06/04/21 Unknown Labs: Laboratory Results - last 24 hr 06/04/21 06/04/21 06/05/21 15:59 19:41 08:27 POC Glucose 136 H 153 H 116 H 06/05/21 12:02 POC Glucose 146 H Assessment and Plan (1) PAD (peripheral artery disease): Status: Acute (2) Osteomyelitis: Status: Acute (3) Vancomycin adverse reaction: Status: Acute (4) Diabetic foot ulcer: Status: Acute (5) Diabetes: Status: Acute Assessment and Plan: hospital d#8 85yo F with HTN, HLD, DM2, lung CA on immunotherapy, hx MSSA bacteremia associated with diabetic foot ulcer admitted with sepsis from R foot osteomyelitis developed Covid-19 infection, tested positive 06/04/21 # breakthrough Covid-19 infection - not hypoxic. high risk for severe disease so on d#2/3 of remdesivir - trend inflammatory markers # sepsis due to right foot cellulitis/diabetic foot wound and osteomyelitis R foot - sepsis resolved, leukocytosis resolved - BCx x2 negative - wound Cx grew Enterobacter cloacae resistant to cefazolin + Enterococcus faecalis - plan linezolid + levofloxacin d#, OK to transition to PO per ID - per discussion with pt's oncologist and vascular surgeon, poor prognosis given metastatic CA to liver, medical management recommended - port accessed and OK - Wound Care consult; in the meanwhile, wound care with alginate then cover with Kerlix, change daily ? 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 blood pressure improved; continue metoprolol 50mg bid [at home takes metoprolol 100 b.i.d. and ramipril 10 mg daily]; follow BP closely and if noted to have high BP readings will increase dose of metoprolol # DM2 - blood sugar stable, continue correction-dose insulin lispro, resumed Januvia 50 mg daily # VTE ppx - LMWH # dispo - antiicpate STR, on hold due to Covid-19 Quality Stroke Does the patient have a stroke diagnosis?: No VTE Prior VTE?: No VTE Risk Level:: Medical - moderate - high VTE Device Contraindication: N/A - Device Ordered VTE Drug Contraindication: N/A - Med Ordered
[2021-06-05 15:09] VITALS: BP 133/62; PULSE 88; RESP 20; TEMP 36.6; O2SAT 95
[2021-06-05 16:31] LABS: Glucose, Whole Blood 119 mg/dL (60-115)
[2021-06-05 19:00] VITALS: BP 133/59; PULSE 91; RESP 20; TEMP 36.6; O2SAT 96
[2021-06-05 19:50] LABS: Glucose, Whole Blood 182 mg/dL (60-115)
[2021-06-05] MEDS: Atorvastatin Calcium 20 MG TABLET PO (20:16)
[2021-06-05] MEDS: Enoxaparin Sodium 40 MG/0.4 ML SYRINGE SUBCUT (20:16)
[2021-06-05] MEDS: Linezolid 600 MG TABLET PO (20:16)
[2021-06-05] MEDS: Insulin Lispro 100 UNIT/ML 3 ML VIAL SUBCUT (20:22)
[2021-06-05 23:18] VITALS: BP 151/88; PULSE 90; RESP 18; TEMP 37; O2SAT 96
[2021-06-05] MEDS: Acetaminophen 325 MG TABLET 650 MG PO (23:40)
[2021-06-06] MEDS: 0.9 % Sodium Chloride Flush 3 ML SYRINGE IVFLUSH ×4 (00:49→21:25)
[2021-06-06 04:00] VITALS: BP 126/61; PULSE 78; RESP 16; TEMP 36.4; O2SAT 95
[2021-06-06 05:43] LABS: Hematocrit 30.3 % (37.0-47.0); Hemoglobin 9.5 g/dl (12.0-16.0); Mean Corpuscular HGB Conc 31.4 g/dl (31.0-35.0); Mean Corpuscular Hemoglobin 28.1 pg (27.0-33.0); Mean Corpuscular Volume 89.6 fL (80.0-98.0); Mean Platelet Volume 9.4 fL (9.4-12.3); Platelet Count 262 X10*3/uL (160-400); Red Blood Count 3.38 X10*6/uL (4.20-5.50); Red Cell Distribution Width 15.7 % (11.0-16.0); White Blood Count 12.9 X10*3/uL (4.8-10.8)
[2021-06-06 05:52] LABS: D Dimer High Sensitivity 586 NG/ML
[2021-06-06 06:05] LABS: Alanine Aminotransferase 25 U/L (0-31); Albumin Level 2.3 g/dL (3.5-5.0); Alkaline Phosphatase 83 U/L (39-117); Anion Gap 11 (12-20); Aspartate Amino Transferase 15 U/L (5-31); Bilirubin Total 0.3 mg/dL (0.0-1.0); Blood Urea Nitrogen 21 mg/dL (9-16); C Reactive Protein 8.31 mg/dL (< or = 0.50); Calcium 8.7 mg/dL (8.4-10.2); Carbon Dioxide 26 mmol/L (22-29); Chloride 104 mmol/L (96-108); Creatinine Clr Calc Pharmacy 47.1; Estimated Glomerular Filt Rate > 60; Glucose Random 114 mg/dL (60-115); Potassium 4.7 mmol/L (3.3-5.1); Sodium 136 mmol/L (135-145); Total Protein 5.2 g/dL (6.5-8.0)
[2021-06-06 07:05] VITALS: BP 143/67; PULSE 79; RESP 17; TEMP 36.8; O2SAT 96
[2021-06-06 07:22] LABS: Glucose, Whole Blood 108 mg/dL (60-115)
[2021-06-06] MEDS: Tolterodine Tartrate LA 4 MG CAP.ER.24H PO ×2 (09:35→21:24)
[2021-06-06] MEDS: SITagliptin Phosphate 50 MG TABLET PO (09:35)
[2021-06-06] MEDS: Metoprolol Succinate ER 50 MG TAB.ER.24H PO (09:35)
[2021-06-06] MEDS: Linezolid 600 MG TABLET PO ×2 (09:35→21:25)
[2021-06-06 11:34] VITALS: BP 144/66; PULSE 93; RESP 17; TEMP 37.7; O2SAT 97
[2021-06-06 11:40] LABS: Glucose, Whole Blood 151 mg/dL (60-115)
[2021-06-06] MEDS: levoFLOXacin 500 MG TABLET PO (12:17)
[2021-06-06] MEDS: Insulin Lispro 100 UNIT/ML 3 ML VIAL SUBCUT ×2 (12:17→21:25)
--- NOTE | 2021-06-06 13:56 | HO.PM.IMPN ---
Subjective Subjective Date of Service: 06/06/21 Interval History: Resting comfortably offers no complaints noted to have dry scab right nostril, patient denies fever, no chills, no diarrhea, no other acute issues tolerating diet. Review of Systems Review of Systems: Yes all other systems are reviewed and are negative Physical Exam Vital Signs: Vital Signs: Last Vital Signs Temp 99.8 F 06/06/21 11:34 Pulse 93 06/06/21 11:34 Resp 17 06/06/21 11:34 BP 144/66 H 06/06/21 11:34 Pulse Ox 97 06/06/21 11:34 BMI result Body Mass Index 21.9 Gen:? Awake alert in no acute distress Neck: supple, no JVD, R-sided port Lungs: clear to auscultation bilaterally Heart: regular rate and rhythm, no murmurs Abd: soft, non-tender, bowel sounds audible, non-distended Ext: no edema/right foot bigger , deformed, decreased sensation Skin:? large wound medial R foot with erythema covered with granulation, no drainage, L foot with multiple toe amputations, calluses on plantar surface Neuro: alert and oriented x3 Psych: appropriate affect Objective Data Active Medications Acetaminophen (Acetaminophen 325 Mg Tablet) 650 mg PO Q6H PRN PRN Reason: Pain, Mild (Pain Scale 1-3) Last Admin: 06/05/21 23:40 Dose: 650 mg Documented by: MARIANNE Atorvastatin Calcium (Atorvastatin Calcium 20 Mg Tablet) 20 mg PO BEDTIME [facility] Last Admin: 06/05/21 20:16 Dose: 20 mg Documented by: MARIANNE Dextrose (Dextrose 50 % 25 Gm/50 Ml Vial) 25 gm IVPUSH Q15M PRN; Protocol PRN Reason: per Hypoglycemia Standing Ord. Enoxaparin Sodium (Enoxaparin Sodium 40 Mg/0.4 Ml Syringe) 40 mg SUBCUT Q24H [facility] Last Admin: 06/05/21 20:16 Dose: 40 mg Documented by: MARIANNE Glucose (Glucose Gel 15 Gm Gel..Gram.) 15 gm PO Q15M PRN; Protocol PRN Reason: per Hypoglycemia Standing Ord. Guaifenesin/Dextromethorphan (Guaifenesin Dm 100/10/5 Ml 5 Ml Syrup) 5 ml PO Q4H PRN PRN Reason: cofgh Last Admin: 06/03/21 18:44 Dose: 5 ml Documented by: LILY Remdesivir 100 mg/ Sodium (Chloride) 230 mls @ 115 mls/hr IV Q24H [facility] Stop: 06/06/21 15:59 Last Infusion: 06/05/21 16:48 Dose: 0 mls/hr Documented by: MARIANNE Insulin Human Lispro (Insulin Lispro 100 Unit/Ml 3 Ml Vial) 0 unit SUBCUT QIDACHS [facility]; Protocol Last Admin: 06/06/21 12:17 Dose: 2 unit Documented by: YANI Levofloxacin (Levofloxacin 500 Mg Tablet) 500 mg PO Q24H [facility] Last Admin: 06/06/21 12:17 Dose: 500 mg Documented by: YANI Linezolid (Linezolid 600 Mg Tablet) 600 mg PO Q12H [facility] Last Admin: 06/06/21 09:35 Dose: 600 mg Documented by: YANI Metoprolol Succinate (Metoprolol Succinate Er 50 Mg Tab.Er.24h) 50 mg PO BID [facility]; Protocol Last Admin: 06/06/21 09:35 Dose: 50 mg Documented by: YANI Ondansetron HCl (Ondansetron Hcl 4 Mg/2 Ml Vial) 4 mg IVPUSH Q8H PRN PRN Reason: Nausea and Vomiting Pharmacy Consult (Consult Rx Perform Med Rec) 1 each MISCELLANE ONCE PRN PRN Reason: Consult order Sitagliptin Phosphate (Sitagliptin Phosphate 50 Mg Tablet) 50 mg PO DAILY [facility] Last Admin: 06/06/21 09:35 Dose: 50 mg Documented by: YANI Sodium Chloride (0.9 % Sodium Chloride Flush 3 Ml Syringe) 3 ml IVFLUSH QSHIFT [facility] Last Admin: 06/06/21 09:36 Dose: 3 ml Documented by: YANI Tolterodine Tartrate (Tolterodine Tartrate La 4 Mg Cap.Er.24h) 4 mg PO BID [facility] Last Admin: 06/06/21 09:35 Dose: 4 mg Documented by: YANI Labs CBC & Chem 7: 06/06/21 05:17 06/06/21 05:17 Labs: Laboratory Results - last 24 hr 06/05/21 06/05/21 06/06/21 16:14 19:42 05:17 MCV 89.6 MCH 28.1 MCHC 31.4 RDW 15.7 Plt Count 262 MPV 9.4 Absolute Nucleated RBC 0.000 Nucleated RBC % (auto) 0.0 D-Dimer High Sensitivty Anion Gap Estim Creat Clear Calc Estimated GFR POC Glucose 119 H 182 H Random Glucose Calcium Total Bilirubin AST ALT Alkaline Phosphatase C-Reactive Protein Total Protein Albumin 06/06/21 06/06/21 06/06/21 05:17 05:17 07:05 MCV MCH MCHC RDW Plt Count MPV Absolute Nucleated RBC Nucleated RBC % (auto) D-Dimer High Sensitivty 586 Anion Gap 11 L Estim Creat Clear Calc 47.1 Estimated GFR > 60 POC Glucose 108 Random Glucose 114 Calcium 8.7 Total Bilirubin 0.3 AST 15 ALT 25 Alkaline Phosphatase 83 C-Reactive Protein 8.31 H Total Protein 5.2 L Albumin 2.3 L 06/06/21 11:33 MCV MCH MCHC RDW Plt Count MPV Absolute Nucleated RBC Nucleated RBC % (auto) D-Dimer High Sensitivty Anion Gap Estim Creat Clear Calc Estimated GFR POC Glucose 151 H Random Glucose Calcium Total Bilirubin AST ALT Alkaline Phosphatase C-Reactive Protein Total Protein Albumin Assessment and Plan (1) PAD (peripheral artery disease): Status: Acute (2) Osteomyelitis: Status: Acute (3) Vancomycin adverse reaction: Status: Acute (4) Diabetic foot ulcer: Status: Acute (5) Hypercholesteremia: Status: Acute (6) Lung cancer: Status: Acute (7) Hypertension: Status: Acute (8) Diabetes: Status: Acute Assessment and Plan: 85yo F with HTN, HLD, DM2, lung CA on immunotherapy, hx MSSA bacteremia associated with diabetic foot ulcer admitted with sepsis from R foot osteomyelitis developed Covid-19 infection, tested positive 06/04/21 # breakthrough Covid-19 infection - not hypoxic.? high risk for severe disease so on d#3/3 of remdesivir - trend inflammatory markers # sepsis due to right foot cellulitis/diabetic foot wound and osteomyelitis R foot - sepsis resolved, leukocytosis resolved - BCx x2 negative - wound Cx grew Enterobacter cloacae resistant to cefazolin + Enterococcus faecalis - continue linezolid + levofloxacin d#, PO antibiotics as per ID - per discussion with pt's oncologist and vascular surgeon, poor prognosis given metastatic CA to liver, medical management recommended - port accessed and OK - Wound Care consult; in the meanwhile, wound care with alginate then cover with Kerlix, change daily ? 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 few high blood pressure readings on metoprolol 50mg bid [at home takes metoprolol 100 b.i.d. and ramipril 10 mg daily]; will increase dose of metoprolol to 75 b.i.d. # DM2 - blood sugar stable, continue correction-dose insulin lispro, and Januvia 50 mg daily # diarrhea resolved if noted to have recurrent diarrhea will check C diff since on antibiotic. # VTE ppx - LMWH # dispo - antiicpate STR, on hold due to Covid-19 Quality Stroke Does the patient have a stroke diagnosis?: No VTE Prior VTE?: No VTE Risk Level:: Medical - moderate - high VTE Device Contraindication: N/A - Device Ordered VTE Drug Contraindication: N/A - Med Ordered
[2021-06-06] MEDS: Remdesivir 100 MG in 0.9 % Sodium Chloride 230 ML 115 MG IV (14:58)
[2021-06-06 15:02] VITALS: BP 139/63; PULSE 91; RESP 20; TEMP 36.8; O2SAT 97
[2021-06-06 16:07] LABS: Glucose, Whole Blood 113 mg/dL (60-115)
[2021-06-06 19:06] VITALS: BP 137/70; PULSE 93; RESP 20; TEMP 36.7; O2SAT 96
[2021-06-06 19:55] LABS: Glucose, Whole Blood 196 mg/dL (60-115)
[2021-06-06] MEDS: Atorvastatin Calcium 20 MG TABLET PO (21:24)
[2021-06-06] MEDS: Metoprolol Succinate ER 25 MG TAB.ER.24H 75 MG PO (21:25)
[2021-06-06] MEDS: Enoxaparin Sodium 40 MG/0.4 ML SYRINGE SUBCUT (21:25)
[2021-06-06 23:08] VITALS: BP 122/56; PULSE 89; RESP 21; TEMP 36.3; O2SAT 97
[2021-06-06] MEDS: Acetaminophen 325 MG TABLET 650 MG PO (23:42)
[2021-06-07] VITALS (7 sets, daily range): BP systolic 113–134; BP diastolic 50–61; PULSE 73–91; RESP 16–20; TEMP 36.6–37.6; O2SAT 94–98; BMI 21.9
[2021-06-07 07:18] LABS: Glucose, Whole Blood 104 mg/dL (60-115)
[2021-06-07] MEDS: Linezolid 600 MG TABLET PO ×2 (09:22→21:15)
[2021-06-07] MEDS: SITagliptin Phosphate 50 MG TABLET PO (09:22)
[2021-06-07] MEDS: 0.9 % Sodium Chloride Flush 3 ML SYRINGE IVFLUSH ×3 (09:22→23:59)
[2021-06-07] MEDS: Metoprolol Succinate ER 25 MG TAB.ER.24H 75 MG PO ×2 (09:22→21:14)
[2021-06-07] MEDS: Tolterodine Tartrate LA 4 MG CAP.ER.24H PO ×2 (09:22→21:15)
[2021-06-07 11:18] LABS: Glucose, Whole Blood 135 mg/dL (60-115)
--- NOTE | 2021-06-07 11:54 | MHC.CM.PN ---
Broad SNF search is ongoing and CM will continue to follow for SNF bed offer.
[2021-06-07] MEDS: levoFLOXacin 500 MG TABLET PO (12:40)
--- NOTE | 2021-06-07 13:39 | P.PNIM_ITS ---
Subjective Subjective Date of Service: 06/07/21 Interval History: Offers no acute complaints, wants to know when she will be discharged, no events overnight. Review of Systems Review of Systems: Yes all other systems are reviewed and are negative Physical Exam Vital Signs: Vital Signs: Last Vital Signs Temp 99.1 F 06/07/21 11:20 Pulse 81 06/07/21 12:33 Resp 16 06/07/21 11:20 BP 127/60 06/07/21 12:33 Pulse Ox 96 06/07/21 12:33 BMI result Body Mass Index 21.9 Gen:? Awake alert in no acute distress Neck: supple, no JVD, R-sided port Lungs: clear to auscultation bilaterally Heart: regular rate and rhythm, no murmurs Abd: soft, non-tender, bowel sounds audible, non-distended Ext: no edema/right foot bigger , deformed, decreased sensation Skin:? large wound medial R foot with erythema covered with granulation, no drainage, L foot with multiple toe amputations, calluses on plantar surface Dry scab right nostril Neuro: alert and oriented x3 Psych: appropriate affect Objective Data Active Medications Acetaminophen (Acetaminophen 325 Mg Tablet) 650 mg PO Q6H PRN PRN Reason: Pain, Mild (Pain Scale 1-3) Last Admin: 06/06/21 23:42 Dose: 650 mg Documented by: JOSE ALEJANDRO Atorvastatin Calcium (Atorvastatin Calcium 20 Mg Tablet) 20 mg PO BEDTIME [facility] Last Admin: 06/06/21 21:24 Dose: 20 mg Documented by: JOSE ALEJANDRO Dextrose (Dextrose 50 % 25 Gm/50 Ml Vial) 25 gm IVPUSH Q15M PRN; Protocol PRN Reason: per Hypoglycemia Standing Ord. Enoxaparin Sodium (Enoxaparin Sodium 40 Mg/0.4 Ml Syringe) 40 mg SUBCUT Q24H [facility] Last Admin: 06/06/21 21:25 Dose: 40 mg Documented by: JOSE ALEJANDRO Glucose (Glucose Gel 15 Gm Gel..Gram.) 15 gm PO Q15M PRN; Protocol PRN Reason: per Hypoglycemia Standing Ord. Guaifenesin/Dextromethorphan (Guaifenesin Dm 100/10/5 Ml 5 Ml Syrup) 5 ml PO Q4H PRN PRN Reason: cofgh Last Admin: 06/03/21 18:44 Dose: 5 ml Documented by: LILY Insulin Human Lispro (Insulin Lispro 100 Unit/Ml 3 Ml Vial) 0 unit SUBCUT QIDACHS [facility]; Protocol Last Admin: 06/07/21 12:38 Dose: Not Given Documented by: SHIRA Non-Admin Reason: No Insulin Coverage Levofloxacin (Levofloxacin 500 Mg Tablet) 500 mg PO Q24H [facility] Last Admin: 06/07/21 12:40 Dose: 500 mg Documented by: SHIRA Linezolid (Linezolid 600 Mg Tablet) 600 mg PO Q12H [facility] Last Admin: 06/07/21 09:22 Dose: 600 mg Documented by: SHIRA Metoprolol Succinate (Metoprolol Succinate Er 25 Mg Tab.Er.24h) 75 mg PO BID [facility]; Protocol Last Admin: 06/07/21 09:22 Dose: 75 mg Documented by: SHIRA Ondansetron HCl (Ondansetron Hcl 4 Mg/2 Ml Vial) 4 mg IVPUSH Q8H PRN PRN Reason: Nausea and Vomiting Pharmacy Consult (Consult Rx Perform Med Rec) 1 each MISCELLANE ONCE PRN PRN Reason: Consult order Sitagliptin Phosphate (Sitagliptin Phosphate 50 Mg Tablet) 50 mg PO DAILY [facility] Last Admin: 06/07/21 09:22 Dose: 50 mg Documented by: SHIRA Sodium Chloride (0.9 % Sodium Chloride Flush 3 Ml Syringe) 3 ml IVFLUSH QSHIFT [facility] Last Admin: 06/07/21 09:22 Dose: 3 ml Documented by: SHIRA Tolterodine Tartrate (Tolterodine Tartrate La 4 Mg Cap.Er.24h) 4 mg PO BID [facility] Last Admin: 06/07/21 09:22 Dose: 4 mg Documented by: SHIRA Labs CBC & Chem 7: 06/06/21 05:17 06/06/21 05:17 Labs: Laboratory Results - last 24 hr 06/06/21 06/06/21 06/07/21 16:01 19:48 07:09 POC Glucose 113 196 H 104 06/07/21 11:09 POC Glucose 135 H Assessment and Plan (1) PAD (peripheral artery disease): Status: Acute (2) Osteomyelitis: Status: Acute (3) Vancomycin adverse reaction: Status: Acute (4) Diabetic foot ulcer: Status: Acute Assessment and Plan: 85yo F with HTN, HLD, DM2, lung CA on immunotherapy, hx MSSA bacteremia associated with diabetic foot ulcer admitted with sepsis from R foot osteomyelitis developed Covid-19 infection, tested positive 06/04/21 # breakthrough Covid-19 infection - not hypoxic.? high risk for severe disease finish 3 day course of remdesivir Continue supportive care cough medications analgesic # sepsis due to right foot cellulitis/diabetic foot wound and osteomyelitis R foot - sepsis resolved, leukocytosis resolved - BCx x2 negative - wound Cx grew Enterobacter cloacae resistant to cefazolin + Enterococcus faecalis - continue linezolid + levofloxacin d#, PO antibiotics as per ID - per discussion with pt's oncologist and vascular surgeon, poor prognosis given metastatic CA to liver, medical management recommended - port accessed and OK - Wound Care consult; in the meanwhile, wound care with alginate then cover with Kerlix, change daily ? 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 metoprolol 75mg bid [at home takes metoprolol 100 b.i.d. and ramipril 10 mg daily]; # DM2 - blood sugar stable, continue correction-dose insulin lispro, and Januvia 50 mg daily # diarrhea resolved if noted to have recurrent diarrhea will check C diff since on antibiotic. # VTE ppx - LMWH # dispo - short-term rehab on June 10 Quality Stroke Does the patient have a stroke diagnosis?: No VTE Prior VTE?: No VTE Risk Level:: Medical - moderate - high VTE Device Contraindication: N/A - Device Ordered VTE Drug Contraindication: N/A - Med Ordered
--- NOTE | 2021-06-07 14:52 | MHC.CLN ---
RE: CONSULT PT WITH INCREASED NUTRITION RISK R/T PRESSURE INJURY PO INTAKE GOOD DIET RX: 2000DM-APPROPRIATE PT RECEIVING GLUCERNA BID PROVIDES 474KCALS, 20 G PROTEIN RECOMMEND ADDING AMARIS TO PROMOTE WOUND HEALING MONITOR PO INTAKE CLOSELY SEE ALSO CLINICAL NUTRITION ASSESSMENT
[2021-06-07 15:59] LABS: Glucose, Whole Blood 118 mg/dL (60-115)
[2021-06-07] MEDS: Enoxaparin Sodium 40 MG/0.4 ML SYRINGE SUBCUT (18:08)
[2021-06-07 18:52] LABS: CDiff Gene PCR NEGATIVE (Negative)
[2021-06-07 20:26] LABS: Glucose, Whole Blood 163 mg/dL (60-115)
[2021-06-07] MEDS: Atorvastatin Calcium 20 MG TABLET PO (21:15)
[2021-06-07] MEDS: Insulin Lispro 100 UNIT/ML 3 ML VIAL SUBCUT (21:16)
[2021-06-07] MEDS: Acetaminophen 325 MG TABLET 650 MG PO (21:20)
[2021-06-08 04:00] VITALS: BP 103/46; PULSE 79; RESP 18; TEMP 36.7; O2SAT 96
[2021-06-08 07:38] LABS: Glucose, Whole Blood 110 mg/dL (60-115)
[2021-06-08 07:47] VITALS: BP 112/50; PULSE 66; RESP 18; TEMP 37.1; O2SAT 97
[2021-06-08] MEDS: Tolterodine Tartrate LA 4 MG CAP.ER.24H PO ×2 (10:30→21:43)
[2021-06-08] MEDS: Linezolid 600 MG TABLET PO ×2 (10:30→21:43)
[2021-06-08] MEDS: SITagliptin Phosphate 50 MG TABLET PO (10:30)
[2021-06-08] MEDS: levoFLOXacin 500 MG TABLET PO (10:32)
[2021-06-08] MEDS: 0.9 % Sodium Chloride Flush 3 ML SYRINGE IVFLUSH ×3 (10:32→21:43)
[2021-06-08] MEDS: Metoprolol Succinate ER 25 MG TAB.ER.24H 75 MG PO ×2 (10:32→21:44)
[2021-06-08 11:19] LABS: Glucose, Whole Blood 131 mg/dL (60-115)
[2021-06-08 12:00] VITALS: BP 119/57; PULSE 79; RESP 18; O2SAT 96
--- NOTE | 2021-06-08 13:50 | HO.PM.IMPN ---
Subjective Subjective Date of Service: 06/08/21 Interval History: cough improved c/o sore throat no dyspnea no fever Review of Systems Review of Systems: Yes all other systems are reviewed and are negative Physical Exam Vital Signs: Vital Signs: Last Vital Signs Temp 98.7 F 06/08/21 07:47 Pulse 79 06/08/21 12:00 Resp 18 06/08/21 12:00 BP 119/57 L 06/08/21 12:00 Pulse Ox 96 06/08/21 12:00 BMI result Body Mass Index 21.9 Gen:? awake alert in no acute distress Neck: supple, no JVD, R-sided port Lungs: clear to auscultation bilaterally Heart: regular rate and rhythm, no murmurs Abd: soft, non-tender, bowel sounds audible, non-distended Ext: no edema/right foot bigger , deformed, decreased sensation Skin:?large wound medial R foot with erythema covered with granulation, no drainage, L foot with multiple toe amputations, calluses on plantar surface, small dry scab below right nostril Neuro: alert and oriented x3 Psych: appropriate affect Objective Data Active Medications Acetaminophen (Acetaminophen 325 Mg Tablet) 650 mg PO Q6H PRN PRN Reason: Pain, Mild (Pain Scale 1-3) Last Admin: 06/07/21 21:20 Dose: 650 mg Documented by: MARIANNE Atorvastatin Calcium (Atorvastatin Calcium 20 Mg Tablet) 20 mg PO BEDTIME [facility], [facility] Last Admin: 06/07/21 21:15 Dose: 20 mg Documented by: MARIANNE Dextrose (Dextrose 50 % 25 Gm/50 Ml Vial) 25 gm IVPUSH Q15M PRN; Protocol PRN Reason: per Hypoglycemia Standing Ord. Enoxaparin Sodium (Enoxaparin Sodium 40 Mg/0.4 Ml Syringe) 40 mg SUBCUT Q24H [facility], [facility] Last Admin: 06/07/21 18:08 Dose: 40 mg Documented by: MARIANNE Glucose (Glucose Gel 15 Gm Gel..Gram.) 15 gm PO Q15M PRN; Protocol PRN Reason: per Hypoglycemia Standing Ord. Guaifenesin/Dextromethorphan (Guaifenesin Dm 100/10/5 Ml 5 Ml Syrup) 5 ml PO Q4H PRN PRN Reason: cofgh Last Admin: 06/03/21 18:44 Dose: 5 ml Documented by: LILY Insulin Human Lispro (Insulin Lispro 100 Unit/Ml 3 Ml Vial) 0 unit SUBCUT QIDACHS [facility], [facility]; Protocol Last Admin: 06/08/21 11:28 Dose: Not Given Documented by: EMERALD Non-Admin Reason: No Insulin Coverage Levofloxacin (Levofloxacin 500 Mg Tablet) 500 mg PO Q24H [facility], [facility] Last Admin: 06/08/21 10:32 Dose: 500 mg Documented by: EMERALD Linezolid (Linezolid 600 Mg Tablet) 600 mg PO Q12H [facility] Last Admin: 06/08/21 10:30 Dose: 600 mg Documented by: EMERALD Metoprolol Succinate (Metoprolol Succinate Er 25 Mg Tab.Er.24h) 75 mg PO BID [facility], [facility]; Protocol Last Admin: 06/08/21 10:32 Dose: 75 mg Documented by: EMERALD Ondansetron HCl (Ondansetron Hcl 4 Mg/2 Ml Vial) 4 mg IVPUSH Q8H PRN PRN Reason: Nausea and Vomiting Pharmacy Consult (Consult Rx Perform Med Rec) 1 each MISCELLANE ONCE PRN PRN Reason: Consult order Sitagliptin Phosphate (Sitagliptin Phosphate 50 Mg Tablet) 50 mg PO DAILY [facility], [facility] Last Admin: 06/08/21 10:30 Dose: 50 mg Documented by: EMERALD Sodium Chloride (0.9 % Sodium Chloride Flush 3 Ml Syringe) 3 ml IVFLUSH QSHIFT [facility], [facility] Last Admin: 06/08/21 10:32 Dose: 3 ml Documented by: EMERALD Tolterodine Tartrate (Tolterodine Tartrate La 4 Mg Cap.Er.24h) 4 mg PO BID [facility], [facility] Last Admin: 06/08/21 10:30 Dose: 4 mg Documented by: EMERALD Labs CBC & Chem 7: 06/06/21 05:17 06/06/21 05:17 Labs: Laboratory Results - last 24 hr 06/07/21 06/07/21 06/07/21 15:20 17:10 20:23 POC Glucose 118 H 163 H C. difficile Tox B Gene NEGATIVE 06/08/21 06/08/21 07:33 11:06 POC Glucose 110 131 H C. difficile Tox B Gene Assessment and Plan (1) PAD (peripheral artery disease): Status: Acute (2) Osteomyelitis: Status: Acute (3) Vancomycin adverse reaction: Status: Acute (4) Diabetic foot ulcer: Status: Acute Assessment and Plan: hospital d#11 85yo F with HTN, HLD, DM2, lung CA on immunotherapy, hx MSSA bacteremia associated with diabetic foot ulcer admitted with sepsis from R foot osteomyelitis developed Covid-19 infection, tested positive 06/04/21 # breakthrough Covid-19 infection - not hypoxic.? high risk for severe disease, so given 3-day course of remdesivir - continue supportive care # sepsis due to right foot cellulitis/diabetic foot wound and osteomyelitis R foot - sepsis resolved, leukocytosis resolved - BCx x2 negative - wound Cx grew Enterobacter cloacae resistant to cefazolin + Enterococcus faecalis - continue linezolid + levofloxacin d#, PO antibiotics as per ID - per discussion with pt's oncologist and vascular surgeon, poor prognosis given metastatic CA to liver, medical management recommended - port accessed and OK - Wound Care consult; in the meanwhile, wound care with alginate then cover with Kerlix, change daily ? 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 metoprolol 75mg bid [at home takes metoprolol 100 b.i.d. and ramipril 10 mg daily]; # DM2 - blood sugar stable, continue correction-dose insulin lispro, and Januvia 50 mg daily # diarrhea - resolved, Cdiff PCR negative # VTE ppx - LMWH # dispo - short-term rehab on 06/10 due to Covid-19 isolation requirements of [facility] Quality Stroke Does the patient have a stroke diagnosis?: No VTE Prior VTE?: No VTE Risk Level:: Medical - moderate - high VTE Device Contraindication: N/A - Device Ordered VTE Drug Contraindication: N/A - Med Ordered
[2021-06-08 15:18] VITALS: BP 123/55; PULSE 78; RESP 20; TEMP 36.3; O2SAT 97
[2021-06-08 16:09] LABS: Glucose, Whole Blood 125 mg/dL (60-115)
[2021-06-08] MEDS: Enoxaparin Sodium 40 MG/0.4 ML SYRINGE SUBCUT (17:08)
[2021-06-08] MEDS: Throat Lozenge, Medicated LOZENGE 1 LOZENGE MUCOUS MEM ×2 (17:09→21:52)
[2021-06-08 19:05] VITALS: BP 113/47; PULSE 73; RESP 20; TEMP 36.4; O2SAT 97
[2021-06-08 19:57] LABS: Glucose, Whole Blood 133 mg/dL (60-115)
[2021-06-08] MEDS: Atorvastatin Calcium 20 MG TABLET PO (21:43)
[2021-06-08] MEDS: Acetaminophen 325 MG TABLET 650 MG PO (21:52)
[2021-06-08 23:03] VITALS: BP 126/57; PULSE 80; RESP 20; TEMP 36.3; O2SAT 90
[2021-06-09 03:46] VITALS: BP 137/74; PULSE 69; RESP 18; TEMP 37.2; O2SAT 94
[2021-06-09 07:34] VITALS: BP 163/75; PULSE 76; RESP 18; TEMP 36.8; O2SAT 97
[2021-06-09 07:36] LABS: Glucose, Whole Blood 93 mg/dL (60-115)
--- NOTE | 2021-06-09 10:12 | P.PNIM_ITS ---
Subjective Subjective Date of Service: 06/09/21 Interval History: No foot pain Sore throat improfved Minimal cough No fever Review of Systems Review of Systems: Yes all other systems are reviewed and are negative Physical Exam Vital Signs: Vital Signs: Last Vital Signs Temp 98.2 F 06/09/21 07:34 Pulse 76 06/09/21 07:34 Resp 18 06/09/21 07:34 BP 163/75 H 06/09/21 07:34 Pulse Ox 97 06/09/21 07:34 BMI result Body Mass Index 21.9 Gen:? awake alert in no acute distress Neck: supple, no JVD, R-sided port Lungs: clear to auscultation bilaterally Heart: regular rate and rhythm, no murmurs Abd: soft, non-tender, bowel sounds audible, non-distended Ext: no edema Skin:?large wound medial R foot with erythema covered with granulation, no drainage, L foot with multiple toe amputations, calluses on plantar surface, small dry scab below right nostril Neuro: alert and oriented x3 Psych: appropriate affect Objective Data Active Medications Acetaminophen (Acetaminophen 325 Mg Tablet) 650 mg PO Q6H PRN PRN Reason: Pain, Mild (Pain Scale 1-3) Last Admin: 06/08/21 21:52 Dose: 650 mg Documented by: ANAND Atorvastatin Calcium (Atorvastatin Calcium 20 Mg Tablet) 20 mg PO BEDTIME [facility] Last Admin: 06/08/21 21:43 Dose: 20 mg Documented by: ANAND Benzocaine (Throat Lozenge, Medicated Lozenge) 1 lozenge MUCOUS MEM Q2H PRN PRN Reason: Sore Throat Last Admin: 06/08/21 21:52 Dose: 1 lozenge Documented by: ANAND Dextrose (Dextrose 50 % 25 Gm/50 Ml Vial) 25 gm IVPUSH Q15M PRN; Protocol PRN Reason: per Hypoglycemia Standing Ord. Enoxaparin Sodium (Enoxaparin Sodium 40 Mg/0.4 Ml Syringe) 40 mg SUBCUT Q24H [facility] Last Admin: 06/08/21 17:08 Dose: 40 mg Documented by: ELIJAHCAIH Glucose (Glucose Gel 15 Gm Gel..Gram.) 15 gm PO Q15M PRN; Protocol PRN Reason: per Hypoglycemia Standing Ord. Guaifenesin/Dextromethorphan (Guaifenesin Dm 100/10/5 Ml 5 Ml Syrup) 5 ml PO Q4H PRN PRN Reason: cofgh Last Admin: 06/03/21 18:44 Dose: 5 ml Documented by: LILY Insulin Human Lispro (Insulin Lispro 100 Unit/Ml 3 Ml Vial) 0 unit SUBCUT QIDA [facility]; Protocol Last Admin: 06/09/21 08:00 Dose: Not Given Documented by: Levofloxacin (Levofloxacin 500 Mg Tablet) 500 mg PO Q24H [facility] Last Admin: 06/08/21 10:32 Dose: 500 mg Documented by: EMERALD Linezolid (Linezolid 600 Mg Tablet) 600 mg PO Q12H [facility] Last Admin: 06/08/21 21:43 Dose: 600 mg Documented by: ANAND Metoprolol Succinate (Metoprolol Succinate Er 25 Mg Tab.Er.24h) 75 mg PO BID [facility]; Protocol Last Admin: 06/08/21 21:44 Dose: 75 mg Documented by: ANAND Ondansetron HCl (Ondansetron Hcl 4 Mg/2 Ml Vial) 4 mg IVPUSH Q8H PRN PRN Reason: Nausea and Vomiting Pharmacy Consult (Consult Rx Perform Med Rec) 1 each MISCELLANE ONCE PRN PRN Reason: Consult order Sitagliptin Phosphate (Sitagliptin Phosphate 50 Mg Tablet) 50 mg PO DAILY [facility] Last Admin: 06/08/21 10:30 Dose: 50 mg Documented by: EMERALD Sodium Chloride (0.9 % Sodium Chloride Flush 3 Ml Syringe) 3 ml IVFLUSH QSHIFT [facility] Last Admin: 06/08/21 21:43 Dose: 3 ml Documented by: ANAND Tolterodine Tartrate (Tolterodine Tartrate La 4 Mg Cap.Er.24h) 4 mg PO BID [facility] Last Admin: 06/08/21 21:43 Dose: 4 mg Documented by: ANAND Labs CBC & Chem 7: 06/06/21 05:17 06/06/21 05:17 Labs: Laboratory Results - last 24 hr 06/08/21 06/08/21 06/08/21 11:06 16:02 19:50 POC Glucose 131 H 125 H 133 H 06/09/21 07:31 POC Glucose 93 Assessment and Plan (1) PAD (peripheral artery disease): Status: Acute (2) Osteomyelitis: Status: Acute (3) Vancomycin adverse reaction: Status: Acute (4) Diabetic foot ulcer: Status: Acute Assessment and Plan: hospital d#12 85yo F with HTN, HLD, DM2, lung CA on immunotherapy, hx MSSA bacteremia associated with diabetic foot ulcer admitted with sepsis from R foot osteomyelitis developed Covid-19 infection in the hospital , tested positive 06/04/21 # breakthrough Covid-19 infection - not hypoxic.? high risk for severe disease, so given 3-day course of remdesivir - continue supportive care # sepsis due to right foot cellulitis/diabetic foot wound and osteomyelitis R foot - sepsis resolved, leukocytosis resolved - BCx x2 negative - wound Cx grew Enterobacter cloacae resistant to cefazolin + Enterococcus f aecalis - continue linezolid + levofloxacin d#, PO antibiotics as per ID - per discussion with pt's oncologist and vascular surgeon, poor prognosis given metastatic CA to liver, medical management recommended - port accessed and OK - wound care with alginate then cover with Kerlix, change daily ? 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 metoprolol 75mg bid [at home takes metoprolol 100 b.i.d. and ramipril 10 mg daily]; # DM2 - blood sugar stable, continue correction-dose insulin lispro, and Januvia 50 mg daily # diarrhea - resolved, Cdiff PCR negative # VTE ppx - LMWH # dispo - STR placement delayed due to Covid-19 isolation requirements of [facility], following Quality Stroke Does the patient have a stroke diagnosis?: No VTE Prior VTE?: No VTE Risk Level:: Medical - moderate - high VTE Device Contraindication: N/A - Device Ordered VTE Drug Contraindication: N/A - Med Ordered
[2021-06-09] MEDS: levoFLOXacin 500 MG TABLET PO (10:21)
[2021-06-09] MEDS: SITagliptin Phosphate 50 MG TABLET PO (10:21)
[2021-06-09] MEDS: Linezolid 600 MG TABLET PO ×2 (10:21→20:37)
[2021-06-09] MEDS: 0.9 % Sodium Chloride Flush 3 ML SYRINGE IVFLUSH ×3 (10:21→20:38)
[2021-06-09] MEDS: Metoprolol Succinate ER 25 MG TAB.ER.24H 75 MG PO ×2 (10:22→20:37)
[2021-06-09] MEDS: Tolterodine Tartrate LA 4 MG CAP.ER.24H PO ×2 (10:22→20:37)
[2021-06-09] MEDS: Throat Lozenge, Medicated LOZENGE 1 LOZENGE MUCOUS MEM ×2 (10:28→20:42)
[2021-06-09 11:15] LABS: Glucose, Whole Blood 118 mg/dL (60-115)
[2021-06-09 11:27] VITALS: BP 133/60; PULSE 79; RESP 18; TEMP 36.7; O2SAT 97
[2021-06-09 15:09] VITALS: BP 135/62; PULSE 80; RESP 21; TEMP 36.7; O2SAT 94
[2021-06-09 16:14] LABS: Glucose, Whole Blood 136 mg/dL (60-115)
[2021-06-09] MEDS: Enoxaparin Sodium 40 MG/0.4 ML SYRINGE SUBCUT (18:18)
[2021-06-09 19:02] VITALS: BP 135/63; PULSE 69; RESP 20; TEMP 36.7; O2SAT 96
[2021-06-09 19:44] LABS: Glucose, Whole Blood 116 mg/dL (60-115)
[2021-06-09] MEDS: Atorvastatin Calcium 20 MG TABLET PO (20:37)
[2021-06-09 22:53] VITALS: BP 117/64; PULSE 76; RESP 20; TEMP 36.2; O2SAT 97
[2021-06-09] MEDS: Acetaminophen 325 MG TABLET 650 MG PO (23:04)
[2021-06-10 03:09] VITALS: BP 127/65; PULSE 70; RESP 18; TEMP 36; O2SAT 97
[2021-06-10 07:06] LABS: Hematocrit 28.7 % (37.0-47.0); Hemoglobin 9.2 g/dl (12.0-16.0); Mean Corpuscular HGB Conc 32.1 g/dl (31.0-35.0); Mean Corpuscular Hemoglobin 28.2 pg (27.0-33.0); Mean Platelet Volume 9.3 fL (9.4-12.3); Platelet Count 215 X10*3/uL (160-400); Red Blood Count 3.26 X10*6/uL (4.20-5.50); Red Cell Distribution Width 15.6 % (11.0-16.0); White Blood Count 9.3 X10*3/uL (4.8-10.8)
[2021-06-10 07:17] LABS: Anion Gap 10 (12-20); Blood Urea Nitrogen 23 mg/dL (9-16); C Reactive Protein 4.88 mg/dL (< or = 0.50); Calcium 8.8 mg/dL (8.4-10.2); Carbon Dioxide 25 mmol/L (22-29); Chloride 104 mmol/L (96-108); Creatinine Clr Calc Pharmacy 48.4; Estimated Glomerular Filt Rate > 60; Glucose Random 108 mg/dL (60-115); Potassium 4.2 mmol/L (3.3-5.1); Sodium 135 mmol/L (135-145)
[2021-06-10 07:25] LABS: Glucose, Whole Blood 94 mg/dL (60-115)
[2021-06-10 07:39] VITALS: BP 141/65; PULSE 70; RESP 18; TEMP 36.8; O2SAT 97
[2021-06-10 07:53] LABS: Erythrocyte Sedimentation Rate 91 MM/HR (0-20)
[2021-06-10] MEDS: Metoprolol Succinate ER 25 MG TAB.ER.24H 75 MG PO ×2 (10:11→21:24)
[2021-06-10] MEDS: Tolterodine Tartrate LA 4 MG CAP.ER.24H PO ×2 (10:12→21:22)
[2021-06-10] MEDS: levoFLOXacin 500 MG TABLET PO (10:12)
[2021-06-10] MEDS: 0.9 % Sodium Chloride Flush 3 ML SYRINGE IVFLUSH ×3 (10:12→21:27)
[2021-06-10] MEDS: Linezolid 600 MG TABLET PO ×2 (10:12→21:24)
[2021-06-10] MEDS: SITagliptin Phosphate 50 MG TABLET PO (10:12)
[2021-06-10 11:21] VITALS: BP 117/59; PULSE 84; RESP 18; TEMP 37; O2SAT 98
[2021-06-10 11:33] LABS: Glucose, Whole Blood 114 mg/dL (60-115)
--- NOTE | 2021-06-10 12:26 | P.PNIM_ITS ---
Subjective Subjective Date of Service: 06/10/21 Interval History: No acute complaints, no events overnight. Review of Systems Review of Systems: Yes all other systems are reviewed and are negative Physical Exam Vital Signs: Vital Signs: Last Vital Signs Temp 98.6 F 06/10/21 11:21 Pulse 84 06/10/21 11:21 Resp 18 06/10/21 11:21 BP 117/59 L 06/10/21 11:21 Pulse Ox 98 06/10/21 11:21 BMI result Body Mass Index 21.9 Const: Other: Gen:? awake alert in no acute distress Dry scab right nostril Neck: supple, no JVD, R-sided port Lungs: clear to auscultation bilaterally Heart: regular rate and rhythm, no murmurs Abd: soft, non-tender, bowel sounds audible, non-distended Ext: no edema Skin:?large wound medial R foot with erythema covered with granulation, no drainage, L foot with multiple toe amputations, calluses on plantar surface, small dry scab below right nostril Neuro: alert and oriented x3 Psych: appropriate affect ? Objective Data Active Medications Acetaminophen (Acetaminophen 325 Mg Tablet) 650 mg PO Q6H PRN PRN Reason: Pain, Mild (Pain Scale 1-3) Last Admin: 06/09/21 23:04 Dose: 650 mg Documented by: LAZARA Atorvastatin Calcium (Atorvastatin Calcium 20 Mg Tablet) 20 mg PO BEDTIME [facility] Last Admin: 06/09/21 20:37 Dose: 20 mg Documented by: LAZARA Benzocaine (Throat Lozenge, Medicated Lozenge) 1 lozenge MUCOUS MEM Q2H PRN PRN Reason: Sore Throat Last Admin: 06/09/21 20:42 Dose: 1 lozenge Documented by: LAZARA Dextrose (Dextrose 50 % 25 Gm/50 Ml Vial) 25 gm IVPUSH Q15M PRN; Protocol PRN Reason: per Hypoglycemia Standing Ord. Enoxaparin Sodium (Enoxaparin Sodium 40 Mg/0.4 Ml Syringe) 40 mg SUBCUT Q24H [facility] Last Admin: 06/09/21 18:18 Dose: 40 mg Documented by: EMERALD Glucose (Glucose Gel 15 Gm Gel..Gram.) 15 gm PO Q15M PRN; Protocol PRN Reason: per Hypoglycemia Standing Ord. Guaifenesin/Dextromethorphan (Guaifenesin Dm 100/10/5 Ml 5 Ml Syrup) 5 ml PO Q4H PRN PRN Reason: cofgh Last Admin: 06/03/21 18:44 Dose: 5 ml Documented by: LILY Insulin Human Lispro (Insulin Lispro 100 Unit/Ml 3 Ml Vial) 0 unit SUBCUT QIDACHS [facility]; Protocol Last Admin: 06/10/21 07:48 Dose: Not Given Documented by: DIPAK Non-Admin Reason: No Insulin Coverage Levofloxacin (Levofloxacin 500 Mg Tablet) 500 mg PO Q24H [facility] Last Admin: 06/10/21 10:12 Dose: 500 mg Documented by: KRYSTYNA Linezolid (Linezolid 600 Mg Tablet) 600 mg PO Q12H [facility] Last Admin: 06/10/21 10:12 Dose: 600 mg Documented by: KRYSTYNA Metoprolol Succinate (Metoprolol Succinate Er 25 Mg Tab.Er.24h) 75 mg PO BID [facility]; Protocol Last Admin: 06/10/21 10:11 Dose: 75 mg Documented by: KRYSTYNA Ondansetron HCl (Ondansetron Hcl 4 Mg/2 Ml Vial) 4 mg IVPUSH Q8H PRN PRN Reason: Nausea and Vomiting Pharmacy Consult (Consult Rx Perform Med Rec) 1 each MISCELLANE ONCE PRN PRN Reason: Consult order Sitagliptin Phosphate (Sitagliptin Phosphate 50 Mg Tablet) 50 mg PO DAILY [facility] Last Admin: 06/10/21 10:12 Dose: 50 mg Documented by: KRYSTYNA Sodium Chloride (0.9 % Sodium Chloride Flush 3 Ml Syringe) 3 ml IVFLUSH QSHIFT [facility] Last Admin: 06/10/21 10:12 Dose: 3 ml Documented by: KRYSTYNA Tolterodine Tartrate (Tolterodine Tartrate La 4 Mg Cap.Er.24h) 4 mg PO BID [facility] Last Admin: 06/10/21 10:12 Dose: 4 mg Documented by: KRYSTYNA Labs CBC & Chem 7: 06/10/21 06:35 06/10/21 06:35 Labs: Laboratory Results - last 24 hr 06/09/21 06/09/21 06/10/21 16:07 19:34 06:35 MCV 88.0 MCH 28.2 MCHC 32.1 RDW 15.6 Plt Count 215 MPV 9.3 L Absolute Nucleated RBC 0.000 Nucleated RBC % (auto) 0.0 ESR Anion Gap Estim Creat Clear Calc Estimated GFR POC Glucose 136 H 116 H Random Glucose Calcium C-Reactive Protein 06/10/21 06/10/21 06/10/21 06:35 06:35 07:17 MCV MCH MCHC RDW Plt Count MPV Absolute Nucleated RBC Nucleated RBC % (auto) ESR 91 H Anion Gap 10 L Estim Creat Clear Calc 48.4 Estimated GFR > 60 POC Glucose 94 Random Glucose 108 Calcium 8.8 C-Reactive Protein 4.88 H 06/10/21 11:07 MCV MCH MCHC RDW Plt Count MPV Absolute Nucleated RBC Nucleated RBC % (auto) ESR Anion Gap Estim Creat Clear Calc Estimated GFR POC Glucose 114 Random Glucose Calcium C-Reactive Protein Assessment and Plan (1) PAD (peripheral artery disease): Status: Acute (2) Osteomyelitis: Status: Acute (3) Vancomycin adverse reaction: Status: Acute (4) Diabetic foot ulcer: Status: Acute Assessment and Plan: 85yo F with HTN, HLD, DM2, lung CA on immunotherapy, hx MSSA bacteremia as sociated with diabetic foot ulcer admitted with sepsis from R foot osteomyelitis developed Covid-19 infection in the hospital , tested positive 06/04/21 # breakthrough Covid-19 infection - not hypoxic.? high risk for severe disease, so given 3-day course of remdesivir - continue supportive care # sepsis due to right foot cellulitis/diabetic foot wound and osteomyelitis R foot - sepsis resolved, leukocytosis resolved - BCx x2 negative - wound Cx grew Enterobacter cloacae resistant to cefazolin + Enterococcus faecalis - continue linezolid + levofloxacin d#, PO antibiotics as per ID - per discussion with pt's oncologist and vascular surgeon, poor prognosis given metastatic CA to liver, medical management recommended - port accessed and OK - wound care with alginate then cover with Kerlix, change daily ? 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 metoprolol 75mg bid [at home takes metoprolol 100 b.i.d. and ramipril 10 mg daily]; # DM2 - blood sugar stable, continue correction-dose insulin lispro, and Januvia 50 mg daily # diarrhea - resolved, Cdiff PCR negative # VTE ppx - LMWH # dispo - STR placement delayed due to Covid-19 isolation requirements of SNF, CM following, will order COVID test today negative will likely go to rehab tomorrow. Quality Stroke Does the patient have a stroke diagnosis?: No VTE Prior VTE?: No VTE Risk Level:: Medical - moderate - high VTE Device Contraindication: N/A - Device Ordered VTE Drug Contraindication: N/A - Med Ordered
[2021-06-10 13:50] LABS: COVID-19 Test Positive (Negative)
--- NOTE | 2021-06-10 14:48 | MHC.CLN ---
F/U PO INTAKE GOOD DIET RX: 2000DM-APPROPRIATE PT RECEIVING GLUCERNA BID AND AMARIS BID PROVIDES [id number], 25 G PROTEIN MONITOR PO INTAKE CLOSELY
[2021-06-10 15:11] VITALS: BP 137/64; PULSE 89; RESP 18; TEMP 37.1; O2SAT 98
--- NOTE | 2021-06-10 15:33 | MHC.CM.PN ---
Female 85 DX Covid+ [facility] requested a Covid test today. They plan on accepting the Patient tomorrow. Covid + result sent to the facility. [facility]ggs via BLS.
[2021-06-10 16:18] LABS: Glucose, Whole Blood 112 mg/dL (60-115)
[2021-06-10 19:22] VITALS: BP 154/67; PULSE 87; RESP 18; TEMP 36.8; O2SAT 96
[2021-06-10 20:30] LABS: Glucose, Whole Blood 109 mg/dL (60-115)
[2021-06-10] MEDS: Enoxaparin Sodium 40 MG/0.4 ML SYRINGE SUBCUT (21:23)
[2021-06-10] MEDS: Atorvastatin Calcium 20 MG TABLET PO (21:23)
[2021-06-10] MEDS: Acetaminophen 325 MG TABLET 650 MG PO (21:23)
[2021-06-10] MEDS: Throat Lozenge, Medicated LOZENGE 1 LOZENGE MUCOUS MEM (21:26)
[2021-06-10 23:49] VITALS: BP 111/56; PULSE 75; RESP 19; TEMP 37.1; O2SAT 95
[2021-06-11 04:00] VITALS: BP 104/52; PULSE 71; RESP 18; TEMP 36.6; O2SAT 97
[2021-06-11 07:44] LABS: Glucose, Whole Blood 96 mg/dL (60-115)
[2021-06-11 08:00] VITALS: BP 125/57; PULSE 71; RESP 20; TEMP 35.8; O2SAT 98
[2021-06-11] MEDS: levoFLOXacin 500 MG TABLET PO (09:57)
[2021-06-11] MEDS: 0.9 % Sodium Chloride Flush 3 ML SYRINGE IVFLUSH ×3 (09:57→22:56)
[2021-06-11] MEDS: Metoprolol Succinate ER 25 MG TAB.ER.24H 75 MG PO ×2 (09:57→20:07)
[2021-06-11] MEDS: Tolterodine Tartrate LA 4 MG CAP.ER.24H PO ×2 (09:57→20:08)
[2021-06-11] MEDS: Linezolid 600 MG TABLET PO ×2 (09:57→20:08)
[2021-06-11] MEDS: SITagliptin Phosphate 50 MG TABLET PO (09:58)
[2021-06-11 11:06] VITALS: BP 117/56; PULSE 80; RESP 16; TEMP 37.1; O2SAT 95
[2021-06-11 11:47] LABS: Glucose, Whole Blood 126 mg/dL (60-115)
--- NOTE | 2021-06-11 15:03 | P.PNIM_ITS ---
Subjective Subjective Date of Service: 06/11/21 Interval History: Offers no acute complaints, declining physical therapy. No events overnight. Review of Systems Review of Systems: Yes all other systems are reviewed and are negative Physical Exam Vital Signs: Vital Signs: Last Vital Signs Temp 98.7 F 06/11/21 11:06 Pulse 80 06/11/21 11:06 Resp 16 06/11/21 11:06 BP 117/56 L 06/11/21 11:06 Pulse Ox 95 06/11/21 11:06 BMI result Body Mass Index 21.9 Const: Other: Gen:? awake alert in no acute distress Dry scab right nostril improving Neck: supple, no JVD, R-sided port Lungs: clear to auscultation bilaterally Heart: regular rate and rhythm, no murmurs Abd: soft, non-tender, bowel sounds audible, non-distended Ext: no edema Skin:?large wound medial R foot with erythema covered with granulation, no drainage, L foot with multiple toe amputations, calluses on plantar surface, small dry scab below right nostril Neuro: alert and oriented x3 Psych: appropriate affect Objective Data Active Medications Acetaminophen (Acetaminophen 325 Mg Tablet) 650 mg PO Q6H PRN PRN Reason: Pain, Mild (Pain Scale 1-3) Last Admin: 06/10/21 21:23 Dose: 650 mg Documented by: LAZARA Atorvastatin Calcium (Atorvastatin Calcium 20 Mg Tablet) 20 mg PO BEDTIME [facility] Last Admin: 06/10/21 21:23 Dose: 20 mg Documented by: LAZARA Benzocaine (Throat Lozenge, Medicated Lozenge) 1 lozenge MUCOUS MEM Q2H PRN PRN Reason: Sore Throat Last Admin: 06/10/21 21:26 Dose: 1 lozenge Documented by: LAZARA Dextrose (Dextrose 50 % 25 Gm/50 Ml Vial) 25 gm IVPUSH Q15M PRN; Protocol PRN Reason: per Hypoglycemia Standing Ord. Enoxaparin Sodium (Enoxaparin Sodium 40 Mg/0.4 Ml Syringe) 40 mg SUBCUT Q24H [facility] Last Admin: 06/10/21 21:23 Dose: 40 mg Documented by: LAZARA Glucose (Glucose Gel 15 Gm Gel..Gram.) 15 gm PO Q15M PRN; Protocol PRN Reason: per Hypoglycemia Standing Ord. Guaifenesin/Dextromethorphan (Guaifenesin Dm 100/10/5 Ml 5 Ml Syrup) 5 ml PO Q4H PRN PRN Reason: cofgh Last Admin: 06/03/21 18:44 Dose: 5 ml Documented by: LILY Insulin Human Lispro (Insulin Lispro 100 Unit/Ml 3 Ml Vial) 0 unit SUBCUT QIDACHS [facility]; Protocol Last Admin: 06/11/21 12:34 Dose: Not Given Documented by: SUZANNA Non-Admin Reason: No Insulin Coverage Levofloxacin (Levofloxacin 500 Mg Tablet) 500 mg PO Q24H [facility] Last Admin: 06/11/21 09:57 Dose: 500 mg Documented by: SUZANNA Linezolid (Linezolid 600 Mg Tablet) 600 mg PO Q12H [facility] Last Admin: 06/11/21 09:57 Dose: 600 mg Documented by: SUZANNA Metoprolol Succinate (Metoprolol Succinate Er 25 Mg Tab.Er.24h) 75 mg PO BID [facility]; Protocol Last Admin: 06/11/21 09:57 Dose: 75 mg Documented by: SUZANNA Ondansetron HCl (Ondansetron Hcl 4 Mg/2 Ml Vial) 4 mg IVPUSH Q8H PRN PRN Reason: Nausea and Vomiting Pharmacy Consult (Consult Rx Perform Med Rec) 1 each MISCELLANE ONCE PRN PRN Reason: Consult order Sitagliptin Phosphate (Sitagliptin Phosphate 50 Mg Tablet) 50 mg PO DAILY [facility] Last Admin: 06/11/21 09:58 Dose: 50 mg Documented by: SUZANNA Sodium Chloride (0.9 % Sodium Chloride Flush 3 Ml Syringe) 3 ml IVFLUSH QSHIFT [facility] Last Admin: 06/11/21 09:57 Dose: 3 ml Documented by: SUZANNA Tolterodine Tartrate (Tolterodine Tartrate La 4 Mg Cap.Er.24h) 4 mg PO BID [facility] Last Admin: 06/11/21 09:57 Dose: 4 mg Documented by: SUZANNA Labs CBC & Chem 7: 06/10/21 06:35 06/10/21 06:35 Labs: Laboratory Results - last 24 hr 06/10/21 06/10/21 06/11/21 15:55 20:11 07:32 POC Glucose 112 109 96 06/11/21 11:04 POC Glucose 126 H Assessment and Plan (1) PAD (peripheral artery disease): Status: Acute (2) Osteomyelitis: Status: Acute (3) Vancomycin adverse reaction: Status: Acute (4) Diabetic foot ulcer: Status: Acute Assessment and Plan: 85yo F with HTN, HLD, DM2, lung CA on immunotherapy, hx MSSA bacteremia associated with diabetic foot ulcer admitted with sepsis from R foot osteomyelitis developed Covid-19 infection in the hospital , tested positive 06/04/21 # breakthrough Covid-19 infection - not hypoxic.? high risk for severe disease, so given 3-day course of remdesivir - continue supportive care # sepsis due to right foot cellulitis/diabetic foot wound and osteomyelitis R foot - sepsis resolved, leukocytosis resolved - BCx x2 negative - wound Cx grew Enterobacter cloacae resistant to cefazolin + Enterococcus faecalis - continue linezolid + levofloxacin d#, PO antibiotics as per ID - per discussion with pt's oncologist and vascular surgeon, poor prognosis given metastatic CA to liver, medical management recommended - port accessed and OK - wound care with alginate then cover with Kerlix, change daily ? 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 metoprolol 75mg bid [at home takes metoprolol 100 b.i.d. and ramipril 10 mg daily]; # DM2 - blood sugar stable, continue correction-dose insulin lispro, and Januvia 50 mg daily # diarrhea - resolved, Cdiff PCR negative # VTE ppx - LMWH # dispo - repeat COVID-19 positive , patient declining physical therapy, strongly recommend to participate with physical therapy Quality Stroke Does the patient have a stroke diagnosis?: No VTE Prior VTE?: No VTE Risk Level:: Medical - moderate - high VTE Device Contraindication: N/A - Device Ordered VTE Drug Contraindication: N/A - Med Ordered
[2021-06-11 15:14] VITALS: BP 124/52; PULSE 82; RESP 16; TEMP 36.4; O2SAT 92
[2021-06-11 15:59] LABS: Glucose, Whole Blood 96 mg/dL (60-115)
[2021-06-11 18:58] VITALS: BP 127/57; PULSE 81; RESP 13; TEMP 36.7; O2SAT 97
[2021-06-11] MEDS: Enoxaparin Sodium 40 MG/0.4 ML SYRINGE SUBCUT (20:07)
[2021-06-11] MEDS: Atorvastatin Calcium 20 MG TABLET PO (20:08)
[2021-06-11 20:14] LABS: Glucose, Whole Blood 98 mg/dL (60-115)
--- NOTE | 2021-06-11 21:26 | PC.NURSE ---
Pt alert and oriented x3, Denies pain or discomfort. Encouraged to get out of bed but refused. Right Diabetic foot ulcer wound cleansed and dressing changed. Blood sugars well controlled. No insulin required.
[2021-06-11] MEDS: Acetaminophen 325 MG TABLET 650 MG PO (22:57)
[2021-06-11 23:26] VITALS: BP 140/65; PULSE 78; RESP 16; TEMP 37.4; O2SAT 97
[2021-06-12 02:59] VITALS: BP 109/56; PULSE 75; RESP 17; TEMP 37.1; O2SAT 95
[2021-06-12 07:50] LABS: Glucose, Whole Blood 81 mg/dL (60-115)
[2021-06-12 08:00] VITALS: BP 124/60; PULSE 68; RESP 16; TEMP 37.2; O2SAT 96
[2021-06-12] MEDS: Tolterodine Tartrate LA 4 MG CAP.ER.24H PO ×2 (09:57→20:19)
[2021-06-12] MEDS: levoFLOXacin 500 MG TABLET PO (09:57)
[2021-06-12] MEDS: Linezolid 600 MG TABLET PO (09:57)
[2021-06-12] MEDS: SITagliptin Phosphate 50 MG TABLET PO (09:57)
[2021-06-12] MEDS: 0.9 % Sodium Chloride Flush 3 ML SYRINGE IVFLUSH ×3 (09:57→20:19)
[2021-06-12] MEDS: Metoprolol Succinate ER 25 MG TAB.ER.24H 75 MG PO ×2 (09:57→20:19)
[2021-06-12 10:44] LABS: Glucose, Whole Blood 109 mg/dL (60-115)
[2021-06-12 11:15] VITALS: BP 114/46; PULSE 79; RESP 16; TEMP 36.7; O2SAT 97
--- NOTE | 2021-06-12 11:30 | MHC.CM.PN ---
A Broad SNF search is ongoing. [facility] is willing to follow through 06/14/21, with possible admit on 06/15/21.CM will continue to follow.
--- NOTE | 2021-06-12 13:52 | P.PNIM_ITS ---
Subjective Subjective Date of Service: 06/12/21 Interval History: offers no acute complaints daily refusing to participate with therapy. Review of Systems Review of Systems: Yes all other systems are reviewed and are negative Physical Exam Verdana 4l Vital Signs: Verdana 4d Verdana 4d Vital Signs: Verdana 4d Verdana 4Bd Last Vital Signs Verdana 4d Rn Hospital New 4d Rn Hospital New 4d Temp 98.1 F 06/12/21 11:15 Rn Hospital New 4d Pulse 79 06/12/21 11:15 Rn Hospital New 4d Resp 16 06/12/21 11:15 BP 114/46 L 06/12/21 11:15 Pulse Ox 97 06/12/21 11:15 BMI result Body Mass Index 21.9 Const: Other: Gen:? awake alert in no acute distress Dry scab right nostril improving Neck: supple, no JVD, R-sided port Lungs: clear to auscultation bilaterally Heart: regular rate and rhythm, no murmurs Abd: soft, non-tender, bowel sounds audible, non-distended Ext: no edema Skin:?large wound medial R foot with erythema covered with granulation, no drainage, L foot with multiple toe amputations, calluses on plantar surface, small dry scab below right nostril Neuro: alert and oriented x3 Psych: appropriate affect Objective Data Active Medications Acetaminophen (Acetaminophen 325 Mg Tablet) 650 mg PO Q6H PRN PRN Reason: Pain, Mild (Pain Scale 1-3) Last Admin: 06/11/21 22:57 Dose: 650 mg Documented by: SPRING Atorvastatin Calcium (Atorvastatin Calcium 20 Mg Tablet) 20 mg PO BEDTIME [facility] Last Admin: 06/11/21 20:08 Dose: 20 mg Documented by: SUZANNA Benzocaine (Throat Lozenge, Medicated Lozenge) 1 lozenge MUCOUS MEM Q2H PRN PRN Reason: Sore Throat Last Admin: 06/10/21 21:26 Dose: 1 lozenge Documented by: LAZARA Dextrose (Dextrose 50 % 25 Gm/50 Ml Vial) 25 gm IVPUSH Q15M PRN; Protocol PRN Reason: per Hypoglycemia Standing Ord. Enoxaparin Sodium (Enoxaparin Sodium 40 Mg/0.4 Ml Syringe) 40 mg SUBCUT Q24H [facility] Last Admin: 06/11/21 20:07 Dose: 40 mg Documented by: RENATOENOAL Glucose (Glucose Gel 15 Gm Gel..Gram.) 15 gm PO Q15M PRN; Protocol PRN Reason: per Hypoglycemia Standing Ord. Guaifenesin/Dextromethorphan (Guaifenesin Dm 100/10/5 Ml 5 Ml Syrup) 5 ml PO Q4H PRN PRN Reason: cofgh Last Admin: 06/03/21 18:44 Dose: 5 ml Documented by: LILY Insulin Human Lispro (Insulin Lispro 100 Unit/Ml 3 Ml Vial) 0 unit SUBCUT QIDACHS [facility]; Protocol Last Admin: 06/12/21 11:45 Dose: Not Given Documented by: BAILEY Non-Admin Reason: BS 107 Linezolid (Linezolid 600 Mg Tablet) 600 mg PO Q12H [facility] Last Admin: 06/12/21 09:57 Dose: 600 mg Documented by: BAILEY Metoprolol Succinate (Metoprolol Succinate Er 25 Mg Tab.Er.24h) 75 mg PO BID [facility]; Protocol Last Admin: 06/12/21 09:57 Dose: 75 mg Documented by: BAILEY Ondansetron HCl (Ondansetron Hcl 4 Mg/2 Ml Vial) 4 mg IVPUSH Q8H PRN PRN Reason: Nausea and Vomiting Pharmacy Consult (Consult Rx Perform Med Rec) 1 each MISCELLANE ONCE PRN PRN Reason: Consult order Sitagliptin Phosphate (Sitagliptin Phosphate 50 Mg Tablet) 50 mg PO DAILY [facility] Last Admin: 06/12/21 09:57 Dose: 50 mg Documented by: BAILEY Sodium Chloride (0.9 % Sodium Chloride Flush 3 Ml Syringe) 3 ml IVFLUSH QSHIFT [facility] Last Admin: 06/12/21 09:57 Dose: 3 ml Documented by: BAILEY Tolterodine Tartrate (Tolterodine Tartrate La 4 Mg Cap.Er.24h) 4 mg PO BID [facility] Last Admin: 06/12/21 09:57 Dose: 4 mg Documented by: BAILEY Labs CBC & Chem 7: 06/10/21 06:35 06/10/21 06:35 Labs: Laboratory Results - last 24 hr 01/25/22 01/25/22 01/26/22 15:52 20:11 07:44 POC Glucose 96 98 81 06/12/21 10:35 POC Glucose 109 Assessment and Plan (1) PAD (peripheral artery disease): Status: Acute (2) Osteomyelitis: Status: Acute (3) Vancomycin adverse reaction: Status: Acute (4) Diabetic foot ulcer: Status: Acute Plan 85yo F with HTN, HLD, DM2, lung CA on immunotherapy, hx MSSA bacteremia associated with diabetic foot ulcer admitted with sepsis from R foot osteomyelitis developed Covid-19 infection in the hospital , tested positive 06/04/21 # breakthrough Covid-19 infection - not hypoxic.? high risk for severe disease, so given 3-day course of remdesivir - continue supportive care # sepsis due to right foot cellulitis/diabetic foot wound and osteomyelitis R foot - sepsis resolved, leukocytosis resolved - BCx x2 negative - wound Cx grew Enterobacter cloacae resistant to cefazolin + Enterococcus faecalis - continue linezolid + levofloxacin d#, PO antibiotics as per ID - per discussion with pt's oncologist and vascular surgeon, poor prognosis given metastatic CA to liver, medical management recommended - port accessed and OK - wound care with alginate then cover with Kerlix, change daily ? 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 metoprolol 75mg bid [at home takes metoprolol 100 b.i.d. and ramipril 10 mg daily]; # DM2 - blood sugar stable, continue correction-dose insulin lispro, and Januvia 50 mg daily # diarrhea - resolved, Cdiff PCR negative # VTE ppx - LMWH # dispo - repeat COVID-19 positive , patient declining physical therapy, strongly recommend to participate with physical therapy Quality Stroke Does the patient have a stroke diagnosis?: No VTE Prior VTE?: No VTE Risk Level:: Medical - moderate - high VTE Device Contraindication: N/A - Device Ordered VTE Drug Contraindication: N/A - Med Ordered
--- NOTE | 2021-06-12 14:21 | PC.NURSE ---
Skin/Wound assessement completed today. Patients diabetic ulcer on right medial foot has new granulation tissue forming with with a little bone and tendon showing. Wound is slowly improving. Patient did complain of more pain in foot than normal-maybe from PT . Buttock wounds are slowly healing.
--- NOTE | 2021-06-12 15:08 | MHC.CLN ---
F/U PO INTAKE GOOD. DIET=DIABETIC 2000 KCAL-APPROPRIATE. PER WOUND NURSE, DIABETIC ULCER RIGHT MEDIAL FOOT SLOWLY IMPROVING; BILATERAL BUTTOCKS SLOWLY HEALING RECEIVING GLUCERNA BID AND AMARIS BID TO PROMOTE WOUND HEALING. PROVIDES 634 KCALS, 25 G PROTEIN. MONITOR PO INTAKE CLOSELY.
[2021-06-12 16:00] VITALS: BP 118/71; PULSE 82; RESP 18; TEMP 37.1; O2SAT 98
[2021-06-12 16:27] LABS: Glucose, Whole Blood 111 mg/dL (60-115)
[2021-06-12 19:32] VITALS: BP 126/60; PULSE 80; RESP 18; TEMP 36.8; O2SAT 98
[2021-06-12 19:38] LABS: Glucose, Whole Blood 127 mg/dL (60-115)
[2021-06-12] MEDS: Enoxaparin Sodium 40 MG/0.4 ML SYRINGE SUBCUT (20:18)
[2021-06-12] MEDS: Atorvastatin Calcium 20 MG TABLET PO (20:19)
[2021-06-12 23:15] VITALS: BP 119/53; PULSE 79; RESP 18; TEMP 37.2; O2SAT 98
[2021-06-13] MEDS: Acetaminophen 325 MG TABLET 650 MG PO (00:42)
[2021-06-13 04:00] VITALS: BP 129/60; PULSE 74; RESP 18; TEMP 36.8; O2SAT 96
[2021-06-13 07:22] LABS: Glucose, Whole Blood 93 mg/dL (60-115)
[2021-06-13 07:28] VITALS: BP 137/67; PULSE 79; RESP 17; TEMP 37.2; O2SAT 98
[2021-06-13] MEDS: levoFLOXacin 500 MG TABLET PO (09:41)
[2021-06-13] MEDS: Metoprolol Succinate ER 25 MG TAB.ER.24H 75 MG PO ×2 (09:41→20:23)
[2021-06-13] MEDS: Tolterodine Tartrate LA 4 MG CAP.ER.24H PO ×2 (09:41→20:26)
[2021-06-13] MEDS: SITagliptin Phosphate 50 MG TABLET PO (09:41)
[2021-06-13] MEDS: Linezolid 600 MG TABLET PO ×2 (09:41→20:23)
[2021-06-13] MEDS: 0.9 % Sodium Chloride Flush 3 ML SYRINGE IVFLUSH ×2 (09:42→16:46)
--- NOTE | 2021-06-13 10:31 | P.PNIM_ITS ---
Subjective Subjective Date of Service: 06/13/21 Interval History: No acute events overnight, participating with physical therapy. Review of Systems Review of Systems: Yes all other systems are reviewed and are negative Physical Exam Verdana 4l Vital Signs: Verdana 4d Verdana 4d Vital Signs: Verdana 4d Verdana 4Bd Last Vital Signs Verdana 4d Debug Technician New 4d Debug Technician New 4d Temp 98.9 F 06/13/21 07:28 Debug Technician New 4d Pulse 79 06/13/21 07:28 Debug Technician New 4d Resp 17 06/13/21 07:28 BP 137/67 06/13/21 07:28 Pulse Ox 98 06/13/21 07:28 BMI result Body Mass Index 21.9 Const: Other: Gen:? awake alert in no acute distre ss Dry scab right nostril improving Neck: supple, no J VD, R-sided port L ungs: clear to aus cultation bilatera lly Heart: regular rate and rhythm, no murmurs Abd: so ft, non-tender, jace wel sounds audible , non-distended Ex t: no edema Skin:? large wound medial R foot with eryth reynaldo covered with g ranulation, no beatriz inage, L foot with multiple toe ampu tations, calluses on plantar surface , small dry scab b elow right nostril Neuro: alert and oriented x3 Psych: appropriate affec t Objective Data Active Medications Acetaminophen (Acetaminophen 325 Mg Tablet) 650 mg PO Q6H PRN PRN Reason: Pain, Mild (Pain Scale 1-3) Last Admin: 06/13/21 00:42 Dose: 650 mg Documented by: YOHAN Atorvastatin Calcium (Atorvastatin Calcium 20 Mg Tablet) 20 mg PO BEDTIME [facility] Last Admin: 06/12/21 20:19 Dose: 20 mg Documented by: MARY JANE Benzocaine (Throat Lozenge, Medicated Lozenge) 1 lozenge MUCOUS MEM Q2H PRN PRN Reason: Sore Throat Last Admin: 06/10/21 21:26 Dose: 1 lozenge Documented by: LAZARA Dextrose (Dextrose 50 % 25 Gm/50 Ml Vial) 25 gm IVPUSH Q15M PRN; Protocol PRN Reason: per Hypoglycemia Standing Ord. Enoxaparin Sodium (Enoxaparin Sodium 40 Mg/0.4 Ml Syringe) 40 mg SUBCUT Q24H [facility] Last Admin: 06/12/21 20:18 Dose: 40 mg Documented by: MARY JANE Glucose (Glucose Gel 15 Gm Gel..Gram.) 15 gm PO Q15M PRN; Protocol PRN Reason: per Hypoglycemia Standing Ord. Guaifenesin/Dextromethorphan (Guaifenesin Dm 100/10/5 Ml 5 Ml Syrup) 5 ml PO Q4H PRN PRN Reason: cofgh Last Admin: 06/03/21 18:44 Dose: 5 ml Documented by: LILY Insulin Human Lispro (Insulin Lispro 100 Unit/Ml 3 Ml Vial) 0 unit SUBCUT QIDACHS [facility]; Protocol Last Admin: 06/13/21 07:35 Dose: Not Given Documented by: KATHRYN Non-Admin Reason: No Insulin Coverage Levofloxacin (Levofloxacin 500 Mg Tablet) 500 mg PO Q24H [facility] Last Admin: 06/13/21 09:41 Dose: 500 mg Documented by: KRYSTYNA Linezolid (Linezolid 600 Mg Tablet) 600 mg PO Q12H [facility] Last Admin: 06/13/21 09:41 Dose: 600 mg Documented by: KRYSTYNA Metoprolol Succinate (Metoprolol Succinate Er 25 Mg Tab.Er.24h) 75 mg PO BID [facility]; Protocol Last Admin: 06/13/21 09:41 Dose: 75 mg Documented by: KRYSTYNA Ondansetron HCl (Ondansetron Hcl 4 Mg/2 Ml Vial) 4 mg IVPUSH Q8H PRN PRN Reason: Nausea and Vomiting Pharmacy Consult (Consult Rx Perform Med Rec) 1 each MISCELLANE ONCE PRN PRN Reason: Consult order Sitagliptin Phosphate (Sitagliptin Phosphate 50 Mg Tablet) 50 mg PO DAILY [facility] Last Admin: 06/13/21 09:41 Dose: 50 mg Documented by: KRYSTYNA Sodium Chloride (0.9 % Sodium Chloride Flush 3 Ml Syringe) 3 ml IVFLUSH QSHIFT [facility] Last Admin: 06/13/21 09:42 Dose: 3 ml Documented by: KRYSTYNA Tolterodine Tartrate (Tolterodine Tartrate La 4 Mg Cap.Er.24h) 4 mg PO BID [facility] Last Admin: 06/13/21 09:41 Dose: 4 mg Documented by: KRYSTYNA Labs CBC & Chem 7: 06/10/21 06:35 06/10/21 06:35 Labs: Laboratory Results - last 24 hr 06/12/21 06/12/21 06/12/21 10:35 16:04 19:34 POC Glucose 109 111 127 H 06/13/21 07:15 POC Glucose 93 Assessment and Plan (1) PAD (peripheral artery disease): Status: Acute (2) Osteomyelitis: Status: Acute (3) Vancomycin adverse reaction: Status: Acute (4) Diabetic foot ulcer: Status: Acute Plan 85yo F with HTN, HLD, DM2, lung CA on immunotherapy, hx MSSA bacteremia associated with diabetic foot ulcer admitted with sepsis from R foot osteomyelitis, developed Covid-19 infection in the hospital , tested positive 06/04/21 # breakthrough Covid-19 infection - not hypoxic, high risk for severe disease, so given 3-day course of remdesivir, remains clinically stable - continue supportive care # sepsis due to right foot cellulitis/diabetic foot wound and osteomyelitis R foot - sepsis resolved, leukocytosis resolved - BCx x2 negative - wound Cx grew Enterobacter cloacae resistant to cefazolin + Enterococcus faecalis - continue linezolid + levofloxacin d#, PO antibiotics as per ID - per discussion with pt's oncologist and vascular surgeon, poor prognosis given metastatic CA to liver, medical management recommended - port accessed and OK - wound care with alginate then cover with Kerlix, change daily ? 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 metoprolol 75mg bid [at home takes metoprolol 100 b.i.d. and ramipril 10 mg daily]; # DM2 - blood sugar stable, continue correction-dose insulin lispro, and Januvia 50 mg daily # diarrhea - resolved, Cdiff PCR negative # VTE ppx - LMWH # dispo - repeat COVID-19 positive on 06/10 , will repeat COVID test if negative arrangement will be made to transfer to nursing facility Being followed by Physical therapy they continue to recommend short-term. Quality Stroke Does the patient have a stroke diagnosis?: No VTE Prior VTE?: No VTE Risk Level:: Medical - moderate - high VTE Device Contraindication: N/A - Device Ordered VTE Drug Contraindication: N/A - Med Ordered
[2021-06-13 11:11] VITALS: BP 117/64; PULSE 78; RESP 16; TEMP 36.9; O2SAT 99
[2021-06-13 11:13] LABS: Glucose, Whole Blood 100 mg/dL (60-115)
[2021-06-13 14:42] LABS: IDNOW Serial# 9DD0AD1C
[2021-06-13 14:43] LABS: COVID-19 Test Negative (Negative)
[2021-06-13 15:36] VITALS: BP 130/60; PULSE 88; RESP 15; TEMP 37.1; O2SAT 96
[2021-06-13 16:40] LABS: Glucose, Whole Blood 92 mg/dL (60-115)
[2021-06-13] MEDS: ondansetron HCL 4 MG/2 ML VIAL IVPUSH (16:45)
[2021-06-13 19:33] VITALS: BP 128/62; PULSE 83; RESP 15; TEMP 36.6; O2SAT 96
[2021-06-13] MEDS: Atorvastatin Calcium 20 MG TABLET PO (20:23)
[2021-06-13] MEDS: Enoxaparin Sodium 40 MG/0.4 ML SYRINGE SUBCUT (20:23)
[2021-06-13 21:04] LABS: Glucose, Whole Blood 97 mg/dL (60-115)
[2021-06-13 23:34] VITALS: BP 113/61; PULSE 82; RESP 18; TEMP 37.6; O2SAT 94
[2021-06-14 03:53] VITALS: BP 118/59; PULSE 81; RESP 18; TEMP 36.9; O2SAT 95
[2021-06-14 07:36] LABS: Glucose, Whole Blood 96 mg/dL (60-115)
[2021-06-14 07:43] VITALS: BP 124/68; PULSE 76; RESP 17; TEMP 36.6; O2SAT 97
[2021-06-14] MEDS: Tolterodine Tartrate LA 4 MG CAP.ER.24H PO (09:52)
[2021-06-14] MEDS: SITagliptin Phosphate 50 MG TABLET PO (09:52)
[2021-06-14] MEDS: Linezolid 600 MG TABLET PO (09:54)
[2021-06-14] MEDS: levoFLOXacin 500 MG TABLET PO (09:54)
[2021-06-14] MEDS: Metoprolol Succinate ER 25 MG TAB.ER.24H 75 MG PO (09:54)
--- NOTE | 2021-06-14 10:17 | MHC.CM.PN ---
Addendum entered by Maureen Mckinley 06/14/21 15:55: [facility] does not have a bed available. [facility] was offered, Pt declined. A bed was offered by [facility]. The Pt has accepted the bed. Patient was able to discharge a day early r/t a negative covid test result obtained 06/13/21. Discharge information has been sent to the facility. Patient will discharge at 5pm today via BLS. Original Note: Patient is covid recovered after today. [facility] has been following for recovery. They will accept the patient tomorrow 06/15/21. An AM transport has been requested. Patient will transport via BLS.
[2021-06-14 11:05] LABS: Glucose, Whole Blood 127 mg/dL (60-115)
[2021-06-14 11:07] VITALS: BP 113/53; PULSE 86; RESP 18; TEMP 37.2; O2SAT 97
[2021-06-14 13:47] VITALS: BP 113/53; PULSE 86; O2SAT 97
--- NOTE | 2021-06-14 14:31 | P.PNIM_ITS ---
Subjective Subjective Date of Service: 06/14/21 Interval History: no acute complaints this morning, trying to work with physical therapy complaining of discomfort right foot. No overnight acute issues with nausea, vomiting, or diarrhea, no fevers, no chills, tolerating diet. Review of Systems Review of Systems: Yes all other systems are reviewed and are negative Physical Exam Verdana 4l Vital Signs: Verdana 4d Verdana 4d Vital Signs: Verdana 4d Verdana 4Bd Last Vital Signs Verdana 4d Electronic News Gathering Editor New 4d Electronic News Gathering Editor New 4d Temp 99.0 F 06/14/21 11:07 Electronic News Gathering Editor New 4d Pulse 86 06/14/21 13:47 Electronic News Gathering Editor New 4d Resp 18 06/14/21 11:07 BP 113/53 L 06/14/21 13:47 Pulse Ox 97 06/14/21 13:47 BMI result Body Mass Index 21.9 Const: Other: Gen:? awake alert in no acute distress Dry scab right nostril improving Neck: supple, no JVD, R-sided port Lungs: clear to auscultation bilaterally Heart: regular rate and rhythm, no murmurs Abd: soft, non-tender, bowel sounds audible, non-distended Ext: no edema Skin:?large wound medial R foot with erythema covered with granulation, no drainage, L foot with multiple toe amputations, calluses on plantar surface, small dry scab below right nostril Neuro: alert and oriented x3 Psych: appropriate affect Objective Data Active Medications Acetaminophen (Acetaminophen 325 Mg Tablet) 650 mg PO Q6H PRN PRN Reason: Pain, Mild (Pain Scale 1-3) Last Admin: 06/13/21 00:42 Dose: 650 mg Documented by: YOHAN Atorvastatin Calcium (Atorvastatin Calcium 20 Mg Tablet) 20 mg PO BEDTIME ROWAN Last Admin: 06/13/21 20:23 Dose: 20 mg Documented by: AMADO Benzocaine (Throat Lozenge, Medicated Lozenge) 1 lozenge MUCOUS MEM Q2H PRN PRN Reason: Sore Throat Last Admin: 06/10/21 21:26 Dose: 1 lozenge Documented by: LAZARA Dextrose (Dextrose 50 % 25 Gm/50 Ml Vial) 25 gm IVPUSH Q15M PRN; Protocol PRN Reason: per Hypoglycemia Standing Ord. Enoxaparin Sodium (Enoxaparin Sodium 40 Mg/0.4 Ml Syringe) 40 mg SUBCUT Q24H [facility] Last Admin: 06/13/21 20:23 Dose: 40 mg Documented by: AMADO Glucose (Glucose Gel 15 Gm Gel..Gram.) 15 gm PO Q15M PRN; Protocol PRN Reason: per Hypoglycemia Standing Ord. Guaifenesin/Dextromethorphan (Guaifenesin Dm 100/10/5 Ml 5 Ml Syrup) 5 ml PO Q4 H PRN PRN Reason: cofgh Last Admin: 06/03/21 18:44 Dose: 5 ml Documented by: LILY Insulin Human Lispro (Insulin Lispro 100 Unit/Ml 3 Ml Vial) 0 unit SUBCUT QIDACHS [facility]; Protocol Last Admin: 06/14/21 11:30 Dose: Not Given Documented by: ESTUARDO Non-Admin Reason: No Insulin Coverage Levofloxacin (Levofloxacin 500 Mg Tablet) 500 mg PO Q24H [facility] Last Admin: 06/14/21 09:54 Dose: 500 mg Documented by: ESTUARDO Linezolid (Linezolid 600 Mg Tablet) 600 mg PO Q12H [facility] Last Admin: 06/14/21 09:54 Dose: 600 mg Documented by: ESTUARDO Metoprolol Succinate (Metoprolol Succinate Er 25 Mg Tab.Er.24h) 75 mg PO BID [facility]; Protocol Last Admin: 06/14/21 09:54 Dose: 75 mg Documented by: ESTUARDO Ondansetron HCl (Ondansetron Hcl 4 Mg/2 Ml Vial) 4 mg IVPUSH Q8H PRN PRN Reason: Nausea and Vomiting Last Admin: 06/13/21 16:45 Dose: 4 mg Documented by: TOBIAS Pharmacy Consult (Consult Rx Perform Med Rec) 1 each MISCELLANE ONCE PRN PRN Reason: Consult order Sitagliptin Phosphate (Sitagliptin Phosphate 50 Mg Tablet) 50 mg PO DAILY [facility] Last Admin: 06/14/21 09:52 Dose: 50 mg Documented by: ESTUARDO Sodium Chloride (0.9 % Sodium Chloride Flush 3 Ml Syringe) 3 ml IVFLUSH QSHIFT [facility] Last Admin: 06/14/21 09:52 Dose: Not Given Documented by: ESTUARDO Non-Admin Reason: port only Tolterodine Tartrate (Tolterodine Tartrate La 4 Mg Cap.Er.24h) 4 mg PO BID [facility] Last Admin: 06/14/21 09:52 Dose: 4 mg Documented by: ESTUARDO Labs CBC & Chem 7: 06/10/21 06:35 06/10/21 06:35 Labs: Laboratory Results - last 24 hr 06/13/21 06/13/21 06/13/21 13:51 16:32 20:57 POC Glucose 92 97 COVID-19 ([facility]ADY) Negative COVID-19 Clin Com See Note 06/14/21 06/14/21 07:27 10:58 POC Glucose 96 127 H COVID-19 (FADY) COVID-19 Clin Com Assessment and Plan (1) PAD (peripheral artery disease): Status: Acute (2) Osteomyelitis: Status: Acute (3) Vancomycin adverse reaction: Status: Acute (4) Diabetic foot ulcer: Status: Acute Plan 85yo F with HTN, HLD, DM2, lung CA on immunotherapy, hx MSSA bacteremia associated with diabetic foot ulcer admitted with sepsis from R foot osteomyelitis, developed Covid-19 infection in the hospital , tested positive 06/04/21 # breakthrough Covid-19 infection, Remained asymptomatic with no hypoxia, due to high risk for severe disease received 3 days of remdesivir, continue supportive care repeat COVID test negative June 13 # sepsis due to right foot cellulitis/diabetic foot wound and osteomyelitis R foot - sepsis resolved, leukocytosis resolved, BCx x2 negative - wound Cx grew Enterobacter cloacae resistant to cefazolin + Enterococcus faecalis - continue linezolid + levofloxacin d#, PO antibiotics as per ID - per discussion with pt's oncologist and vascular surgeon, poor prognosis given metastatic CA to liver, medical management recommended - port accessed and flushing fine - wound care with alginate then cover with Kerlix, change daily ? 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 metoprolol 75mg bid [at home takes metoprolol 100 b.i.d. and ramipril 10 mg daily]; # DM2 - blood sugar stable, continue correction-dose insulin lispro, and Januvia 50 mg daily # diarrhea - resolved, Cdiff PCR negative # VTE ppx - LMWH # dispo - repeat COVID-19 positive on 06/13 , Being followed by Physical therapy they continue to recommend short-term. Quality Stroke Does the patient have a stroke diagnosis?: No VTE Prior VTE?: No VTE Risk Level:: Medical - moderate - high VTE Device Contraindication: N/A - Device Ordered VTE Drug Contraindication: N/A - Med Ordered
--- NOTE | 2021-06-14 14:36 | MHC.CLN ---
F/U PO INTAKE CONTINUES GOOD. DIET=DIABETIC 2000 KCAL-APPROPRIATE. SKIN: STAGE I BILATERAL BUTTOCKS; RIGHT FOOT DIABETIC ULCER. RECEIVING GLUCERNA BID AND AMARIS BID TO PROMOTE WOUND HEALING. PROVIDES 634 KCALS, 25 G PROTEIN. MONITOR SKIN AND PO INTAKE CLOSELY.
[2021-06-14 16:00] VITALS: BP 125/60; PULSE 82; RESP 18; TEMP 36.9; O2SAT 96
--- NOTE | 2021-06-14 16:15 | P.DS_ITS ---
DS: Providers Provider Date of Service: 06/14/21 Date of admission: 05/29/21 18:11 Primary care physician: Pelon Haddad MD Consults: 05/29/21 18:01 Consult to Infectious Diseases Routine Consulting Provider: Shagufta Dejesus Reason for consultation: DM osteomyelitis 05/29/21 18:06 Consult to Vascular Surgery Routine Consulting Provider: Feliciano Cruz Reason for consultation: R foot osteo 06/03/21 08:32 Consult to Wound Care Routine Consulting Provider: [facility] Wound Care Management Reason for consultation: nonhealing R foot ulcer with exposed bone, treating medically 06/13/21 08:07 Consult to Infectious Diseases Routine Consulting Provider: Shagufta Dejesus Reason for consultation: osteo DS: Diagnosis Discharge Diagnosis (1) PAD (peripheral artery disease): Status: Acute (2) Osteomyelitis: Status: Acute (3) Vancomycin adverse reaction: Status: Acute (4) Diabetic foot ulcer: Status: Acute DS: Summary Hospital Course Hospital Course: Chief Complaint: foot wound/infection 85yo F with DM2 with foot ulcer, hx osteomyelitis + MSSA bacteremia, HTN, HLD, lung CA metastasized to liver on immunotherapy who was sent in from the [facility] due to an open wound to the R foot with exposed bone that had developed over the past year.? She has taken amoxicillin-clavaulanate for the last few weeks with ho improvement.? The wound is not really painful unless it is probed.? She has a history of anaphylactoid reaction to vancomycin.? She endorses chills.? She denies fever, nausea, vomiting, cough, or chest pain.? She was tachypneic and had leukocytosis, thereby meeting sepsis criteria. ? Lactate is 1.6. X-ray of the R foot shows erosive changes concerning for early osteomyelitis. She was given piperacillin-tazobactam and doxycycline. 85yo F with HTN, HLD, DM2, lung CA on immunotherapy, hx MSSA bacteremia associated with diabetic foot ulcer admitted with sepsis from R foot osteomyelitis, developed Covid-19 infection in the hospital , tested positive 06/04/21 repeat COVID test June 13 is negative. # breakthrough Covid-19 infection not hypoxic, due to high risk for severe disease,given 3-day course of remdesivir, remains clinically stable # sepsis due to right foot cellulitis/diabetic foot wound and osteomyelitis R foot patient blood culture showed no growth, wound Cx grew Enterobacter cloacae resistant to cefazolin + Enterococcus faecalis Patient initially treated with IV antibiotic later transitioned to by mouth linezolid + levofloxacin d# will need 27 more days of antibiotic, due to poor prognosis related to metastatic cancer to liver it was decided to treat patient conservatively with antibiotics , continue wound care with alginate then cover with Kerlix, change daily, patient noted to have bout of diarrhea now resolved C diff PCR was negative. ? 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 metoprolol 75mg bid , home medication metoprolol 100 b.i.d. and ramipril 10 mg daily were discontinued. # DM2 blood sugar stable, continue Januvia 50 mg daily Time Spent with Patient Time attestation: Total time spent providing and/or coordinating discharge services: Discharge coordination time: Greater than 30 minutes Quality: Stroke Does the patient have a stroke diagnosis?: No Physical Exam Verdana 4l Vital Signs: Verdana 4d Verdana 4d Vital Signs: Verdana 4d Verdana 4Bd Last Vital Signs Verdana 4d Anesthesia Assistant New 4d Anesthesia Assistant New 4d Temp 98.8 F 06/13/21 15:36 Anesthesia Assistant New 4d Pulse 88 06/13/21 15:36 Anesthesia Assistant New 4d Resp 15 06/13/21 15:36 BP 130/60 06/13/21 15:36 Pulse Ox 96 06/13/21 15:36 BMI result Body Mass Index 21.9 Const: Other: Gen:? awake alert in no acute distress Dry scab right nostril fading Neck: supple, no JVD, R-sided port Lungs: clear to auscultation bilaterally Heart: regular rate and rhythm, no murmurs Abd: soft, non-tender, bowel sounds audible, non-distended Ext: no edema Skin:?large wound medial R foot with erythema covered with granulation, no drainage, L foot with multiple toe amputations, calluses on plantar surface Neuro: alert and oriented x3 Psych: appropriate affect DS: Data Data Completed and Pending Completed studies during hospitalization [Text1]: Procedures Insertion of Infusion Device into Superior Vena Cava, Percutaneous Approach (06/29/20) Ultrasonography of Superior Vena Cava, Guidance (06/29/20) Labs on day of discharge: Laboratory Results - last 24 hr 06/12/21 06/12/21 06/13/21 16:04 19:34 07:15 POC Glucose 111 127 H 93 COVID-19 (FADY) COVID-19 Clin Com 06/13/21 06/13/21 11:10 13:51 POC Glucose 100 COVID-19 (FADY) Negative COVID-19 Clin Com See Note Discharge Plan Discharge Patient Disposition: er [facility] Discharge Diagnosis: COVID-19 infection Sepsis due to right foot cellulitis, diabetic foot wound and osteomyelitis Metastatic adeno carcinoma of right upper lung with liver Mets Referrals: Pelon Haddad MD [Primary Care Provider] - 1 Week Discharge Medications: New linezolid 600 mg Tablet 600 mg PO Q12H Qty: 54 0RF levofloxacin 500 mg Tablet 500 mg PO Q24H Qty: 27 0RF Cepacol Sore Throat (kaden-men) 15-3.6 mg Lozenge 1 haven mucous membrane Q2H PRN (Reason: Sore Throat) Qty: 30 0RF metoprolol succinate 25 mg Tablet Extended Release 24 Hr 75 mg PO BID Qty: 60 0RF Protocol: Hold for SBP/HR < HOLD for SBP < : 90 HOLD for HR < : 60 Continued tolterodine [Detrol LA] 4 mg Capsule,Extended Release 24hr 4 mg PO BID 0RF Januvia 50 mg Tablet 50 mg PO DAILY 0RF atorvastatin 20 mg Tablet 20 mg PO BEDTIME 0RF cholecalciferol (vitamin D3) [Vitamin D3] 25 mcg (1,000 unit) Tablet 25 mcg PO DAILY 0RF melatonin 10 mg Tablet 10 mg PO BEDTIME 0RF cyanocobalamin (vitamin B-12) 2,000 mcg Tablet 2,000 mcg PO DAILY 0RF Discontinued metoprolol succinate 100 mg Tablet Extended Release 24 Hr 100 mg PO BID 0RF ramipril 10 mg Capsule 10 mg PO DAILY 0RF cephalexin 500 mg capsule 1 cap PO TID 0RF diphenhydramine-acetaminophen [Tylenol PM Extra Strength] 25-500 mg Tablet 1 tab PO BEDTIME 0RF Discharge Orders: Discharge Order (Routine); Ordered 06/14/21 Ordered By: Katharina Disla Diet: diabetic diet Activity on Discharge: As tolerated Stand Alone Forms: Patient Portal Discharge page Activity Restrictions/Additional Instructions: Wound care Instructions: Patient has a venous ulcer to right medial ankle-clean with normal saline then apply Triad on edges of wound then cut a piece of silver alginate and apply to wound bed cover with non woven gauze and roll gauze. Cleanse butoocks with wound cleanser then apply Triad to stage 2 pressure cores cover with foam dressing. Care Plan Goals: Right foot diabetic ulcer/osteomyelitis continue antibiotics for 27 more days as prescribed, participate with physical therapy Wound care with alginate and cover with Kerlix change daily Health Concerns: Diabetes mellitus continue Januvia, continue diabetic diet blood sugars are stable Plan of Treatment: Outpatient follow-up with primary care physician, Oncology and wound care clinic. Assessment: Per discharge summary Discharge Date/Time: 06/14/21 19:56
[2021-06-14 16:31] LABS: Influenza A PCR NEGATIVE (Negative); Influenza B PCR NEGATIVE (Negative); Resp Syncy Virus RNA Qual PCR NEGATIVE (Negative); SARS COV2 PCR INHOUSE NEGATIVE (Negative)
[2021-06-14] MEDS: 0.9 % Sodium Chloride Flush 3 ML SYRINGE IVFLUSH (16:56)
[2021-06-14 16:59] LABS: Glucose, Whole Blood 91 mg/dL (60-115)
[2021-06-14] MEDS: Enoxaparin Sodium 40 MG/0.4 ML SYRINGE SUBCUT (19:04)
[2021-06-14] MEDS: Heparin Sodium,Porcine Flush 50 UNITS/5 ML SYRINGE IVFLUSH (19:46)
== END 2021-06-14 19:56 | disposition skilled nursing facility (03) | DRG 871 ==
LOC: HO.ED 17:58 → HO.EDOVER 18:22 → HO.S3 05-30 13:48 → HO.IMC 06-04 14:01
PROVIDERS: Physician Assistant; Admitting Provider Family Medicine; Emergency Provider Emergency Medicine; PCP Internal Medicine; Visit Provider Hospitalist
DX: A41.9 Sepsis, unspecified organism (principal); U07.1 COVID-19; C78.7 Secondary malignant neoplasm of liver and intrahepatic bile duct; C34.11 Malignant neoplasm of upper lobe, right bronchus or lung; L03.115 Cellulitis of right lower limb; M86.9 Osteomyelitis, unspecified; E11.51 Type 2 diabetes mellitus with diabetic peripheral angiopathy without gangrene; D64.9 Anemia, unspecified; M19.071 Primary osteoarthritis, right ankle and foot; E78.5 Hyperlipidemia, unspecified; E11.621 Type 2 diabetes mellitus with foot ulcer; B95.2 Enterococcus as the cause of diseases classified elsewhere; L97.519 Non-pressure chronic ulcer of other part of right foot with unspecified severity; T36.8X5A Adverse effect of other systemic antibiotics, initial encounter; E11.69 Type 2 diabetes mellitus with other specified complication; Z79.899 Other long term (current) drug therapy
CPT/HCPCS: 0241U; 36415; 71045; 73630; 73720; 80048; 80053; 82728; 82947; 83605; 83615; 83735; 85025; 85027; 85379; 85652; 86140; 87040; 87493; 87635; 93005; 93925; 96361; 96365; 96375; 97110; 97116; 97162; 97530; 99285; A9585; J0248; J1642; J1650; J1956; J2020; J2405; J2543

== ENCOUNTER 2021-07-03 10:56 | Inpatient (IN) | payer MEDICARE, SELFPAY ==
[2021-07-03] VITALS (9 sets, daily range): BP systolic 109–132; BP diastolic 38–68; PULSE 62–78; RESP 10–20; TEMP 35.5–36.7; O2SAT 99–100; BMI 23.1; BMI 22.4
--- NOTE | ~2021-07-03 | XR_ITS ---
EXAMINATION: XR CHEST CLINICAL INFORMATION: Weakness COMPARISON: Previous chest CT most recent May 2021 TECHNIQUE: Frontal view of the chest was obtained. FINDINGS: The cardiac and mediastinal contours are stable. Right upper lobe mass appears unchanged. There is airspace disease seen in the left lung base suggestive of pneumonia. This does not appear appreciably changed from most recent exam 06/04/2021. The lungs are otherwise clear. There is no pleural effusion. There is a right jugular port with tip projecting over the SVC. There are degenerative changes of the spine and right shoulder. XR/XR chest 1V IMPRESSION: Right upper lobe mass. Left lower lobe pneumonia. Findings are similar to most recent chest x-ray 06/04/2021.
--- NOTE | 2021-07-03 11:26 | ECG_ITS ---
Test Reason : ANEMIA Blood Pressure : / mmHG Vent. Rate : 067 BPM Atrial Rate : 067 BPM P-R Int : 152 ms QRS Dur : 074 ms QT Int : 388 ms P-R-T Axes : 056 016 044 degrees QTc Int : 409 ms Normal sinus rhythm Low voltage QRS Borderline ECG When compared with ECG of 29-MAY-2021 16:30, Criteria for Septal infarct are no longer Present Referred By: Asuncion Donovan Electronically Signed By:NORA ASH MD
--- NOTE | 2021-07-03 12:34 | PC.NURSE ---
peripheral IV and port-a-cath placed at this time. unable to obtain blood from peripheral IV, blood flows too slow to avoid hemolysis. X1 of BC obtained from port access. unable to obtain 2nd set of blood cultures. patient in no obvious distress at this time. denies any needs
[2021-07-03 12:41] LABS: Basophils Percent Auto 0.6 % (0-2); Eosinophils Absolute Auto 0.3 X10*3/uL (0.0-0.4); Eosinophils Percent Auto 4.7 % (0-4); Imm Gran Abs Auto 0.04 X10*3/uL (0.00-0.03); Imm Gran Pct Auto 0.6 % (0.0-0.4); Lymphocytes Absolute Auto 1.4 X10*3/uL (1.2-4.9); Lymphocytes Percent Auto 21.5 % (20-40); MANUAL DIFF FLAG SCAN; Mean Corpuscular HGB Conc 32.4 g/dl (31.0-35.0); Mean Corpuscular Volume 86.4 fL (80.0-98.0); Mean Platelet Volume 11.7 fL (9.4-12.3); Monocytes Absolute Auto 0.2 X10*3/uL (0.1-1.2); Neutrophils Absolute Auto 4.5 x10*3/uL (2.0-8.3); Neutrophils Percent Auto 69.6 % (45-73); OBS Int Ctl Valid YES; OBS1 NEGATIVE (NEGATIVE); Red Blood Count 2.36 X10*6/uL (4.20-5.50); Red Cell Distribution Width 15.6 % (11.0-16.0); SCAN SMEAR FLAG 1; White Blood Count 6.4 X10*3/uL (4.8-10.8)
[2021-07-03 12:43] LABS: Platelet Count 79 X10*3/uL (160-400)
[2021-07-03 12:44] LABS: Hematocrit 20.4 % (37.0-47.0); Hemoglobin 6.6 g/dl (12.0-16.0)
[2021-07-03 12:53] LABS: COVID-19 Test Negative (Negative)
[2021-07-03 13:02] LABS: Alanine Aminotransferase < 6 U/L (0-31); Albumin Level 2.9 g/dL (3.5-5.0); Alkaline Phosphatase 66 U/L (39-117); Anion Gap 17 (12-20); Aspartate Amino Transferase 7 U/L (5-31); Blood Urea Nitrogen 28 mg/dL (9-16); Calcium 8.5 mg/dL (8.4-10.2); Carbon Dioxide 20 mmol/L (22-29); Chloride 101 mmol/L (96-108); Creatinine Clr Calc Pharmacy 30.3; Estimated Glomerular Filt Rate 45; Glucose Random 105 mg/dL (60-115); Magnesium 1.7 mg/dL (1.6-2.6); Potassium 4.9 mmol/L (3.3-5.1); Sodium 133 mmol/L (135-145)
[2021-07-03 13:03] LABS: Troponin-I High Sensitivity < 3.5 ng/L (<3.5-17.0)
[2021-07-03 13:04] LABS: Lactic Acid 7.4 mmol/L (0.5-2.0)
[2021-07-03 13:08] LABS: Bilirubin Total 0.3 mg/dL (0.0-1.0)
--- NOTE | 2021-07-03 13:10 | ED_ITS ---
HPI - Recheck/Abnormal Lab/Rx General Chief Complaint: Recheck/Abnormal Lab/Rx Stated Complaint: ABNORMAL LABS PER SNF Time Seen by Provider: 07/03/21 11:25 Source: patient and old records reviewed Mode of arrival: EMS Limitations: no limitations History of Present Illness HPI narrative: Patient is an 85-year-old female with a past medical history of hypertension, hyperlipidemia, type 2 diabetes, PAD, chronic normocytic anemia, lung CA on immunotherapy pembrolizumab with liver metastasis followed by Dr. Youssef at [facility], history MSSA bacteremia associated with diabetic foot ulcer, recent COVID-19 infection. She was transferred from [facility]. They report that she has been having increasing dizziness and weakness over the past 3 days. Her hemoglobin and hematocrit have been trending downward insert with hemoglobin 6.3 and hematocrit 19.2 today. She has no obvious source of active bleeding, denies bleeding of the gums, unexplained bruising, bloody or dark emesis, bloody or dark stools, hematuria. she denies fevers, chills, headache, neck pain, chest pain, shortness of breath, difficulty breathing, palpitations, nausea, vomiting, diarrhea, abdominal pain. She has cur rent osteomyelitis of the right foot secondary to a diabetic ulcer, wound care currently consists of calcium alginate and cover with Kerlix and dressing changes daily. Patient was admitted to [facility] 05/29/2021 and discharged on 06/14/2021 with resolved sepsis due to right foot cellulitis / diabetic holster and osteomyelitis, resolved leukocytosis and negative blood cultures. She was discharged with levofloxacin and Linezolid as advised by Infectious Disease. at the time of her admission her hematocrit had been dropping which was believed to be likely dilutional due to infection and hematocrit remained stable. MD complaint: abnormal lab Initial visit (ago): day(s) Associated symptoms: malaise and other ( dizziness, weakness) Related Data Home Medications Medication Instructions Recorded Confirmed sitagliptin 50 mg tablet (Januvia) 50 mg PO DAILY 06/29/20 07/03/21 tolterodine 4 mg capsule,extended 4 mg PO DAILY 06/29/20 07/03/21 release 24 hr (Detrol LA) atorvastatin 20 mg tablet 20 mg PO BEDTIME 08/30/20 07/03/21 cholecalciferol (vitamin D3) 25 25 mcg PO DAILY 08/30/20 07/03/21 mcg (1,000 unit) tablet (Vitamin D3) cyanocobalamin (vitamin B-12) 2,000 mcg PO DAILY 05/29/21 07/03/21 2,000 mcg tablet melatonin 10 mg tablet 10 mg PO BEDTIME 05/29/21 07/03/21 diclofenac sodium 1 % topical gel 4 g TOPICAL TID 07/03/21 07/03/21 guaifenesin 100 mg/5 mL oral liquid 100 mg PO Q4H PRN 07/03/21 07/03/21 mirtazapine 15 mg tablet (Remeron) 15 mg PO BEDTIME 07/03/21 07/03/21 ondansetron HCl 4 mg tablet 4 mg PO DAILY 07/03/21 07/03/21 ondansetron HCl 4 mg tablet 4 mg PO Q6H PRN 07/03/21 07/03/21 Previous Rx's Medication Instructions Recorded benzocaine 15 mg-menthol 3.6 mg 1 haven MUCOUS MEMBRANE Q2H PRN #30 06/13/21 lozenges (Cepacol Sore Throat ea (benzocaine-menthol)) levofloxacin 500 mg tablet 500 mg PO Q24H #27 tab 06/13/21 linezolid 600 mg tablet 600 mg PO Q12H #54 tab 06/13/21 metoprolol succinate 25 mg 75 mg PO BID #60 tab 06/13/21 tablet,extended release 24 hr Allergies Allergy/AdvReac Type Severity Reaction Status Date / Time vancomycin Allergy Severe Difficulty Verified 07/03/21 11:21 Breathing PLASTIC TAPE Allergy Intermediate RED RAW Uncoded 07/01/21 11:09 SKIN Review of Systems Review of Systems: Constitutional: + weakness and fatigue. No fever, chills. HEENT: No visual loss, blurred vision, double vision. No sneezing, congestion, runny nose or sore throat. Skin: No rash or itching. Cardiovascular: No chest pain, chest pressure or chest discomfort. No palpitations or pedal edema. Respiratory: No shortness of breath, cough or sputum production. Gastrointestinal: No anorexia, nausea, vomiting or diarrhea. No abdominal pain or bloody/ dark stool. Genitourinary: No burning micturition. No urinary frequency or incontinence. Neurologic: + dizziness. No headache, syncope, unilateral weakness, numbness or tingling in the extremities. Musculoskeletal: No muscle pain, back pain, joint pain or stiffness. Hematologic: No bleeding or bruising. Lymphatics: No enlarged lymph nodes. Yes all other systems are reviewed and are negative ON LICENSE OF [facility] Past Medical History Attestation statement: The following information was validated with the patient. Source: old records reviewed Medical History Amputated toe of left foot Anaphylactoid reaction Cataracts, both eyes Cellulitis Diabetes Falls Femur fracture, left Hx of osteomyelitis Hypercholesteremia Hypertension Leukocytosis Lung cancer Lung cancer MSSA bacteremia PAD (peripheral artery disease) Toe amputee Vancomycin adverse reaction Surgical History H/O umbilical hernia repair Social History Social History Household Members: None Housing: Condominium Do you presently have visiting nurse or other home services: Yes Alcohol intake: never Patient Tobacco Use Status: Former Tobacco user Use of substances other than those prescribed or required for medical reasons: No Advance Directives: Yes Advance Directives on File: Yes Advance Directives Date on File: 07/17/20 service: Yes Current occupational status: retired Physical Exam Vital Signs: Vital Signs: Last Vital Signs Temp 96 F L 07/03/21 15:56 Pulse 68 07/03/21 15:56 Resp 12 07/03/21 15:56 BP 125/48 L 07/03/21 15:56 Pulse Ox 100 07/03/21 14:29 BMI result Body Mass Index 23.1 Appearance: Alert.?Oriented to person, place and time. No acute distress.?Normal affect. Eyes: Pupils equal, round and reactive to light.? ENT: Pharynx normal.?? Neck: Normal inspection.? Neck supple.?? CVS: Heart sounds normal. Normal heart rate and rhythm.? Pulses normal.??No JVD. right anterior chest port Respiratory: No respiratory distress.? Lung sounds clear to auscultation bilaterally?? Abdomen: Soft and non-tender. Normoactive bowel sounds. No pulsatile mass.?? Skin: diabetic ulcer to right medial foot 3cm X 4.5cm with surrounding erythema to wound edges, right foot has obvious deformity and decreased sensation. Skin warm and dry.? Skin pale.? Normal skin turgor.?? Extremities: No lower extremity edema.? No calf ttp? Neuro: Moves all extremities spontaneously. Sensation intact bilaterally. CN II- XII intact. No focal neuro deficits. Course Course Course Narrative: Patient is an 85-year-old female on immunotherapy for lung CA [facility] with concerns of weakness, dizziness, worsening anemia. Currently being treated for osteomyelitis with oral Levaquin and oral Linezolid after recent hospital admission for sepsis secondary to osteomyelitis from right foot diabetic ulcer. Will obtain CBC to evaluate for leukocytosis/ worsening anemia and type and screen as she will require blood transfusion, patient consented for blood transfusion advised of potential risks and complications, patient agrees to receiving blood transfusion at this time. Will obtain CMP to evaluate for abnormal electrolytes /abnormal renal function/ abnormal hepatic/biliary function, EKG and troponin to evaluate for ischemia/ACS, occult blood stool specimen, Chest x-ray to evaluate for any infectious process contributing to weakness, Urinalysis to evaluate for infection. Normal saline 1 L IV fluid bolus ordered and Levaquin 750 mg IV ordered. Reevaluation(s) Reevaluation #1: Hemoglobin 6.6 hematocrit 20.4, type and screen pending at this time CMP reveals sodium mildly decreased 133, BUN slightly elevated 28 likely secondary to dehydration, creatinine is stable 1.15. Lactic acid is elevated at 7.4, at this time she has already received 1L NS, will order additional fluids; 641 mL adjusted for ideal bodyweight, necessary for 30 mL per kg fluid bolus. Occult stool negative. COVID-19 negative. I spoke with Infectious Disease Dr. Dejesus, who advised to discontinue linezolid at this time and recommends continuation of Levaquin. Chest x-ray reveals reveals a left lower lobe pneumonia consistent with prior x-ray obtained 06/04/2021, no hypoxia, tachypnea, continues to deny chest pain or shortness of breath. Time: 13:30 Reevaluation #2: I spoke with hospitalist Dr. Styles, who advised Dr. Valdez has accepted the patient for admission to hospitalist service. Suspect her significant lactic acidosis is most likely type B given presentation consistent with systemic hypoperfusion, likely secondary to liver metastasis, recent treatment with linezolid Time: 16:12 [facility] - Recheck/Abnormal Lab/Rx Medical Records Attestation: I reviewed the patient's medical records. Lab Data Attestation: I reviewed the patient's lab results. Result diagrams: 07/03/21 12:23 07/03/21 12:23 Labs: Lab Results 07/03/21 07/03/21 07/03/21 Range/Units 12: 12: 12:23 WBC 6.4 (4.8-10.8) X10*3/uL RBC 2.36 L (4.20-5.50) X10*6/uL Hgb 6.6 L* (12.0-16.0) g/dl Hct 20.4 L* (37.0-47.0) % MCV 86.4 (80.0-98.0) fL MCH 28.0 (27.0-33.0) pg MCHC 32.4 (31.0-35.0) g/dl RDW 15.6 (11.0-16.0) % Plt Count 79 L (160-400) X10*3/uL MPV 11.7 (9.4-12.3) fL Immature Gran % (Auto) 0.6 H (0.0-0.4) % Neut % (Auto) 69.6 (45-73) % Lymph % (Auto) 21.5 (20-40) % Emmons % (Auto) 3.0 (2-11) % Eos % (Auto) 4.7 H (0-4) % Baso % (Auto) 0.6 (0-2) % Lymph # (Auto) 1.4 (1.2-4.9) X10*3/uL Emmons # (Auto) 0.2 (0.1-1.2) X10*3/uL Eos # (Auto) 0.3 (0.0-0.4) X10*3/uL Baso # (Auto) 0.0 (0.0-0.2) X10*3/uL Abs Immat Gran (auto) 0.04 H (0.00-0.03) X10*3/uL Absolute Neuts (auto) 4.5 (2.0-8.3) x10*3/uL Absolute Nucleated RBC 0.000 (0.0-0.012) X10*3/uL Nucleated RBC % (auto) 0.0 (0.0-0.2) /100WBC Absolute Retic 0.005 L (0.026-0.095) X10*6/uL Percent Retic 0.2 L (0.5-1.8) % Immature Retic Fraction 1.5 L (3.0-15.9) % Retic Hgb Equivalent 31.9 (30.0-35.0) pg Sodium 133 L (135-145) mmol/L Potassium 4.9 (3.3-5.1) mmol/L Chloride 101 (96-108) mmol/L Carbon Dioxide 20 L (22-29) mmol/L Anion Gap 17 (12-20) BUN 28 H (9-16) mg/dL Creatinine 1.15 (0.5-1.4) mg/dL Estim Creat Clear Calc 30.3 Estimated GFR 45 Random Glucose 105 (60-115) mg/dL Lactic Acid 7.4 H* (0.5-2.0) mmol/L Lactic Acid F/U @ 2Hr (0.5-2.0) mmol/L Calcium 8.5 (8.4-10.2) mg/dL Magnesium 1.7 (1.6-2.6) mg/dL Iron 136 (30-160) mcg/dL TIBC < 153 L (228-428) mcg/dL % Saturation TNP Unsat Iron Binding < 17 ug/dL Ferritin 338 H (10-250) ng/mL Total Bilirubin 0.3 (0.0-1.0) mg/dL AST 7 D (5-31) U/L ALT < 6 (0-31) U/L Alkaline Phosphatase 66 D (39-117) U/L Lactate Dehydrogenase 106 L (122-220) U/L Troponin I High Sens (<3.5-17.0) ng/L C-Reactive Protein 1.23 H (< or = 0.50) mg/dL Total Protein 5.0 L (6.5-8.0) g/dL Albumin 2.9 L D (3.5-5.0) g/dL Vitamin B12 (200-900) pg/mL Folate (> or = 4.0) ng/mL Stool Occult Blood (NEGATIVE) COVID-19 (FADY) (Negative) COVID-19 Clin [facility] Blood Type Antibody Screen Crossmatch 07/03/21 07/03/21 07/03/21 Range/Units 12:23 12:23 12:23 WBC (4.8-10.8) X10*3/uL RBC (4.20-5.50) X10*6/uL Hgb (12.0-16.0) g/dl Hct (37.0-47.0) % MCV (80.0-98.0) fL MCH (27.0-33.0) pg MCHC (31.0-35.0) g/dl RDW (11.0-16.0) % Plt Count (160-400) X10*3/uL MPV (9.4-12.3) fL Immature Gran % (Auto) (0.0-0.4) % Neut % (Auto) (45-73) % Lymph % (Auto) (20-40) % Emmons % (Auto) (2-11) % Eos % (Auto) (0-4) % Baso % (Auto) (0-2) % Lymph # (Auto) (1.2-4.9) X10*3/uL Emmons # (Auto) (0.1-1.2) X10*3/uL Eos # (Auto) (0.0-0.4) X10*3/uL Baso # (Auto) (0.0-0.2) X10*3/uL Abs Immat Gran (auto) (0.00-0.03) X10*3/uL Absolute Neuts (auto) (2.0-8.3) x10*3/uL Absolute Nucleated RBC (0.0-0.012) X10*3/uL Nucleated RBC % (auto) (0.0-0.2) /100WBC Absolute Retic (0.026-0.095) X10*6/uL Percent Retic (0.5-1.8) % Immature Retic Fraction (3.0-15.9) % Retic Hgb Equivalent (30.0-35.0) pg Sodium (135-145) mmol/L Potassium (3.3-5.1) mmol/L Chloride (96-108) mmol/L Carbon Dioxide (22-29) mmol/L Anion Gap (12-20) BUN (9-16) mg/dL Creatinine (0.5-1.4) mg/dL Estim Creat Clear Calc Estimated GFR Random Glucose (60-115) mg/dL Lactic Acid (0.5-2.0) mmol/L Lactic Acid F/U @ 2Hr (0.5-2.0) mmol/L Calcium (8.4-10.2) mg/dL Magnesium (1.6-2.6) mg/dL Iron (30-160) mcg/dL TIBC (228-428) mcg/dL % Saturation Unsat Iron Binding ug/dL Ferritin (10-250) ng/mL Total Bilirubin (0.0-1.0) mg/dL AST (5-31) U/L ALT (0-31) U/L Alkaline Phosphatase (39-117) U/L Lactate Dehydrogenase (122-220) U/L Troponin I High Sens < 3.5 (<3.5-17.0) ng/L C-Reactive Protein (< or = 0.50) mg/dL Total Protein (6.5-8.0) g/dL Albumin (3.5-5.0) g/dL Vitamin B12 (200-900) pg/mL Folate (> or = 4.0) ng/mL Stool Occult Blood NEGATIVE (NEGATIVE) COVID-19 (FADY) Negative (Negative) COVID-19 Clin Com See Note Blood Type Antibody Screen Crossmatch 07/03/21 07/03/21 07/03/21 Range/Units 12:23 14:30 15:09 WBC (4.8-10.8) X10*3/uL RBC (4.20-5.50) X10*6/uL Hgb (12.0-16.0) g/dl Hct (37.0-47.0) % MCV (80.0-98.0) fL MCH (27.0-33.0) pg MCHC (31.0-35.0) g/dl RDW (11.0-16.0) % Plt Count (160-400) X10*3/uL MPV (9.4-12.3) fL Immature Gran % (Auto) (0.0-0.4) % Neut % (Auto) (45-73) % Lymph % (Auto) (20-40) % Emmons % (Auto) (2-11) % Eos % (Auto) (0-4) % Baso % (Auto) (0-2) % Lymph # (Auto) (1.2-4.9) X10*3/uL Emmons # (Auto) (0.1-1.2) X10*3/uL Eos # (Auto) (0.0-0.4) X10*3/uL Baso # (Auto) (0.0-0.2) X10*3/uL Abs Immat Gran (auto) (0.00-0.03) X10*3/uL Absolute Neuts (auto) (2.0-8.3) x10*3/uL Absolute Nucleated RBC (0.0-0.012) X10*3/uL Nucleated RBC % (auto) (0.0-0.2) /100WBC Absolute Retic (0.026-0.095) X10*6/uL Percent Retic (0.5-1.8) % Immature Retic Fraction (3.0-15.9) % Retic Hgb Equivalent (30.0-35.0) pg Sodium (135-145) mmol/L Potassium (3.3-5.1) mmol/L Chloride (96-108) mmol/L Carbon Dioxide (22-29) mmol/L Anion Gap (12-20) BUN (9-16) mg/dL Creatinine (0.5-1.4) mg/dL Estim Creat Clear Calc Estimated GFR Random Glucose (60-115) mg/dL Lactic Acid (0.5-2.0) mmol/L Lactic Acid F/U @ 2Hr 7.5 H* (0.5-2.0) mmol/L Calcium (8.4-10.2) mg/dL Magnesium (1.6-2.6) mg/dL Iron (30-160) mcg/dL TIBC (228-428) mcg/dL % Saturation Unsat Iron Binding ug/dL Ferritin (10-250) ng/mL Total Bilirubin (0.0-1.0) mg/dL AST (5-31) U/L ALT (0-31) U/L Alkaline Phosphatase (39-117) U/L Lactate Dehydrogenase (122-220) U/L Troponin I High Sens (<3.5-17.0) ng/L C-Reactive Protein (< or = 0.50) mg/dL Total Protein (6.5-8.0) g/dL Albumin (3.5-5.0) g/dL Vitamin B12 > 2000 H (200-900) pg/mL Folate 7.2 (> or = 4.0) ng/mL Stool Occult Blood (NEGATIVE) COVID-19 (FADY) (Negative) COVID-19 Clin Com Blood Type A Positive Antibody Screen NEGATIVE Crossmatch See Detail 07/03/21 Range/Units 16:32 WBC (4.8-10.8) X10*3/uL RBC (4.20-5.50) X10*6/uL Hgb (12.0-16.0) g/dl Hct (37.0-47.0) % MCV (80.0-98.0) fL MCH (27.0-33.0) pg MCHC (31.0-35.0) g/dl RDW (11.0-16.0) % Plt Count (160-400) X10*3/uL MPV (9.4-12.3) fL Immature Gran % (Auto) (0.0-0.4) % Neut % (Auto) (45-73) % Lymph % (Auto) (20-40) % Emmons % (Auto) (2-11) % Eos % (Auto) (0-4) % Baso % (Auto) (0-2) % Lymph # (Auto) (1.2-4.9) X10*3/uL Emmons # (Auto) (0.1-1.2) X10*3/uL Eos # (Auto) (0.0-0.4) X10*3/uL Baso # (Auto) (0.0-0.2) X10*3/uL Abs Immat Gran (auto) (0.00-0.03) X10*3/uL Absolute Neuts (auto) (2.0-8.3) x10*3/uL Absolute Nucleated RBC (0.0-0.012) X10*3/uL Nucleated RBC % (auto) (0.0-0.2) /100WBC Absolute Retic (0.026-0.095) X10*6/uL Percent Retic (0.5-1.8) % Immature Retic Fraction (3.0-15.9) % Retic Hgb Equivalent (30.0-35.0) pg Sodium (135-145) mmol/L Potassium (3.3-5.1) mmol/L Chloride (96-108) mmol/L Carbon Dioxide (22-29) mmol/L Anion Gap (12-20) BUN (9-16) mg/dL Creatinine (0.5-1.4) mg/dL Estim Creat Clear Calc Estimated GFR Random Glucose (60-115) mg/dL Lactic Acid 6.3 H* (0.5-2.0) mmol/L Lactic Acid F/U @ 2Hr (0.5-2.0) mmol/L Calcium (8.4-10.2) mg/dL Magnesium (1.6-2.6) mg/dL Iron (30-160) mcg/dL TIBC (228-428) mcg/dL % Saturation Unsat Iron Binding ug/dL Ferritin (10-250) ng/mL Total Bilirubin (0.0-1.0) mg/dL AST (5-31) U/L ALT (0-31) U/L Alkaline Phosphatase (39-117) U/L Lactate Dehydrogenase (122-220) U/L Troponin I High Sens (<3.5-17.0) ng/L C-Reactive Protein (< or = 0.50) mg/dL Total Protein (6.5-8.0) g/dL Albumin (3.5-5.0) g/dL Vitamin B12 (200-900) pg/mL Folate (> or = 4.0) ng/mL Stool Occult Blood (NEGATIVE) COVID-19 (FADY) (Negative) COVID-19 Clin Com Blood Type Antibody Screen Crossmatch Imaging Data Chest x-ray: Radiologist's impression: FINDINGS: The cardiac and mediastinal contours are stable. Right upper lobe mass appears unchanged. There is airspace disease seen in the left lung base suggestive of pneumonia. This does not appear appreciably changed from most recent exam 06/04/2021. The lungs are otherwise clear. There is no pleural effusion. There is a right jugular port with tip projecting over the SVC. There are degenerative changes of the spine and right shoulder. XR/XR chest 1V IMPRESSION: Right upper lobe mass. Left lower lobe pneumonia. Findings are similar to most recent chest x-ray 06/04/2021. ECG Data Attestation: I personally reviewed and interpreted this ECG as follows: ECG interpretation date: 07/03/21 ECG interpretation time: 13:18 Prior ECG tracings: available for review Interpretation: Rate: 6 7 Rhythm:? normal sinus rhythm Normal P waves.? Normal SHANIQUE.?? Normal QRS complex.?? ST T wave :?? no ST elevation, no ST depression, no T-wave inversion qTC: 409 prior studies:? 05/29/2021 The study has been interpreted contemporaneously by me. Discharge Plan Discharge Clinical Impression: Osteomyelitis, Diabetic foot ulcer, Lactic acid acidosis, Normocytic anemia Patient Disposition: Admitted As Inpatient
--- NOTE | 2021-07-03 14:05 | PC.NURSE ---
lab called for 3rd time for blood culture and type and screen. lab reports being on the way to draw patient at this time. patient in no obvious distress, reports im cold . provided additional blankets at this time
[2021-07-03 14:38] LABS: Reflex Lactate? Lactic Acid Added
[2021-07-03] MEDS: levoFLOXacin/D5W 750 MG/150 ML PIGGYBACK 100 MG IV (14:39)
[2021-07-03 15:49] LABS: ~Lactic Acid-LAB USE ONLY 7.5 mmol/L (0.5-2.0)
--- NOTE | 2021-07-03 15:55 | PC.NURSE ---
patient has noted redness to left gluteus. skin prep applied to sacrum and perineum. large, red ulcer noted to right foot. no oozing or foul odor noted. beefy red in color.
[2021-07-03 16:56] LABS: Lactic Acid 6.3 mmol/L (0.5-2.0)
[2021-07-03 17:01] LABS: Iron 136 mcg/dL (30-160); Lactate Dehydrogenase 106 U/L (122-220); Total Iron Binding Capacity < 153 mcg/dL (228-428); Unsaturated Iron Binding < 17 ug/dL
[2021-07-03 17:02] LABS: Immature Retic Fraction 1.5 % (3.0-15.9); Retic HGB Equivalent 31.9 pg (30.0-35.0); Reticulocyte Percent 0.2 % (0.5-1.8); Reticulocytes Absolute 0.005 X10*6/uL (0.026-0.095)
[2021-07-03 17:11] LABS: Reflex Lactate? 2 Y
--- NOTE | 2021-07-03 17:14 | PHA.MEDREC ---
Pharmacy Consult ? Medication Reconciliation Pharmacy has completed the medication reconciliation.
[2021-07-03 17:21] LABS: Ferritin 338 ng/mL (10-250)
--- NOTE | 2021-07-03 17:39 | PM.IMHP ---
History of Present Illness Date of Service: 07/03/21 Chief Complaint: anemia Ms Villarreal is a 85yo F with DM2 with foot ulcer, hx osteomyelitis + MSSA bacteremia, HTN, HLD, and lung CA metastasized to liver on immunotherapy who was admitted here 05/29-06/14/21 with sepsis due to osteomyelitis associated with a diabetic right foot ulcer whose hospitalization was complicated by breakthrough Covid-19 infection though she never developed hypoxia. She was sent to [facility] for short-term rehablilitation and the antibiotic plan was 42 days of PO linezolid and levofloxacin; blood cultures were negative and wound cultures grew Enterobacter cloacae and Enterococcus faecalis. She has a history of anaphylactoid reaction to vancomycin. The patient has had increasing dizziness/lightheadedness and generalized weakness over the past 3 days and was noted to be anemic and thrombocytopenic with Hb 6.3 and platelets 80 today. Hb on 06/10/21 was 9.2 and it has steadily dropped since then. Also noted to have lactic acidosis with LA 7.4. Not septic. No gum bleeding, hematemesis, hematochezia, melena, or hematuria. No dyspnea or chest pain. FOBT was negative. She was given 1L NS then 30 cc/kg NS, then 2 units of packed red blood cells were ordered. She was also given IV levofloxacin. Review of Systems Review of Systems: Yes all other systems are reviewed and are negative [facility] Medical History Amputated toe of left foot Anaphylactoid reaction Cataracts, both eyes Cellulitis Diabetes Falls Femur fracture, left Hx of osteomyelitis Hypercholesteremia Hypertension Leukocytosis Lung cancer Lung cancer MSSA bacteremia PAD (peripheral artery disease) Toe amputee Vancomycin adverse reaction Surgical History H/O umbilical hernia repair Social History Household Members: None Housing: Condominium Do you presently have visiting nurse or other home services: Yes ([facility]) Alcohol intake: never Patient Tobacco Use Status: Former Tobacco user Use of substances other than those prescribed or required for medical reasons: No Have you been hit, kicked, punched, or otherwise hurt by someone within the past year? If so, by whom?: No Do you feel safe in your current relationship?: Yes Is there a partner from a previous relationship who is making you feel unsafe now?: No Are you made to feel afraid or neglected: No Advance Directives: Yes Advance Directives on File: Yes Advance Directives Date on File: 07/17/20 Do you have thoughts of harming others: None Do you have a plan to hurt others: No Plan Recently lost weight without trying: No Eating poorly because of decreased appetite: Yes Nutrition Risks: No Nutritional Risk Patient : No : No Poor oral hygiene: No service: Yes Current occupational status: retired Meds Allergies Allergy/AdvReac Type Severity Reaction Status Date / Time vancomycin Allergy Severe Difficulty Verified 07/03/21 11:21 Breathing PLASTIC TAPE Allergy Intermediate RED RAW Uncoded 07/01/21 11:09 SKIN Active Medications: Current Medications Atorvastatin Calcium (Atorvastatin Calcium 20 Mg Tablet) 20 mg PO BEDTIME [facility] Cyanocobalamin (Cyanocobalamin (Vitamin B-12) 1,000 Mcg Tablet) 2,000 mcg PO DAILY [facility] Dextrose (Dextrose 50 % 25 Gm/50 Ml Syringe) 25 gm IVPUSH Q15M PRN; Protocol PRN Reason: per Hypoglycemia Standing Ord. Glucose (Glucose Gel 15 Gm Gel..Gram.) 15 gm PO Q15M PRN; Protocol PRN Reason: per Hypoglycemia Standing Ord. Guaifenesin (Guaifenesin 100 Mg/5 Ml Liquid) ml PO Q4H PRN PRN Reason: Cough Insulin Human Lispro (Insulin Lispro 100 Unit/Ml 3 Ml Vial) 0 unit SUBCUT QIDACHS [facility]; Protocol Levofloxacin (Levofloxacin 500 Mg Tablet) 500 mg PO Q24H [facility] Melatonin (Melatonin 3 Mg Tablet) 6 mg PO BEDTIME [facility] Metoprolol Succinate (Metoprolol Succinate Er 25 Mg Tab.Er.24h) 75 mg PO BID [facility]; Protocol Mirtazapine (Mirtazapine 15 Mg Tablet) 15 mg PO BEDTIME [facility] Pharmacy Consult (Consult Rx Perform Med Rec) 1 each MISCELLANE ONCE PRN PRN Reason: Consult order Tolterodine Tartrate (Tolterodine Tartrate La 4 Mg Cap.Er.24h) 4 mg PO DAILY [facility] Vitamin D (Cholecalciferol (Vitamin D3) 25 Mcg Tablet) 25 mcg PO DAILY [facility] Home Medications Medication Instructions Recorded Confirmed Last Taken Type sitagliptin 50 mg tablet (Januvia) 50 mg PO DAILY 06/29/20 07/03/21 07/03/21 History tolterodine 4 mg capsule,extended 4 mg PO DAILY 06/29/20 07/03/21 07/03/21 History release 24 hr (Detrol LA) atorvastatin 20 mg tablet 20 mg PO BEDTIME 08/30/20 07/03/21 07/02/21 History cholecalciferol (vitamin D3) 25 25 mcg PO DAILY 08/30/20 07/03/21 07/03/21 History mcg (1,000 unit) tablet (Vitamin D3) cyanocobalamin (vitamin B-12) 2,000 mcg PO DAILY 05/29/21 07/03/21 07/03/21 History 2,000 mcg tablet melatonin 10 mg tablet 10 mg PO BEDTIME 05/29/21 07/03/21 07/02/21 History diclofenac sodium 1 % topical gel 4 g TOPICAL TID 07/03/21 07/03/21 07/03/21 History guaifenesin 100 mg/5 mL oral liquid 100 mg PO Q4H PRN 07/03/21 07/03/21 Unknown History mirtazapine 15 mg tablet (Remeron) 15 mg PO BEDTIME 07/03/21 07/03/21 07/02/21 History ondansetron HCl 4 mg tablet 4 mg PO DAILY 07/03/21 07/03/21 07/03/21 History ondansetron HCl 4 mg tablet 4 mg PO Q6H PRN 07/03/21 07/03/21 Unknown History Physical Exam Vital Signs and Narrative: Vital Signs: Last Vital Signs Temp 96 F L 07/03/21 15:56 Pulse 68 07/03/21 15:56 Resp 12 07/03/21 15:56 BP 125/48 L 07/03/21 15:56 Pulse Ox 100 07/03/21 14:29 BMI result Body Mass Index 23.1 Gen: elderly F in no acute distress HEENT: sclera anicteric, moist mucus membranes Neck: supple, R-sided port Lungs: clear to auscultation bilaterally Heart: regular rate and rhythm, no murmurs Abd: soft, non-tender, non-distended Ext: no edema Skin:? ulcer on medial R foot with some surrounding erythema, L foot with multiple toe amputations Neuro: alert and oriented x3, dense neuropathy R foot Psych: appropriate affect Results Labs CBC and Chem 7: 07/04/21 06:19 07/04/21 06:19 Labs: Laboratory Results - last 24 hr 07/03/21 07/03/21 07/03/21 12:22 12:23 12:23 MCV 86.4 MCH 28.0 MCHC 32.4 RDW 15.6 Plt Count 79 L MPV 11.7 Immature Gran % (Auto) 0.6 H Neut % (Auto) 69.6 Lymph % (Auto) 21.5 [place] % (Auto) 3.0 Eos % (Auto) 4.7 H Baso % (Auto) 0.6 Lymph # (Auto) 1.4 [place] # (Auto) 0.2 Eos # (Auto) 0.3 Baso # (Auto) 0.0 Abs Immat Gran (auto) 0.04 H Absolute Neuts (auto) 4.5 Absolute Nucleated RBC 0.000 Nucleated RBC % (auto) 0.0 Absolute Retic 0.005 L Percent Retic 0.2 L Immature Retic Fraction 1.5 L Retic Hgb Equivalent 31.9 Anion Gap 17 Estim Creat Clear Calc 30.3 Estimated GFR 45 Random Glucose 105 Lactic Acid 7.4 H* Lactic Acid F/U @ 2Hr Calcium 8.5 Magnesium 1.7 Iron 136 TIBC < 153 L % Saturation TNP Unsat Iron Binding < 17 Ferritin 338 H Total Bilirubin 0.3 AST 7 D ALT < 6 Alkaline Phosphatase 66 D Lactate Dehydrogenase 106 L Total Protein 5.0 L Albumin 2.9 L D Stool Occult Blood COVID-19 (FADY) COVID-19 Clin Com Blood Type Antibody Screen Crossmatch 07/03/21 07/03/21 07/03/21 12:23 12:23 14:30 MCV MCH MCHC RDW Plt Count MPV Immature Gran % (Auto) Neut % (Auto) Lymph % (Auto) [place] % (Auto) Eos % (Auto) Baso % (Auto) Lymph # (Auto) [place] # (Auto) Eos # (Auto) Baso # (Auto) Abs Immat Gran (auto) Absolute Neuts (auto) Absolute Nucleated RBC Nucleated RBC % (auto) Absolute Retic Percent Retic Immature Retic Fraction Retic Hgb Equivalent Anion Gap Estim Creat Clear Calc Estimated GFR Random Glucose Lactic Acid Lactic Acid F/U @ 2Hr Calcium Magnesium Iron TIBC % Saturation Unsat Iron Binding Ferritin Total Bilirubin AST ALT Alkaline Phosphatase Lactate Dehydrogenase Total Protein Albumin Stool Occult Blood NEGATIVE COVID-19 (FADY) Negative COVID-19 VOLITIONRX Com See Note Blood Type A Positive Antibody Screen NEGATIVE Crossmatch See Detail 07/03/21 07/03/21 15:09 16:32 MCV MCH MCHC RDW Plt Count MPV Immature Gran % (Auto) Neut % (Auto) Lymph % (Auto) [place] % (Auto) Eos % (Auto) Baso % (Auto) Lymph # (Auto) [place] # (Auto) Eos # (Auto) Baso # (Auto) Abs Immat Gran (auto) Absolute Neuts (auto) Absolute Nucleated RBC Nucleated RBC % (auto) Absolute Retic Percent Retic Immature Retic Fraction Retic Hgb Equivalent Anion Gap Estim Creat Clear Calc Estimated GFR Random Glucose Lactic Acid 6.3 H* Lactic Acid F/U @ 2Hr 7.5 H* Calcium Magnesium Iron TIBC % Saturation Unsat Iron Binding Ferritin Total Bilirubin AST ALT Alkaline Phosphatase Lactate Dehydrogenase Total Protein Albumin Stool Occult Blood COVID-19 (FADY) COVID-19 Clin Com Blood Type Antibody Screen Crossmatch Imaging Radiologist's Impressions: Impressions Chest X-Ray 07/03/21 14:10 IMPRESSION: Right upper lobe mass. Left lower lobe pneumonia. Findings are similar to most recent chest x-ray 06/04/2021. Assessment and Plan (1) Anemia: Status: Acute (2) Lactic acid acidosis: Status: Acute (3) Thrombocytopenia: Status: Acute Plan 85yo F with HTN, HLD, DM2, metastatic lung CA on immunotherapy, hx MSSA bacteremia associated with diabetic foot ulcer, recent admission for sepsis from R foot osteomyelitis with breakthrough Covid-19 not requiring supplemental O2 discharged to SNF/STR 06/14/21 on linezolid + levofloxacin presenting with worsening fatigue + lightheadness found to have anemia, thrombocytopenia, and lactic acidosis # anemia - admit to telemetry, follow blood counts after transfusion - hypoproliferative + normocytic; suspect due to myelosuppression due to linezolid, which will be discontinued # thrombocytopenia - likely due to myelosuppression from linezolid; does not need platelet transfusion at this point # lactic acidosis - probably type B due to linezolid-induced mitochondrial toxicity; d/c linezolid; monitor lactate daily; continue IV fluids # osteomyelitis of R foot - continue levofloxacin alone, check CRP + ESR, and consult ID. Pt has 9 more days of ABX therapy according to prior plan. 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
[2021-07-03 17:52] LABS: C Reactive Protein 1.23 mg/dL (< or = 0.50); Folate 7.2 ng/mL (> or = 4.0); Vitamin B12 > 2000 pg/mL (200-900)
[2021-07-03 18:29] LABS: Cancel Lactic Acid Canceled
[2021-07-03 18:34] LABS: Reflex Lactate? Lactic Acid Added
[2021-07-03] MEDS: 0.9 % Sodium Chloride 1,000 ML 75 ML IVCONT (19:09)
[2021-07-03 19:18] LABS: Prothrombin Time 11.8 SEC (9.9-13.0)
--- NOTE | 2021-07-03 19:28 | PC.NURSE ---
nurse to nurse report given to Radha FRANCE
[2021-07-03 19:49] LABS: Glucose, Whole Blood 67 mg/dL (60-115)
[2021-07-03 20:14] LABS: ~Lactic Acid-LAB USE ONLY 5.8 mmol/L (0.5-2.0)
[2021-07-03 21:06] LABS: Reflex Lactate? 2 Y
[2021-07-03] MEDS: Metoprolol Succinate ER 25 MG TAB.ER.24H 75 MG PO (22:16)
[2021-07-03] MEDS: Atorvastatin Calcium 20 MG TABLET PO (22:17)
[2021-07-03] MEDS: Mirtazapine 15 MG TABLET PO (22:17)
[2021-07-03] MEDS: Melatonin 3 MG TABLET 6 MG PO (22:17)
[2021-07-03 22:30] LABS: ~Lactic Acid-LAB USE ONLY 5.5 mmol/L (0.5-2.0)
[2021-07-04 01:54] LABS: Glucose, Whole Blood 109 mg/dL (60-115)
[2021-07-04 03:59] VITALS: BP 127/59; PULSE 97; RESP 15; TEMP 36.2; O2SAT 97
--- NOTE | 2021-07-04 04:49 | PC.NURSE ---
HS POC 67. Pt given HS snack. Rechecked POC at 0200, was 109. Will continue to monitor.
[2021-07-04 06:52] LABS: Hemoglobin 8.5 g/dl (12.0-16.0); Mean Corpuscular HGB Conc 31.5 g/dl (31.0-35.0); Mean Corpuscular Hemoglobin 27.9 pg (27.0-33.0); Mean Corpuscular Volume 88.5 fL (80.0-98.0); Mean Platelet Volume 10.6 fL (9.4-12.3); Red Blood Count 3.05 X10*6/uL (4.20-5.50); Red Cell Distribution Width 15.5 % (11.0-16.0); White Blood Count 5.4 X10*3/uL (4.8-10.8)
[2021-07-04 06:58] LABS: Platelet Count 57 X10*3/uL (160-400)
[2021-07-04 07:05] LABS: Anion Gap 13 (12-20); Blood Urea Nitrogen 18 mg/dL (9-16); Carbon Dioxide 20 mmol/L (22-29); Chloride 106 mmol/L (96-108); Creatinine Clr Calc Pharmacy 42.5; Estimated Glomerular Filt Rate > 60; Glucose Random 96 mg/dL (60-115); Potassium 4.3 mmol/L (3.3-5.1); Sodium 135 mmol/L (135-145)
[2021-07-04 07:38] LABS: Glucose, Whole Blood 94 mg/dL (60-115)
[2021-07-04 07:55] VITALS: BP 104/62; PULSE 67; RESP 20; TEMP 36; O2SAT 98
[2021-07-04] MEDS: Tolterodine Tartrate LA 4 MG CAP.ER.24H PO (08:12)
[2021-07-04] MEDS: Cholecalciferol (Vitamin D3) 25 MCG TABLET PO (08:12)
[2021-07-04] MEDS: Cyanocobalamin (Vitamin B-12) 1,000 MCG TABLET 2000 MCG PO (08:13)
[2021-07-04 08:23] LABS: Erythrocyte Sedimentation Rate 14 MM/HR (0-20)
--- NOTE | 2021-07-04 09:04 | MHC.CM.PN ---
CM met with Patient at bedside and addressed IMM with her, providing her with the original and placing a copy on the chart. Patient comes from [facility] and will likely return there at time of dc. Typically, Patient lives alone in a Condo in [place] and uses a walker to assist with mobility. Patient did not use O2 @ home. CM has initiated and will follow for dc planning. Patient has received Pfizer vax X2 and her PCP is Dr. Keven Meredith.
[2021-07-04 11:14] VITALS: BP 117/53; PULSE 67; RESP 20; TEMP 36.1; O2SAT 92
[2021-07-04 11:31] LABS: Glucose, Whole Blood 91 mg/dL (60-115)
[2021-07-04] MEDS: 0.9 % Sodium Chloride 1,000 ML 75 ML IVCONT (11:33)
[2021-07-04] MEDS: levoFLOXacin 500 MG TABLET PO (13:28)
--- NOTE | 2021-07-04 14:53 | P.PNIM_ITS ---
Subjective Subjective Date of Service: 07/04/21 Interval History: Feels better after transfusion. No fever/chills. No nausea/vomiting. No chest pain. Review of Systems Review of Systems: Yes all other systems are reviewed and are negative Physical Exam Vital Signs: Vital Signs: Last Vital Signs Temp 97.0 F 07/04/21 11:14 Pulse 67 07/04/21 11:14 Resp 20 07/04/21 11:14 BP 117/53 L 07/04/21 11:14 Pulse Ox 92 07/04/21 11:14 BMI result Body Mass Index 22.4 Gen: elderly F in no acute distress HEENT: sclera anicteric, moist mucus membranes Neck: supple, R-sided port Lungs: clear to auscultation bilaterally Heart: regular rate and rhythm, no murmurs Abd: soft, non-tender, non-distended Ext: no edema Skin:? ulcer on medial R foot with some surrounding erythema, L foot with multiple toe amputations Neuro: alert and oriented x3, dense neuropathy R foot Psych: appropriate affect Objective Data Active Medications Acetaminophen (Acetaminophen 325 Mg Tablet) 650 mg PO Q6H PRN PRN Reason: Pain, Mild (Pain Scale 1-3) Atorvastatin Calcium (Atorvastatin Calcium 20 Mg Tablet) 20 mg PO BEDTIME [facility] Last Admin: 07/03/21 22:17 Dose: 20 mg Documented by: MARY JANE Cyanocobalamin (Cyanocobalamin (Vitamin B-12) 1,000 Mcg Tablet) 2,000 mcg PO DAILY [facility] Last Admin: 07/04/21 08:13 Dose: 2,000 mcg Documented by: HENRRY Dextrose (Dextrose 50 % 25 Gm/50 Ml Syringe) 25 gm IVPUSH Q15M PRN; Protocol PRN Reason: per Hypoglycemia Standing Ord. Glucose (Glucose Gel 15 Gm Gel..Gram.) 15 gm PO Q15M PRN; Protocol PRN Reason: per Hypoglycemia Standing Ord. Guaifenesin (Guaifenesin 100 Mg/5 Ml Liquid) 5 ml PO Q4H PRN PRN Reason: Cough Sodium Chloride (Ns) 1,000 mls @ 75 mls/hr IVCONT .[id number] [facility] Last Admin: 07/04/21 11:33 Dose: 75 mls/hr Documented by: HENRRY Insulin Human Lispro (Insulin Lispro 100 Unit/Ml 3 Ml Vial) 0 unit SUBCUT QIDACHS [facility]; Protocol Last Admin: 07/04/21 12:47 Dose: Not Given Documented by: HENRRY Non-Admin Reason: No Insulin Coverage Levofloxacin (Levofloxacin 500 Mg Tablet) 500 mg PO Q24H [facility] Last Admin: 07/04/21 13:28 Dose: 500 mg Documented by: HENRRY Melatonin (Melatonin 3 Mg Tablet) 6 mg PO BEDTIME [facility] Last Admin: 07/03/21 22:17 Dose: 6 mg Documented by: MARY JANE Metoprolol Succinate (Metoprolol Succinate Er 25 Mg Tab.Er.24h) 75 mg PO BID [facility]; Protocol Last Admin: 07/04/21 12:45 Dose: Not Given Documented by: HENRRY Non-Admin Reason: Decreased Blood Pressure Mirtazapine (Mirtazapine 15 Mg Tablet) 15 mg PO BEDTIME [facility] Last Admin: 07/03/21 22:17 Dose: 15 mg Documented by: MARY JANE Ondansetron HCl (Ondansetron Hcl 4 Mg/2 Ml Vial) 4 mg IVPUSH Q8H PRN PRN Reason: Nausea and Vomiting Pharmacy Consult (Consult Rx Perform Med Rec) 1 each MISCELLANE ONCE PRN PRN Reason: Consult order Sodium Chloride (0.9 % Sodium Chloride Flush 3 Ml Syringe) 3 ml IVFLUSH QSHIFT [facility] Last Admin: 07/04/21 08:08 Dose: Not Given Documented by: HENRRY Non-Admin Reason: IV Running Tolterodine Tartrate (Tolterodine Tartrate La 4 Mg Cap.Er.24h) 4 mg PO DAILY [facility] Last Admin: 07/04/21 08:12 Dose: 4 mg Documented by: HENRRY Vitamin D (Cholecalciferol (Vitamin D3) 25 Mcg Tablet) 25 mcg PO DAILY [facility] Last Admin: 07/04/21 08:12 Dose: 25 mcg Documented by: HENRRY Labs CBC & Chem 7: 07/04/21 06:19 07/04/21 06:19 Labs: Laboratory Results - last 24 hr 07/03/21 07/03/21 07/03/21 12:23 12:23 12:23 MCV MCH MCHC RDW Plt Count MPV Absolute Nucleated RBC Nucleated RBC % (auto) ESR Absolute Retic 0.005 L Percent Retic 0.2 L Immature Retic Fraction 1.5 L Retic Hgb Equivalent 31.9 PT INR Anion Gap Estim Creat Clear Calc Estimated GFR POC Glucose Random Glucose Lactic Acid Lactic Acid F/U @ 2Hr Lactic Acid F/U @ 4Hr Calcium Iron 136 TIBC < 153 L % Saturation TNP Unsat Iron Binding < 17 Ferritin 338 H Lactate Dehydrogenase 106 L C-Reactive Protein 1.23 H Vitamin B12 > 2000 H Folate 7.2 Blood Type Antibody Screen Crossmatch 07/03/21 07/03/21 07/03/21 14:30 15:09 16:32 MCV MCH MCHC RDW Plt Count MPV Absolute Nucleated RBC Nucleated RBC % (auto) ESR Absolute Retic Percent Retic Immature Retic Fraction Retic Hgb Equivalent PT INR Anion Gap Estim Creat Clear Calc Estimated GFR POC Glucose Random Glucose Lactic Acid 6.3 H* Lactic Acid F/U @ 2Hr 7.5 H* Lactic Acid F/U @ 4Hr Calcium Iron TIBC % Saturation Unsat Iron Binding Ferritin Lactate Dehydrogenase C-Reactive Protein Vitamin B12 Folate Blood Type A Positive Antibody Screen NEGATIVE Crossmatch See Detail 07/03/21 07/03/21 07/03/21 18:59 18:59 19:47 MCV MCH MCHC RDW Plt Count MPV Absolute Nucleated RBC Nucleated RBC % (auto) ESR Absolute Retic Percent Retic Immature Retic Fraction Retic Hgb Equivalent PT 11.8 INR 1.0 Anion Gap Estim Creat Clear Calc Estimated GFR POC Glucose 67 Random Glucose Lactic Acid Lactic Acid F/U @ 2Hr 5.8 H* Lactic Acid F/U @ 4Hr Calcium Iron TIBC % Saturation Unsat Iron Binding Ferritin Lactate Dehydrogenase C-Reactive Protein Vitamin B12 Folate Blood Type Antibody Screen Crossmatch 07/03/21 07/04/21 07/04/21 21:48 01:49 06:19 MCV 88.5 MCH 27.9 MCHC 31.5 RDW 15.5 Plt Count 57 L D MPV 10.6 Absolute Nucleated RBC 0.000 Nucleated RBC % (auto) 0.0 ESR Absolute Retic Percent Retic Immature Retic Fraction Retic Hgb Equivalent PT INR Anion Gap Estim Creat Clear Calc Estimated GFR POC Glucose 109 Random Glucose Lactic Acid Lactic Acid F/U @ 2Hr Lactic Acid F/U @ 4Hr 5.5 H* Calcium Iron TIBC % Saturation Unsat Iron Binding Ferritin Lactate Dehydrogenase C-Reactive Protein Vitamin B12 Folate Blood Type Antibody Screen Crossmatch 07/04/21 07/04/21 07/04/21 06:19 06:19 07:20 MCV MCH MCHC RDW Plt Count MPV Absolute Nucleated RBC Nucleated RBC % (auto) ESR 14 Absolute Retic Percent Retic Immature Retic Fraction Retic Hgb Equivalent PT INR Anion Gap 13 Estim Creat Clear Calc 42.5 Estimated GFR > 60 POC Glucose 94 Random Glucose 96 Lactic Acid Lactic Acid F/U @ 2Hr Lactic Acid F/U @ 4Hr Calcium 8.0 L Iron TIBC % Saturation Unsat Iron Binding Ferritin Lactate Dehydrogenase C-Reactive Protein Vitamin B12 Folate Blood Type Antibody Screen Crossmatch 07/04/21 11:13 MCV MCH MCHC RDW Plt Count MPV Absolute Nucleated RBC Nucleated RBC % (auto) ESR Absolute Retic Percent Retic Immature Retic Fraction Retic Hgb Equivalent PT INR Anion Gap Estim Creat Clear Calc Estimated GFR POC Glucose 91 Random Glucose Lactic Acid Lactic Acid F/U @ 2Hr Lactic Acid F/U @ 4Hr Calcium Iron TIBC % Saturation Unsat Iron Binding Ferritin Lactate Dehydrogenase C-Reactive Protein Vitamin B12 Folate Blood Type Antibody Screen Crossmatch Microbiology Microbiology Results: Microbiology 07/03/21 12:22 Blood Culture - Preliminary Blood - Venous No growth after 24 hours. Assessment and Plan (1) Anemia: Status: Acute (2) Thrombocytopenia: Status: Acute (3) Lactic acid acidosis: Status: Acute (4) Osteomyelitis: Status: Acute Plan hospital d#2 85yo F with HTN, HLD, DM2, metastatic lung CA on immunotherapy, hx MSSA bacteremia associated with diabetic foot ulcer, recent admission for sepsis from R foot osteomyelitis with breakthrough Covid-19 not requiring supplemental O2 discharged to SNF/STR 06/14/21 on linezolid + levofloxacin presenting with worsening fatigue + lightheadness found to have anemia, thrombocytopenia, and lactic acidosis # anemia - hypoproliferative + normocytic; suspect due to myelosuppression due to linezolid, which will be discontinued - H+H responded appropriately to transfusion # thrombocytopenia - likely due to myelosuppression from linezolid; continue to monitor # lactic acidosis - probably type B due to linezolid-induced mitochondrial toxicity; d/c linezolid; monitor lactate daily; continue IV fluids # osteomyelitis of R foot - continue levofloxacin alone, check CRP + ESR, and consult ID.? Pt has 8 more days of ABX therapy according to prior plan. 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
[2021-07-04 15:04] VITALS: BP 124/43; PULSE 66; RESP 20; TEMP 36.7; O2SAT 100
[2021-07-04 16:15] LABS: Glucose, Whole Blood 64 mg/dL (60-115)
[2021-07-04] MEDS: 0.9 % Sodium Chloride Flush 3 ML SYRINGE IVFLUSH (16:21)
[2021-07-04 19:14] VITALS: BP 101/46; PULSE 78; RESP 20; TEMP 36.7; O2SAT 99
[2021-07-04 19:43] LABS: Glucose, Whole Blood 69 mg/dL (60-115)
[2021-07-04] MEDS: Mirtazapine 15 MG TABLET PO (20:11)
[2021-07-04] MEDS: Melatonin 3 MG TABLET 6 MG PO (20:12)
[2021-07-04] MEDS: Atorvastatin Calcium 20 MG TABLET PO (20:12)
[2021-07-04] MEDS: Metoprolol Succinate ER 25 MG TAB.ER.24H 75 MG PO (20:12)
[2021-07-04] MEDS: ondansetron HCL 4 MG/2 ML VIAL IVPUSH (21:52)
[2021-07-04 21:54] LABS: Glucose, Whole Blood 72 mg/dL (60-115)
[2021-07-04 23:12] VITALS: BP 123/56; PULSE 78; RESP 20; TEMP 36.1; O2SAT 96
[2021-07-05 02:20] LABS: Glucose, Whole Blood 80 mg/dL (60-115)
[2021-07-05 03:51] VITALS: BP 132/62; PULSE 66; RESP 17; TEMP 36.6
[2021-07-05] MEDS: 0.9 % Sodium Chloride 1,000 ML 75 ML IVCONT (03:58)
--- NOTE | 2021-07-05 06:13 | PC.NURSE ---
HS POC 69. Pt given HS snack then later vomited. Zofran given. POC at 2200, 72. Pt asymptomatic. Lite snack given. 0200 POC 80. Pt resting comfortably with IV fluids infusing.
[2021-07-05 07:11] LABS: Hematocrit 25.1 % (37.0-47.0); Mean Corpuscular HGB Conc 31.9 g/dl (31.0-35.0); Mean Corpuscular Hemoglobin 28.4 pg (27.0-33.0); Mean Platelet Volume 11.2 fL (9.4-12.3); Red Blood Count 2.82 X10*6/uL (4.20-5.50); Red Cell Distribution Width 15.8 % (11.0-16.0); White Blood Count 4.2 X10*3/uL (4.8-10.8)
[2021-07-05 07:14] LABS: Platelet Count 49 X10*3/uL (160-400)
[2021-07-05 07:23] LABS: Anion Gap 13 (12-20); Blood Urea Nitrogen 15 mg/dL (9-16); Calcium 7.8 mg/dL (8.4-10.2); Carbon Dioxide 21 mmol/L (22-29); Chloride 108 mmol/L (96-108); Creatinine Clr Calc Pharmacy 43.5; Estimated Glomerular Filt Rate > 60; Glucose Random 68 mg/dL (60-115); Potassium 4.7 mmol/L (3.3-5.1); Sodium 137 mmol/L (135-145)
[2021-07-05 07:36] LABS: Glucose, Whole Blood 57 mg/dL (60-115)
[2021-07-05 07:48] VITALS: BP 142/63; PULSE 65; RESP 18; TEMP 36.8; O2SAT 99
[2021-07-05 07:55] LABS: Glucose, Whole Blood 56 mg/dL (60-115)
[2021-07-05] MEDS: Dextrose 50 % 25 GM/50 ML SYRINGE IVPUSH (08:00)
[2021-07-05] MEDS: 0.9 % Sodium Chloride Flush 3 ML SYRINGE IVFLUSH ×2 (08:10→20:19)
[2021-07-05 09:14] LABS: Glucose, Whole Blood 103 mg/dL (60-115)
[2021-07-05] MEDS: Cholecalciferol (Vitamin D3) 25 MCG TABLET PO (09:34)
[2021-07-05] MEDS: Metoprolol Succinate ER 25 MG TAB.ER.24H 75 MG PO ×2 (09:34→20:19)
[2021-07-05] MEDS: Tolterodine Tartrate LA 4 MG CAP.ER.24H PO (09:34)
[2021-07-05] MEDS: Cyanocobalamin (Vitamin B-12) 1,000 MCG TABLET 2000 MCG PO (09:34)
[2021-07-05] MEDS: Dextrose 5 % and 0.9 % NaCl 1,000 ML 50 ML IVCONT (09:35)
[2021-07-05] MEDS: ondansetron HCL 4 MG/2 ML VIAL IVPUSH (09:49)
[2021-07-05 11:14] LABS: Glucose, Whole Blood 94 mg/dL (60-115)
[2021-07-05 11:36] VITALS: BP 144/62; PULSE 77; RESP 18; TEMP 36.4; O2SAT 97
--- NOTE | 2021-07-05 11:42 | P.CDIC_ITS ---
CDI Concurrent Query Documentation Clarification: PHYSICIAN'S DOCUMENTATION REQUEST Date of Query: 07/05/21 1143 Patient Name: Melia Villarreal Admit Date: 07/03/21 Dear Doctor, A review of the medical record indicates additional documentation may be needed. Please review below and update the documentation accordingly. Risk Factors/Clinical Indicators/Treatments Per MD progress note 07/04/21: Osteomyelitis right foot, on Levofloxacin. Labs monitored. ID consult pending Patient had recent admission for sepsis from right foot osteomyelitis Based on the above, please clarify in the Progress Notes further specificity regarding the type of Osteomyelitis. Also include specific site with laterality and known or suspected infectious agent: * Acute osteomyelitis * Subacute osteomyelitis * Chronic osteomyelitis * Other (please specify) * Unable to determine Use of terms such as suspected, likely, concern for, or probable (associated with a specific diagnosis that is being evaluated, monitored, or treated as if it exists) are acceptable and can be coded in the inpatient setting, when documented at the time of discharge. Thank you, Sarai Osuna RN Extension: [phone] Please use your independent medical judgment in providing your response. THIS QUERY IS PART OF THE PERMANENT MEDICAL RECORD Provider Response: Other Other Diagnosis: acute osteomyelitis
--- NOTE | 2021-07-05 11:46 | P.CDIC_ITS ---
CDI Concurrent Query Documentation Clarification: PHYSICIAN'S DOCUMENTATION REQUEST Date of Query: 07/05/21 1146 Patient Name: Melia Villarreal Admit Date: 07/03/21 Dear Doctor, A review of the medical record indicates additional documentation may be indicated. Please review below and update the documentation accordingly. Clinical Indicators: Risk Factors/Clinical Indicators/Treatments Per ED note: Diabetic foot ulcer Per H&P: ulcer medical right foot Per MD progress note 07/04/21: ulcer on medial R foot with some surrounding erythema Based on the above, could you please provide, in the Progress Notes, further information regarding the ulcer/wound: * For a non-pressure ulcer, please indicate the depth/severity: * Limited to the breakdown of skin * With fat layer exposed * With necrosis of muscle * With necrosis of bone * Other * Unable to determine *Source: National Pressure Ulcer Advisory Panel (NPUAP) Use of terms such as suspected, likely, concern for, or probable (associated with a specific diagnosis that is being evaluated, monitored, or treated as if it exists) are acceptable and can be coded in the inpatient setting, when documented at the time of discharge. Thank you, Sarai Osuna RN Extension: [phone] Please use your independent medical judgment in providing your response. THIS QUERY IS PART OF THE PERMANENT MEDICAL RECORD Provider Response: Other Other Diagnosis: foot ulcer With fat layer exposed
--- NOTE | 2021-07-05 13:28 | P.PNIM_ITS ---
Subjective Subjective Date of Service: 07/05/21 Interval History: Nauseous and hypoglycemic this AM; resolved with D50 Review of Systems Review of Systems: Yes all other systems are reviewed and are negative Physical Exam Vital Signs: Vital Signs: Last Vital Signs Temp 97.5 F 07/05/21 11:36 Pulse 77 07/05/21 11:36 Resp 18 07/05/21 11:36 BP 144/62 H 07/05/21 11:36 Pulse Ox 97 07/05/21 11:36 BMI result Body Mass Index 22.4 Gen: elderly F in no acute distress HEENT: sclera anicteric, moist mucus membranes without bleeding Neck: supple, R-sided port Lungs: clear to auscultation bilaterally Heart: regular rate and rhythm, no murmurs Abd: soft, non-tender, non-distended Ext: no edema Skin:? ulcer on medial R foot with some surrounding erythema, L foot with multiple toe amputations Neuro: alert and oriented x3, dense neuropathy R foot Psych: appropriate affect Objective Data Active Medications Acetaminophen (Acetaminophen 325 Mg Tablet) 650 mg PO Q6H PRN PRN Reason: Pain, Mild (Pain Scale 1-3) Atorvastatin Calcium (Atorvastatin Calcium 20 Mg Tablet) 20 mg PO BEDTIME [facility] Last Admin: 07/04/21 20:12 Dose: 20 mg Documented by: MARY JANE Cyanocobalamin (Cyanocobalamin (Vitamin B-12) 1,000 Mcg Tablet) 2,000 mcg PO DAILY [facility] Last Admin: 07/05/21 09:34 Dose: 2,000 mcg Documented by: RAYRAY Dextrose (Dextrose 50 % 25 Gm/50 Ml Syringe) 25 gm IVPUSH Q15M PRN; Protocol PRN Reason: per Hypoglycemia Standing Ord. Last Admin: 07/05/21 08:00 Dose: 25 gm Documented by: RAYRAY Glucose (Glucose Gel 15 Gm Gel..Gram.) 15 gm PO Q15M PRN; Protocol PRN Reason: per Hypoglycemia Standing Ord. Guaifenesin (Guaifenesin 100 Mg/5 Ml Liquid) 5 ml PO Q4H PRN PRN Reason: Cough Dextrose/Sodium Chloride (D5ns) 1,000 mls @ 50 mls/hr IVCONT .Q20H [facility] Last Admin: 07/05/21 09:35 Dose: 50 mls/hr Documented by: RAYRAY Insulin Human Lispro (Insulin Lispro 100 Unit/Ml 3 Ml Vial) 0 unit SUBCUT QIDACHS [facility]; Protocol Last Admin: 07/05/21 12:15 Dose: Not Given Documented by: RAYRAY Non-Admin Reason: No Insulin Coverage Melatonin (Melatonin 3 Mg Tablet) 6 mg PO BEDTIME [facility] Last Admin: 07/04/21 20:12 Dose: 6 mg Documented by: MARY JANE Metoprolol Succinate (Metoprolol Succinate Er 25 Mg Tab.Er.24h) 75 mg PO BID [facility]; Protocol Last Admin: 07/05/21 09:34 Dose: 75 mg Documented by: RAYRAY Mirtazapine (Mirtazapine 15 Mg Tablet) 15 mg PO BEDTIME [facility] Last Admin: 07/04/21 20:11 Dose: 15 mg Documented by: MARY JANE Ondansetron HCl (Ondansetron Hcl 4 Mg/2 Ml Vial) 4 mg IVPUSH Q8H PRN PRN Reason: Nausea and Vomiting Last Admin: 07/05/21 09:49 Dose: 4 mg Documented by: RAYRAY Pharmacy Consult (Consult Rx Perform Med Rec) 1 each MISCELLANE ONCE PRN PRN Reason: Consult order Sodium Chloride (0.9 % Sodium Chloride Flush 3 Ml Syringe) 3 ml IVFLUSH QSHIFT [facility] Last Admin: 07/05/21 08:10 Dose: 3 ml Documented by: RAYRAY Tolterodine Tartrate (Tolterodine Tartrate La 4 Mg Cap.Er.24h) 4 mg PO DAILY [facility] Last Admin: 07/05/21 09:34 Dose: 4 mg Documented by: RAYRAY Vitamin D (Cholecalciferol (Vitamin D3) 25 Mcg Tablet) 25 mcg PO DAILY [facility] Last Admin: 07/05/21 09:34 Dose: 25 mcg Documented by: RAYRAY Labs CBC & Chem 7: 07/05/21 06:38 07/05/21 06:38 Labs: Laboratory Results - last 24 hr 07/04/21 07/04/21 07/04/21 16:09 19:36 21:50 MCV MCH MCHC RDW Plt Count MPV Absolute Nucleated RBC Nucleated RBC % (auto) Anion Gap Estim Creat Clear Calc Estimated GFR POC Glucose 64 69 72 Random Glucose Calcium 07/05/21 07/05/21 07/05/21 02:16 06:38 06:38 MCV 89.0 MCH 28.4 MCHC 31.9 RDW 15.8 Plt Count 49 L MPV 11.2 Absolute Nucleated RBC 0.000 Nucleated RBC % (auto) 0.0 Anion Gap 13 Estim Creat Clear Calc 43.5 Estimated GFR > 60 POC Glucose 80 Random Glucose 68 Calcium 7.8 L 07/05/21 07/05/21 07/05/21 07:26 07:52 09:09 MCV MCH MCHC RDW Plt Count MPV Absolute Nucleated RBC Nucleated RBC % (auto) Anion Gap Estim Creat Clear Calc Estimated GFR POC Glucose 57 L* 56 L* 103 Random Glucose Calcium 07/05/21 11:06 MCV MCH MCHC RDW Plt Count MPV Absolute Nucleated RBC Nucleated RBC % (auto) Anion Gap Estim Creat Clear Calc Estimated GFR POC Glucose 94 Random Glucose Calcium Microbiology Microbiology Results: Microbiology 07/03/21 12:28 Blood Culture - Preliminary Blood - Venous No growth after 24 hours. 07/03/21 12:22 Blood Culture - Preliminary Blood - Venous No growth after 24 hours. Assessment and Plan (1) Anemia: Status: Acute (2) Thrombocytopenia: Status: Acute (3) Lactic acid acidosis: Status: Acute (4) Osteomyelitis: Status: Acute Plan hospital d#3 85yo F with HTN, HLD, DM2, metastatic lung CA on immunotherapy, hx MSSA bacteremia associated with diabetic foot ulcer, recent admission for sepsis from R foot osteomyelitis with breakthrough Covid-19 not requiring supplemental O2 discharged to SNF/STR 06/14/21 on linezolid + levofloxacin presenting with worsening fatigue + lightheadness found to have anemia, thrombocytopenia, and lactic acidosis # hypoglycemia - ?levofloxacin effect- d/c # anemia - hypoproliferative + normocytic; suspect due to myelosuppression due to linezolid, which was discontinued - H+H responded appropriately to transfusion # thrombocytopenia - likely due to myelosuppression from linezolid; continue to monitor # lactic acidosis - probably type B due to linezolid-induced mitochondrial toxicity; d/c linezolid; monitor lactate daily; continue IV fluids # acute osteomyelitis of R foot - ID consult. linezolid d/c'ed and pt has had anaphylactoid reaction to vancomycin. levofloxacin d/c'ed due to hypoglycemia.? Pt has 7 more days of ABX therapy according to prior plan. 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 - pt under care of Dr Youssef at [facility] and is on pembrolizumab, last infusion was 05/20/21 # HLD - statin # HTN - metoprolol succinate # DM2 - d/c sliding scale lispro, A1c only 5.6 01/28/21 and pt now hypogliycemic # VTE ppx - SCDs; hold off on heparinoids due to thrombocytopenia # dispo - plan return to [facility] once above issues resolving Quality Stroke Does the patient have a stroke diagnosis?: No VTE Prior VTE?: No VTE Risk Level:: Medical - moderate - high VTE Device Contraindication: N/A - Device Ordered VTE Drug Contraindication: Treatment Not Tolerated
[2021-07-05 15:13] VITALS: PULSE 83; RESP 20; TEMP 36.5; O2SAT 100
[2021-07-05 16:16] LABS: Glucose, Whole Blood 89 mg/dL (60-115)
[2021-07-05 19:12] VITALS: BP 110/55; PULSE 78; RESP 18; TEMP 37.2; O2SAT 99
[2021-07-05 20:11] LABS: Glucose, Whole Blood 98 mg/dL (60-115)
[2021-07-05] MEDS: Atorvastatin Calcium 20 MG TABLET PO (20:19)
[2021-07-05] MEDS: Melatonin 3 MG TABLET 6 MG PO (20:19)
[2021-07-05] MEDS: Mirtazapine 15 MG TABLET PO (20:19)
[2021-07-05 23:08] VITALS: BP 101/49; PULSE 80; RESP 20; TEMP 36.8; O2SAT 96
[2021-07-06 03:46] VITALS: BP 124/56; PULSE 82; RESP 18; TEMP 37.2; O2SAT 99
[2021-07-06] MEDS: Dextrose 5 % and 0.9 % NaCl 1,000 ML 50 ML IVCONT (05:00)
[2021-07-06 06:35] LABS: Hematocrit 26.3 % (37.0-47.0); Hemoglobin 8.1 g/dl (12.0-16.0); Mean Corpuscular HGB Conc 30.8 g/dl (31.0-35.0); Mean Corpuscular Hemoglobin 28.3 pg (27.0-33.0); Mean Platelet Volume 12.4 fL (9.4-12.3); Red Blood Count 2.86 X10*6/uL (4.20-5.50); Red Cell Distribution Width 15.9 % (11.0-16.0); White Blood Count 5.2 X10*3/uL (4.8-10.8)
[2021-07-06 06:40] LABS: Platelet Count 46 X10*3/uL (160-400)
[2021-07-06 06:46] LABS: Lactic Acid 6.5 mmol/L (0.5-2.0)
[2021-07-06 07:39] LABS: Glucose, Whole Blood 80 mg/dL (60-115)
[2021-07-06 07:53] VITALS: BP 135/60; PULSE 81; RESP 20; TEMP 37.3; O2SAT 96
[2021-07-06 08:20] LABS: Reflex Lactate? Lactic Acid Added
[2021-07-06] MEDS: Tolterodine Tartrate LA 4 MG CAP.ER.24H PO (08:29)
[2021-07-06] MEDS: Metoprolol Succinate ER 25 MG TAB.ER.24H 75 MG PO ×2 (08:29→20:27)
[2021-07-06] MEDS: Cholecalciferol (Vitamin D3) 25 MCG TABLET PO (08:30)
[2021-07-06] MEDS: Cyanocobalamin (Vitamin B-12) 1,000 MCG TABLET 2000 MCG PO (08:30)
[2021-07-06] MEDS: 0.9 % Sodium Chloride Flush 3 ML SYRINGE IVFLUSH ×3 (08:30→20:27)
[2021-07-06 09:57] LABS: ~Lactic Acid-LAB USE ONLY 5.1 mmol/L (0.5-2.0)
[2021-07-06 11:17] LABS: Reflex Lactate? 2 Y
[2021-07-06 11:36] LABS: Glucose, Whole Blood 103 mg/dL (60-115)
[2021-07-06 11:49] VITALS: BP 123/59; PULSE 92; RESP 20; TEMP 36.4; O2SAT 100
[2021-07-06 11:58] LABS: ~Lactic Acid-LAB USE ONLY 6.2 mmol/L (0.5-2.0)
--- NOTE | 2021-07-06 11:58 | W.PM.IDCN ---
History of Present Illness Data of Consult Service Date: 07/06/21 Requesting physician: Abhay Valdez Primary Care Provider: Keven Meredith MD HPI Reason for consult: hypotension She presents to hospital with dizziness. She also has hypotension. She takes linezolid and levaquin for foot infection,more than one week now improving. Review of Systems Review of Systems: Yes all other systems are reviewed and are negative PMFSH Past Medical History Medical History Amputated toe of left foot Anaphylactoid reaction Cataracts, both eyes Cellulitis Diabetes Falls Femur fracture, left Hx of osteomyelitis Hypercholesteremia Hypertension Leukocytosis Lung cancer Lung cancer MSSA bacteremia PAD (peripheral artery disease) Toe amputee Vancomycin adverse reaction Surgical History Surgical History H/O umbilical hernia repair Social History Social History Household Members: None Housing: Condominium Do you presently have visiting nurse or other home services: Yes ([facility] Nurse) Alcohol intake: never Patient Tobacco Use Status: Former Tobacco user Advance Directives Date on File: 07/17/20 service: Yes Current occupational status: retired Meds Allergies Allergy/AdvReac Type Severity Reaction Status Date / Time vancomycin Allergy Severe Difficulty Verified 07/03/21 11:21 Breathing PLASTIC TAPE Allergy Intermediate RED RAW Uncoded 07/01/21 11:09 SKIN Active Medications: Current Medications Acetaminophen (Acetaminophen 325 Mg Tablet) 650 mg PO Q6H PRN PRN Reason: Pain, Mild (Pain Scale 1-3) Atorvastatin Calcium (Atorvastatin Calcium 20 Mg Tablet) 20 mg PO BEDTIME [facility] Last Admin: 07/05/21 20:19 Dose: 20 mg Documented by: Cyanocobalamin (Cyanocobalamin (Vitamin B-12) 1,000 Mcg Tablet) 2,000 mcg PO DAILY [facility] Last Admin: 07/06/21 08:30 Dose: 2,000 mcg Documented by: Dextrose (Dextrose 50 % 25 Gm/50 Ml Syringe) 25 gm IVPUSH Q15M PRN; Protocol PRN Reason: per Hypoglycemia Standing Ord. Last Admin: 07/05/21 08:00 Dose: 25 gm Documented by: Glucose (Glucose Gel 15 Gm Gel..Gram.) 15 gm PO Q15M PRN; Protocol PRN Reason: per Hypoglycemia Standing Ord. Guaifenesin (Guaifenesin 100 Mg/5 Ml Liquid) 5 ml PO Q4H PRN PRN Reason: Cough Dextrose/Sodium Chloride (D5ns) 1,000 mls @ 50 mls/hr IVCONT .Q20H [facility] Last Admin: 07/06/21 05:00 Dose: 50 mls/hr Documented by: Melatonin (Melatonin 3 Mg Tablet) 6 mg PO BEDTIME [facility] Last Admin: 07/05/21 20:19 Dose: 6 mg Documented by: Metoprolol Succinate (Metoprolol Succinate Er 25 Mg Tab.Er.24h) 75 mg PO BID [facility]; Protocol Last Admin: 07/06/21 08:29 Dose: 75 mg Documented by: Mirtazapine (Mirtazapine 15 Mg Tablet) 15 mg PO BEDTIME [facility] Last Admin: 07/05/21 20:19 Dose: 15 mg Documented by: Ondansetron HCl (Ondansetron Hcl 4 Mg/2 Ml Vial) 4 mg IVPUSH Q8H PRN PRN Reason: Nausea and Vomiting Last Admin: 07/05/21 09:49 Dose: 4 mg Documented by: Pharmacy Consult (Consult Rx Perform Med Rec) 1 each MISCELLANE ONCE PRN PRN Reason: Consult order Sodium Chloride (0.9 % Sodium Chloride Flush 3 Ml Syringe) 3 ml IVFLUSH QSHIFT [facility] Last Admin: 07/06/21 08:30 Dose: 3 ml Documented by: Tolterodine Tartrate (Tolterodine Tartrate La 4 Mg Cap.Er.24h) 4 mg PO DAILY [facility] Last Admin: 07/06/21 08:29 Dose: 4 mg Documented by: Vitamin D (Cholecalciferol (Vitamin D3) 25 Mcg Tablet) 25 mcg PO DAILY [facility] Last Admin: 07/06/21 08:30 Dose: 25 mcg Documented by: Home Medications Medication Instructions Recorded Confirmed Last Taken Type sitagliptin 50 mg tablet (Januvia) 50 mg PO DAILY 06/29/20 07/03/21 07/03/21 History tolterodine 4 mg capsule,extended 4 mg PO DAILY 06/29/20 07/03/21 07/03/21 History release 24 hr (Detrol LA) atorvastatin 20 mg tablet 20 mg PO BEDTIME 08/30/20 07/03/21 07/02/21 History cholecalciferol (vitamin D3) 25 25 mcg PO DAILY 08/30/20 07/03/21 07/03/21 History mcg (1,000 unit) tablet (Vitamin D3) cyanocobalamin (vitamin B-12) 2,000 mcg PO DAILY 05/29/21 07/03/21 07/03/21 History 2,000 mcg tablet melatonin 10 mg tablet 10 mg PO BEDTIME 05/29/21 07/03/21 07/02/21 History diclofenac sodium 1 % topical gel 4 g TOPICAL TID 07/03/21 07/03/21 07/03/21 History guaifenesin 100 mg/5 mL oral liquid 100 mg PO Q4H PRN 07/03/21 07/03/21 Unknown History mirtazapine 15 mg tablet (Remeron) 15 mg PO BEDTIME 07/03/21 07/03/21 07/02/21 History ondansetron HCl 4 mg tablet 4 mg PO DAILY 07/03/21 07/03/21 07/03/21 History ondansetron HCl 4 mg tablet 4 mg PO Q6H PRN 07/03/21 07/03/21 Unknown History Physical Exam Vital Signs: Vital Signs: Last Vital Signs Temp 97.6 F 07/06/21 11:49 Pulse 92 07/06/21 11:49 Resp 20 07/06/21 11:49 BP 123/59 L 07/06/21 11:49 Pulse Ox 100 07/06/21 11:49 BMI result Body Mass Index 22.4 Const: General: cooperative HENMT: Head: Yes normal to inspection Eyes: General: appearance normal, both eyes and all related structures Resp: Effort & Inspection: normal respiratory effort Cardio: Rate: regular rate Rhythm: regular rhythm GI: Palpation (GI): Soft to palpation and nontender Skin: General skin exam: no rashes or lesions noted Extrem: Other: resolving cellulitis Results Labs CBC & Chem 7: 07/09/21 06:12 07/09/21 06:12 Labs: Short CBC 07/06/21 Range/Units 06:00 WBC 5.2 (4.8-10.8) X10*3/uL Hgb 8.1 L (12.0-16.0) g/dl Hct 26.3 L (37.0-47.0) % Plt Count 46 L (160-400) X10*3/uL Microbiology Microbiology Results: Microbiology 07/03/21 12:28 Blood - Venous Blood Culture - Preliminary No growth after 48 hours. 07/03/21 12:22 Blood - Venous Blood Culture - Preliminary No growth after 48 hours. Assessment and Plan (1) Thrombocytopenia: Status: Acute Thromobocytopenia due to Linezolid Hypotension also likely due to Levaquin. (2) Anemia: Status: Acute (3) Diabetic foot ulcer: Status: Acute (4) Lactic acid acidosis: Status: Resolved Plan Would stop all antibiotics. She has allergies to multiple drugs and has resolving toe concerns.
--- NOTE | 2021-07-06 13:24 | P.PNIM_ITS ---
Subjective Subjective Date of Service: 07/06/21 Interval History: No bleeding Foot pain controlled Review of Systems Review of Systems: Yes all other systems are reviewed and are negative Physical Exam Vital Signs: Vital Signs: Last Vital Signs Temp 97.6 F 07/06/21 11:49 Pulse 92 07/06/21 11:49 Resp 20 07/06/21 11:49 BP 123/59 L 07/06/21 11:49 Pulse Ox 100 07/06/21 11:49 BMI result Body Mass Index 22.4 Gen: elderly F in no acute distress HEENT: sclera anicteric, moist mucus membranes without bleeding Neck: supple, R-sided port Lungs: clear to auscultation bilaterally Heart: regular rate and rhythm, no murmurs Abd: soft, non-tender, non-distended Ext: no edema Skin:? ulcer on medial R foot with some surrounding erythema, L foot with mu ltiple toe amputations Neuro: alert and oriented x3, dense neuropathy R foot Psych: appropriate affect Objective Data Active Medications Acetaminophen (Acetaminophen 325 Mg Tablet) 650 mg PO Q6H PRN PRN Reason: Pain, Mild (Pain Scale 1-3) Atorvastatin Calcium (Atorvastatin Calcium 20 Mg Tablet) 20 mg PO BEDTIME [facility] Last Admin: 07/05/21 20:19 Dose: 20 mg Documented by: TOBI Cyanocobalamin (Cyanocobalamin (Vitamin B-12) 1,000 Mcg Tablet) 2,000 mcg PO DAILY [facility] Last Admin: 07/06/21 08:30 Dose: 2,000 mcg Documented by: EMERALD Dextrose (Dextrose 50 % 25 Gm/50 Ml Syringe) 25 gm IVPUSH Q15M PRN; Protocol PRN Reason: per Hypoglycemia Standing Ord. Last Admin: 07/05/21 08:00 Dose: 25 gm Documented by: RAYRAY Glucose (Glucose Gel 15 Gm Gel..Gram.) 15 gm PO Q15M PRN; Protocol PRN Reason: per Hypoglycemia Standing Ord. Guaifenesin (Guaifenesin 100 Mg/5 Ml Liquid) 5 ml PO Q4H PRN PRN Reason: Cough Dextrose/Sodium Chloride (D5ns) 1,000 mls @ 50 mls/hr IVCONT .Q20H [facility] Last Admin: 07/06/21 05:00 Dose: 50 mls/hr Documented by: TOBI Melatonin (Melatonin 3 Mg Tablet) 6 mg PO BEDTIME [facility] Last Admin: 07/05/21 20:19 Dose: 6 mg Documented by: TOBI Metoprolol Succinate (Metoprolol Succinate Er 25 Mg Tab.Er.24h) 75 mg PO BID [facility]; Protocol Last Admin: 07/06/21 08:29 Dose: 75 mg Documented by: EMERALD Mirtazapine (Mirtazapine 15 Mg Tablet) 15 mg PO BEDTIME [facility] Last Admin: 07/05/21 20:19 Dose: 15 mg Documented by: TOBI Ondansetron HCl (Ondansetron Hcl 4 Mg/2 Ml Vial) 4 mg IVPUSH Q8H PRN PRN Reason: Nausea and Vomiting Last Admin: 07/05/21 09:49 Dose: 4 mg Documented by: RAYRAY Pharmacy Consult (Consult Rx Perform Med Rec) 1 each MISCELLANE ONCE PRN PRN Reason: Consult order Sodium Chloride (0.9 % Sodium Chloride Flush 3 Ml Syringe) 3 ml IVFLUSH QSHIFT [facility] Last Admin: 07/06/21 08:30 Dose: 3 ml Documented by: EMERALD Tolterodine Tartrate (Tolterodine Tartrate La 4 Mg Cap.Er.24h) 4 mg PO DAILY [facility] Last Admin: 07/06/21 08:29 Dose: 4 mg Documented by: EMERALD Vitamin D (Cholecalciferol (Vitamin D3) 25 Mcg Tablet) 25 mcg PO DAILY [facility] Last Admin: 07/06/21 08:30 Dose: 25 mcg Documented by: EMERALD Labs CBC & Chem 7: 07/06/21 06:00 07/05/21 06:38 Labs: Laboratory Results - last 24 hr 07/05/21 07/05/21 07/06/21 16:06 20:03 06:00 MCV 92.0 MCH 28.3 MCHC 30.8 L RDW 15.9 Plt Count 46 L MPV 12.4 H Absolute Nucleated RBC 0.000 Nucleated RBC % (auto) 0.0 POC Glucose 89 98 Lactic Acid Lactic Acid F/U @ 2Hr Lactic Acid F/U @ 4Hr 07/06/21 07/06/21 07/06/21 06:00 07:19 08:57 MCV MCH MCHC RDW Plt Count MPV Absolute Nucleated RBC Nucleated RBC % (auto) POC Glucose 80 Lactic Acid 6.5 H* Lactic Acid F/U @ 2Hr 5.1 H* Lactic Acid F/U @ 4Hr 07/06/21 07/06/21 11:18 11:33 MCV MCH MCHC RDW Plt Count MPV Absolute Nucleated RBC Nucleated RBC % (auto) POC Glucose 103 Lactic Acid Lactic Acid F/U @ 2Hr Lactic Acid F/U @ 4Hr 6.2 H* Microbiology Microbiology Results: Microbiology 07/03/21 12:28 Blood Culture - Preliminary Blood - Venous No growth after 48 hours. 07/03/21 12:22 Blood Culture - Preliminary Blood - Venous No growth after 48 hours. Assessment and Plan (1) Anemia: Status: Acute (2) Thrombocytopenia: Status: Acute (3) Lactic acid acidosis: Status: Acute (4) Osteomyelitis: Status: Acute Plan hospital d#4 85yo F with HTN, HLD, DM2, metastatic lung CA on immunotherapy, hx MSSA bacteremia associated with diabetic foot ulcer, recent admission for sepsis from R foot osteomyelitis with breakthrough Covid-19 not requiring supplemental O2 discharged to SNF/STR 06/14/21 on linezolid + levofloxacin presenting with worsening fatigue + lightheadness found to have anemia, thrombocytopenia, and lactic acidosis; also developed hypoglycemia. all likely adverse effects of antibiotics # hypoglycemia - suspect levofloxacin effect- d/c'ed # anemia - hypoproliferative + normocytic; suspect due to myelosuppression due to linezolid, which was discontinued - H+H responded appropriately to transfusion # thrombocytopenia - likely due to myelosuppression from linezolid; continue to monitor until stabilizes # lactic acidosis - likely type B due to linezolid-induced mitochondrial toxicity; d/c'ed linezolid # acute osteomyelitis of R foot - ID consulted. linezolid d/c'ed and pt has had anaphylactoid reaction to vancomycin. levofloxacin d/c'ed due to hypoglycemia.? 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
[2021-07-06 15:10] VITALS: BP 114/60; PULSE 80; RESP 20; TEMP 36.4; O2SAT 99
[2021-07-06 16:08] LABS: Glucose, Whole Blood 95 mg/dL (60-115)
[2021-07-06 19:09] VITALS: BP 104/39; PULSE 80; RESP 20; TEMP 36.6; O2SAT 99
[2021-07-06] MEDS: Atorvastatin Calcium 20 MG TABLET PO (20:27)
[2021-07-06] MEDS: Mirtazapine 15 MG TABLET PO (20:27)
[2021-07-06] MEDS: Melatonin 3 MG TABLET 6 MG PO (20:27)
[2021-07-06 21:03] LABS: Glucose, Whole Blood 87 mg/dL (60-115)
[2021-07-06 23:09] VITALS: BP 115/56; PULSE 80; RESP 20; TEMP 36.9; O2SAT 99
[2021-07-07] MEDS: Dextrose 5 % and 0.9 % NaCl 1,000 ML 50 ML IVCONT ×2 (00:33→18:45)
[2021-07-07 02:49] VITALS: BP 130/62; PULSE 80; RESP 20; TEMP 36.1; O2SAT 100
[2021-07-07 07:16] LABS: Hematocrit 27.5 % (37.0-47.0); Hemoglobin 8.4 g/dl (12.0-16.0); Mean Corpuscular HGB Conc 30.5 g/dl (31.0-35.0); Mean Corpuscular Hemoglobin 28.3 pg (27.0-33.0); Mean Corpuscular Volume 92.6 fL (80.0-98.0); Mean Platelet Volume 12.2 fL (9.4-12.3); Red Blood Count 2.97 X10*6/uL (4.20-5.50); Red Cell Distribution Width 16.1 % (11.0-16.0); White Blood Count 4.7 X10*3/uL (4.8-10.8)
[2021-07-07 07:30] LABS: Glucose, Whole Blood 92 mg/dL (60-115)
[2021-07-07 07:45] VITALS: BP 130/63; PULSE 75; RESP 20; O2SAT 97
[2021-07-07 07:47] LABS: Platelet Count 40 X10*3/uL (160-400)
[2021-07-07 09:11] LABS: Reflex Lactate? Lactic Acid Added
[2021-07-07] MEDS: Metoprolol Succinate ER 25 MG TAB.ER.24H 75 MG PO ×2 (09:57→20:17)
[2021-07-07] MEDS: Cholecalciferol (Vitamin D3) 25 MCG TABLET PO (09:57)
[2021-07-07] MEDS: Cyanocobalamin (Vitamin B-12) 1,000 MCG TABLET 2000 MCG PO (09:57)
[2021-07-07] MEDS: 0.9 % Sodium Chloride Flush 3 ML SYRINGE IVFLUSH ×3 (09:57→20:18)
[2021-07-07] MEDS: Tolterodine Tartrate LA 4 MG CAP.ER.24H PO (09:57)
[2021-07-07 10:55] LABS: ~Lactic Acid-LAB USE ONLY 4.2 mmol/L (0.5-2.0)
[2021-07-07 11:25] LABS: Glucose, Whole Blood 91 mg/dL (60-115)
[2021-07-07 12:00] VITALS: BP 140/63; PULSE 77; RESP 20; TEMP 36.9; O2SAT 100
[2021-07-07 12:20] LABS: Reflex Lactate? 2 Y
[2021-07-07 13:00] LABS: ~Lactic Acid-LAB USE ONLY 3.3 mmol/L (0.5-2.0)
--- NOTE | 2021-07-07 13:39 | P.PNIM_ITS ---
Subjective Subjective Date of Service: 07/07/21 Interval History: No acute issues overnight. Foot pain improved Review of Systems Denies chest pain Shortness of breath Denies nausea vomiting diarrhea Physical Exam Vital Signs: Vital Signs: Last Vital Signs Temp 98.5 F 07/07/21 12:00 Pulse 77 07/07/21 12:00 Resp 20 07/07/21 12:00 BP 140/63 H 07/07/21 12:00 Pulse Ox 100 07/07/21 12:00 BMI result Body Mass Index 22.4 Const: Other: Awake alert oriented x3 no acute distress Resp: Other: Clear to auscultation bilaterally no rales rhonchi or wheezes Cardio: Other: No S4; positive S1-S2; no S3 murmurs with gallops GI: Other: Soft nontender nondistended with normoactive bowel sounds. Extrem: Other: No edema bilaterally Objective Data Active Medications Acetaminophen (Acetaminophen 325 Mg Tablet) 650 mg PO Q6H PRN PRN Reason: Pain, Mild (Pain Scale 1-3) Atorvastatin Calcium (Atorvastatin Calcium 20 Mg Tablet) 20 mg PO BEDTIME [facility] Last Admin: 07/06/21 20:27 Dose: 20 mg Documented by: TOBI Cyanocobalamin (Cyanocobalamin (Vitamin B-12) 1,000 Mcg Tablet) 2,000 mcg PO DAILY [facility] Last Admin: 07/07/21 09:57 Dose: 2,000 mcg Documented by: EMERALD Dextrose (Dextrose 50 % 25 Gm/50 Ml Syringe) 25 gm IVPUSH Q15M PRN; Protocol PRN Reason: per Hypoglycemia Standing Ord. Last Admin: 07/05/21 08:00 Dose: 25 gm Documented by: RAYRAY Glucose (Glucose Gel 15 Gm Gel..Gram.) 15 gm PO Q15M PRN; Protocol PRN Reason: per Hypoglycemia Standing Ord. Guaifenesin (Guaifenesin 100 Mg/5 Ml Liquid) 5 ml PO Q4H PRN PRN Reason: Cough Dextrose/Sodium Chloride (D5ns) 1,000 mls @ 50 mls/hr IVCONT .Q20H [facility] Last Admin: 07/07/21 00:33 Dose: 50 mls/hr Documented by: YOHAN Melatonin (Melatonin 3 Mg Tablet) 6 mg PO BEDTIME [facility] Last Admin: 07/06/21 20:27 Dose: 6 mg Documented by: TOBI Metoprolol Succinate (Metoprolol Succinate Er 25 Mg Tab.Er.24h) 75 mg PO BID [facility]; Protocol Last Admin: 07/07/21 09:57 Dose: 75 mg Documented by: EMERALD Mirtazapine (Mirtazapine 15 Mg Tablet) 15 mg PO BEDTIME [facility] Last Admin: 07/06/21 20:27 Dose: 15 mg Documented by: TOBI Ondansetron HCl (Ondansetron Hcl 4 Mg/2 Ml Vial) 4 mg IVPUSH Q8H PRN PRN Reason: Nausea and Vomiting Last Admin: 07/05/21 09:49 Dose: 4 mg Documented by: RAYRAY Pharmacy Consult (Consult Rx Perform Med Rec) 1 each MISCELLANE ONCE PRN PRN Reason: Consult order Sodium Chloride (0.9 % Sodium Chloride Flush 3 Ml Syringe) 3 ml IVFLUSH QSHIFT [facility] Last Admin: 07/07/21 09:57 Dose: 3 ml Documented by: EMERALD Tolterodine Tartrate (Tolterodine Tartrate La 4 Mg Cap.Er.24h) 4 mg PO DAILY [facility] Last Admin: 07/07/21 09:57 Dose: 4 mg Documented by: EMERALD Vitamin D (Cholecalciferol (Vitamin D3) 25 Mcg Tablet) 25 mcg PO DAILY [facility] Last Admin: 07/07/21 09:57 Dose: 25 mcg Documented by: EMERALD Labs CBC & Chem 7: 07/07/21 06:52 07/05/21 06:38 Labs: Laboratory Results - last 24 hr 07/06/21 07/06/21 07/07/21 15:59 20:56 06:51 MCV MCH MCHC RDW Plt Count MPV Absolute Nucleated RBC Nucleated RBC % (auto) POC Glucose 95 87 Lactic Acid 4.0 H* Lactic Acid F/U @ 2Hr Lactic Acid F/U @ 4Hr 07/07/21 07/07/21 07/07/21 06:52 07:14 09:52 MCV 92.6 MCH 28.3 MCHC 30.5 L RDW 16.1 H Plt Count 40 L MPV 12.2 Absolute Nucleated RBC 0.000 Nucleated RBC % (auto) 0.0 POC Glucose 92 Lactic Acid Lactic Acid F/U @ 2Hr 4.2 H* Lactic Acid F/U @ 4Hr 07/07/21 07/07/21 11:09 12:39 MCV MCH MCHC RDW Plt Count MPV Absolute Nucleated RBC Nucleated RBC % (auto) POC Glucose 91 Lactic Acid Lactic Acid F/U @ 2Hr Lactic Acid F/U @ 4Hr 3.3 H* Assessment and Plan (1) Hypoglycemia: Status: Acute (2) Anemia: Status: Acute (3) Lactic acid acidosis: Status: Acute (4) Osteomyelitis: Status: Acute Plan hospital d#4 85yo F with HTN, HLD, DM2, metastatic lung CA on immunotherapy, hx MSSA bacteremia associated with diabetic foot ulcer, recent admission for sepsis from R foot osteomyelitis with breakthrough Covid-19 not requiring supplemental O2;discharged to SNF/STR 06/14/21 on linezolid + levofloxacin...presenting with worsening fatigue + lightheadeness.Found to have anemia, thrombocytopenia, and lactic acidosis; also developed hypoglycemia. all likely adverse effects of an tibiotics 1.Hypoglycemia - suspect levofloxacin effect- d/c'ed -POCs normalized 2.Anemia(acute on chronic) - Linezolid D/Cd - appropriate response to transfusion - check CBC in am 3.Lactic acidosis(persistant) - likely type B due to linezolid-induced mitochondrial toxicity - trending downward...follow in am 4.Acute osteomyelitis of R foot - ID consulted. No further treatment indicated 5. HTN -acceptable control on current therapies -adjust as indicated SCDs Full Code Quality Stroke Does the patient have a stroke diagnosis?: No VTE Prior VTE?: No VTE Risk Level:: Medical - moderate - high VTE Device Contraindication: N/A - Device Ordered VTE Drug Contraindication: Treatment Not Tolerated
[2021-07-07 15:20] VITALS: BP 126/60; PULSE 74; RESP 14; TEMP 37.1; O2SAT 100
[2021-07-07 16:20] LABS: Glucose, Whole Blood 110 mg/dL (60-115)
[2021-07-07 18:44] VITALS: BP 131/59; PULSE 87; RESP 14; TEMP 37.4; O2SAT 94
[2021-07-07 19:45] LABS: Glucose, Whole Blood 109 mg/dL (60-115)
[2021-07-07] MEDS: Melatonin 3 MG TABLET 6 MG PO (20:16)
[2021-07-07] MEDS: Mirtazapine 15 MG TABLET PO (20:16)
[2021-07-07] MEDS: Atorvastatin Calcium 20 MG TABLET PO (20:17)
[2021-07-07 23:39] VITALS: BP 141/65; PULSE 90; RESP 18; TEMP 37.2; O2SAT 96
[2021-07-08 03:42] VITALS: BP 142/68; PULSE 78; RESP 18; TEMP 36.4; O2SAT 100
[2021-07-08 06:30] LABS: MANUAL DIFF FLAG NO
[2021-07-08 06:50] LABS: Basophils Percent Auto 0.5 % (0-2); Eosinophils Absolute Auto 0.2 X10*3/uL (0.0-0.4); Eosinophils Percent Auto 4.4 % (0-4); Hematocrit 23.6 % (37.0-47.0); Hemoglobin 7.5 g/dl (12.0-16.0); Imm Gran Abs Auto 0.03 X10*3/uL (0.00-0.03); Imm Gran Pct Auto 0.7 % (0.0-0.4); Lymphocytes Absolute Auto 0.6 X10*3/uL (1.2-4.9); Lymphocytes Percent Auto 14.7 % (20-40); Mean Corpuscular HGB Conc 31.8 g/dl (31.0-35.0); Mean Corpuscular Hemoglobin 28.5 pg (27.0-33.0); Mean Corpuscular Volume 89.7 fL (80.0-98.0); Monocytes Absolute Auto 0.6 X10*3/uL (0.1-1.2); Neutrophils Absolute Auto 2.7 x10*3/uL (2.0-8.3); Neutrophils Percent Auto 65.7 % (45-73); Red Blood Count 2.63 X10*6/uL (4.20-5.50); Red Cell Distribution Width 15.8 % (11.0-16.0); White Blood Count 4.1 X10*3/uL (4.8-10.8)
[2021-07-08 06:51] LABS: Platelet Count 32 X10*3/uL (160-400)
[2021-07-08 07:01] LABS: Alanine Aminotransferase < 6 U/L (0-31); Albumin Level 2.4 g/dL (3.5-5.0); Alkaline Phosphatase 53 U/L (39-117); Anion Gap 10 (12-20); Aspartate Amino Transferase 8 U/L (5-31); Bilirubin Total 0.3 mg/dL (0.0-1.0); Blood Urea Nitrogen 13 mg/dL (9-16); Calcium 8.2 mg/dL (8.4-10.2); Carbon Dioxide 22 mmol/L (22-29); Chloride 113 mmol/L (96-108); Estimated Glomerular Filt Rate > 60; Glucose Fasting 131 mg/dL (60-99); Potassium 4.2 mmol/L (3.3-5.1); Sodium 141 mmol/L (135-145); Total Protein 4.2 g/dL (6.5-8.0)
[2021-07-08 07:16] VITALS: BP 137/60; PULSE 72; RESP 20; TEMP 35.9; O2SAT 97
[2021-07-08 08:05] LABS: Glucose, Whole Blood 116 mg/dL (60-115)
[2021-07-08] MEDS: Cholecalciferol (Vitamin D3) 25 MCG TABLET PO (10:22)
[2021-07-08] MEDS: Cyanocobalamin (Vitamin B-12) 1,000 MCG TABLET 2000 MCG PO (10:22)
[2021-07-08] MEDS: Tolterodine Tartrate LA 4 MG CAP.ER.24H PO (10:23)
[2021-07-08] MEDS: Metoprolol Succinate ER 25 MG TAB.ER.24H 75 MG PO ×2 (10:23→21:12)
[2021-07-08] MEDS: 0.9 % Sodium Chloride Flush 3 ML SYRINGE IVFLUSH ×2 (10:23→15:38)
[2021-07-08 11:22] LABS: Glucose, Whole Blood 117 mg/dL (60-115)
[2021-07-08 11:48] VITALS: BP 147/67; PULSE 73; RESP 20; TEMP 35.9; O2SAT 92
[2021-07-08 15:10] VITALS: BP 151/67; PULSE 83; RESP 19; TEMP 37.1; O2SAT 99
--- NOTE | 2021-07-08 15:31 | P.PNIM_ITS ---
Subjective Subjective Date of Service: 07/08/21 Interval History: No acute issues overnight. Foot pain improved Review of Systems Denies chest pain Shortness of breath Denies nausea vomiting diarrhea Physical Exam Vital Signs: Vital Signs: Last Vital Signs Temp 98.7 F 07/08/21 15:10 Pulse 83 07/08/21 15:10 Resp 19 07/08/21 15:10 BP 151/67 H 07/08/21 15:10 Pulse Ox 99 07/08/21 15:10 BMI result Body Mass Index 22.4 Const: Other: Awake alert oriented x3 no acute distress Resp: Other: Clear to auscultation bilaterally no rales rhonchi or wheezes Cardio: Other: No S4; positive S1-S2; no S3 murmurs with gallops GI: Other: Soft nontender nondistended with normoactive bowel sounds. Extrem: Other: No edema bilaterally Objective Data Active Medications Acetaminophen (Acetaminophen 325 Mg Tablet) 650 mg PO Q6H PRN PRN Reason: Pain, Mild (Pain Scale 1-3) Atorvastatin Calcium (Atorvastatin Calcium 20 Mg Tablet) 20 mg PO BEDTIME [facility] Last Admin: 07/07/21 20:17 Dose: 20 mg Documented by: LAZARA Cyanocobalamin (Cyanocobalamin (Vitamin B-12) 1,000 Mcg Tablet) 2,000 mcg PO DAILY [facility] Last Admin: 07/08/21 10:22 Dose: 2,000 mcg Documented by: EMERALD Dextrose (Dextrose 50 % 25 Gm/50 Ml Syringe) 25 gm IVPUSH Q15M PRN; Protocol PRN Reason: per Hypoglycemia Standing Ord. Last Admin: 07/05/21 08:00 Dose: 25 gm Documented by: RAYRAY Glucose (Glucose Gel 15 Gm Gel..Gram.) 15 gm PO Q15M PRN; Protocol PRN Reason: per Hypoglycemia Standing Ord. Guaifenesin (Guaifenesin 100 Mg/5 Ml Liquid) 5 ml PO Q4H PRN PRN Reason: Cough Melatonin (Melatonin 3 Mg Tablet) 6 mg PO BEDTIME [facility] Last Admin: 07/07/21 20:16 Dose: 6 mg Documented by: LAZARA Metoprolol Succinate (Metoprolol Succinate Er 25 Mg Tab.Er.24h) 75 mg PO BID [facility]; Protocol Last Admin: 07/08/21 10:23 Dose: 75 mg Documented by: EMERALD Mirtazapine (Mirtazapine 15 Mg Tablet) 15 mg PO BEDTIME [facility] Last Admin: 07/07/21 20:16 Dose: 15 mg Documented by: LAZARA Ondansetron HCl (Ondansetron Hcl 4 Mg/2 Ml Vial) 4 mg IVPUSH Q8H PRN PRN Reason: Nausea and Vomiting Last Admin: 07/05/21 09:49 Dose: 4 mg Documented by: RAYRAY Pharmacy Consult (Consult Rx Perform Med Rec) 1 each MISCELLANE ONCE PRN PRN Reason: Consult order Sodium Chloride (0.9 % Sodium Chloride Flush 3 Ml Syringe) 3 ml IVFLUSH QSHIFT [facility] Last Admin: 07/08/21 10:23 Dose: 3 ml Documented by: EMERALD Tolterodine Tartrate (Tolterodine Tartrate La 4 Mg Cap.Er.24h) 4 mg PO DAILY [facility] Last Admin: 07/08/21 10:23 Dose: 4 mg Documented by: EMERALD Vitamin D (Cholecalciferol (Vitamin D3) 25 Mcg Tablet) 25 mcg PO DAILY [facility] Last Admin: 07/08/21 10:22 Dose: 25 mcg Documented by: EMERALD Labs CBC & Chem 7: 07/08/21 06:18 07/08/21 06:18 Labs: Laboratory Results - last 24 hr 07/07/21 07/07/21 07/08/21 16:00 18:48 06:18 MCV 89.7 MCH 28.5 MCHC 31.8 RDW 15.8 Plt Count 32 L MPV 11.0 Immature Gran % (Auto) 0.7 H Neut % (Auto) 65.7 Lymph % (Auto) 14.7 L [place] % (Auto) 14.0 H Eos % (Auto) 4.4 H Baso % (Auto) 0.5 Lymph # (Auto) 0.6 L [place] # (Auto) 0.6 Eos # (Auto) 0.2 Baso # (Auto) 0.0 Abs Immat Gran (auto) 0.03 Absolute Neuts (auto) 2.7 Absolute Nucleated RBC 0.000 Nucleated RBC % (auto) 0.0 Anion Gap Estim Creat Clear Calc Estimated GFR POC Glucose 110 109 Fasting Glucose Calcium Total Bilirubin AST ALT Alkaline Phosphatase Total Protein Albumin 07/08/21 07/08/21 07/08/21 06:18 07:15 10:58 MCV MCH MCHC RDW Plt Count MPV Immature Gran % (Auto) Neut % (Auto) Lymph % (Auto) [place] % (Auto) Eos % (Auto) Baso % (Auto) Lymph # (Auto) [place] # (Auto) Eos # (Auto) Baso # (Auto) Abs Immat Gran (auto) Absolute Neuts (auto) Absolute Nucleated RBC Nucleated RBC % (auto) Anion Gap 10 L Estim Creat Clear Calc 49.0 Estimated GFR > 60 POC Glucose 116 H 117 H Fasting Glucose 131 H Calcium 8.2 L Total Bilirubin 0.3 AST 8 ALT < 6 Alkaline Phosphatase 53 Total Protein 4.2 L Albumin 2.4 L Microbiology Microbiology Results: Microbiology 07/03/21 12:22 Blood Culture - Final Blood - Venous No growth after 5 days. Assessment and Plan (1) Hypoglycemia: Status: Acute (2) Anemia: Status: Acute Plan hospital d#4 85yo F with HTN, HLD, DM2, metastatic lung CA on immunotherapy, hx MSSA bacteremia associated with diabetic foot ulcer, recent admission for sepsis from R foot osteomyelitis with breakthrough Covid-19 not requiring supplemental O2;discharged to SNF/STR 06/14/21 on linezolid + levofloxacin...presenting with worsening fatigue + lightheadeness.Found to have anemia, thrombocytopenia, and lactic acidosis; also developed hypoglycemia. all likely adverse effects of antibiotics 1.Hypoglycemia - suspect levofloxacin effect- d/c'ed -POCs normalized 2.Anemia(acute on chronic) - Linezolid D/Cd - appropriate response to transfusion - check CBC in am 3.Lactic acidosis(persistant) - likely type B due to linezolid-induced mitochondrial toxicity - trending downward...follow in am 4.Acute osteomyelitis of R foot - ID consulted. No further treatment indicated 5. HTN -acceptable control on current therapies -adjust as indicated SCDs Full Code Hopeful D?C to SNF in am Quality Stroke Does the patient have a stroke diagnosis?: No VTE Prior VTE?: No VTE Risk Level:: Medical - moderate - high VTE Device Contraindication: N/A - Device Ordered VTE Drug Contraindication: Treatment Not Tolerated
[2021-07-08 15:46] LABS: Glucose, Whole Blood 135 mg/dL (60-115)
[2021-07-08 19:39] VITALS: BP 152/68; PULSE 89; RESP 18; TEMP 37.2; O2SAT 94
[2021-07-08 20:42] LABS: Glucose, Whole Blood 129 mg/dL (60-115)
[2021-07-08] MEDS: Melatonin 3 MG TABLET 6 MG PO (21:12)
[2021-07-08] MEDS: Mirtazapine 15 MG TABLET PO (21:12)
[2021-07-08] MEDS: Atorvastatin Calcium 20 MG TABLET PO (21:12)
[2021-07-08 23:10] VITALS: BP 138/66; PULSE 96; RESP 17; TEMP 36.8; O2SAT 100
[2021-07-09] MEDS: 0.9 % Sodium Chloride Flush 3 ML SYRINGE IVFLUSH ×2 (00:22→08:40)
[2021-07-09 03:06] VITALS: BP 137/48; PULSE 80; RESP 15; TEMP 36.7; O2SAT 100
[2021-07-09 06:29] LABS: Hematocrit 24.6 % (37.0-47.0); PLT CLUMP 1; SCAN SMEAR FLAG 1
[2021-07-09 06:31] LABS: Basophils Percent Auto 0.6 % (0-2); Eosinophils Absolute Auto 0.2 X10*3/uL (0.0-0.4); Eosinophils Percent Auto 3.9 % (0-4); Hemoglobin 7.7 g/dl (12.0-16.0); Imm Gran Abs Auto 0.04 X10*3/uL (0.00-0.03); Imm Gran Pct Auto 0.8 % (0.0-0.4); Lymphocytes Absolute Auto 0.6 X10*3/uL (1.2-4.9); MANUAL DIFF FLAG SCAN; Mean Corpuscular HGB Conc 31.3 g/dl (31.0-35.0); Mean Corpuscular Hemoglobin 28.5 pg (27.0-33.0); Mean Corpuscular Volume 91.1 fL (80.0-98.0); Mean Platelet Volume 12.9 fL (9.4-12.3); Monocytes Absolute Auto 1.1 X10*3/uL (0.1-1.2); Monocytes Percent Auto 21.7 % (2-11); Neutrophils Absolute Auto 3.2 x10*3/uL (2.0-8.3); Red Cell Distribution Width 16.2 % (11.0-16.0)
[2021-07-09 07:03] LABS: Alanine Aminotransferase < 6 U/L (0-31); Albumin Level 2.4 g/dL (3.5-5.0); Alkaline Phosphatase 56 U/L (39-117); Anion Gap 9 (12-20); Aspartate Amino Transferase 10 U/L (5-31); Bilirubin Total 0.2 mg/dL (0.0-1.0); Blood Urea Nitrogen 11 mg/dL (9-16); Calcium 8.4 mg/dL (8.4-10.2); Carbon Dioxide 23 mmol/L (22-29); Chloride 112 mmol/L (96-108); Creatinine Clr Calc Pharmacy 56.2; Estimated Glomerular Filt Rate > 60; Glucose Fasting 129 mg/dL (60-99); Potassium 4.7 mmol/L (3.3-5.1); Sodium 139 mmol/L (135-145); Total Protein 4.4 g/dL (6.5-8.0)
[2021-07-09 07:24] LABS: Glucose, Whole Blood 105 mg/dL (60-115)
[2021-07-09 07:26] LABS: Platelet Count 40 X10*3/uL (160-400); White Blood Count 5.2 X10*3/uL (4.8-10.8)
[2021-07-09 07:27] LABS: SLIDE REVIEW VERIFIED
[2021-07-09 07:29] VITALS: BP 115/56; PULSE 80; RESP 16; TEMP 37.5; O2SAT 100
[2021-07-09] MEDS: Cyanocobalamin (Vitamin B-12) 1,000 MCG TABLET 2000 MCG PO (08:40)
[2021-07-09] MEDS: Metoprolol Succinate ER 25 MG TAB.ER.24H 75 MG PO (08:40)
[2021-07-09] MEDS: Tolterodine Tartrate LA 4 MG CAP.ER.24H PO (08:40)
[2021-07-09] MEDS: Cholecalciferol (Vitamin D3) 25 MCG TABLET PO (08:40)
[2021-07-09 11:10] LABS: Glucose, Whole Blood 128 mg/dL (60-115)
[2021-07-09 11:21] VITALS: BP 128/59; PULSE 78; RESP 16; TEMP 37.3; O2SAT 100
--- NOTE | 2021-07-09 11:33 | MHC.CM.PN ---
Per MD, Patient has been medically cleared for dc to SNF/STR today. Patient will dc back to [facility] (her first choice) to complete her STR there. Patient will dc at 2PM, via [facility]. IMM left at bedside for Patient and Niece/Melia at [phone] has been made aware of the dc plan. Patient/family are in agreement with the dc plan.
[2021-07-09 12:16] LABS: COVID-19 Test Negative (Negative)
--- NOTE | 2021-07-09 12:24 | PM.DS ---
DS: Providers Provider Date of Service: 07/09/21 Date of admission: 07/03/21 17:36 Date of discharge: 07/09/21 Primary care physician: Keven Meredith MD Consults: 07/03/21 17:28 Consult to Infectious Diseases Routine Consulting Provider: Shagufta Dejesus Reason for consultation: osteomyelitis. anemia/thrombocytopenia/lactic acidosis due to linezolid? DS: Diagnosis Discharge Diagnosis (1) Hypoglycemia: Status: Acute (2) Anemia: Status: Acute DS: Summary Hospital Course Hospital Course: Ms Villarreal is a 85yo F with DM2 with foot ulcer, hx osteomyelitis + MSSA bacteremia, HTN, HLD, and lung CA metastasized to liver on immunotherapy? who was admitted here 05/29-06/14/21 with sepsis due to osteomyelitis associated with a diabetic right foot ulcer whose hospitalization was complicated by breakthrough Covid-19 infection though she never developed hypoxia.? She was sent to [facility] for short-term rehablilitation and the antibiotic plan was 42 days of PO linezolid and levofloxacin; blood cultures were negative and wound cultures grew Enterobacter cloacae and Enterococcus faecalis.? She has a history of anaphylactoid reaction to vancomycin. The patient has had increasing dizziness/lightheadedness and generalized weakness over the past 3 days and was noted to be anemic and thrombocytopenic with Hb 6.3 and platelets 80 today.? Hb on 06/10/21 was 9.2 and it has steadily dropped since then.? Also noted to have lactic acidosis with LA 7.4.? Not septic.? No gum bleeding, hematemesis, hematochezia, melena, or hematuria.? No dyspnea or chest pain.? FOBT was negative. She was given 1L NS then 30 cc/kg NS, then 2 units of packed red blood cells were ordered.? She was also given IV levofloxacin. Hospital Course Seen by ID who felt Lactic acidosis/hypoglycemia was related to Linezolid. [place] course complete and advised D/C víctor. [id number] hrs, pt normalized labs and return to baseline. Medically acceptable for return to SNF. Discussed with Niece(Melia) Time Spent with Patient Time attestation: Total time spent providing and/or coordinating discharge services: Discharge coordination time: Greater than 30 minutes Quality: Stroke Does the patient have a stroke diagnosis?: No Physical Exam Vital Signs: Vital Signs: Last Vital Signs Temp 99.1 F 07/09/21 11:21 Pulse 78 07/09/21 11:21 Resp 16 07/09/21 11:21 BP 128/59 L 07/09/21 11:21 Pulse Ox 100 07/09/21 11:21 BMI result Body Mass Index 22.4 Const: Other: Awake alert oriented x3 no acute distress Resp: Other: Clear to auscultation bilaterally no rales rhonchi or wheezes Cardio: Other: No S4; positive S1-S2; no S3 murmurs with gallops GI: Other: Soft nontender nondistended with normoactive bowel sounds. Extrem: Other: No edema bilaterally DS: Data Data Completed and Pending Completed studies during hospitalization [Text1]: Procedures Insertion of Infusion Device into Superior Vena Cava, Percutaneous Approach (06/29/20) Introduction of Remdesivir Anti-infective into Peripheral Vein, Percutaneous Approach, [employer] (05/29/21) Ultrasonography of Superior Vena Cava, Guidance (06/29/20) Labs on day of discharge: Laboratory Results - last 24 hr 07/08/21 07/08/21 07/09/21 15:12 19:41 06:12 WBC 5.2 RBC 2.70 L Hgb 7.7 L Hct 24.6 L MCV 91.1 MCH 28.5 MCHC 31.3 RDW 16.2 H Plt Count 40 L MPV 12.9 H Immature Gran % (Auto) 0.8 H Neut % (Auto) 61.0 Lymph % (Auto) 12.0 L [place] % (Auto) 21.7 H Eos % (Auto) 3.9 Baso % (Auto) 0.6 Lymph # (Auto) 0.6 L [place] # (Auto) 1.1 Eos # (Auto) 0.2 Baso # (Auto) 0.0 Abs Immat Gran (auto) 0.04 H Absolute Neuts (auto) 3.2 Absolute Nucleated RBC 0.000 Nucleated RBC % (auto) 0.0 Smear Tech's Comments VERIFIED Sodium Potassium Chloride Carbon Dioxide Anion Gap BUN Creatinine Estim Creat Clear Calc Estimated GFR POC Glucose 135 H 129 H Fasting Glucose Calcium Total Bilirubin AST ALT Alkaline Phosphatase Total Protein Albumin COVID-19 (FADY) COVID-19 Clin Com 07/09/21 07/09/21 07/09/21 06:12 07:02 10:55 WBC RBC Hgb Hct MCV MCH MCHC RDW Plt Count MPV Immature Gran % (Auto) Neut % (Auto) Lymph % (Auto) [place] % (Auto) Eos % (Auto) Baso % (Auto) Lymph # (Auto) [place] # (Auto) Eos # (Auto) Baso # (Auto) Abs Immat Gran (auto) Absolute Neuts (auto) Absolute Nucleated RBC Nucleated RBC % (auto) Smear Tech's Comments Sodium 139 Potassium 4.7 Chloride 112 H Carbon Dioxide 23 Anion Gap 9 L BUN 11 Creatinine 0.62 Estim Creat Clear Calc 56.2 Estimated GFR > 60 POC Glucose 105 128 H Fasting Glucose 129 H Calcium 8.4 Total Bilirubin 0.2 AST 10 ALT < 6 Alkaline Phosphatase 56 Total Protein 4.4 L Albumin 2.4 L COVID-19 (FADY) COVID-19 Clin Com 07/09/21 11:45 WBC RBC Hgb Hct MCV MCH MCHC RDW Plt Count MPV Immature Gran % (Auto) Neut % (Auto) Lymph % (Auto) [place] % (Auto) Eos % (Auto) Baso % (Auto) Lymph # (Auto) [place] # (Auto) Eos # (Auto) Baso # (Auto) Abs Immat Gran (auto) Absolute Neuts (auto) Absolute Nucleated RBC Nucleated RBC % (auto) Smear Tech's Comments Sodium Potassium Chloride Carbon Dioxide Anion Gap BUN Creatinine Estim Creat Clear Calc Estimated GFR POC Glucose Fasting Glucose Calcium Total Bilirubin AST ALT Alkaline Phosphatase Total Protein Albumin COVID-19 (FADY) Negative COVID-19 Clin Com See Note Discharge Plan Discharge Patient Disposition: Xfer [facility] Discharge Diagnosis: Anemia Referrals: [facility] [Outside] - 1 Week Keven Meredith MD [Primary Care Provider] - 1 Week Discharge Medications: Continued tolterodine [Detrol LA] 4 mg Capsule,Extended Release 24hr 4 mg PO DAILY 0RF Januvia 50 mg Tablet 50 mg PO DAILY 0RF atorvastatin 20 mg Tablet 20 mg PO BEDTIME 0RF cholecalciferol (vitamin D3) [Vitamin D3] 25 mcg (1,000 unit) Tablet 25 mcg PO DAILY 0RF melatonin 10 mg Tablet 10 mg PO BEDTIME 0RF cyanocobalamin (vitamin B-12) 2,000 mcg Tablet 2,000 mcg PO DAILY 0RF Cepacol Sore Throat (kaden-men) 15-3.6 mg Lozenge 1 haven mucous membrane Q2H PRN (Reason: Sore Throat) Qty: 30 0RF metoprolol succinate 25 mg Tablet Extended Release 24 Hr 75 mg PO BID Qty: 60 0RF Protocol: Hold for SBP/HR < HOLD for SBP < : 90 HOLD for HR < : 60 ondansetron HCl 4 mg Tablet 4 mg PO DAILY 0RF ondansetron HCl 4 mg Tablet 4 mg PO Q6H PRN (Reason: Nausea) 0RF guaifenesin 100 mg/5 mL Liquid 100 mg PO Q4H PRN (Reason: Cough) 0RF mirtazapine [Remeron] 15 mg Tablet 15 mg PO BEDTIME 0RF diclofenac sodium 1 % Gel 4 g TOPICAL TID 0RF Rx Instructions: apply to right shoulder Discontinued linezolid 600 mg Tablet 600 mg PO Q12H Qty: 54 0RF levofloxacin 500 mg Tablet 500 mg PO Q24H Qty: 27 0RF Discharge Orders: Discharge Order (Routine); Ordered 07/09/21 Ordered By: Ashok Arevalo Diet: advance to usual diet Activity on Discharge: As tolerated Stand Alone Forms: Patient Portal Discharge page Care Plan Goals: Resume previous care plan as outlined by mouth every Health Concerns: Maintain highest level of function Plan of Treatment: No further treatment needed for osteoporosis. Resume prehospital meds other than antibiotics Assessment: See discharge summary
[2021-07-09 12:57] VITALS: PULSE 81; O2SAT 95
== END 2021-07-09 14:15 | disposition skilled nursing facility (03) | DRG 809 ==
LOC: HO.ED 15:43 → HO.EDOVER 17:42 → HO.IMC 18:47
PROVIDERS: Nurse Practitioner Family; Admitting Provider Family Medicine; Emergency Provider Emergency Medicine; PCP Family Medicine; Visit Provider Hospitalist
DX: D61.1 Drug-induced aplastic anemia (principal); C34.11 Malignant neoplasm of upper lobe, right bronchus or lung; C78.7 Secondary malignant neoplasm of liver and intrahepatic bile duct; E87.2 Acidosis; M86.171 Other acute osteomyelitis, right ankle and foot; L97.412 Non-pressure chronic ulcer of right heel and midfoot with fat layer exposed; E78.5 Hyperlipidemia, unspecified; E11.621 Type 2 diabetes mellitus with foot ulcer; E11.69 Type 2 diabetes mellitus with other specified complication; Z20.822 Contact with and (suspected) exposure to COVID-19; D64.89 Other specified anemias; T36.8X5A Adverse effect of other systemic antibiotics, initial encounter; E11.649 Type 2 diabetes mellitus with hypoglycemia without coma; D69.59 Other secondary thrombocytopenia; Z86.16 Personal history of COVID-19; Z79.899 Other long term (current) drug therapy
CPT/HCPCS: 36415; 36430; 71045; 80048; 80053; 82272; 82607; 82728; 82746; 82947; 83540; 83605; 83615; 83735; 84484; 85025; 85027; 85045; 85610; 85652; 86140; 86850; 86900; 86901; 86923; 87040; 87635; 93005; 96361; 96365; 99285; J1642; J1956; J2405; P9016

== ENCOUNTER 2021-07-10 06:48 | Outpatient (REF) | payer MEDICARE, SELFPAY ==
[2021-07-10 06:57] LABS: Basophils Percent Auto 0.5 % (0-2); Eosinophils Absolute Auto 0.3 X10*3/uL (0.0-0.4); Eosinophils Percent Auto 5.3 % (0-4); Hemoglobin 7.2 g/dl (12.0-16.0); Imm Gran Abs Auto 0.14 X10*3/uL (0.00-0.03); Imm Gran Pct Auto 2.2 % (0.0-0.4); Lymphocytes Absolute Auto 0.9 X10*3/uL (1.2-4.9); Lymphocytes Percent Auto 14.8 % (20-40); MANUAL DIFF FLAG SCAN; Mean Corpuscular HGB Conc 32.7 g/dl (31.0-35.0); Mean Corpuscular Hemoglobin 28.5 pg (27.0-33.0); Mean Platelet Volume 12.4 fL (9.4-12.3); Monocytes Absolute Auto 1.9 X10*3/uL (0.1-1.2); Monocytes Percent Auto 29.7 % (2-11); Neutrophils Percent Auto 47.5 % (45-73); Red Blood Count 2.53 X10*6/uL (4.20-5.50); Red Cell Distribution Width 15.9 % (11.0-16.0); SCAN SMEAR FLAG 1; White Blood Count 6.4 X10*3/uL (4.8-10.8)
[2021-07-10 07:01] LABS: Platelet Count 50 X10*3/uL (160-400)
[2021-07-10 07:15] LABS: SLIDE REVIEW VERIFIED
[2021-07-10 07:20] LABS: Alanine Aminotransferase 6 U/L (0-31); Albumin Level 2.4 g/dL (3.5-5.0); Alkaline Phosphatase 58 U/L (39-117); Anion Gap 8 (12-20); Aspartate Amino Transferase 10 U/L (5-31); Bilirubin Total 0.3 mg/dL (0.0-1.0); Blood Urea Nitrogen 8 mg/dL (9-16); Calcium 8.3 mg/dL (8.4-10.2); Carbon Dioxide 26 mmol/L (22-29); Chloride 108 mmol/L (96-108); Estimated Glomerular Filt Rate > 60; Glucose Random 105 mg/dL (60-115); Potassium 4.1 mmol/L (3.3-5.1); Sodium 138 mmol/L (135-145); Total Protein 4.2 g/dL (6.5-8.0)
== END 2021-07-10 06:49 | disposition home or self-care (01) ==
LOC: HO.MMNH1L 06:48
PROVIDERS: Visit Provider Family Medicine
DX: I10 Essential (primary) hypertension (principal); E78.5 Hyperlipidemia, unspecified; M86.9 Osteomyelitis, unspecified
CPT/HCPCS: 36415; 80053; 85025

== ENCOUNTER 2021-07-15 | Outpatient (REF) | payer MEDICARE, SELFPAY ==
[2021-07-15 07:14] LABS: Mean Corpuscular HGB Conc 30.9 g/dl (31.0-35.0); Mean Corpuscular Hemoglobin 27.9 pg (27.0-33.0); Mean Corpuscular Volume 90.2 fL (80.0-98.0); Mean Platelet Volume 11.8 fL (9.4-12.3); Red Blood Count 2.44 X10*6/uL (4.20-5.50); Red Cell Distribution Width 17.1 % (11.0-16.0); White Blood Count 9.2 X10*3/uL (4.8-10.8)
[2021-07-15 07:38] LABS: Alanine Aminotransferase 15 U/L (0-31); Albumin Level 2.2 g/dL (3.5-5.0); Alkaline Phosphatase 69 U/L (39-117); Anion Gap 11 (12-20); Aspartate Amino Transferase 18 U/L (5-31); Bilirubin Total 0.3 mg/dL (0.0-1.0); Blood Urea Nitrogen 13 mg/dL (9-16); Calcium 7.6 mg/dL (8.4-10.2); Carbon Dioxide 26 mmol/L (22-29); Chloride 106 mmol/L (96-108); Estimated Glomerular Filt Rate > 60; Glucose Fasting 92 mg/dL (60-99); Potassium 4.4 mmol/L (3.3-5.1); Sodium 139 mmol/L (135-145); Total Protein 4.2 g/dL (6.5-8.0)
[2021-07-15 07:54] LABS: Free T4 (Free Thyroxine) 0.88 ng/dL (0.71-1.85); Thyroid Stimulating Hormone 1.88 uIU/mL (0.32-4.0)
[2021-07-15 08:08] LABS: Hemoglobin 6.8 g/dl (12.0-16.0)
[2021-07-15 08:19] LABS: Band Neutrophils Percent 7 % (3-5); Basophils Abs Manual 0.1 X10*3/uL (0.0-0.2); Basophils Percent Manual 1 % (0-2); Eosinophils Absolute Manual 0.5 X10*3/uL (0.0-0.4); Eosinophils Percent Manual 5 % (0-4); Lymphocytes Absolute Manual 1.4 X10*3/uL (1.2-4.9); Lymphocytes Percent Manual 15 % (20-40); Metamyelocytes Absolute 0.4 X10*3/uL; Metamyelocytes Percent 4 %; Monocytes Absolute Manual 1.1 X10*3/uL (0.1-1.2); Monocytes Percent Manual 12 % (2-11); Neutrophils Absolute Manual 5.8 X10*3/uL (2.0-8.3); Neutrophils Percent Manual 56 % (45-73)
[2021-07-15 08:21] LABS: Hypochromasia 1+ (5-14) /OIF; Large Platelet PRESENT; Macrocytosis 1+ (5-14) /OIF; Ovalocytes 1+ (5-14) /OIF; Platelet Estimate NORMAL (NORMAL); Platelet Morphology Comment NOTED; Polychromasia 1+ (0-2) /OIF; RBC Morphology NORMAL; Tear Drop Cells 1+ (0-2) /OIF
[2021-07-15 08:34] LABS: Platelet Count 226 X10*3/uL (160-400)
== END 2021-07-15 00:01 | disposition home or self-care (01) ==
LOC: HO.MMNH1L
PROVIDERS: Visit Provider Family Medicine
DX: M86.171 Other acute osteomyelitis, right ankle and foot (principal); B95.61 Methicillin susceptible Staphylococcus aureus infection as the cause of diseases classified elsewhere; E11.9 Type 2 diabetes mellitus without complications
CPT/HCPCS: 36415; 80053; 84439; 84443; 85007; 85025; 85027

== ENCOUNTER 2021-07-22 | Outpatient (REF) | payer SELFPAY ==
[2021-07-22 06:58] LABS: Hematocrit 24.7 % (37.0-47.0); Hemoglobin 7.5 g/dl (12.0-16.0); Mean Corpuscular HGB Conc 30.4 g/dl (31.0-35.0); Mean Corpuscular Hemoglobin 28.3 pg (27.0-33.0); Mean Corpuscular Volume 93.2 fL (80.0-98.0); Mean Platelet Volume 12.3 fL (9.4-12.3); Platelet Count 174 X10*3/uL (160-400); Red Blood Count 2.65 X10*6/uL (4.20-5.50); Red Cell Distribution Width 18.9 % (11.0-16.0); White Blood Count 10.5 X10*3/uL (4.8-10.8)
[2021-07-22 07:18] LABS: Anion Gap 13 (12-20); Blood Urea Nitrogen 15 mg/dL (9-16); Calcium 8.1 mg/dL (8.4-10.2); Carbon Dioxide 25 mmol/L (22-29); Chloride 108 mmol/L (96-108); Estimated Glomerular Filt Rate > 60; Glucose Random 77 mg/dL (60-115); Potassium 4.4 mmol/L (3.3-5.1); Sodium 142 mmol/L (135-145)
== END 2021-07-22 00:01 ==
LOC: HO.MMNH1L
PROVIDERS: Visit Provider Family Medicine
DX: E11.9 Type 2 diabetes mellitus without complications (principal); I25.10 Atherosclerotic heart disease of native coronary artery without angina pectoris
CPT/HCPCS: 36415; 80048; 85027

== ENCOUNTER 2021-07-29 00:36 | Outpatient (REF) | payer MEDICARE, SELFPAY ==
[2021-07-29 07:01] LABS: Hematocrit 26.3 % (37.0-47.0); Hemoglobin 7.9 g/dl (12.0-16.0); Mean Corpuscular Hemoglobin 28.6 pg (27.0-33.0); Mean Corpuscular Volume 95.3 fL (80.0-98.0); Red Blood Count 2.76 X10*6/uL (4.20-5.50); Red Cell Distribution Width 19.9 % (11.0-16.0); White Blood Count 9.8 X10*3/uL (4.8-10.8)
[2021-07-29 07:02] LABS: Platelet Count 91 X10*3/uL (160-400)
[2021-07-29 07:28] LABS: Anion Gap 13 (12-20); Blood Urea Nitrogen 13 mg/dL (9-16); Calcium 8.3 mg/dL (8.4-10.2); Carbon Dioxide 25 mmol/L (22-29); Chloride 110 mmol/L (96-108); Estimated Glomerular Filt Rate > 60; Glucose Random 93 mg/dL (60-115); Potassium 4.1 mmol/L (3.3-5.1); Sodium 144 mmol/L (135-145)
== END 2021-07-29 00:37 | disposition home or self-care (01) ==
LOC: HO.MMNH1L 00:36
PROVIDERS: Visit Provider Family Medicine
DX: I25.10 Atherosclerotic heart disease of native coronary artery without angina pectoris (principal); E11.9 Type 2 diabetes mellitus without complications
CPT/HCPCS: 36415; 80048; 85027

== ENCOUNTER 2021-08-05 00:37 | Outpatient (REF) | payer MEDICARE, SELFPAY ==
[2021-08-05 07:11] LABS: Hematocrit 28.4 % (37.0-47.0); Hemoglobin 8.6 g/dl (12.0-16.0); Mean Corpuscular HGB Conc 30.3 g/dl (31.0-35.0); Mean Corpuscular Hemoglobin 28.8 pg (27.0-33.0); Mean Platelet Volume 12.2 fL (9.4-12.3); Platelet Count 127 X10*3/uL (160-400); Red Blood Count 2.99 X10*6/uL (4.20-5.50); Red Cell Distribution Width 18.8 % (11.0-16.0); White Blood Count 10.3 X10*3/uL (4.8-10.8)
[2021-08-05 07:23] LABS: Anion Gap 13 (12-20); Blood Urea Nitrogen 12 mg/dL (9-16); Calcium 8.4 mg/dL (8.4-10.2); Carbon Dioxide 26 mmol/L (22-29); Chloride 106 mmol/L (96-108); Estimated Glomerular Filt Rate > 60; Glucose Random 85 mg/dL (60-115); Potassium 4.1 mmol/L (3.3-5.1); Sodium 141 mmol/L (135-145)
== END 2021-08-05 00:38 | disposition home or self-care (01) ==
LOC: HO.MMNH1L 00:37
PROVIDERS: Visit Provider Family Medicine
DX: I25.10 Atherosclerotic heart disease of native coronary artery without angina pectoris (principal); E11.9 Type 2 diabetes mellitus without complications
CPT/HCPCS: 36415; 80048; 85027

== ENCOUNTER 2021-08-12 00:41 | Outpatient (REF) | payer MEDICARE, SELFPAY ==
[2021-08-12 07:08] LABS: Hematocrit 30.3 % (37.0-47.0); Hemoglobin 9.1 g/dl (12.0-16.0); Mean Corpuscular Hemoglobin 28.8 pg (27.0-33.0); Mean Corpuscular Volume 95.9 fL (80.0-98.0); Mean Platelet Volume 12.6 fL (9.4-12.3); Platelet Count 171 X10*3/uL (160-400); Red Blood Count 3.16 X10*6/uL (4.20-5.50); Red Cell Distribution Width 17.2 % (11.0-16.0); White Blood Count 10.2 X10*3/uL (4.8-10.8)
[2021-08-12 07:24] LABS: Anion Gap 11 (12-20); Blood Urea Nitrogen 16 mg/dL (9-16); Calcium 8.8 mg/dL (8.4-10.2); Carbon Dioxide 26 mmol/L (22-29); Chloride 109 mmol/L (96-108); Estimated Glomerular Filt Rate > 60; Glucose Random 117 mg/dL (60-115); Sodium 142 mmol/L (135-145)
== END 2021-08-12 00:42 | disposition home or self-care (01) ==
LOC: HO.MMNH1L 00:41
PROVIDERS: Visit Provider Family Medicine
DX: E11.9 Type 2 diabetes mellitus without complications (principal); I25.10 Atherosclerotic heart disease of native coronary artery without angina pectoris
CPT/HCPCS: 36415; 80048; 85027

== ENCOUNTER 2021-08-19 | Outpatient (REF) | payer MEDICARE, SELFPAY ==
[2021-08-19 06:52] LABS: Hematocrit 29.8 % (37.0-47.0); Mean Corpuscular HGB Conc 30.2 g/dl (31.0-35.0); Mean Corpuscular Hemoglobin 28.8 pg (27.0-33.0); Mean Corpuscular Volume 95.5 fL (80.0-98.0); Mean Platelet Volume 12.6 fL (9.4-12.3); Platelet Count 201 X10*3/uL (160-400); Red Blood Count 3.12 X10*6/uL (4.20-5.50); Red Cell Distribution Width 16.4 % (11.0-16.0); White Blood Count 11.4 X10*3/uL (4.8-10.8)
[2021-08-19 07:25] LABS: Anion Gap 12 (12-20); Blood Urea Nitrogen 24 mg/dL (9-16); Calcium 8.9 mg/dL (8.4-10.2); Carbon Dioxide 26 mmol/L (22-29); Chloride 107 mmol/L (96-108); Estimated Glomerular Filt Rate > 60; Glucose Random 101 mg/dL (60-115); Potassium 4.3 mmol/L (3.3-5.1); Sodium 141 mmol/L (135-145)
== END 2021-08-19 00:01 ==
LOC: HO.MMNH1L
PROVIDERS: Visit Provider Family Medicine
DX: E11.9 Type 2 diabetes mellitus without complications (principal); I25.10 Atherosclerotic heart disease of native coronary artery without angina pectoris
CPT/HCPCS: 36415; 80048; 85027

== ENCOUNTER 2021-08-26 | Outpatient (REF) | payer MEDICARE, SELFPAY ==
[2021-08-26 06:52] LABS: Hematocrit 29.7 % (37.0-47.0); Hemoglobin 8.8 g/dl (12.0-16.0); Mean Corpuscular HGB Conc 29.6 g/dl (31.0-35.0); Mean Corpuscular Hemoglobin 28.8 pg (27.0-33.0); Mean Corpuscular Volume 97.1 fL (80.0-98.0); Mean Platelet Volume 12.4 fL (9.4-12.3); Platelet Count 203 X10*3/uL (160-400); Red Blood Count 3.06 X10*6/uL (4.20-5.50); Red Cell Distribution Width 15.6 % (11.0-16.0); White Blood Count 11.1 X10*3/uL (4.8-10.8)
[2021-08-26 07:20] LABS: Anion Gap 14 (12-20); Blood Urea Nitrogen 19 mg/dL (9-16); Calcium 8.7 mg/dL (8.4-10.2); Carbon Dioxide 25 mmol/L (22-29); Chloride 106 mmol/L (96-108); Estimated Glomerular Filt Rate > 60; Glucose Random 130 mg/dL (60-115); Potassium 4.6 mmol/L (3.3-5.1); Sodium 140 mmol/L (135-145)
== END 2021-08-26 00:01 | disposition home or self-care (01) ==
LOC: HO.MMNH1L
PROVIDERS: Visit Provider Family Medicine
DX: I25.10 Atherosclerotic heart disease of native coronary artery without angina pectoris (principal); E11.9 Type 2 diabetes mellitus without complications
CPT/HCPCS: 36415; 80048; 85027

== ENCOUNTER 2021-09-02 | Outpatient (REF) | payer MEDICARE, SELFPAY ==
[2021-09-02 06:55] LABS: MANUAL DIFF FLAG NO
[2021-09-02 07:01] LABS: Basophils Absolute Auto 0.1 X10*3/uL (0.0-0.2); Basophils Percent Auto 0.7 % (0-2); Eosinophils Absolute Auto 0.4 X10*3/uL (0.0-0.4); Eosinophils Percent Auto 3.5 % (0-4); Hematocrit 31.2 % (37.0-47.0); Hemoglobin 9.5 g/dl (12.0-16.0); Imm Gran Abs Auto 0.16 X10*3/uL (0.00-0.03); Imm Gran Pct Auto 1.3 % (0.0-0.4); Lymphocytes Absolute Auto 1.3 X10*3/uL (1.2-4.9); Lymphocytes Percent Auto 10.3 % (20-40); Mean Corpuscular HGB Conc 30.4 g/dl (31.0-35.0); Mean Corpuscular Hemoglobin 28.7 pg (27.0-33.0); Mean Corpuscular Volume 94.3 fL (80.0-98.0); Mean Platelet Volume 11.6 fL (9.4-12.3); Monocytes Absolute Auto 1.2 X10*3/uL (0.1-1.2); Monocytes Percent Auto 9.4 % (2-11); Neutrophils Absolute Auto 9.1 x10*3/uL (2.0-8.3); Neutrophils Percent Auto 74.8 % (45-73); Platelet Count 267 X10*3/uL (160-400); Red Blood Count 3.31 X10*6/uL (4.20-5.50); Red Cell Distribution Width 14.7 % (11.0-16.0); White Blood Count 12.2 X10*3/uL (4.8-10.8)
[2021-09-02 07:26] LABS: Anion Gap 15 (12-20); Blood Urea Nitrogen 19 mg/dL (9-16); Calcium 8.4 mg/dL (8.4-10.2); Carbon Dioxide 24 mmol/L (22-29); Chloride 107 mmol/L (96-108); Estimated Glomerular Filt Rate > 60; Glucose Random 118 mg/dL (60-115); Potassium 4.6 mmol/L (3.3-5.1); Sodium 141 mmol/L (135-145)
== END 2021-09-02 00:01 | disposition home or self-care (01) ==
LOC: HO.MMNH1L
PROVIDERS: Visit Provider Family Medicine
DX: E11.9 Type 2 diabetes mellitus without complications (principal); I25.10 Atherosclerotic heart disease of native coronary artery without angina pectoris
CPT/HCPCS: 36415; 80048; 85025

== ENCOUNTER 2021-09-09 | Outpatient (REF) | payer MEDICARE, SELFPAY ==
[2021-09-09 07:07] LABS: MANUAL DIFF FLAG NO
[2021-09-09 07:25] LABS: Basophils Absolute Auto 0.1 X10*3/uL (0.0-0.2); Basophils Percent Auto 0.5 % (0-2); Eosinophils Absolute Auto 0.6 X10*3/uL (0.0-0.4); Eosinophils Percent Auto 4.6 % (0-4); Hematocrit 31.3 % (37.0-47.0); Hemoglobin 9.6 g/dl (12.0-16.0); Imm Gran Abs Auto 0.12 X10*3/uL (0.00-0.03); Imm Gran Pct Auto 0.9 % (0.0-0.4); Lymphocytes Absolute Auto 1.2 X10*3/uL (1.2-4.9); Mean Corpuscular HGB Conc 30.7 g/dl (31.0-35.0); Mean Corpuscular Hemoglobin 28.4 pg (27.0-33.0); Mean Corpuscular Volume 92.6 fL (80.0-98.0); Mean Platelet Volume 11.2 fL (9.4-12.3); Monocytes Absolute Auto 1.1 X10*3/uL (0.1-1.2); Neutrophils Absolute Auto 10.1 x10*3/uL (2.0-8.3); Platelet Count 226 X10*3/uL (160-400); Red Blood Count 3.38 X10*6/uL (4.20-5.50); Red Cell Distribution Width 14.4 % (11.0-16.0); White Blood Count 13.1 X10*3/uL (4.8-10.8)
[2021-09-09 07:35] LABS: Anion Gap 12 (12-20); Blood Urea Nitrogen 16 mg/dL (9-16); Calcium 8.6 mg/dL (8.4-10.2); Carbon Dioxide 28 mmol/L (22-29); Chloride 105 mmol/L (96-108); Estimated Glomerular Filt Rate > 60; Glucose Random 126 mg/dL (60-115); Potassium 4.5 mmol/L (3.3-5.1); Sodium 140 mmol/L (135-145)
== END 2021-09-09 00:01 | disposition home or self-care (01) ==
LOC: HO.MMNH1L
PROVIDERS: Visit Provider Family Medicine
DX: I25.10 Atherosclerotic heart disease of native coronary artery without angina pectoris (principal); E11.9 Type 2 diabetes mellitus without complications
CPT/HCPCS: 36415; 80048; 85025

== ENCOUNTER 2021-09-21 12:17 | Observation (INO) | payer MEDICARE, OTHER, SELFPAY ==
--- NOTE | ~2021-09-21 | US_ITS ---
EXAMINATION: US VENOUS ULTRASOUND WITH DOPPLER LOWER EXTREMITY, BILATERAL CLINICAL INFORMATION: DVT, leg swelling. COMPARISON: None TECHNIQUE: Ultrasound of the deep veins is performed from the hip to the calf with compression sonography and color and pulse Doppler assessment. Spectral analysis with color-flow imaging is performed. FINDINGS: RIGHT: There is normal venous compression and respiratory variation and augmented flow. The visualized common femoral vein, superficial femoral vein, profunda femoral vein, popliteal vein, and the trifurcation region shows no evidence of deep venous thrombosis. There is no significant popliteal fossa cyst. LEFT: There is normal venous compression and respiratory variation and augmented flow. The visualized common femoral vein, superficial femoral vein, profunda femoral vein, popliteal vein, and the trifurcation region shows no evidence of deep venous thrombosis. Complex cystic structure in the popliteal fossa likely Bell's cyst 3.8 x 1.1 x 2.1 cm. If the patient's symptoms persist, followup ultrasound in 5 days 7 days might be of value to exclude proximal propagation from a non-visualized calf vein. US/US venous duplex LE BI IMPRESSION: No DVT demonstrated in the both lower extremities. Complex cyst left popliteal fossa likely Bell's cyst 3.8 cm.
--- NOTE | ~2021-09-21 | CT_ITS ---
EXAMINATION: CT CHEST, ABDOMEN AND PELVIS without contrast CLINICAL INFORMATION: Reason for Exam right sided chest pain lung CA, fall. COMPARISON: Multiple prior CT most recent chest CT from June 2020 CT abdomen 2012. TECHNIQUE: Multidetector volumetric CT imaging of the chest abdomen and pelvis obtained Axial MIP volume rendering provided. Sagittal and coronal reformatted images were obtained. This CT examination was performed using dose optimization techniques as appropriate, variously including the following: *Automated exposure control *Adjustment of mA and/or kV according to patient size (this includes techniques or standardized protocols for targeted exams where dose is matched to indication/reason for exam; i.e. extremities or head) *Use of iterative reconstruction technique CONTRAST: Noncontrasted study Reformatted coronal and sagittal imaging was performed. 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 LUNGS: Interstitial: Newly developed Complete dense opacification consolidation of the left lower lobe, few air bronchogram , redemonstration of peripheral small airway disease, bronchiectasis, mucous plugging left upper lobe and lingula, as previously suggested possible atypical infection versus a chronic aspiration among other. Dense consolidation with underlying air bronchogram right upper lobe, masslike opacity right upper lobe 5 x 4.9 cm has increased in size. Compared to 2.4 x 2.9 cm in prior exam. PLEURA: Left pleural effusion. MEDIASTINUM AND DAVON: The visualized thyroid gland is unremarkable. Enlarged bulky pretracheal lymph node measures 3.2 x 2.6 cm this also has enlarged compared to 1.6 cm on prior exam. Right and left hilar adenopathy difficult to visualize due to lack of contrast. THORACIC AORTA: Thoracic aorta is normal in size. CHEST WALL, LOWER NECK, SURROUNDING SOFT TISSUES: Port-A-Cath right chest wall in place. HEART AND PERICARDIUM: Heart is normal in size. There is no pericardial effusion. There are heavy coronary calcifications. HEPATOBILIARY: No focal hepatic lesions. No biliary ductal dilatation. GALLBLADDER: Gallbladder unremarkable. SPLEEN: Spleen is normal in size. PANCREAS: No focal mass or ductal dilatation. GI TRACT: Heavy sigmoid diverticulosis without evidence of diverticulitis. Excess amount of stool in the rectum suggests possible constipation, fecal impaction. No evidence of bowel obstruction. ADRENALS: Right adrenal nodule with low attenuation of its matrix suggesting lipid rich adenoma unchanged. Left adrenal is normal. KIDNEYS/URETERS: There are bilateral renal cysts the largest on the left side measure up to 3 cm unchanged. There is hyperdense structure middle pole right kidney which could be a complex hemorrhagic cyst measure about 8 mm. This can be evaluated by ultrasound. PELVIC ORGANS/BLADDER: Unremarkable PERITONEUM: No free air or fluid. LYMPH NODES: no retroperitoneal or mesenteric lymphadenopathy. VASCULAR:The aorta is heavily calcified nonaneurysmal. BONES, ABDOMINAL WALL AND SOFT TISSUES: Extensive degenerative disease of the thoracolumbar spine. No destructive bone lesion. Arthritis SI joints and hip joints. CT/CT chest wo con IMPRESSION: *Enlarged solid mass right upper lobe 5 x 4.9 cm compared to 2.4 x 2.[address] from June 2021. *Newly developed consolidation atelectasis possibly underlying mass left lower lobe, few air bronchogram, characterization of which is limited on this noncontrasted study, cannot rule out underlying pathology. *Bulky mediastinal lymphadenopathy also has enlarged. *Probably a small left pleural effusion. *Peripheral small airway disease, bronchiectasis, mucus plugging redemonstrated on today's exam possibly atypical infection and/or chronic aspiration. *Heavy sigmoid diverticulosis without evidence of diverticulitis. *Excess amount of stool in the colon especially the rectum suggesting fecal impaction. *Bilateral renal cysts at least one of which is hyperdense 8 mm middle pole right kidney could be a hemorrhagic cyst versus renal lesion, consider correlation with follow-up renal ultrasound. *Stable right adrenal lipid rich adenoma. *No CT evidence of solid organ injury however evaluation again is limited due to lack of contrast. No free air or fluid in the abdomen or pelvis. Extensive degenerative disease of the thoracolumbar spine. *Heavy vascular calcification of the aorta and coronaries.
--- NOTE | ~2021-09-21 | CT_ITS ---
EXAMINATION: CT HEAD W/O IV CONTRAST CT CERVICAL SPINE W/O IV CONTRAST CLINICAL INFORMATION: Head injury. Trauma. COMPARISON: Prior CT exams from 08/29/2020. TECHNIQUE: Head - Contiguous axial imaging of the head was performed from the skull base to the vertex without the administration of intravenous contrast, and axial images are reconstructed at 2 mm and 5 mm slice thickness. Cervical spine - A volumetric, helical CT acquisition of the cervical spine was obtained without contrast; in addition to the standard set of axial images, multiplanar reformatted images were provided in the coronal and sagittal imaging planes. This CT examination was performed using dose optimization techniques as appropriate, variously including the following: *Automated exposure control *Adjustment of mA and/or kV according to patient size (this includes techniques or standardized protocols for targeted exams where dose is matched to indication/reason for exam; i.e. extremities or head) *Use of iterative reconstruction technique DLP: 892 mGy-cm (total) FINDINGS: HEAD: Atherosclerotic calcification of cavernous carotid arteries. The carvalho-white matter differentiation is maintained. No evidence of an acute major vascular territory infarction. No intracranial hemorrhage, extra axial fluid collection, focal mass effect or midline shift. Chronic volume loss of brain parenchyma with commensurate prominence of ventricles and sulci; no hydrocephalus. No acute findings in the posterior fossa. The cerebellar tonsils are in normal position. The calvarium is intact. The visualized paranasal sinuses, mastoid air cells and middle ear cavities are well aerated. The temporomandibular joints are normal. There have been ocular lens extractions. CERVICAL SPINE: No acute findings in the degenerated spine compared to 08/29/2020. The occipital condyles, dens and atlantodental articulation are intact. There is chronic calcium deposition (likely calcium pyrophosphate dihydrate crystal deposition) along the transverse ligament posterior to the dens. Chronic multilevel facet osteoarthritis and degenerative disc disease. There is chronic mild degenerative anterolisthesis at C4-C5, C5-C6, C6-C7 and T1-T2. Degenerative disc space loss is moderate to severe at C5-C6 and severe at C5-C6, C6-C7 and C7-T1. No acute compression fractures. No spinal hematoma. No prevertebral soft tissue swelling. Thyroid gland is unremarkable. A masslike opacity in the anterior right upper lobe in contact with pleura peripheral to chronic bronchiectasis has progressively increased in size compared to 03/03/2017 and 06/29/2020. This likely represents a neoplasm. There is a right chest wall medication port with tip of IJ catheter not included in the [id number]. CT/CT cervical spine wo con IMPRESSION: * No acute intracranial pathology compared to 08/29/2020. * No acute fractures within the severely degenerated cervical spine. * Chronic degenerative anterolisthesis at multiple levels of the cervical and upper thoracic spine. * There has been progressive increased size of the mass in the right upper lobe, consistent with neoplasm.
[2021-09-21 12:25] VITALS: BP 135/59; PULSE 75; O2SAT 96
[2021-09-21 12:27] VITALS: BP 147/63; PULSE 77; TEMP 37.1; O2SAT 96; BMI 19.5
--- NOTE | 2021-09-21 12:53 | ECG_ITS ---
Test Reason : FALL Blood Pressure : / mmHG Vent. Rate : 077 BPM Atrial Rate : 077 BPM P-R Int : 150 ms QRS Dur : 078 ms QT Int : 354 ms P-R-T Axes : 048 004 033 degrees QTc Int : 400 ms Normal sinus rhythm Normal ECG When compared with ECG of 03-JUL-2021 11:48, No significant change was found Referred By: Anni Trevino Electronically Signed By:[place]
--- NOTE | 2021-09-21 12:57 | ED_ITS ---
HPI - Fall General Chief Complaint: Fall Stated Complaint: R SIDED CP W/INSPIRATION S/P FALL LAST NOC PER SNF Time Seen by Provider: 09/21/21 12:53 History of Present Illness HPI Narrative: Patient is 86-year-old female with a history of diabetes, hypertension, lung cancer metastatic to the liver patient presented today with having fallen. Claims that she fell accidentally. Hitting her right chest. Question hitting her head. Prior to the fall patient has been noticing some swelling to her legs. The leg swelling is bilateral. Not associated with diaphoresis. Not associated with any fever chills. No coughing or congestion or upper respiratory symptoms. Patient immunized for COVID. Related Data Home Medications Medication Instructions Recorded Confirmed sitagliptin 50 mg tablet (Januvia) 50 mg PO DAILY 06/29/20 07/03/21 tolterodine 4 mg capsule,extended 4 mg PO DAILY 06/29/20 07/03/21 release 24 hr (Detrol LA) atorvastatin 20 mg tablet 20 mg PO BEDTIME 08/30/20 07/03/21 cholecalciferol (vitamin D3) 25 25 mcg PO DAILY 08/30/20 07/03/21 mcg (1,000 unit) tablet (Vitamin D3) cyanocobalamin (vitamin B-12) 2,000 mcg PO DAILY 05/29/21 07/03/21 2,000 mcg tablet melatonin 10 mg tablet 10 mg PO BEDTIME 05/29/21 07/03/21 diclofenac sodium 1 % topical gel 4 g TOPICAL TID 07/03/21 07/03/21 guaifenesin 100 mg/5 mL oral liquid 100 mg PO Q4H PRN 07/03/21 07/03/21 mirtazapine 15 mg tablet (Remeron) 15 mg PO BEDTIME 07/03/21 07/03/21 ondansetron HCl 4 mg tablet 4 mg PO DAILY 07/03/21 07/03/21 ondansetron HCl 4 mg tablet 4 mg PO Q6H PRN 07/03/21 07/03/21 Previous Rx's Medication Instructions Recorded benzocaine 15 mg-menthol 3.6 mg 1 haven MUCOUS MEMBRANE Q2H PRN #30 06/13/21 lozenges (Cepacol Sore Throat ea (benzocaine-menthol)) metoprolol succinate 25 mg 75 mg PO BID #60 tab 06/13/21 tablet,extended release 24 hr Allergies Allergy/AdvReac Type Severity Reaction Status Date / Time vancomycin Allergy Severe Difficulty Verified 07/03/21 11:21 Breathing PLASTIC TAPE Allergy Intermediate RED RAW Uncoded 07/01/21 11:09 SKIN Review of Systems Review of Systems: Positive generalized malaise. Positive pain to the right chest Yes all other systems are reviewed and are negative [facility] Past Medical History Attestation statement: The following information was validated with the patient. Medical History Amputated toe of left foot Anaphylactoid reaction Cataracts, both eyes Cellulitis Diabetes Falls Femur fracture, left Hx of osteomyelitis Hypercholesteremia Hypertension Leukocytosis Lung cancer Lung cancer MSSA bacteremia PAD (peripheral artery disease) Toe amputee Vancomycin adverse reaction Surgical History H/O umbilical hernia repair Social History Social History Household Members: None Housing: Condominium Do you presently have visiting nurse or other home services: Yes ([facility] Nurse) Alcohol intake: never Patient Tobacco Use Status: Former Tobacco user Advance Directives: Yes Advance Directives on File: Yes Advance Directives Date on File: 07/17/20 service: Yes Current occupational status: retired Physical Exam Vital Signs: Vital Signs: Last Vital Signs Temp 98.8 F 09/21/21 12:27 Pulse 79 09/21/21 14:44 Resp 24 H 09/21/21 14:44 BP 140/59 H 09/21/21 14:44 Pulse Ox 93 09/21/21 14:44 BMI result Body Mass Index 19.5 Appearance: Alert. Oriented X3. No acute distress. Eyes: Pupils equal, round and reactive to light. ENT: Pharynx normal. Neck: Normal inspection. Neck supple. No lymph nodes noted. No crepitus CVS: Normal heart rate and rhythm. Pulses normal. Normal S1 and S2 Respiratory: No respiratory distress. Breath sounds normal. No Wheezing. No rales. Positive right chest wall tenderness no crepitus on palpation Abdomen: Soft and nontender. No rigidity. No distention. good BS x4 Skin: Skin warm and dry. Normal skin color. Normal skin turgor. Extremities: . Neurovascular intact to all extremities. No Lacerations. No Rash. Positive bilateral lower extremity edema Neuro: Oriented X 3. No motor deficit. No sensory deficit. Moving all extermities. No slurred speech MDM - Fall MDM Narrative Medical decision making narrative: CT scan of the head C-spine were negative for any acute evidence of fracture bleed. No malalignment noted. CT scan of the chest abdomen pelvis showed significant tumor burden. Lots of stool. CT the chest showed nondisplaced rib fracture of rib 10 and 11. Likely the cause of patient's pain. There is no associated hemo thorax. There is no associated pneumothorax. Patient complain whenever she moves her pain is excruciating. She lives in an assisted living environment. She has diabetes. She was given pain medication despite that she still complaining of pain. Will admit for further evaluation. In stable condition. Will attempt manual disimpaction to get rid of patient's fecal impaction. Case discussed with hospitalist for admission Medical Records Attestation: I reviewed the patient's medical records. Lab Data Attestation: I reviewed the patient's lab results. Result diagrams: 09/21/21 13:38 09/21/21 13:38 Labs: Lab Results 09/21/21 09/21/21 09/21/21 Range/Units 13:38 13:38 13:38 WBC 14.1 H (4.8-10.8) X10*3/uL RBC 3.82 L (4.20-5.50) X10*6/uL Hgb 11.0 L (12.0-16.0) g/dl Hct 35.3 L (37.0-47.0) % MCV 92.4 (80.0-98.0) fL MCH 28.8 (27.0-33.0) pg MCHC 31.2 (31.0-35.0) g/dl RDW 14.8 (11.0-16.0) % Plt Count 231 (160-400) X10*3/uL MPV 10.3 (9.4-12.3) fL Immature Gran % (Auto) 0.7 H (0.0-0.4) % Neut % (Auto) 79.4 H (45-73) % Lymph % (Auto) 7.8 L (20-40) % [place] % (Auto) 8.8 (2-11) % Eos % (Auto) 2.7 (0-4) % Baso % (Auto) 0.6 (0-2) % Lymph # (Auto) 1.1 L (1.2-4.9) X10*3/uL [place] # (Auto) 1.3 H (0.1-1.2) X10*3/uL Eos # (Auto) 0.4 (0.0-0.4) X10*3/uL Baso # (Auto) 0.1 (0.0-0.2) X10*3/uL Abs Immat Gran (auto) 0.10 H (0.00-0.03) X10*3/uL Absolute Neuts (auto) 11.2 H (2.0-8.3) x10*3/uL Absolute Nucleated RBC 0.000 (0.0-0.012) X10*3/uL Nucleated RBC % (auto) 0.0 (0.0-0.2) /100WBC Sodium 137 (135-145) mmol/L Potassium 4.8 (3.3-5.1) mmol/L Chloride 106 (96-108) mmol/L Carbon Dioxide 20 L (22-29) mmol/L Anion Gap 16 (12-20) BUN 20 H (9-16) mg/dL Creatinine 0.82 (0.5-1.4) mg/dL Estim Creat Clear Calc 41.8 Estimated GFR > 60 Random Glucose 122 H (60-115) mg/dL Calcium 8.8 (8.4-10.2) mg/dL Total Bilirubin 0.4 (0.0-1.0) mg/dL Direct Bilirubin 0.2 (0.0-0.5) mg/dL AST 18 (5-31) U/L ALT 23 (0-31) U/L Alkaline Phosphatase 76 (39-117) U/L Troponin I High Sens < 3.5 (<3.5-17.0) ng/L B-Natriuretic Peptide 272 H (<100) pg/mL Total Protein 6.3 L D (6.5-8.0) g/dL Albumin 3.0 L D (3.5-5.0) g/dL Lipase 24 (8-78) U/L Discharge Plan Discharge Clinical Impression: Constipation, Lung cancer Patient Disposition: Admitted As Inpatient Prescriptions: No Action tolterodine [Detrol LA] 4 mg Capsule,Extended Release 24hr 4 mg PO DAILY 0RF Januvia 50 mg Tablet 50 mg PO DAILY 0RF atorvastatin 20 mg Tablet 20 mg PO BEDTIME 0RF cholecalciferol (vitamin D3) [Vitamin D3] 25 mcg (1,000 unit) Tablet 25 mcg PO DAILY 0RF melatonin 10 mg Tablet 10 mg PO BEDTIME 0RF cyanocobalamin (vitamin B-12) 2,000 mcg Tablet 2,000 mcg PO DAILY 0RF Cepacol Sore Throat (kaden-men) 15-3.6 mg Lozenge 1 haven mucous membrane Q2H PRN (Reason: Sore Throat) Qty: 30 0RF metoprolol succinate 25 mg Tablet Extended Release 24 Hr 75 mg PO BID Qty: 60 0RF Protocol: Hold for SBP/HR < HOLD for SBP < : 90 HOLD for HR < : 60 ondansetron HCl 4 mg Tablet 4 mg PO DAILY 0RF ondansetron HCl 4 mg Tablet 4 mg PO Q6H PRN (Reason: Nausea) 0RF guaifenesin 100 mg/5 mL Liquid 100 mg PO Q4H PRN (Reason: Cough) 0RF mirtazapine [Remeron] 15 mg Tablet 15 mg PO BEDTIME 0RF diclofenac sodium 1 % Gel 4 g TOPICAL TID 0RF Rx Instructions: apply to right shoulder
[2021-09-21 13:42] LABS: MANUAL DIFF FLAG NO
[2021-09-21 13:43] LABS: Basophils Absolute Auto 0.1 X10*3/uL (0.0-0.2); Basophils Percent Auto 0.6 % (0-2); Eosinophils Absolute Auto 0.4 X10*3/uL (0.0-0.4); Eosinophils Percent Auto 2.7 % (0-4); Hematocrit 35.3 % (37.0-47.0); Imm Gran Pct Auto 0.7 % (0.0-0.4); Lymphocytes Absolute Auto 1.1 X10*3/uL (1.2-4.9); Lymphocytes Percent Auto 7.8 % (20-40); Mean Corpuscular HGB Conc 31.2 g/dl (31.0-35.0); Mean Corpuscular Hemoglobin 28.8 pg (27.0-33.0); Mean Corpuscular Volume 92.4 fL (80.0-98.0); Mean Platelet Volume 10.3 fL (9.4-12.3); Monocytes Absolute Auto 1.3 X10*3/uL (0.1-1.2); Monocytes Percent Auto 8.8 % (2-11); Neutrophils Absolute Auto 11.2 x10*3/uL (2.0-8.3); Neutrophils Percent Auto 79.4 % (45-73); Platelet Count 231 X10*3/uL (160-400); Red Blood Count 3.82 X10*6/uL (4.20-5.50); Red Cell Distribution Width 14.8 % (11.0-16.0); White Blood Count 14.1 X10*3/uL (4.8-10.8)
[2021-09-21 14:09] LABS: B Type Natriuretic Peptide 272 pg/mL (<100); Troponin-I High Sensitivity < 3.5 ng/L (<3.5-17.0)
[2021-09-21 14:13] LABS: Alanine Aminotransferase 23 U/L (0-31); Alkaline Phosphatase 76 U/L (39-117); Anion Gap 16 (12-20); Aspartate Amino Transferase 18 U/L (5-31); Bilirubin Direct 0.2 mg/dL (0.0-0.5); Bilirubin Total 0.4 mg/dL (0.0-1.0); Blood Urea Nitrogen 20 mg/dL (9-16); Calcium 8.8 mg/dL (8.4-10.2); Carbon Dioxide 20 mmol/L (22-29); Chloride 106 mmol/L (96-108); Creatinine Clr Calc Pharmacy 41.8; Estimated Glomerular Filt Rate > 60; Glucose Random 122 mg/dL (60-115); Lipase 24 U/L (8-78); Potassium 4.8 mmol/L (3.3-5.1); Sodium 137 mmol/L (135-145); Total Protein 6.3 g/dL (6.5-8.0)
[2021-09-21 14:44] VITALS: BP 140/59; PULSE 79; RESP 24; O2SAT 93
[2021-09-21] MEDS: HYDROmorphone HCl 0.5 MG/0.5 ML SYRINGE IVPUSH (15:08)
[2021-09-21] MEDS: HYDROmorphone HCl 0.5 MG/0.5 ML SYRINGE 0.25 MG IVPUSH (16:44)
[2021-09-21] MEDS: Sodium Phosphate,Mono-Dibasic 133 ML ENEMA PR (16:49)
[2021-09-21] MEDS: 0.9 % Sodium Chloride 500 ML 999 ML IV (16:52)
--- NOTE | 2021-09-21 17:29 | P.HPHOSP_ITS ---
History of Present Illness Date of Service: 09/21/21 Attending physician on admission: Heather Perrin Chief Complaint: fall ,rib fracture 85yo F with DM2 with foot ulcer, hx osteomyelitis + MSSA bacteremia, HTN, HLD, and lung CA metastasized to liver on immunotherapy?-patient coming to the hospital because of status post mechanical fall she said last night she was trying to walk with her walker and then walker stuck, and she fall back- afterwards she started to have pain in the right side of chest and assisted living subsequently transfer her to hospital for evaluation. Patient had multiple imaging studies-found to have and large solid mass right upper lobe, also newly developed consolidation/atelectasis and possible mass in the left lower lobe , bulky lymphadenopathy mediastinal. Also patient had found to have excessive stool in the colon, and rectal impaction. Patient is having significant pain due to rib fractures-intractable pain is the reason for admission. Patient was given IV Dilaudid 2 times in the ED still having pain. Patient is not sure how many days she did not passed the bowels. Stool disimpaction was done in ED as well as patient was given enema produce last amount of stool. Patient denies any chest pain or shortness of breath or nausea or vomiting or a ny urinary complaints, no fevers Patient is poor historian. Review of Systems Review of Systems: As above. Yes all other systems are reviewed and are negative [facility] Medical History Amputated toe of left foot Anaphylactoid reaction Cataracts, both eyes Cellulitis Diabetes Falls Femur fracture, left Hx of osteomyelitis Hypercholesteremia Hypertension Leukocytosis Lung cancer Lung cancer MSSA bacteremia PAD (peripheral artery disease) Toe amputee Vancomycin adverse reaction Pertinent family history: Patient is unable to tell any family history Surgical History H/O umbilical hernia repair Social History Household Members: None Housing: Condominium Do you presently have visiting nurse or other home services: Yes ([facility]) Alcohol intake: never Patient Tobacco Use Status: Former Tobacco user Advance Directives: Yes Advance Directives on File: Yes Advance Directives Date on File: 03/02/21 service: Yes Current occupational status: retired Meds Allergies Allergy/AdvReac Type Severity Reaction Status Date / Time vancomycin Allergy Severe Difficulty Verified 07/03/21 11:21 Breathing PLASTIC TAPE Allergy Intermediate RED RAW Uncoded 07/01/21 11:09 SKIN Active Medications: Current Medications Acetaminophen (Acetaminophen 325 Mg Tablet) 975 mg PO TID [facility] Dextrose (Dextrose 50 % 25 Gm/50 Ml Syringe) 25 gm IVPUSH Q15M PRN; Protocol PRN Reason: per Hypoglycemia Standing Ord. Glucose (Glucose Gel 15 Gm Gel..Gram.) 15 gm PO Q15M PRN; Protocol PRN Reason: per Hypoglycemia Standing Ord. Heparin Sodium (Porcine) (Heparin Sodium,Porcine 5,000 Unit/Ml Vial) 5,000 unit SUBCUT Q8H [facility] Insulin Human Lispro (Insulin Lispro 100 Unit/Ml 3 Ml Vial) 0 unit SUBCUT QIDACHS [facility]; Protocol Lidocaine (Lidocaine 4 % Patch Adh..Patch) 1 patch TRANSDERMA DAILY [facility]; Prot ocol Oxycodone HCl (Oxycodone Hcl Immed Release 5 Mg Tablet) 5 mg PO Q6H [facility] Pharmacy Consult (Consult Rx Perform Med Rec) 1 each MISCELLANE ONCE PRN PRN Reason: Consult order Sodium Chloride (0.9 % Sodium Chloride Flush 3 Ml Syringe) 3 ml IVFLUSH QSHIFT [facility] Home Medications Medication Instructions Recorded Confirmed Last Taken Type sitagliptin 50 mg tablet (Januvia) 50 mg PO DAILY 06/29/20 07/03/21 07/03/21 History tolterodine 4 mg capsule,extended 4 mg PO DAILY 06/29/20 07/03/21 07/03/21 History release 24 hr (Detrol LA) atorvastatin 20 mg tablet 20 mg PO BEDTIME 08/30/20 09/21/21 07/02/21 History cholecalciferol (vitamin D3) 25 25 mcg PO DAILY 08/30/20 07/03/21 07/03/21 History mcg (1,000 unit) tablet (Vitamin D3) cyanocobalamin (vitamin B-12) 2,000 mcg PO DAILY 05/29/21 07/03/21 07/03/21 History 2,000 mcg tablet melatonin 10 mg tablet 10 mg PO BEDTIME 05/29/21 07/03/21 07/02/21 History diclofenac sodium 1 % topical gel 4 g TOPICAL TID 07/03/21 09/21/21 07/03/21 History guaifenesin 100 mg/5 mL oral liquid 100 mg PO Q4H PRN 07/03/21 07/03/21 Unknown History mirtazapine 15 mg tablet (Remeron) 15 mg PO BEDTIME 07/03/21 07/03/21 07/02/21 History ondansetron HCl 4 mg tablet 4 mg PO DAILY 07/03/21 09/21/21 07/03/21 History ondansetron HCl 4 mg tablet 4 mg PO Q6H PRN 07/03/21 07/03/21 Unknown History Physical Exam Vital Signs and Narrative: Vital Signs: Last Vital Signs Temp 98.8 F 09/21/21 12:27 Pulse 79 09/21/21 14:44 Resp 24 H 09/21/21 14:44 BP 140/59 H 09/21/21 14:44 Pulse Ox 93 09/21/21 14:44 BMI result Body Mass Index 19.5 Appearance: Alert.? Oriented X3.? in pain, frail and chronically sick-looking woman. Eyes: Pupils equal, round and reactive to light.? Sclera nonicteric.? ENT: Pharynx normal.? Moist mucous membranes. cvs: rrr, [id number] , no murmur res: cair entry fair but poor efforts due to pain ,no rales or wheezing. abd: no rebound or guarding ,nt, bs present. ext pulses present , no cyanosis. neuro: axo3 , moves all ext. Results Labs CBC and Chem 7: 09/21/21 13:38 09/21/21 13:38 Labs: Laboratory Results - last 24 hr 09/21/21 09/21/21 09/21/21 13:38 13:38 13:38 MCV 92.4 MCH 28.8 MCHC 31.2 RDW 14.8 Plt Count 231 MPV 10.3 Immature Gran % (Auto) 0.7 H Neut % (Auto) 79.4 H Lymph % (Auto) 7.8 L [place] % (Auto) 8.8 Eos % (Auto) 2.7 Baso % (Auto) 0.6 Lymph # (Auto) 1.1 L [place] # (Auto) 1.3 H Eos # (Auto) 0.4 Baso # (Auto) 0.1 Abs Immat Gran (auto) 0.10 H Absolute Neuts (auto) 11.2 H Absolute Nucleated RBC 0.000 Nucleated RBC % (auto) 0.0 Anion Gap 16 Estim Creat Clear Calc 41.8 Estimated GFR > 60 Random Glucose 122 H Calcium 8.8 Total Bilirubin 0.4 Direct Bilirubin 0.2 AST 18 ALT 23 Alkaline Phosphatase 76 Troponin I High Sens < 3.5 B-Natriuretic Peptide 272 H Total Protein 6.3 L D Albumin 3.0 L D Lipase 24 Imaging Radiologist's Impressions: Impressions Abdomen/Pelvis CT 09/21/21 14:26 IMPRESSION: *Enlarged solid mass right upper lobe 5 x 4.9 cm compared to 2.4 x 2.[address] from June 2021. *Newly developed consolidation atelectasis possibly underlying mass left lower lobe, few air bronchogram, characterization of which is limited on this noncontrasted study, cannot rule out underlying pathology. *Bulky mediastinal lymphadenopathy also has enlarged. *Probably a small left pleural effusion. *Peripheral small airway disease, bronchiectasis, mucus plugging redemonstrated on today's exam possibly atypical infection and/or chronic aspiration. *Heavy sigmoid diverticulosis without evidence of diverticulitis. *Excess amount of stool in the colon especially the rectum suggesting fecal impaction. *Bilateral renal cysts at least one of which is hyperdense 8 mm middle pole right kidney could be a hemorrhagic cyst versus renal lesion, consider correlation with follow-up renal ultrasound. *Stable right adrenal lipid rich adenoma. *No CT evidence of solid organ injury however evaluation again is limited due to lack of contrast. No free air or fluid in the abdomen or pelvis. Extensive degenerative disease of the thoracolumbar spine. *Heavy vascular calcification of the aorta and coronaries. Chest CT 09/21/21 14:26 IMPRESSION: *Enlarged solid mass right upper lobe 5 x 4.9 cm compared to 2.4 x 2.[address] from June 2021. *Newly developed consolidation atelectasis possibly underlying mass left lower lobe, few air bronchogram, characterization of which is limited on this noncontrasted study, cannot rule out underlying pathology. *Bulky mediastinal lymphadenopathy also has enlarged. *Probably a small left pleural effusion. *Peripheral small airway disease, bronchiectasis, mucus plugging redemonstrated on today's exam possibly atypical infection and/or chronic aspiration. *Heavy sigmoid diverticulosis without evidence of diverticulitis. *Excess amount of stool in the colon especially the rectum suggesting fecal impaction. *Bilateral renal cysts at least one of which is hyperdense 8 mm middle pole right kidney could be a hemorrhagic cyst versus renal lesion, consider correlation with follow-up renal ultrasound. *Stable right adrenal lipid rich adenoma. *No CT evidence of solid organ injury however evaluation again is limited due to lack of contrast. No free air or fluid in the abdomen or pelvis. Extensive degenerative disease of the thoracolumbar spine. *Heavy vascular calcification of the aorta and coronaries. Venous Duplex 09/21/21 14:29 IMPRESSION: No DVT demonstrated in the both lower extremities. Complex cyst left popliteal fossa likely Bell's cyst 3.[address] 09/21/21 14:38 IMPRESSION: * No acute intracranial pathology compared to 08/29/2020. * No acute fractures within the severely degenerated cervical spine. * Chronic degenerative anterolisthesis at multiple levels of the cervical and upper thoracic spine. * There has been progressive increased size of the mass in the right upper lobe, consistent with neoplasm. Head CT 09/21/21 14:38 IMPRESSION: * No acute intracranial pathology compared to 08/29/2020. * No acute fractures within the severely degenerated cervical spine. * Chronic degenerative anterolisthesis at multiple levels of the cervical and upper thoracic spine. * There has been progressive increased size of the mass in the right upper lobe, consistent with neoplasm. Assessment and Plan (1) Constipation: Status: Acute (2) Lung cancer: Status: Acute Plan 85yo F with HTN, HLD, DM2, metastatic lung CA on immunotherapy, hx MSSA bacteremia associated with diabetic foot ulcer, hx sepsis from R foot osteomyelitis with breakthrough Covid-19 not requiring supplemental O2. Sent from assisted living after mechanical fall, has rib fractures rib fx and fall: Pain control with IV Dilaudid, Tylenol, oxycodone, lidoacine patch. Bowel regimen-considering required Dr. PASTOR impaction and enema. 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 - pt under care of Dr Youssef at [facility] and is on pembrolizumab, last infusion was HLD - statin HTN - metoprolol succinate DM2 - correction-dose insulin lispro VTE ppx - SCDs; hold off on heparinoids due to thrombocytopenia Above management discussed with patient niece miss Cárdenas and patient-they both understand and in agreement with the above plan, time spent 70 minute, patient is DNR DNI. Quality Stroke Does the patient have a stroke diagnosis?: No VTE Prior VTE?: No VTE Risk Level:: Medical - moderate - high VTE Device Contraindication: N/A - Device Ordered VTE Drug Contraindication: N/A - Med Ordered
--- NOTE | 2021-09-21 17:55 | PHA.MEDREC ---
med rec complete, no issues Pharmacy Consult ? Medication Reconciliation Pharmacy has completed the medication reconciliation.
[2021-09-21] MEDS: Heparin Sodium,Porcine 5,000 UNIT/ML VIAL 5000 UNIT SUBCUT (19:35)
[2021-09-21] MEDS: Lidocaine 4 % Patch ADH..PATCH 1 PATCH TRANSDERMA (19:36)
[2021-09-21] MEDS: oxyCODONE HCl Immed Release 5 MG TABLET PO (19:37)
[2021-09-21] MEDS: Mirtazapine 7.5 MG TABLET PO (19:37)
[2021-09-21] MEDS: Lactated Ringers 1,000 ML 80 ML IVCONT (19:38)
[2021-09-21 20:17] LABS: COVID-19 Test Negative (Negative)
[2021-09-21] MEDS: Acetaminophen 325 MG TABLET 975 MG PO (22:04)
[2021-09-21] MEDS: Metoprolol Succinate ER 25 MG TAB.ER.24H 75 MG PO (22:04)
[2021-09-21] MEDS: Docusate Sodium 100 MG CAPSULE PO (22:04)
[2021-09-21] MEDS: Melatonin 3 MG TABLET 9 MG PO (22:04)
[2021-09-21] MEDS: Atorvastatin Calcium 20 MG TABLET PO (22:05)
[2021-09-21] MEDS: polyethylene glycoL 3350 17 GM POWD.PACK PO (22:05)
[2021-09-21 22:09] LABS: Glucose, Whole Blood 133 mg/dL (60-115)
[2021-09-21] MEDS: ondansetron HCL 4 MG/2 ML VIAL IVPUSH (22:10)
[2021-09-21 22:25] VITALS: BP 147/69; PULSE 85; RESP 20; TEMP 36.4; O2SAT 93
[2021-09-21 23:41] VITALS: BP 155/71; PULSE 82; RESP 18; TEMP 37.2; O2SAT 95
[2021-09-22] VITALS (9 sets, daily range): BP systolic 117–135; BP diastolic 55–67; PULSE 74–84; RESP 18–22; TEMP 36.3–37.1; O2SAT 94–98; BMI 20.1
[2021-09-22] MEDS: oxyCODONE HCl Immed Release 5 MG TABLET PO ×4 (00:09→17:29)
[2021-09-22] MEDS: Heparin Sodium,Porcine 5,000 UNIT/ML VIAL 5000 UNIT SUBCUT ×3 (03:28→17:29)
[2021-09-22 06:59] LABS: Hematocrit 29.1 % (37.0-47.0); Hemoglobin 8.9 g/dl (12.0-16.0); Mean Corpuscular HGB Conc 30.6 g/dl (31.0-35.0); Mean Corpuscular Hemoglobin 28.2 pg (27.0-33.0); Mean Corpuscular Volume 92.1 fL (80.0-98.0); Mean Platelet Volume 10.6 fL (9.4-12.3); Platelet Count 219 X10*3/uL (160-400); Red Blood Count 3.16 X10*6/uL (4.20-5.50); Red Cell Distribution Width 14.6 % (11.0-16.0); White Blood Count 9.2 X10*3/uL (4.8-10.8)
[2021-09-22 07:10] LABS: Anion Gap 15 (12-20); Blood Urea Nitrogen 15 mg/dL (9-16); Calcium 8.3 mg/dL (8.4-10.2); Carbon Dioxide 24 mmol/L (22-29); Chloride 108 mmol/L (96-108); Creatinine Clr Calc Pharmacy 53.7; Estimated Glomerular Filt Rate > 60; Glucose Random 97 mg/dL (60-115); Potassium 4.7 mmol/L (3.3-5.1); Sodium 142 mmol/L (135-145)
[2021-09-22] MEDS: Albuterol/Iprat 2.5/0.5MG 3 ML AMPUL.NEB INHALE ×3 (07:36→19:13)
[2021-09-22 07:43] LABS: Glucose, Whole Blood 81 mg/dL (60-115)
--- NOTE | 2021-09-22 08:17 | HO.PM.IMPN ---
Subjective Subjective Date of Service: 09/22/21 Interval History: intractable pain Review of Systems rib area pain seemsimproving Physical Exam Vital Signs: Vital Signs: Last Vital Signs Temp 97.3 F 09/22/21 04:00 Pulse 74 09/22/21 07:37 Resp 20 09/22/21 07:37 BP 128/58 L 09/22/21 04:00 Pulse Ox 94 09/22/21 04:00 BMI result Body Mass Index 20.1 Appearance: Alert.? Oriented X3.? in pain, chronically sick-looking woman. cvs: rrr, [id number] , no murmur res: cair entry fair but poor efforts due to pain ,no rales or wheezing. abd: no rebound or guarding ,nt, bs present. ext pulses present , no cyanosis. neuro: axo3 , moves all ext. Objective Data Active Medications Acetaminophen (Acetaminophen 325 Mg Tablet) 975 mg PO TID [facility] Last Admin: 09/21/21 22:04 Dose: 975 mg Documented by: KADEN Albuterol/Ipratropium (Albuterol/Iprat 2.5/0.5mg 3 Ml Ampul.Neb) 3 ml INHALE RQ4H WHILE AWAKE [facility] Last Admin: 09/22/21 07:36 Dose: 3 ml Documented by: DEXTER Atorvastatin Calcium (Atorvastatin Calcium 20 Mg Tablet) 20 mg PO BEDTIME [facility] Last Admin: 09/21/21 22:05 Dose: 20 mg Documented by: KADEN Cyanocobalamin (Cyanocobalamin (Vitamin B-12) 1,000 Mcg Tablet) 2,000 mcg PO DAILY [facility] Dextrose (Dextrose 50 % 25 Gm/50 Ml Syringe) 25 gm IVPUSH Q15M PRN; Protocol PRN Reason: per Hypoglycemia Standing Ord. Docusate Sodium (Docusate Sodium 100 Mg Capsule) 100 mg PO BID [facility] Last Admin: 09/21/21 22:04 Dose: 100 mg Documented by: KADEN Glucose (Glucose Gel 15 Gm Gel..Gram.) 15 gm PO Q15M PRN; Protocol PRN Reason: per Hypoglycemia Standing Ord. Heparin Sodium (Porcine) (Heparin Sodium,Porcine 5,000 Unit/Ml Vial) 5,000 unit SUBCUT Q8H [facility] Last Admin: 09/22/21 03:28 Dose: 5,000 unit Documented by: VANESSA Hydromorphone HCl (Hydromorphone Hcl 0.5 Mg/0.5 Ml Syringe) 0.25 mg IVPUSH Q6H PRN; Protocol PRN Reason: Pain, Moderate (Pain Scale 4-6 Lactated Ringer's (Lr) 1,000 mls @ 80 mls/hr IVCONT .[id number] [facility] Last Admin: 09/21/21 19:38 Dose: 80 mls/hr Documented by: KADEN Insulin Human Lispro (Insulin Lispro 100 Unit/Ml 3 Ml Vial) 0 unit SUBCUT QIDACHS [facility]; Protocol Last Admin: 09/22/21 07:47 Dose: Not Given Documented by: HARRIET Non-Admin Reason: No Insulin Coverage Lidocaine (Lidocaine 4 % Patch Adh..Patch) 1 patch TRANSDERMA DAILY [facility]; Protocol Last Admin: 09/21/21 19:36 Dose: 1 patch Documented by: KADEN Melatonin (Melatonin 3 Mg Tablet) 9 mg PO BEDTIME [facility] Last Admin: 09/21/21 22:04 Dose: 9 mg Documented by: KADEN Metoprolol Succinate (Metoprolol Succinate Er 25 Mg Tab.Er.24h) 75 mg PO BID [facility]; Protocol Last Admin: 09/21/21 22:04 Dose: 75 mg Documented by: KADEN Mirtazapine (Mirtazapine 7.5 Mg Tablet) 7.5 mg PO BEDTIME [facility] Last Admin: 09/21/21 19:37 Dose: 7.5 mg Documented by: KADEN Non-Formulary Medication (Diclofenac Sodium) 4 gm TOPICAL TID [facility] Ondansetron HCl (Ondansetron Hcl 4 Mg/2 Ml Vial) 4 mg IVPUSH Q8H PRN PRN Reason: Nausea Last Admin: 09/21/21 22:10 Dose: 4 mg Documented by: KADEN Oxycodone HCl (Oxycodone Hcl Immed Release 5 Mg Tablet) 5 mg PO Q6H [facility] Last Admin: 09/22/21 06:10 Dose: 5 mg Documented by: HELLEN Pharmacy Consult (Consult Rx Perform Med Rec) 1 each MISCELLANE ONCE PRN PRN Reason: Consult order Polyethylene Glycol (Polyethylene Glycol 3350 17 Gm Powd.Pack) 17 gm PO BID [facility] Last Admin: 09/21/21 22:05 Dose: 17 gm Documented by: KADEN Sodium Chloride (0.9 % Sodium Chloride Flush 3 Ml Syringe) 3 ml IVFLUSH QSHIFT [facility] Last Admin: 09/22/21 00:15 Dose: Not Given Documented by: VANESSA Non-Admin Reason: IV Running Tolterodine Tartrate (Tolterodine Tartrate La 4 Mg Cap.Er.24h) 4 mg PO DAILY [facility] Vitamin D (Cholecalciferol (Vitamin D3) 25 Mcg Tablet) 25 mcg PO DAILY [facility] Labs CBC & Chem 7: 09/22/21 06:09 09/22/21 06:09 Labs: Laboratory Results - last 24 hr 09/21/21 09/21/21 09/21/21 13:38 13:38 13:38 MCV 92.4 MCH 28.8 MCHC 31.2 RDW 14.8 Plt Count 231 MPV 10.3 Immature Gran % (Auto) 0.7 H Neut % (Auto) 79.4 H Lymph % (Auto) 7.8 L [place] % (Auto) 8.8 Eos % (Auto) 2.7 Baso % (Auto) 0.6 Lymph # (Auto) 1.1 L [place] # (Auto) 1.3 H Eos # (Auto) 0.4 Baso # (Auto) 0.1 Abs Immat Gran (auto) 0.10 H Absolute Neuts (auto) 11.2 H Absolute Nucleated RBC 0.000 Nucleated RBC % (auto) 0.0 Anion Gap 16 Estim Creat Clear Calc 41.8 Estimated GFR > 60 POC Glucose Random Glucose 122 H Calcium 8.8 Total Bilirubin 0.4 Direct Bilirubin 0.2 AST 18 ALT 23 Alkaline Phosphatase 76 Troponin I High Sens < 3.5 B-Natriuretic Peptide 272 H Total Protein 6.3 L D Albumin 3.0 L D Lipase 24 COVID-19 (FADY) COVID-19 Clin Com 09/21/21 09/21/21 09/22/21 19:47 22:00 06:09 MCV 92.1 MCH 28.2 MCHC 30.6 L RDW 14.6 Plt Count 219 MPV 10.6 Immature Gran % (Auto) Neut % (Auto) Lymph % (Auto) [place] % (Auto) Eos % (Auto) Baso % (Auto) Lymph # (Auto) [place] # (Auto) Eos # (Auto) Baso # (Auto) Abs Immat Gran (auto) Absolute Neuts (auto) Absolute Nucleated RBC 0.000 Nucleated RBC % (auto) 0.0 Anion Gap Estim Creat Clear Calc Estimated GFR POC Glucose 133 H Random Glucose Calcium Total Bilirubin Direct Bilirubin AST ALT Alkaline Phosphatase Troponin I High Sens B-Natriuretic Peptide Total Protein Albumin Lipase COVID-19 (FADY) Negative COVID-19 Clin Com See Note 09/22/21 09/22/21 06:09 07:24 MCV MCH MCHC RDW Plt Count MPV Immature Gran % (Auto) Neut % (Auto) Lymph % (Auto) [place] % (Auto) Eos % (Auto) Baso % (Auto) Lymph # (Auto) [place] # (Auto) Eos # (Auto) Baso # (Auto) Abs Immat Gran (auto) Absolute Neuts (auto) Absolute Nucleated RBC Nucleated RBC % (auto) Anion Gap 15 Estim Creat Clear Calc 53.7 Estimated GFR > 60 POC Glucose 81 Random Glucose 97 Calcium 8.3 L Total Bilirubin Direct Bilirubin AST ALT Alkaline Phosphatase Troponin I High Sens B-Natriuretic Peptide Total Protein Albumin Lipase COVID-19 (FADY) COVID-19 Clin Com Assessment and Plan (1) Constipation: Status: Acute (2) Rib fracture: Status: Acute Plan 85yo F with HTN, HLD, DM2, metastatic lung CA on immunotherapy, hx MSSA bacteremia associated with diabetic foot ulcer, hx sepsis from R foot osteomyelitis with breakthrough Covid-19 not requiring supplemental O2. Sent from assisted living after mechanical fall, has? rib fractures rib fx and fall: Pain control with IV Dilaudid, Tylenol, oxycodone, lidoacine patch. Bowel regimen-considering required Dr. PASTOR impaction and enema. 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 - pt under care of Dr Youssef at [facility] and is on pembrolizumab, last infusion was in may as per patient. ?HLD - statin HTN - metoprolol succinate ?DM2 - correction-dose insulin lispro VTE ppx - SCDs; hold off on heparinoids due to thrombocytopenia ?need for inaptient: rib fx pain ,pt eval Quality Stroke Does the patient have a stroke diagnosis?: No VTE Prior VTE?: No VTE Risk Level:: Medical - moderate - high VTE Device Contraindication: N/A - Device Ordered VTE Drug Contraindication: N/A - Med Ordered
[2021-09-22] MEDS: Metoprolol Succinate ER 25 MG TAB.ER.24H 75 MG PO ×2 (08:19→20:18)
[2021-09-22] MEDS: Tolterodine Tartrate LA 4 MG CAP.ER.24H PO (08:19)
[2021-09-22] MEDS: Acetaminophen 325 MG TABLET 975 MG PO ×2 (08:19→20:18)
[2021-09-22] MEDS: Lactated Ringers 1,000 ML 80 ML IVCONT ×2 (08:20→20:17)
[2021-09-22] MEDS: Lidocaine 4 % Patch ADH..PATCH 1 PATCH TRANSDERMA (08:20)
[2021-09-22] MEDS: Docusate Sodium 100 MG CAPSULE PO ×2 (08:20→20:19)
[2021-09-22] MEDS: Cholecalciferol (Vitamin D3) 25 MCG TABLET PO (08:20)
[2021-09-22] MEDS: Cyanocobalamin (Vitamin B-12) 1,000 MCG TABLET 2000 MCG PO (08:20)
[2021-09-22] MEDS: 0.9 % Sodium Chloride Flush 3 ML SYRINGE IVFLUSH ×3 (08:24→20:18)
[2021-09-22] MEDS: polyethylene glycoL 3350 17 GM POWD.PACK PO ×2 (08:24→20:18)
[2021-09-22 11:59] LABS: Glucose, Whole Blood 194 mg/dL (60-115)
[2021-09-22] MEDS: Insulin Lispro 100 UNIT/ML 3 ML VIAL SUBCUT ×2 (12:00→20:18)
--- NOTE | 2021-09-22 14:07 | MHC.CM.PN ---
PT REPORTS SHE LIVES ALONE HOWEVER RECENTLY MOVED TO THE [facility] ON A TRIAL BASIS PT REPORTS SHE IS HOPING TO RETURN HOME WHERE SHE LIVES ALONE BUT IS UNSURE IF THAT WILL HAPPEN SHE HAS FALLEN MULTIPLE TIMES PT REPORTS SHE HAS NO SERVICES AT HOME AND USES A WALKER TO AMBULANCE PT HAS A HCP AND MOLST ON FILE PCP: KERRY RAMOS PT IS VACCINATED WITH PFIZER X 2 IMM DELIVERED CURRENT DC PLAN IS RETURN TO THE [facility] VIA FAMILY TRANSPORT PT REPORTS SHE WAS RECENTLY AT [facility] AND WOULD WANT TO RETURN THERE IF INDICATED ALTHOUGH SHE DOES NOT EXPECT TO NEED STR. PT CONFIRMS HER HCP IS HER NIECE, BIANCA ESPINOSA ([phone]) SHE DECLINES CM OFFER TO CONTACT HER SAYING SHE WAS UPDATED YESTERDAY.
[2021-09-22 16:07] LABS: Glucose, Whole Blood 114 mg/dL (60-115)
[2021-09-22 19:33] LABS: Glucose, Whole Blood 184 mg/dL (60-115)
[2021-09-22] MEDS: Mirtazapine 7.5 MG TABLET PO (20:18)
[2021-09-22] MEDS: Melatonin 3 MG TABLET 9 MG PO (20:19)
[2021-09-22] MEDS: Atorvastatin Calcium 20 MG TABLET PO (20:19)
[2021-09-23] VITALS: BP 130/65; PULSE 77; RESP 20; TEMP 36.9; O2SAT 95
[2021-09-23] MEDS: oxyCODONE HCl Immed Release 5 MG TABLET PO ×3 (00:20→13:29)
[2021-09-23] MEDS: Heparin Sodium,Porcine 5,000 UNIT/ML VIAL 5000 UNIT SUBCUT ×2 (00:21→09:02)
[2021-09-23 04:00] VITALS: BP 139/63; RESP 20; TEMP 36.4; O2SAT 94
[2021-09-23] MEDS: Lactated Ringers 1,000 ML 80 ML IVCONT (06:14)
[2021-09-23 07:37] VITALS: BP 163/87; PULSE 74; RESP 18; TEMP 36.4; O2SAT 95
[2021-09-23] MEDS: Albuterol/Iprat 2.5/0.5MG 3 ML AMPUL.NEB INHALE ×2 (07:42→11:15)
[2021-09-23 07:44] VITALS: PULSE 74; RESP 18; O2SAT 95
[2021-09-23 07:44] LABS: Glucose, Whole Blood 82 mg/dL (60-115)
[2021-09-23] MEDS: Lidocaine 4 % Patch ADH..PATCH 1 PATCH TRANSDERMA (09:00)
[2021-09-23] MEDS: polyethylene glycoL 3350 17 GM POWD.PACK PO (09:00)
[2021-09-23] MEDS: Cholecalciferol (Vitamin D3) 25 MCG TABLET PO (09:01)
[2021-09-23] MEDS: Acetaminophen 325 MG TABLET 975 MG PO (09:01)
[2021-09-23] MEDS: 0.9 % Sodium Chloride Flush 3 ML SYRINGE IVFLUSH (09:01)
[2021-09-23] MEDS: Metoprolol Succinate ER 25 MG TAB.ER.24H 75 MG PO (09:01)
[2021-09-23] MEDS: Cyanocobalamin (Vitamin B-12) 1,000 MCG TABLET 2000 MCG PO (09:01)
[2021-09-23] MEDS: Docusate Sodium 100 MG CAPSULE PO (09:02)
[2021-09-23] MEDS: Tolterodine Tartrate LA 4 MG CAP.ER.24H PO (09:02)
[2021-09-23] MEDS: HYDROmorphone HCl 0.5 MG/0.5 ML SYRINGE 0.25 MG IVPUSH (09:36)
[2021-09-23 11:17] VITALS: PULSE 71; RESP 16; O2SAT 92
[2021-09-23 11:24] VITALS: BP 138/59; PULSE 77; RESP 18; TEMP 36.6; O2SAT 100
[2021-09-23 11:32] LABS: Glucose, Whole Blood 109 mg/dL (60-115)
--- NOTE | 2021-09-23 12:53 | MHC.CM.PN ---
per rounds pt to have pt eval whic indicated need for str referrals have been made
--- NOTE | 2021-09-23 13:21 | MHC.CM.PN ---
called and spoke with pts niece ralph blackwood ,notified of pts dc today she will call her aunt to coordinate bringing her clothing
--- NOTE | 2021-09-23 13:33 | PM.DS ---
DS: Providers Provider Date of Service: 09/23/21 Date of admission: 09/21/21 17:06 Primary care physician: Pelon Haddad MD DS: Diagnosis Discharge Diagnosis (1) Constipation: Status: Acute (2) Rib fracture: Status: Acute DS: Summary Hospital Course Hospital Course: 85yo F with DM2 with foot ulcer, hx osteomyelitis + MSSA bacteremia, HTN, HLD, and lung CA metastasized to liver on immunotherapy?-patient coming to the hospital because of status post mechanical fall she said last night she was trying to walk with her walker and then walker stuck, and she fall back-afterwards she started to have pain in the right side of chest and assisted living subsequently transfer her to hospital for evaluation. Patient had multiple imaging studies-found to have and large solid mass right upper lobe, also newly developed consolidation/atelectasis and possible mass in the left lower lobe , bulky lymphadenopathy mediastinal. Also patient had found to have excessive stool in the colon, and rectal impaction. Patient is having significant pain due to rib fractures-intractable pain is the reason for admission.? Patient was given IV Dilaudid 2 times in the ED still having pain. Patient is not sure how many days she did not passed the bowels.? Stool disimpaction was done in ED as well as patient was given enema produce last amount of stool. Patient denies any chest pain or shortness of breath or nausea or vomiting or any urinary complaints, no fevers Patient is poor historian. hospital course: Patient came to the hospital because of mechanical fall and had rib fractures as well as intractable pain-started on IV pain medications and subsequently patient's pain seems to be improving, patient will be going to rehab with p.o. pain medications and lidocaine patch. Continue incentive spirometry and chest physiotherapy. 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 d/w oncology and patient family (daughter)-patient needs to follow up outpatiently with her oncologist. Patient also had constipation-laxative added, monitor for bowel movement since patient is on oxycodone for pain. Left lower leg pain seems to be improved, DVT study negative. If develops leg pain again please repeat DVT study in 1 week. Incidental on abdominal CT:Bilateral renal cysts at least one of which is hyperdense 8 mm middle pole right kidney could be a hemorrhagic cyst versus renal lesion, consider correlation with follow-up renal ultrasound. Please follow-up with ultrasound study outpatient. ? Above management discussed the patient and her daughter in detail length about understand and in agreement with the above plan. Seen by PT recommended rehab-patient going to rehab [facility]. Significant findings: As above. Procedures performed: None. Treatment and response: As above. Complications: None. Time Spent with Patient Time attestation: Total time spent providing and/or coordinating discharge services: Discharge coordination time: Greater than 30 minutes Quality: Safe Use of Opioids Does Pt have an Active Cancer Diagnosis on the Problem List?: No Quality: Stroke Does the patient have a stroke diagnosis?: No Physical Exam Vital Signs: Vital Signs: Last Vital Signs Temp 97.9 F 09/23/21 11:24 Pulse 77 09/23/21 11:24 Resp 18 09/23/21 11:24 BP 138/59 L 09/23/21 11:24 Pulse Ox 100 09/23/21 11:24 BMI result Body Mass Index 20.1 Appearance: Alert.? Oriented X3.? in pain,? chronically sick-looking woman. cvs: rrr, [id number] , no murmur res: cair entry fair but ,no rales or wheezing. abd: no rebound or guarding ,nt, bs present. ext pulses present , no cyanosis. neuro: axo3 , moves all ext. DS: Data Data Completed and Pending Completed studies during hospitalization [Text1]: Procedures Insertion of Infusion Device into Superior Vena Cava, Percutaneous Approach (06/29/20) Introduction of Remdesivir Anti-infective into Peripheral Vein, Percutaneous Approach, [employer] (05/29/21) Transfusion of Nonautologous Red Blood Cells into Peripheral Vein, Percutaneous Approach (07/03/21) Ultrasonography of Superior Vena Cava, Guidance (06/29/20) Labs on day of discharge: Laboratory Results - last 24 hr 09/22/21 09/22/21 09/22/21 06:09 15:28 19:09 POC Glucose 114 184 H Total Creatine Kinase 14 L D 09/23/21 09/23/21 07:37 11:26 POC Glucose 82 109 Total Creatine Kinase Additional Comments Additional comments: ?CT/CT abdomen pelvis wo con IMPRESSION: *Enlarged solid mass right upper lobe 5 x 4.9 cm compared to 2.4 x 2.[address] from June 2021. ? *Newly developed consolidation atelectasis possibly underlying mass left lower lobe, few air bronchogram, characterization of which is limited on this noncontrasted study, cannot rule out underlying pathology. ? *Bulky mediastinal lymphadenopathy also has enlarged. ? *Probably a small left pleural effusion. ? *Peripheral small airway disease, bronchiectasis, mucus plugging redemonstrated on today's exam possibly atypical infection and/or chronic aspiration. ? *Heavy sigmoid diverticulosis without evidence of diverticulitis. ? *Excess amount of stool in the colon especially the rectum suggesting fecal impaction. ? *Bilateral renal cysts at least one of which is hyperdense 8 mm middle pole right kidney could be a hemorrhagic cyst versus renal lesion, consider correlation with follow-up renal ultrasound. ? *Stable right adrenal lipid rich adenoma. ? *No CT evidence of solid organ injury however evaluation again is limited due to lack of contrast. No free air or fluid in the abdomen or pelvis. Extensive degenerative disease of the thoracolumbar spine. ? *Heavy vascular calcification of the aorta and coronaries. CT/CT chest wo con IMPRESSION: *Enlarged solid mass right upper lobe 5 x 4.9 cm compared to 2.4 x 2.[address] cm on [address] from June 2021. ? *Newly developed consolidation atelectasis possibly underlying mass left lower lobe, few air bronchogram, characterization of which is limited on this noncontrasted study, cannot rule out underlying pathology. ? *Bulky mediastinal lymphadenopathy also has enlarged. ? *Probably a small left pleural effusion. ? *Peripheral small airway disease, bronchiectasis, mucus plugging redemonstrated on today's exam possibly atypical infection and/or chronic aspiration. ? *Heavy sigmoid diverticulosis without evidence of diverticulitis. ? *Excess amount of stool in the colon especially the rectum suggesting fecal impaction. ? *Bilateral renal cysts at least one of which is hyperdense 8 mm middle pole right kidney could be a hemorrhagic cyst versus renal lesion, consider correlation with follow-up renal ultrasound. ? *Stable right adrenal lipid rich adenoma. ? *No CT evidence of solid organ injury however evaluation again is limited due to lack of contrast. No free air or fluid in the abdomen or pelvis. Extensive degenerative disease of the thoracolumbar spine. ? *Heavy vascular calcification of the aorta and coronaries. US/US venous duplex LE BI IMPRESSION: No DVT demonstrated in the both lower extremities. ? Complex cyst left popliteal fossa likely Bell's cyst 3.8 cm. Discharge Plan Discharge Patient Disposition: Xfer [facility] Discharge Diagnosis: rib fracture , lung cancer Referrals: [facility] [Other] - 1 Week Pelon Haddad MD [Primary Care Provider] - 1 Week Discharge Medications: New acetaminophen 325 mg Tablet 975 mg PO NEEDED Qty: 15 0RF Rx Instructions: USE as needed for pain polyethylene glycol 3350 17 gram Powder In Packet 17 g PO NEEDED Qty: 10 0RF docusate sodium 100 mg Capsule 100 mg PO BID Qty: 30 0RF oxycodone 5 mg Tablet 10 mg PO Q6H Qty: 20 0RF lidocaine 4 % adhesive patch,medicated 1 patch topical DAILY PRN (Reason: pain) Qty: 10 0RF Rx Instructions: apply in afftected rib fracture area Continued tolterodine [Detrol LA] 4 mg Capsule,Extended Release 24hr 4 mg PO DAILY 0RF Januvia 50 mg Tablet 50 mg PO DAILY 0RF atorvastatin 20 mg Tablet 20 mg PO BEDTIME 0RF cholecalciferol (vitamin D3) [Vitamin D3] 25 mcg (1,000 unit) Tablet 25 mcg PO DAILY 0RF melatonin 10 mg Tablet 10 mg PO BEDTIME 0RF cyanocobalamin (vitamin B-12) 2,000 mcg Tablet 2,000 mcg PO DAILY 0RF metoprolol succinate 25 mg Tablet Extended Release 24 Hr 75 mg PO BID Qty: 60 0RF Protocol: Hold for SBP/HR < HOLD for SBP < : 90 HOLD for HR < : 60 ondansetron HCl 4 mg Tablet 4 mg PO DAILY 0RF diclofenac sodium 1 % Gel 4 g TOPICAL TID 0RF Rx Instructions: apply to right shoulder Combivent Respimat 20-100 mcg/actuation Mist 1 puff INHALATION DAILY 0RF Rx Instructions: space evenly during waking hours mirtazapine 7.5 mg Tablet 7.5 mg PO BEDTIME 0RF Stiolto Respimat 2.5-2.5 mcg/actuation Mist 2 puff INHALATION DAILY 0RF Discharge Orders: Discharge Order (Routine); Ordered 09/23/21 Ordered By: Heather Perrin Diet: advance to usual diet Activity on Discharge: As tolerated Stand Alone Forms: Patient Portal Discharge page Care Plan Goals: Patient came to the hospital because of mechanical fall and had rib fractures as well as intractable pain-started on IV pain medications and subsequently patient's pain seems to be improving, patient will be going to rehab with p.o. pain medications and lidocaine patch. Continue incentive spirometry and chest physiotherapy. 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 d/w oncology and patient family (daughter)-patient needs to follow up outpatiently with her oncologist. Above management discussed the patient and her daughter in detail length about understand and in agreement with the above plan. Seen by PT recommended rehab. Health Concerns: As above. Plan of Treatment: As above. Assessment: As above.
== END 2021-09-23 14:45 | disposition skilled nursing facility (03) ==
LOC: HO.ED 16:29 → HO.EDOVER 17:24 → HO.IMC 22:45
PROVIDERS: Admitting Provider Internal Medicine; Emergency Provider Emergency Medicine Emergency Medical Services; PCP Internal Medicine; Visit Provider Internal Medicine
DX: K59.00 Constipation, unspecified (principal); C34.11 Malignant neoplasm of upper lobe, right bronchus or lung; C78.7 Secondary malignant neoplasm of liver and intrahepatic bile duct; S22.41XA Multiple fractures of ribs, right side, initial encounter for closed fracture; M79.89 Other specified soft tissue disorders; W18.09XA Striking against other object with subsequent fall, initial encounter; Y93.01 Activity, walking, marching and hiking; Y92.099 Unspecified place in other non-institutional residence as the place of occurrence of the external cause; Y99.8 Other external cause status; R59.0 Localized enlarged lymph nodes; E11.69 Type 2 diabetes mellitus with other specified complication; M86.9 Osteomyelitis, unspecified; B95.61 Methicillin susceptible Staphylococcus aureus infection as the cause of diseases classified elsewhere; Z16.21 Resistance to vancomycin; I10 Essential (primary) hypertension; E78.5 Hyperlipidemia, unspecified; E78.00 Pure hypercholesterolemia, unspecified; I73.9 Peripheral vascular disease, unspecified; N28.1 Cyst of kidney, acquired; I70.0 Atherosclerosis of aorta; I25.10 Atherosclerotic heart disease of native coronary artery without angina pectoris; D72.829 Elevated white blood cell count, unspecified; M71.22 Synovial cyst of popliteal space [Baker], left knee; Z87.891 Personal history of nicotine dependence; Z20.822 Contact with and (suspected) exposure to COVID-19; Z96.89 Presence of other specified functional implants; Z98.42 Cataract extraction status, left eye; Z98.41 Cataract extraction status, right eye; Z89.422 Acquired absence of other left toe(s); Z88.1 Allergy status to other antibiotic agents; Z88.3 Allergy status to other anti-infective agents; Z88.8 Allergy status to other drugs, medicaments and biological substances; Z79.4 Long term (current) use of insulin; Z79.899 Other long term (current) drug therapy
CPT/HCPCS: 36415; 70450; 71250; 72125; 74176; 80048; 80076; 82550; 82947; 83690; 83880; 84484; 85025; 85027; 87635; 93005; 93970; 96361; 96374; 96375; 96376; 97162; 99219; 99285; J1170; J2405